=== PATIENT | male | born 1975 | race Caucasian/White ===

== ENCOUNTER 2016-08-26 13:25 | Emergency (ER) | payer SELFPAY ==
--- NOTE | 2016-08-26 13:40 | ER Document Report ---
ED Psych Disorder / Suicide <ROMERO SHULTZ - Last Filed: 08/26/16 14:00> - General Mode of Arrival: Medic Information source: Patient, Law Enforcement, Emergency Med Personnel TRAVEL OUTSIDE OF THE [place] IN LAST 30 DAYS: No - HPI Patient complains to provider of: Suicidal ideation Associated symptoms: Other - See above <KAMILLE DRAPER - Last Filed: 08/26/16 14:04> <MARI NICHOLS - Last Filed: 08/26/16 23:57> - General Chief Complaint: Suicidal Ideation Stated Complaint: SUICIDIAL IDEATIONS Notes: Patient is a 41 year old male who presents to the emergency department via EMS for suicidal ideation. Per [employer], patient had called EMS this morning reporting he wanted to hurt himself but refused a miner pick, he then started calling others stating the same thing. Police were called and sent an ambulance to miner pick the patient who was found intoxicated and blew a 0.34. Patient appears very intoxicated in exam room and does not answer questions well. (KAMILLE DRAPER) - Related Data Allergies/Adverse Reactions: No Known Allergies Allergy (Verified 04/12/16 02:37) Past Medical History - General Information source: Patient - Social History Smoking Status: Current Every Day Smoker Family History: Reviewed & Not Pertinent - Past Medical History Cardiac Medical History: Reports: Hx Hypertension Neurological Medical History: Reports: Hx Seizures - on Depakote Psychiatric Medical History: Reports: Hx Anxiety, Hx Bipolar Disorder, Hx Depression Past Surgical History: Reports: Hx Oral Surgery - Immunizations Hx Diphtheria, Pertussis, Tetanus Vaccination: Yes - given in er today <KAMILLE DRAPER - Last Filed: 08/26/16 14:04> Review of Systems - Review of Systems -: Yes ROS unobtainable due to patient's medical condition - EtOH Respiratory: No symptoms reported <KAMILLE DRAPER - Last Filed: 08/26/16 14:04> Physical Exam - Vital signs Interpretation: Other - As per chart, reviewed <ROMERO SHULTZ - Last Filed: 08/26/16 14:00> <KAMILLE DRAPER - Last Filed: 08/26/16 14:04> <MARI NICHOLS - Last Filed: 08/26/16 23:57> - Vital signs Vitals: Temp Pulse Resp BP Pulse Ox 98.5 F 109 H 18 138/96 H 95 08/26/16 13:43 08/26/16 13:43 08/26/16 13:43 08/26/16 13:43 08/26/16 13:43 - Notes Notes: GENERAL: VS as per nursing doc. Well-appearing, well-nourished and in no acute distress though has slurred speech and grossly appears intoxicated. HEAD: Atraumatic, normocephalic. EYES: Pupils equal round and reactive to light, extraocular movements intact, sclera anicteric, no conjunctival injection or discharge. Horizontal nystagmus noted. ENT: Nares patent, oropharynx clear without exudates, moist mucous membranes. NECK: Normal range of motion, supple without lymphadenopathy. LUNGS: Breath sounds clear to auscultation bilaterally and equal. No wheezes rales or rhonchi. HEART: Regular rhythm without murmurs. Tachycardic. ABDOMEN: Soft, non-tender. BACK: No CVA tenderness. EXTREMITIES: Normal range of motion, no calf tenderness, no edema. NEUROLOGICAL: Grossly intact, moving all extremities well. Limited due to apparent intoxication. SKIN: Warm, dry, normal turgor. (ROMERO SHULTZ) Course - Laboratory Result Diagrams: 08/26/16 13:56 08/26/16 13:56 <MARI NICHOLS - Last Filed: 08/26/16 23:57> - Vital Signs Vital signs: Temp Pulse Resp BP Pulse Ox 98.3 F 88 18 126/88 H 93 08/26/16 18:27 08/26/16 20:00 08/26/16 20:00 08/26/16 20:00 08/26/16 18:27 - Laboratory Laboratory results interpreted by me: 08/26/16 08/26/16 13:56 13:56 Hgb 17.2 H RDW 14.7 H Sodium 153.4 H Chloride 113 H Carbon Dioxide 20 L Anion Gap 20 H Salicylates < 1.0 L Acetaminophen < 10 L Serum Alcohol 434 H* Discharge <ROMERO SHULTZ - Last Filed: 08/26/16 14:00> <KAMILLE DRAPER - Last Filed: 08/26/16 14:04> <MARI NICHOLS - Last Filed: 08/26/16 23:57> - Discharge Clinical Impression: Alcohol intoxication Qualifiers: Complication of substance-induced condition: uncomplicated Qualified Code(s): F10.120 - Alcohol abuse with intoxication, uncomplicated Condition: Good Disposition: HOME, SELF-CARE Additional Instructions: You were seen in the emergency department today for being drunk. Being seen in the emergency department after drinking alcohol is a serious indicator that you have a problem with alcohol. You should seek help with the attached resources for your problem drinking. Please return to the emergency room immediately if you experience any concerning symptoms including high fevers, severe headache, chest pain, difficulty breathing, abdominal pain, slurred speech, numbness or weakness in your arms or legs, or any other symptom that concerns you. Scribe Documentation - Scribe Written by Sandra:: sandra [place], 08/26/16, 1408 acting as scribe for :: Dillon <KAMILLE DRAPER - Last Filed: 08/26/16 14:04>
[2016-08-26 14:14] LABS: ABSOLUTE EOSINOPHILS # (AUTO) 0.1 10^3/uL (0.0-0.6); ABSOLUTE LYMPHOCYTES (AUTO) 2.9 10^3/uL (0.5-4.7); ABSOLUTE MONOCYTES (AUTO) 0.8 10^3/uL (0.1-1.4); ABSOLUTE NEUT (AUTO) 4.6 10^3/uL (1.7-8.2); BASOPHILS % (AUTO) 0.5 % (0-2); HEMATOCRIT 49.1 % (37.9-51.0); HEMOGLOBIN 17.2 g/dL (13.5-17.0); HGB HCT DIFFERENCE 2.5; LYMPHOCYTES % (AUTO) 34.7 % (13-45); MEAN CORPUSCULAR HEMOGLOBIN 31.7 pg (27.0-33.4); MEAN CORPUSCULAR HGB CONC 35.1 g/dL (32.0-36.0); MEAN CORPUSCULAR VOLUME 91 fl (80-97); MONOCYTES % (AUTO) 9.5 % (3-13); RED BLOOD COUNT 5.42 10^6/uL (4.35-5.55); RED CELL DISTRIBUTION WIDTH 14.7 % (11.5-14.0); SEGMENTED NEUTROPHILS % (AUTO) 54.3 % (42-78); WHITE BLOOD COUNT 8.4 10^3/uL (4.0-10.5)
[2016-08-26 14:38] LABS: BLOOD UREA NITROGEN 9 mg/dL (7-20); CALCIUM 8.9 mg/dL (8.4-10.2); CARBON DIOXIDE 20 mmol/L (22-30); CHLORIDE 113 mmol/L (98-107); CREATININE RESULT 0.74 mg/dL (0.52-1.25); GLUCOSE 100 mg/dL (75-110); POTASSIUM 4.5 mmol/L (3.6-5.0); SODIUM 153.4 mmol/L (137-145)
[2016-08-26 14:48] LABS: URINE BARBITURATES SCREEN NEGATIVE; URINE METHADONE SCREEN NEGATIVE; URINE OPIATES LOW NEGATIVE; URINE PHENCYCLIDINE SCREEN NEGATIVE
[2016-08-26 14:58] LABS: ALCOHOL 434 mg/dL (NONE DETECTED)
[2016-08-26] MEDS ORDERED: DEXTROSE 5%-1/2 NORMAL SALINE 1,000 ML IV ONE (15:07)
[2016-08-26 15:16] LABS: ANION GAP 20 (5-19)
[2016-08-26] MEDS ORDERED: HALOPERIDOL LACTATE INJ 5 MG/1 ML VIAL IM ONE ×2 (16:43→17:08)
[2016-08-26] MEDS ORDERED: DIPHENHYDRAMINE HCL 50 MG/ML VIAL IM ONE ×2 (16:44→17:09)
[2016-08-26] MEDS ORDERED: HALOPERIDOL LACTATE INJ 5 MG/1 ML VIAL IV ONE (16:45)
[2016-08-26] MEDS ORDERED: DIPHENHYDRAMINE HCL 50 MG/ML VIAL IV ONE (16:46)
[2016-08-26] MEDS ORDERED: LORAZEPAM INJ 2 MG/1 ML VIAL IM ONE (17:10)
--- NOTE | 2016-08-26 23:56 | ER Document Report ---
Doctor's Note Notes: 08/26/16 23:55 Patient reassessed for wicute alcohol intoxication without any additional acute complaints. Admits to heavy alcohol use today. No evidence of trauma on exam. Patient was monitored in the emergency department until they were clinically sober. Able to ambulate and talking clear sentences prior to discharge. Tolerating oral intake without difficulty. Denies SI to both me and the nurse. Does not meet IVC criteria. The patient has been instructed to seek help for alcohol detoxification. Will discharge and return precautions and follow-up recommendations.
[2016-08-27 00:10] VITALS: BP 156/98
[2016-08-27 00:11] LABS: ALCOHOL 142 mg/dL (NONE DETECTED); ANION GAP 18 (5-19); BLOOD UREA NITROGEN 9 mg/dL (7-20); CALCIUM 9.3 mg/dL (8.4-10.2); CARBON DIOXIDE 23 mmol/L (22-30); CHLORIDE 106 mmol/L (98-107); CREATININE RESULT 0.69 mg/dL (0.52-1.25); GLUCOSE 122 mg/dL (75-110); POTASSIUM 3.9 mmol/L (3.6-5.0); SODIUM 146.7 mmol/L (137-145)
== END 2016-08-27 00:12 | disposition home or self-care (01) ==
LOC: ER 13:25
DX: R45.851 Suicidal ideations (principal); F10.120 Alcohol abuse with intoxication, uncomplicated; I10 Essential (primary) hypertension; F17.200 Nicotine dependence, unspecified, uncomplicated
CPT/HCPCS: 99284; 96372; 96375; 96365; 96366; 36415; 80307 ×4; 85025; 80048; J1200; J1630; J2060

== ENCOUNTER 2018-05-31 23:26 | Inpatient (IN) | payer SELFPAY ==
[2018-05-31] MEDS ORDERED: FENTANYL CITRATE INJ/PF 100 MCG/2 ML AMPUL IV ONE (23:40)
[2018-05-31] MEDS ORDERED: ONDANSETRON HCL INJ/PF 4 MG/2 ML SDV IV ONE (23:40)
[2018-05-31] MEDS ORDERED: NORMAL SALINE 1000 ML 1,000 ML IV ONE (23:40)
[2018-06-01] MEDS ORDERED: PANTOPRAZOLE SODIUM 40 MG VIAL IV ONE (00:14)
[2018-06-01 00:50] LABS: ABSOLUTE BASOPHILS # (AUTO) 0.1 10^3/uL (0.0-0.2); ABSOLUTE LYMPHOCYTES (AUTO) 1.4 10^3/uL (0.5-4.7); ABSOLUTE MONOCYTES (AUTO) 1.3 10^3/uL (0.1-1.4); ABSOLUTE NEUT (AUTO) 15.3 10^3/uL (1.7-8.2); BASOPHILS % (AUTO) 0.6 % (0-2); EOSINOPHILS % (AUTO) 0.1 % (0-6); HEMATOCRIT 48.3 % (37.9-51.0); LYMPHOCYTES % (AUTO) 7.9 % (13-45); MEAN CORPUSCULAR VOLUME 95 fl (80-97); MONOCYTES % (AUTO) 7.2 % (3-13); PLATELET COUNT 256 10^3/uL (150-450); RED CELL DISTRIBUTION WIDTH 13.2 % (11.5-14.0); SEGMENTED NEUTROPHILS % (AUTO) 84.2 % (42-78); TOTAL CELLS COUNTED % (AUTO) 100 %; WHITE BLOOD COUNT 18.1 10^3/uL (4.0-10.5)
[2018-06-01 00:57] LABS: ALANINE AMINOTRANSFERASE 837 U/L (21-72); ALBUMIN 4.3 g/dL (3.5-5.0); ALKALINE PHOSPHATASE 149 U/L (38-126); ANION GAP 11 (5-19); ASPARTATE AMINO TRANSFERASE 683 U/L (17-59); BILIRUBIN,DIRECT 0.6 mg/dL (0.0-0.4); BILIRUBIN,TOTAL 1.3 mg/dL (0.2-1.3); BLOOD UREA NITROGEN 13 mg/dL (7-20); CARBON DIOXIDE 23 mmol/L (22-30); CHLORIDE 98 mmol/L (98-107); GLUCOSE 94 mg/dL (75-110); LIPASE 448.1 U/L (23-300); POTASSIUM 4.8 mmol/L (3.6-5.0); SODIUM 131.6 mmol/L (137-145); TOTAL PROTEIN 7.3 g/dL (6.3-8.2)
[2018-06-01 01:03] LABS: HEMOGLOBIN 16.2 g/dL (13.5-17.0); MEAN CORPUSCULAR HEMOGLOBIN 31.8 pg (27.0-33.4); MEAN CORPUSCULAR HGB CONC 33.5 g/dL (32.0-36.0)
[2018-06-01] MEDS ORDERED: HYDROMORPHONE HCL INJ/PF 2 MG/ML AMPULE IV ONE ×2 (01:07→02:10)
--- NOTE | 2018-06-01 01:11 | ER Document Report ---
ED General - General Chief Complaint: Abdominal Pain Stated Complaint: ABDOMINAL PAIN Time Seen by Provider: 05/31/18 23:30 Notes: Patient is 43-year-old male who presents with complaint of pain in epigastric region that has been ongoing since this morning. Last drink of alcohol was last night. He says he drinks every other day. No fevers. Some vomiting. No diarrhea. No blood in his emesis. No blood in the stool. No chest pain. He denies ever having pain like this before. He denies history of pancreatitis. No other complaints at this time. TRAVEL OUTSIDE OF THE [place] IN LAST 30 DAYS: No - Related Data Allergies/Adverse Reactions: No Known Allergies Allergy (Verified 04/12/16 02:37) Past Medical History - Social History Smoking Status: Current Every Day Smoker Chew tobacco use (# tins/day): No Frequency of alcohol use: Heavy Drug Abuse: None, Marijuana Family History: Reviewed & Not Pertinent Patient has suicidal ideation: No Patient has homicidal ideation: No - Past Medical History Cardiac Medical History: Reports: Hx Hypertension Pulmonary Medical History: Denies: Hx Tuberculosis Neurological Medical History: Reports: Hx Seizures - on Depakote Renal/ Medical History: Denies: Hx Peritoneal Dialysis Psychiatric Medical History: Reports: Hx Anxiety, Hx Bipolar Disorder, Hx Depression Past Surgical History: Reports: Hx Oral Surgery - Immunizations Hx Diphtheria, Pertussis, Tetanus Vaccination: Yes - given in er today Review of Systems - Review of Systems Notes: My Normal Review Basic REVIEW OF SYSTEMS: CONSTITUTIONAL : Denies fever, chills, or sweats. Denies recent illness. CARDIOVASCULAR: Denies chest pain. RESPIRATORY: Denies cough, cold, or chest congestion. Denies shortness of breath, difficulty breathing, or wheezing. GASTROINTESTINAL: Epigastric abdominal pain with vomiting. GENITOURINARY: Denies difficulty urinating, painful urination, burning, frequency, or blood in urine. MUSCULOSKELETAL: Denies neck or back pain or joint pain or swelling. SKIN: Denies rash or skin lesions. NEUROLOGICAL: Denies altered mental status or loss of consciousness. Denies headache. Denies weakness or paralysis or loss of use of either side. Denies problems with gait or speech. Denies sensory or motor loss. ALL OTHER SYSTEMS REVIEWED AND NEGATIVE. Physical Exam - Vital signs Vitals: Pulse Resp BP Pulse Ox 139 H 18 167/123 H 97 05/31/18 23:38 05/31/18 23:38 05/31/18 23:38 05/31/18 23:38 - Notes Notes: General Appearance: Well nourished, alert, cooperative, no acute distress, moderate obvious discomfort. Vitals: reviewed, See vital signs table. Head: no swelling or tenderness to the head Eyes: PERRL, EOMI, Conjuctiva clear Mouth: No decreasd moisture Lungs: No wheezing, No rales, No rhonci, No accessory muscle use, good air exchange bilaterally. Heart: Normal rate, Regular rythm, No murmur, no rub Abdomen: Normal BS, soft, No rigidity, no significant reproducible pain to palpation of the abdomen., No guarding, no rebound, no abdominal masses, no organomegaly Extremities: strength 5/5 in all extremities, good pulses in all extremities, no swelling or tenderness in the extremities, no edema. Skin: warm, dry, appropriate color, no rash Neuro: speech clear, oriented x 3, normal affect, responds appropriately to questions. Course - Re-evaluation Re-evalutation: 06/01/18 01:09 On reevaluation patient continues to have significant pain but does not have much pain to palpation of the abdomen. CT scan with IV contrast has been ordered to evaluate the pancreas will be better as well as also look at the gallbladder. 06/01/18 02:29 CT scan shows inflammation around the pancreas consistent with acute pancreatitis with associated area in the pancreatic tail concerning for small pseudocyst versus mass versus necrosis. I did discuss the case with our hospitalist, Dr. Espinoza, who says that the patient would probably be better served at a tertiary care facility being that we do not have surgical especially the be willing to do surgery on the pancreas if this turns out to be hemorrhagic lesion or worsening necrosis. I therefore called [facility] and spoke with the hospitalist, Dr. Farooq, who agrees to accept the patient for transfer. They said there is a waiting list. I will continue the patient on pain medicine, IV fluids, and IV antibiotics until patient is transferred. I will also continue to give him some benzodiazepines a suspect as he may be having some signs of withdrawal as he started to have little bit of shaking which could be related to anxiety but also related to withdrawal. Dictation of this chart was performed using voice recognition software; therefore, there may be some unintended grammatical errors. 06/01/18 05:22 - Vital Signs Vital signs: Temp Pulse Resp BP Pulse Ox 99 F 139 H 21 H 168/108 H 97 06/01/18 04:01 05/31/18 23:38 06/01/18 05:03 06/01/18 05:02 05/31/18 23:38 - Laboratory Result Diagrams: 06/01/18 00:25 06/01/18 00:25 Laboratory results interpreted by me: 05/31/18 06/01/18 06/01/18 23:55 00:25 00:25 WBC 18.1 H Seg Neutrophils % 84.2 H Lymphocytes % 7.9 L Absolute Neutrophils 15.3 H Sodium 131.6 L Direct Bilirubin 0.6 H AST 683 H ALT 837 H Alkaline Phosphatase 149 H Lipase 448.1 H Urine Protein 30 H Urine Ketones 20 H Discharge - Discharge Clinical Impression: Pancreatic pseudocyst Pancreatitis Qualifiers: Chronicity: acute Pancreatitis type: alcohol induced Acute pancreatitis compl ication: unspecified Qualified Code(s): K85.20 - Alcohol induced acute pancreatitis without necrosis or infection Condition: Stable Disposition: [facility]
[2018-06-01 01:20] LABS: APPEARANCE,URINE SLIGHTLY-CLOUDY; BILIRUBIN,URINE NEGATIVE (NEGATIVE); COLOR,URINE AMBER; GLUCOSE, URINE NEGATIVE (NEGATIVE); KETONES,URINE 20 mg/dL (NEGATIVE); LEUKOCYTE ESTERASE,URINE NEGATIVE (NEGATIVE); NITRITE,URINE NEGATIVE (NEGATIVE); PROTEIN,URINE 30 mg/dL (NEGATIVE); UROBILINOGEN,URINE NEGATIVE mg/dL (<2.0)
--- NOTE | 2018-06-01 02:00 | RADIOLOGY REPORT (SQ) ---
EXAM DESCRIPTION: CT ABDOMEN PELVIS WITH IV CONTRAST COMPLETED DATE/TME: 06/01/2018 01:08 CLINICAL HISTORY: 43 years, Male, upper abdominal pain Comparison: None TECHNIQUE: Contiguous axial CT images of the abdomen and pelvis were obtained. Sagittal and coronal reformats were reviewed. This exam was performed according to our departmental dose-optimization program, which includes automated exposure control, adjustment of the mA and/or kV according to patient size and/or use of iterative reconstruction technique. FINDINGS: Lung bases: Clear. Liver:Unremarkable. No focal liver lesion. Gallbladder:Unremarkable. No gallstones. No gallbladder wall thickening or pericholecystic fluid. Spleen:Unremarkable Pancreas: Inflammatory fat stranding and trace fluid is present surrounding the pancreatic tail and in the left upper quadrant. There is a 1.5 x 1.3 cm hypodensity in the tip of the pancreatic tail. This may represent a pseudocyst, necrosis or mass lesion. The main pancreatic duct is not dilated. Adrenal glands:Within normal limits. Kidneys/ureters:Within normal limits Stomach/small bowel/colon: Stomach is unremarkable. Multiple prominent loops of small bowel throughout the abdomen. No discrete transition point. No mucosal thickening. Colon is unremarkable. Appendix: No evidence of appendicitis. Peritoneum: No free fluid. Vascular structures: within normal limits Lymph nodes: No abnormal lymph nodes. Bladder:Unremarkable. Pelvic organs: No acute abnormality Bones: No acute osseous abnormality. Soft tissues: Unremarkable.. IMPRESSION: Findings most consistent with acute pancreatitis and associated reactive ileus. Hypodensity in the tail of the pancreas may represent a small pseudocyst, however, area of parenchymal necrosis and mass lesions are also in the differential. Recommend follow-up imaging in 6-8 weeks.
[2018-06-01] MEDS ORDERED: DIAZEPAM INJ 10 MG/2 ML DISP.SYRIN IV ONE (02:10)
[2018-06-01] MEDS ORDERED: PIPERACILLIN/TAZOBACTAM 4.5 GM VIAL IV ONE (02:13)
[2018-06-01] MEDS ORDERED: RINGERS SOLUTION,LACTATED 1,000 ML IV ONE (02:35)
[2018-06-01] MEDS: HYDROMORPHONE HCL INJ/PF 2 MG/ML AMPULE IV PRN ×6 (04:02→18:58)
[2018-06-01] MEDS ORDERED: PIPERACILLIN/TAZOBACTAM 4.5 GM VIAL IV SCH (06:00)
[2018-06-01] MEDS: DIAZEPAM INJ 10 MG/2 ML DISP.SYRIN IV SCH ×3 (06:06→14:23)
[2018-06-01] MEDS: PIPERACILLIN/TAZOBACTAM 4.5 GM VIAL IV SCH ×2 (09:12→14:28)
--- NOTE | 2018-06-01 09:57 | ER Document Report ---
Doctor's Note Notes: 06/01/18 09:51 Rounds: Chart reviewed and patient interviewed. Patient here for abdominal pain found to have pancreatitis and a possible pancreatic pseudocyst labs showed a white count of 18,100. Some elevation in the LFTs and a lipase of 448. Patient was evaluated by the hospitalist on duty last night he did not feel we should take care of the patient here and he recommended transfer to [facility] where he spoke with the hospitalist there and have an accepting doctor. However, there are no beds available at this time and not certain if they will be a bed available today. I am going to order repeat labs on the patient. Currently, he is n.p.o. on IV fluids receiving pain meds for what the patient describes as "the worst pain of my life". Pointed out to him that this will be a recurring event if he continues to drink alcohol. Yaima Roth MD 06/01/18 19:53 Repeated labs this evening and the patient's white count is going up very slightly, but all of his liver function tests have improved significantly. His lipase level is now down to just 159. Patient has not been vomiting. He is been getting IV fluids. Pain medications also. Discussed this case with Dr. Espinoza, who agrees that this patient can be admitted to this facility at this time since he has shown clinical improvement and likely not going to require surgical intervention.
[2018-06-01 11:01] LABS: ABSOLUTE LYMPHOCYTES (AUTO) 1.1 10^3/uL (0.5-4.7); ABSOLUTE MONOCYTES (AUTO) 1.3 10^3/uL (0.1-1.4); ABSOLUTE NEUT (AUTO) 16.3 10^3/uL (1.7-8.2); BASOPHILS % (AUTO) 0.2 % (0-2); EOSINOPHILS % (AUTO) 0.1 % (0-6); HEMATOCRIT 44.4 % (37.9-51.0); HEMOGLOBIN 15.8 g/dL (13.5-17.0); LYMPHOCYTES % (AUTO) 6.1 % (13-45); MEAN CORPUSCULAR HEMOGLOBIN 33.8 pg (27.0-33.4); MEAN CORPUSCULAR HGB CONC 35.5 g/dL (32.0-36.0); MEAN CORPUSCULAR VOLUME 95 fl (80-97); MONOCYTES % (AUTO) 7.1 % (3-13); PLATELET COUNT 171 10^3/uL (150-450); RED BLOOD COUNT 4.66 10^6/uL (4.35-5.55); RED CELL DISTRIBUTION WIDTH 13.3 % (11.5-14.0); SEGMENTED NEUTROPHILS % (AUTO) 86.5 % (42-78); TOTAL CELLS COUNTED % (AUTO) 100 %; WHITE BLOOD COUNT 18.9 10^3/uL (4.0-10.5)
[2018-06-01 11:02] LABS: ALANINE AMINOTRANSFERASE 583 U/L (21-72); ALBUMIN 3.5 g/dL (3.5-5.0); ALKALINE PHOSPHATASE 133 U/L (38-126); ANION GAP 5 (5-19); ASPARTATE AMINO TRANSFERASE 339 U/L (17-59); BILIRUBIN,DIRECT 0.9 mg/dL (0.0-0.4); BILIRUBIN,TOTAL 2.3 mg/dL (0.2-1.3); BLOOD UREA NITROGEN 9 mg/dL (7-20); CALCIUM 8.2 mg/dL (8.4-10.2); CARBON DIOXIDE 24 mmol/L (22-30); CHLORIDE 102 mmol/L (98-107); GLUCOSE 84 mg/dL (75-110); LIPASE 308.8 U/L (23-300); POTASSIUM 4.8 mmol/L (3.6-5.0); SODIUM 131.3 mmol/L (137-145)
[2018-06-01] MEDS ORDERED: NORMAL SALINE 1000 ML 1,000 ML IV ONE ×2 (19:09→19:13)
[2018-06-01 19:30] LABS: HEMATOCRIT 43.5 % (37.9-51.0); MEAN CORPUSCULAR HEMOGLOBIN 32.7 pg (27.0-33.4); MEAN CORPUSCULAR HGB CONC 34.5 g/dL (32.0-36.0); MEAN CORPUSCULAR VOLUME 95 fl (80-97); PLATELET COUNT 156 10^3/uL (150-450); RED BLOOD COUNT 4.59 10^6/uL (4.35-5.55); RED CELL DISTRIBUTION WIDTH 13.2 % (11.5-14.0); WHITE BLOOD COUNT 20.2 10^3/uL (4.0-10.5)
[2018-06-01 19:32] LABS: ALANINE AMINOTRANSFERASE 486 U/L (21-72); ALBUMIN 3.6 g/dL (3.5-5.0); ALKALINE PHOSPHATASE 130 U/L (38-126); ANION GAP 11 (5-19); ASPARTATE AMINO TRANSFERASE 220 U/L (17-59); BILIRUBIN,TOTAL 2.4 mg/dL (0.2-1.3); BLOOD UREA NITROGEN 9 mg/dL (7-20); CALCIUM 8.2 mg/dL (8.4-10.2); CARBON DIOXIDE 24 mmol/L (22-30); CHLORIDE 98 mmol/L (98-107); GLUCOSE 74 mg/dL (75-110); LIPASE 159.9 U/L (23-300); POTASSIUM 4.7 mmol/L (3.6-5.0); SODIUM 133.1 mmol/L (137-145); TOTAL PROTEIN 6.2 g/dL (6.3-8.2)
[2018-06-01 19:46] LABS: ABSOLUTE LYMPHOCYTES# (MANUAL) 0.8 10^3/uL (0.5-4.7); ABSOLUTE MONOCYTES # (MANUAL) 0.6 10^3/uL (0.1-1.4); ABSOLUTE NEUTROPHILS# (MANUAL) 18.8 10^3/uL (1.7-8.2); BAND NEUTROPHILS % (MANUAL) 3 % (3-5); BASOPHILS % (MANUAL) 0 % (0-2); EOSINOPHILS % (MANUAL) 0 % (0-6); LYMPHOCYTES % (MANUAL) 4 % (13-45); MONOCYTES % (MANUAL) 3 % (3-13); SEGMENTED NEUTROPHILS % (MAN) 90 % (42-78); TOTAL CELLS COUNTED 100
[2018-06-01 19:47] LABS: RBC MORPHOLOGY COMMENT NORMO-CYTIC/CHROMIC; TOXIC GRANULATION SLIGHT
[2018-06-01 19:48] LABS: PLATELET COMMENT ADEQUATE
[2018-06-01] MEDS ORDERED: ONDANSETRON 4 MG TAB.RAPDIS PO PRN (19:52)
[2018-06-01] MEDS ORDERED: MAGNESIUM HYDROXIDE SUSP 30 ML UDCUP PO PRN (19:52)
[2018-06-01] MEDS ORDERED: ONDANSETRON HCL INJ/PF 4 MG/2 ML SDV IV PRN (19:52)
[2018-06-01] MEDS ORDERED: MAG HYDROX/AL HYDROX/SIMETH SUSP 30 ML UDCUP PO PRN (19:52)
[2018-06-01] MEDS ORDERED: ACETAMINOPHEN 650 MG SUPP.RECT PR PRN (19:57)
[2018-06-01] MEDS ORDERED: MORPHINE SULFATE 10 MG/ML INJ IV PRN (19:57)
[2018-06-01] MEDS ORDERED: ACETAMINOPHEN 325 MG TABLET PO PRN (19:57)
[2018-06-01] MEDS ORDERED: MEROPENEM 1 GM VIAL IV SCH (20:15)
[2018-06-01 20:52] LABS: ALANINE AMINOTRANSFERASE 481 U/L (21-72); ALBUMIN 3.5 g/dL (3.5-5.0); ALKALINE PHOSPHATASE 138 U/L (38-126); ASPARTATE AMINO TRANSFERASE 216 U/L (17-59); BILIRUBIN,DIRECT 0.9 mg/dL (0.0-0.4); BILIRUBIN,TOTAL 2.3 mg/dL (0.2-1.3); TOTAL PROTEIN 6.1 g/dL (6.3-8.2)
[2018-06-01] MEDS ORDERED: AZITHROMYCIN INJ 500 MG VIAL IV SCH (21:00)
[2018-06-01 21:09] LABS: FREE T3 3.24 pg/mL (2.77-5.27); FREE T4 (FREE THYROXINE) 1.11 ng/dL (0.78-2.19)
[2018-06-01] MEDS: DIAZEPAM INJ 10 MG/2 ML DISP.SYRIN IV PRN (21:44)
[2018-06-01] MEDS ORDERED: FAMOTIDINE 20 MG TABLET PO SCH (22:00)
[2018-06-01] MEDS ORDERED: AZITHROMYCIN 500 MG in DEXTROSE 5%-WATER 250 ML IV SCH (22:00)
[2018-06-01] MEDS: MEROPENEM 1 GM in NORMAL SALINE 50 ML IV SCH (22:08)
[2018-06-01] MEDS ORDERED: SUCRALFATE SUSP 1 GM/10 ML UDCUP PO ONE (22:15)
[2018-06-01] MEDS ORDERED: FAMOTIDINE 20 MG TABLET PO ONE (22:15)
[2018-06-01] MEDS ORDERED: METOCLOPRAMIDE HCL 10 MG TABLET PO ONE (22:15)
[2018-06-01] MEDS: MORPHINE SULFATE 10 MG/ML INJ IV PRN (23:34)
[2018-06-01] MEDS: HEPARIN SOD (PORCINE) 5,000 UNIT/ML 1 ML SYRINGE SUBCUT SCH (23:36)
[2018-06-01] MEDS: METRONIDAZOLE 500 MG/NS RTU 500 MG/100 ML RTUPB IV SCH (23:40)
[2018-06-01] MEDS ORDERED: AZITHROMYCIN INJ 500 MG VIAL IV ONE (23:49)
[2018-06-01] MEDS ORDERED: AZITHROMYCIN 500 MG in DEXTROSE 5%-WATER 250 ML IV ONE (23:59)
[2018-06-02] MEDS: DIAZEPAM 5 MG TABLET PO PRN ×2 (01:00→20:22)
[2018-06-02] MEDS: MORPHINE SULFATE 10 MG/ML INJ IV PRN ×4 (04:43→23:31)
[2018-06-02 05:40] LABS: ABSOLUTE LYMPHOCYTES (AUTO) 1.5 10^3/uL (0.5-4.7); ABSOLUTE NEUT (AUTO) 13.2 10^3/uL (1.7-8.2); BASOPHILS % (AUTO) 0.2 % (0-2); EOSINOPHILS % (AUTO) 0.2 % (0-6); HEMATOCRIT 39.7 % (37.9-51.0); HEMOGLOBIN 13.9 g/dL (13.5-17.0); LYMPHOCYTES % (AUTO) 9.3 % (13-45); MEAN CORPUSCULAR HEMOGLOBIN 33.5 pg (27.0-33.4); MEAN CORPUSCULAR HGB CONC 34.9 g/dL (32.0-36.0); MEAN CORPUSCULAR VOLUME 96 fl (80-97); MONOCYTES % (AUTO) 6.5 % (3-13); PLATELET COUNT 135 10^3/uL (150-450); RED BLOOD COUNT 4.15 10^6/uL (4.35-5.55); RED CELL DISTRIBUTION WIDTH 13.4 % (11.5-14.0); SEGMENTED NEUTROPHILS % (AUTO) 83.8 % (42-78); TOTAL CELLS COUNTED % (AUTO) 100 %; WHITE BLOOD COUNT 15.7 10^3/uL (4.0-10.5)
[2018-06-02] MEDS: HEPARIN SOD (PORCINE) 5,000 UNIT/ML 1 ML SYRINGE SUBCUT SCH ×3 (05:40→22:33)
[2018-06-02] MEDS: METRONIDAZOLE 500 MG/NS RTU 500 MG/100 ML RTUPB IV SCH ×4 (05:41→23:28)
[2018-06-02] MEDS: MEROPENEM 1 GM in NORMAL SALINE 50 ML IV SCH ×3 (05:41→22:31)
[2018-06-02 06:05] LABS: ALANINE AMINOTRANSFERASE 383 U/L (21-72); ALBUMIN 3.3 g/dL (3.5-5.0); ALKALINE PHOSPHATASE 130 U/L (38-126); AMYLASE 52 U/L (30-110); ANION GAP 7 (5-19); ASPARTATE AMINO TRANSFERASE 134 U/L (17-59); BILIRUBIN,DIRECT 0.7 mg/dL (0.0-0.4); BILIRUBIN,TOTAL 1.7 mg/dL (0.2-1.3); BLOOD UREA NITROGEN 8 mg/dL (7-20); CALCIUM 7.9 mg/dL (8.4-10.2); CARBON DIOXIDE 28 mmol/L (22-30); CHLORIDE 97 mmol/L (98-107); CHOLESTEROL 159.97 mg/dL (0-200); GLUCOSE 62 mg/dL (75-110); LIPASE 149.9 U/L (23-300); PHOSPHORUS 3.2 mg/dL (2.5-4.5); POTASSIUM 4.4 mmol/L (3.6-5.0); SODIUM 131.6 mmol/L (137-145); TOTAL PROTEIN 5.7 g/dL (6.3-8.2)
[2018-06-02 06:18] LABS: DIRECT LDL < 30 mg/dL (<100); TRIGLYCERIDES 569 mg/dL (<150)
[2018-06-02 06:23] LABS: FREE T3 2.91 pg/mL (2.77-5.27); FREE T4 (FREE THYROXINE) 1.03 ng/dL (0.78-2.19)
[2018-06-02 06:36] LABS: THYROID STIMULATING HORMONE 6.17 uIU/mL (0.47-4.68)
--- NOTE | 2018-06-02 08:07 | PDOC H&P ---
History of Present Illness Admission Date/PCP: 06/01/2018 No local PCP Patient complains of: Abdominal pain History of Present Illness: JACQUES BRITTON JR is a 43 year old male who presented to the emergency room with a 1 day history of rapidly worsening epigastric pain. He describes the pain as a severe, constant, sharp cramping pressure in his epigastric area radiating straight through into his back. He describes the pain is the worst pain he has ever experienced in his life. He admits that the pain started as a moderate discomfort on the sole buffer of 05/31/2018 and rapidly worsened to an intense level of severity. The pain was accompanied by nausea and vomiting. He denies prior similar episodes and has not identified any aggravating or ameliorating factors for his pain. He admits that he drinks alcohol heavily every other day and his last drink was on the evening prior to the onset of his pain. In the emergency room he was found to have significantly elevated liver enzymes, a white blood count of 19,000 as well as an elevated lipase. A CT of the abdomen showed distinct evidence of acute pancreatitis with possible cyst or developing abscess noted in the tail of the pancreas. Originally the patient was going to be transferred to a tertiary care facility due to the fact that he may have a developing abscess of the pancreas which could require immediate surgical int ervention not available at this institution. Over his course in the ER he has remained stable with his liver enzymes decreasing and his amylase returning to normal. His transfer has been delayed because of bed in availability at the tertiary facility that has accepted him. Since he is stable and is not being transferred in the foreseeable future he will be admitted to our facility for further evaluation and treatment. Past Medical History Cardiac Medical History: Reports: Hypertension Denies: Coronary Artery Disease, Hyperlipidema Pulmonary Medical History: Denies: Asthma, Chronic Obstructive Pulmonary Disease (COPD), Tuberculosis EENT Medical History: Reports: None Neurological Medical History: Reports: Seizures - on Depakote Denies: Hemorrhagic CVA, Ischemic CVA, Multiple Sclerosis Endocrine Medical History: Denies: Diabetes Mellitus Type 1, Diabetes Mellitus Type 2, Hyperthyroidism, Hypothyroidism Renal/ Medical History: Denies: Chronic Kidney Disease, Nephrolithiasis Malignancy Medical History: Reports: None GI Medical History: Denies: Cirrhosis, Hepatitis Musculoskeltal Medical History: Denies: Arthritis, Gout Skin Medical History: Denies: Eczema, Psoriasis Psychiatric Medical History: Reports: Alcohol Dependency, Bipolar Disorder, Depression, Substance Abuse, Tobacco Dependency Traumatic Medical History: Reports: None Hematology: Denies: Anemia, Bleeding Tendencies Infectious Medical History: Reports: None Past Surgical History Past Surgical History: Reports: None Social History Information Source: Patient Lives with: Alone Smoking Status: Current Every Day Smoker Frequency of Alcohol Use: Heavy Hx Recreational Drug Use: Yes Drugs: Marijuana Hx Prescription Drug Abuse: Yes - Advance Directive Resuscitation Status: Full Code Surrogate healthcare decision maker:: Sister Family History Family History: Hypertension Parental Family History Reviewed: Yes Children Family History Reviewed: No Sibling(s) Family History Reviewed.: Yes Medication/Allergy Home Medications: No Home Medications 10/21/13 Allergies/Adverse Reactions: No Known Allergies Allergy (Verified 04/12/16 02:37) Review of Systems Constitutional: ABSENT: chills, fever(s) Eyes: ABSENT: visual disturbances, other Ears: ABSENT: hearing changes, other Nose, Mouth, and Throat: ABSENT: mouth pain, sore throat Cardiovascular: ABSENT: chest pain, dyspnea on exertion, edema, orthropnea, p alpitations Respiratory: ABSENT: cough, dyspnea Gastrointestinal: PRESENT: as per HPI, abdominal pain, nausea, vomiting. ABSENT: constipation, diarrhea Genitourinary: ABSENT: dysuria, hematuria Musculoskeletal: ABSENT: back pain, joint swelling Integumentary: ABSENT: pruritus, rash Neurological: ABSENT: confusion, convulsions, memory loss, tremor(s) Psychiatric: ABSENT: anxiety, depression Endocrine: ABSENT: cold intolerance, heat intolerance Hematologic/Lymphatic: ABSENT: easy bleeding, easy bruising Physical Exam Vital Signs: Temp Pulse Resp BP Pulse Ox 100.1 F 139 H 17 166/115 H 96 06/01/18 18:59 05/31/18 23:38 06/01/18 19:00 06/01/18 18:01 06/01/18 19:00 Intake & Output 05/30/18 05/31/18 06/01/18 23:59 23:59 23:59 Intake Total 1999 Balance 1999 Weight 68.039 kg General appearance: PRESENT: no acute distress, cooperative Head exam: PRESENT: atraumatic, normocephalic Eye exam: PRESENT: conjunctiva pink, EOMI. ABSENT: scleral icterus Ear exam: PRESENT: normal external ear exam. ABSENT: bleeding, drainage Mouth exam: PRESENT: dry mucosa, neck supple Neck exam: ABSENT: thyromegaly, tracheal deviation Respiratory exam: PRESENT: clear to auscultation deisy, symmetrical, unlabored Cardiovascular exam: PRESENT: clicks, gallop, RRR, rubs Pulses: PRESENT: normal radial pulses, normal dorsalis pedis pul Vascular exam: PRESENT: normal capillary refill. ABSENT: pallor GI/Abdominal exam: PRESENT: normal bowel sounds, soft, tenderness - Mild to moderate midepigastric tenderness on palpation Rectal exam: PRESENT: deferred Extremities exam: ABSENT: joint swelling, pedal edema Musculoskeletal exam: PRESENT: full ROM, normal inspection Neurological exam: PRESENT: alert, oriented to person, oriented to place, oriented to time, oriented to situation, CN II-XII grossly intact. ABSENT: motor sensory deficit Psychiatric exam: PRESENT: appropriate affect, normal mood Skin exam: PRESENT: dry, intact, warm. ABSENT: jaundice, rash, urticaria Results Laboratory Results: 06/01/18 18:56 06/01/18 18:56 05/31/18 06/01/18 06/01/18 23:55 00:25 00:25 WBC 18.1 H RBC 5.10 Hgb 16.2 Hct 48.3 MCV 95 MCH 31.8 MCHC 33.5 RDW 13.2 Plt Count 256 Seg Neutrophils % 84.2 H Lymphocytes % 7.9 L Monocytes % 7.2 Eosinophils % 0.1 Basophils % 0.6 Absolute Neutrophils 15.3 H Absolute Lymphocytes 1.4 Absolute Monocytes 1.3 Absolute Eosinophils 0.0 Absolute Basophils 0.1 Sodium 131.6 L Potassium 4.8 Chloride 98 Carbon Dioxide 23 Anion Gap 11 BUN 13 Creatinine 0.65 Est GFR ( Amer) > 60 Est GFR (Non-Af Amer) > 60 Glucose 94 Calcium 9.0 Total Bilirubin 1.3 AST 683 H ALT 837 H Alkaline Phosphatase 149 H Total Protein 7.3 Albumin 4.3 Lipase 448.1 H Urine Color RONALDO Urine Appearance SLIGHTLY-CLOUDY Urine pH 5.0 Ur Specific [place] 1.030 Urine Protein 30 H Urine Glucose (UA) NEGATIVE Urine Ketones 20 H Urine Blood NEGATIVE Urine Nitrite NEGATIVE Ur Leukocyte Esterase NEGATIVE Urine WBC (Auto) 1 Urine RBC (Auto) 3 06/01/18 06/01/18 06/01/18 10:33 10:33 18:56 WBC 18.9 H 20.2 H RBC 4.66 4.59 Hgb 15.8 15.0 Hct 44.4 43.5 MCV 95 95 MCH 33.8 H 32.7 MCHC 35.5 34.5 RDW 13.3 13.2 Plt Count 171 156 Seg Neutrophils % 86.5 H Not Reportable Lymphocytes % 6.1 L Not Reportable Monocytes % 7.1 Not Reportable Eosinophils % 0.1 Not Reportable Basophils % 0.2 Not Reportable Absolute Neutrophils 16.3 H Not Reportable Absolute Lymphocytes 1.1 Not Reportable Absolute Monocytes 1.3 Not Reportable Absolute Eosinophils 0.0 Not Reportable Absolute Basophils 0.0 Not Reportable Sodium 131.3 L Potassium 4.8 Chloride 102 Carbon Dioxide 24 Anion Gap 5 BUN 9 Creatinine 0.79 Est GFR ( Amer) > 60 Est GFR (Non-Af Amer) > 60 Glucose 84 Calcium 8.2 L Total Bilirubin 2.3 H AST 339 H ALT 583 H Alkaline Phosphatase 133 H Total Protein 6.0 L Albumin 3.5 Lipase 308.8 H Urine Color Urine Appearance Urine pH Ur Specific [place] Urine Protein Urine Glucose (UA) Urine Ketones Urine Blood Urine Nitrite Ur Leukocyte Esterase Urine WBC (Auto) Urine RBC (Auto) 06/01/18 18:56 WBC RBC Hgb Hct MCV MCH MCHC RDW Plt Count Seg Neutrophils % Lymphocytes % Monocytes % Eosinophils % Basophils % Absolute Neutrophils Absolute Lymphocytes Absolute Monocytes Absolute Eosinophils Absolute Basophils Sodium 133.1 L Potassium 4.7 Chloride 98 Carbon Dioxide 24 Anion Gap 11 BUN 9 Creatinine 0.76 Est GFR ( Amer) > 60 Est GFR (Non-Af Amer) > 60 Glucose 74 L Calcium 8.2 L Total Bilirubin 2.4 H AST 220 H ALT 486 H Alkaline Phosphatase 130 H Total Protein 6.2 L Albumin 3.6 Lipase 159.9 Urine Color Urine Appearance Urine pH Ur Specific [place] Urine Protein Urine Glucose (UA) Urine Ketones Urine Blood Urine Nitrite Ur Leukocyte Esterase Urine WBC (Auto) Urine RBC (Auto) Impressions: Abdomen/Pelvis CT 06/01/18 01:08 IMPRESSION: Findings most consistent with acute pancreatitis and associated reactive ileus. Hypodensity in the tail of the pancreas may represent a small pseudocyst, however, area of parenchymal necrosis and mass lesions are also in the differential. Recommend follow-up imaging in 6-8 weeks. Assessment & Plan - Diagnosis (1) Acute pancreatitis Qualifiers: Pancreatitis type: alcohol induced Acute pancreatitis complication: infected necrosis Qualified Code(s): K85.22 - Alcohol induced acute pancreatitis with infected necrosis Is this a current diagnosis for this admission?: Yes Plan: Patient will be treated with IV fluid support as well as control of nausea with antiemetics and pain control with morphine 2-4 mg IV every 2 hours as needed for pain on a sliding scale basis. He will be started on a low-fat diet and will receive pancreatic enzyme replacement with each meal in the form of Pancreaze 10. He will also be treated prior to each meal and at bedtime with Reglan 10 mg, famotidine 10 mg and sucralfate 1 g. Diet may be advanced to a regular diet if the patient tolerates fluids and a low-fat diet. (2) Pancreatic cyst Is this a current diagnosis for this admission?: Yes Plan: The patient's pancreatic cyst is 16 mm in size and may well represent an early pseudocyst versus an area of necrosis with infection. Future imaging will be performed as recommended by radiology. (3) Elevated levels of transaminase & lactic acid dehydrogenase Is this a current diagnosis for this admission?: Yes Plan: Patient's liver function studies will be monitored on a daily basis as well his amylase, lipase, CBC and metabolic profile. (4) Alcohol abuse Is this a current diagnosis for this admission?: Yes Plan: Patient will be covered for alcohol withdrawal utilizing Valium 10 mg p.o. every 8 hours on a scheduled basis. Additionally he will receive Valium 10 mg IV every hour as needed severe anxiety/agitation/tremors/seizure activity. (5) Tobacco use disorder, severe, dependence Is this a current diagnosis for this admission?: Yes Plan: Smoking cessation is advised. Smoking cessation counseling is provided (brief). Nicotine replacement patch is available to the patient. - Time Time Spent: 30 to 50 Minutes Critical Time spent with patient: Less than 15 minutes Smoking Cessation Education: 3 to 10 minutes Anticipated discharge: Home - Inpatient Certification Based on my medical assessment, after consideration of the patient's comorbidities, presenting symptoms, or acuity I expect that the services needed warrant INPATIENT care.: Yes I certify that my determination is in accordance with my understanding of Medicare's requirements for reasonable and necessary INPATIENT services [42 CFR 412.3e].: Yes Medical Necessity: Significant Comorbidiites Make Outpatient Treatment Too Risky, Need For IV Fluids, Need for Pain Control, Need for IV Antibiotics, Risk of Complication if Not Cared For in Hospital
[2018-06-02] MEDS: SUCRALFATE SUSP 1 GM/10 ML UDCUP PO SCH ×4 (08:14→22:32)
[2018-06-02] MEDS: METOCLOPRAMIDE HCL 10 MG TABLET PO SCH ×4 (08:14→22:32)
[2018-06-02] MEDS: FAMOTIDINE 20 MG TABLET PO SCH ×4 (08:15→22:31)
[2018-06-02] MEDS: NORMAL SALINE 1000 ML 1,000 ML IV PRN ×2 (08:24→16:12)
[2018-06-02] MEDS: LIPASE/PROTEASE/AMYLASE 1 CAP CAPSULE.DR PO SCH ×3 (09:09→16:15)
[2018-06-02] MEDS: DOCUSATE SODIUM 100 MG CAPSULE PO SCH ×2 (09:09→17:06)
--- NOTE | 2018-06-02 13:02 | PDOC PROGRESS REPORT ---
Subjective Progress Note for:: 06/02/18 Subjective:: Patient seen and examined. His pain is improving. He is tolerating clear liquid. Reason For Visit: ACUTE PANCREATITIS Physical Exam Vital Signs: Temp Pulse Resp BP Pulse Ox 98.9 F 111 H 17 162/102 H 99 06/02/18 08:15 06/02/18 08:15 06/02/18 08:15 06/02/18 08:15 06/02/18 08:15 Intake & Output 06/01/18 06/02/18 06/03/18 06:59 06:59 06:59 Intake Total 1000 1550 Balance 1000 1550 Weight 162 lb 7.691 oz General appearance: PRESENT: no acute distress, cooperative Head exam: PRESENT: atraumatic, normocephalic Eye exam: ABSENT: conjunctival injection Ear exam: ABSENT: bleeding, drainage Mouth exam: PRESENT: moist, neck supple Neck exam: ABSENT: meningismus, tenderness Respiratory exam: PRESENT: clear to auscultation deisy. ABSENT: accessory muscle use Cardiovascular exam: PRESENT: RRR. ABSENT: systolic murmur Pulses: PRESENT: normal radial pulses. ABSENT: +1 pedal pulses bilateral GI/Abdominal exam: PRESENT: normal bowel sounds, soft, tenderness Rectal exam: PRESENT: deferred Extremities exam: ABSENT: pedal edema Musculoskeletal exam: PRESENT: ambulatory Neurological exam: PRESENT: alert, awake, oriented to person, oriented to place, oriented to time, oriented to situation Psychiatric exam: PRESENT: anxious Results Laboratory Results: 06/02/18 03:51 06/02/18 03:51 06/01/18 06/01/18 06/01/18 18:56 18:56 18:56 WBC 20.2 H RBC 4.59 Hgb 15.0 Hct 43.5 MCV 95 MCH 32.7 MCHC 34.5 RDW 13.2 Plt Count 156 Seg Neutrophils % Not Reportable Lymphocytes % Not Reportable Monocytes % Not Reportable Eosinophils % Not Reportable Basophils % Not Reportable Absolute Neutrophils Not Reportable Absolute Lymphocytes Not Reportable Absolute Monocytes Not Reportable Absolute Eosinophils Not Reportable Absolute Basophils Not Reportable Sodium 133.1 L Potassium 4.7 Chloride 98 Carbon Dioxide 24 Anion Gap 11 BUN 9 Creatinine 0.76 Est GFR ( Amer) > 60 Est GFR (Non-Af Amer) > 60 Glucose 74 L Calcium 8.2 L Phosphorus Magnesium Total Bilirubin 2.4 H 2.3 H AST 220 H 216 H ALT 486 H 481 H Alkaline Phosphatase 130 H 138 H Total Protein 6.2 L 6.1 L Albumin 3.6 3.5 Triglycerides Cholesterol LDL Cholesterol Direct VLDL Cholesterol HDL Cholesterol Amylase Lipase 159.9 TSH Free T4 Free T3 pg/mL 06/01/18 06/02/18 06/02/18 18:56 03:51 03:51 WBC 15.7 H RBC 4.15 L Hgb 13.9 Hct 39.7 MCV 96 MCH 33.5 H MCHC 34.9 RDW 13.4 Plt Count 135 L Seg Neutrophils % 83.8 H Lymphocytes % 9.3 L Monocytes % 6.5 Eosinophils % 0.2 Basophils % 0.2 Absolute Neutrophils 13.2 H Absolute Lymphocytes 1.5 Absolute Monocytes 1.0 Absolute Eosinophils 0.0 Absolute Basophils 0.0 Sodium 131.6 L Potassium 4.4 Chloride 97 L Carbon Dioxide 28 Anion Gap 7 BUN 8 Creatinine 0.73 Est GFR ( Amer) > 60 Est GFR (Non-Af Amer) > 60 Glucose 62 L Calcium 7.9 L Phosphorus 3.2 Magnesium 1.7 Total Bilirubin 1.7 H AST 134 H ALT 383 H Alkaline Phosphatase 130 H Total Protein 5.7 L Albumin 3.3 L Triglycerides 569 H Cholesterol 159.97 LDL Cholesterol Direct < 30 VLDL Cholesterol UNABLE TO CALCULATE HDL Cholesterol 22 L Amylase 52 Lipase 149.9 TSH Free T4 1.11 Free T3 pg/mL 3.24 06/02/18 03:51 WBC RBC Hgb Hct MCV MCH MCHC RDW Plt Count Seg Neutrophils % Lymphocytes % Monocytes % Eosinophils % Basophils % Absolute Neutrophils Absolute Lymphocytes Absolute Monocytes Absolute Eosinophils Absolute Basophils Sodium Potassium Chloride Carbon Dioxide Anion Gap BUN Creatinine Est GFR ( Amer) Est GFR (Non-Af Amer) Glucose Calcium Phosphorus Magnesium Total Bilirubin AST ALT Alkaline Phosphatase Total Protein Albumin Triglycerides Cholesterol LDL Cholesterol Direct VLDL Cholesterol HDL Cholesterol Amylase Lipase TSH 6.17 H Free T4 1.03 Free T3 pg/mL 2.91 Impressions: Abdomen/Pelvis CT 06/01/18 01:08 IMPRESSION: Findings most consistent with acute pancreatitis and associated reactive ileus. Hypodensity in the tail of the pancreas may represent a small pseudocyst, however, area of parenchymal necrosis and mass lesions are also in the differential. Recommend follow-up imaging in 6-8 weeks. Assessment & Plan - Diagnosis (1) Acute pancreatitis Qualifiers: Pancreatitis type: alcohol induced Acute pancreatitis complication: infected necrosis Qualified Code(s): K85.22 - Alcohol induced acute pancreatitis with infected necrosis Is this a current diagnosis for this admission?: Yes Plan: Continue current management with IV fluids, antiemetics, opioids. Monitor electrolytes. (2) Alcohol abuse Is this a current diagnosis for this admission?: Yes Plan: Continue current management with Valium. Will give thiamine. (3) Elevated levels of transaminase & lactic acid dehydrogenase Is this a current diagnosis for this admission?: Yes Plan: Likely due to alcoholism. Monitor levels. (4) Pancreatic cyst Is this a current diagnosis for this admission?: Yes Plan: Continue to monitor. (5) Tobacco use disorder, severe, dependence Is this a current diagnosis for this admission?: Yes Plan: Nicotine patch offered to the patient
[2018-06-02] MEDS: THIAMINE HCL 100 MG TABLET PO SCH (16:15)
[2018-06-02 20:53] LABS: ALANINE AMINOTRANSFERASE 239 U/L (21-72); ALBUMIN 2.9 g/dL (3.5-5.0); ALKALINE PHOSPHATASE 109 U/L (38-126); ASPARTATE AMINO TRANSFERASE 61 U/L (17-59); BILIRUBIN,DIRECT 0.5 mg/dL (0.0-0.4); BILIRUBIN,TOTAL 1.1 mg/dL (0.2-1.3); TOTAL PROTEIN 4.7 g/dL (6.3-8.2)
[2018-06-02] MEDS ORDERED: AZITHROMYCIN 500 MG in DEXTROSE 5%-WATER 250 ML IV SCH (22:00)
[2018-06-02] MEDS: NICOTINE 21 MG/24 HR PATCH.TD24 TD PRN (23:28)
[2018-06-03] MEDS ORDERED: AZITHROMYCIN 500 MG in DEXTROSE 5%-WATER 250 ML IV ONE ×2
[2018-06-03] MEDS: DIAZEPAM 5 MG TABLET PO PRN ×2 (04:07→14:53)
[2018-06-03] MEDS: NORMAL SALINE 1000 ML 1,000 ML IV PRN ×3 (04:07→20:54)
[2018-06-03] MEDS: MEROPENEM 1 GM in NORMAL SALINE 50 ML IV SCH ×3 (06:12→22:28)
[2018-06-03] MEDS: MORPHINE SULFATE 10 MG/ML INJ IV PRN ×5 (06:12→22:43)
[2018-06-03] MEDS: HEPARIN SOD (PORCINE) 5,000 UNIT/ML 1 ML SYRINGE SUBCUT SCH ×3 (06:12→22:26)
[2018-06-03 06:20] LABS: ABSOLUTE EOSINOPHILS # (AUTO) 0.1 10^3/uL (0.0-0.6); ABSOLUTE LYMPHOCYTES (AUTO) 0.9 10^3/uL (0.5-4.7); ABSOLUTE MONOCYTES (AUTO) 0.8 10^3/uL (0.1-1.4); ABSOLUTE NEUT (AUTO) 9.3 10^3/uL (1.7-8.2); BASOPHILS % (AUTO) 0.2 % (0-2); EOSINOPHILS % (AUTO) 0.9 % (0-6); HEMATOCRIT 36.7 % (37.9-51.0); HEMOGLOBIN 12.8 g/dL (13.5-17.0); LYMPHOCYTES % (AUTO) 8.5 % (13-45); MEAN CORPUSCULAR HEMOGLOBIN 33.5 pg (27.0-33.4); MEAN CORPUSCULAR VOLUME 96 fl (80-97); MONOCYTES % (AUTO) 7.4 % (3-13); PLATELET COUNT 134 10^3/uL (150-450); RED BLOOD COUNT 3.84 10^6/uL (4.35-5.55); RED CELL DISTRIBUTION WIDTH 13.4 % (11.5-14.0); TOTAL CELLS COUNTED % (AUTO) 100 %; WHITE BLOOD COUNT 11.2 10^3/uL (4.0-10.5)
[2018-06-03] MEDS: METRONIDAZOLE 500 MG/NS RTU 500 MG/100 ML RTUPB IV SCH ×3 (06:47→17:09)
[2018-06-03 07:03] LABS: LIPASE 314.2 U/L (23-300); PHOSPHORUS 2.4 mg/dL (2.5-4.5)
[2018-06-03 07:04] LABS: ALANINE AMINOTRANSFERASE 203 U/L (21-72); ALBUMIN 2.9 g/dL (3.5-5.0); ALKALINE PHOSPHATASE 105 U/L (38-126); ANION GAP 5 (5-19); ASPARTATE AMINO TRANSFERASE 51 U/L (17-59); BILIRUBIN,DIRECT 0.5 mg/dL (0.0-0.4); BILIRUBIN,TOTAL 0.9 mg/dL (0.2-1.3); BLOOD UREA NITROGEN 7 mg/dL (7-20); CALCIUM 7.8 mg/dL (8.4-10.2); CARBON DIOXIDE 29 mmol/L (22-30); CHLORIDE 100 mmol/L (98-107); GLUCOSE 90 mg/dL (75-110); POTASSIUM 3.9 mmol/L (3.6-5.0); SODIUM 134.4 mmol/L (137-145); TOTAL PROTEIN 5.2 g/dL (6.3-8.2)
[2018-06-03] MEDS: SUCRALFATE SUSP 1 GM/10 ML UDCUP PO SCH ×4 (08:26→22:43)
[2018-06-03] MEDS: LIPASE/PROTEASE/AMYLASE 1 CAP CAPSULE.DR PO SCH ×3 (08:26→17:06)
[2018-06-03] MEDS: METOCLOPRAMIDE HCL 10 MG TABLET PO SCH ×4 (08:26→22:44)
[2018-06-03] MEDS: FAMOTIDINE 20 MG TABLET PO SCH ×4 (08:26→22:43)
[2018-06-03] MEDS: THIAMINE HCL 100 MG TABLET PO SCH (09:18)
[2018-06-03] MEDS: DOCUSATE SODIUM 100 MG CAPSULE PO SCH ×2 (09:18→17:09)
--- NOTE | 2018-06-03 12:06 | PDOC PROGRESS REPORT ---
Subjective Progress Note for:: 06/03/18 Subjective:: Patient seen and examined. His pain is improving. He is tolerating low-fat diet. Reason For Visit: ACUTE PANCREATITIS Physical Exam Vital Signs: Temp Pulse Resp BP Pulse Ox 98.9 F 101 H 16 152/99 H 96 06/03/18 07:40 06/03/18 07:40 06/03/18 07:40 06/03/18 07:40 06/03/18 07:40 Intake & Output 06/02/18 06/03/18 06/04/18 06:59 06:59 06:59 Intake Total 1550 3729 1100 Balance 1550 3729 1100 Weight 162 lb 7.691 oz 163 lb 12.855 oz General appearance: PRESENT: no acute distress, cooperative Head exam: PRESENT: atraumatic, normocephalic Mouth exam: PRESENT: moist, neck supple Neck exam: ABSENT: meningismus, tenderness Respiratory exam: PRESENT: clear to auscultation deisy. ABSENT: accessory muscle use Cardiovascular exam: PRESENT: RRR GI/Abdominal exam: PRESENT: normal bowel sounds, soft, tenderness. ABSENT: mass Rectal exam: PRESENT: deferred Musculoskeletal exam: PRESENT: ambulatory. ABSENT: deformity Neurological exam: PRESENT: alert, awake, oriented to person, oriented to place, oriented to time, oriented to situation Results Laboratory Results: 06/03/18 05:46 06/03/18 05:46 06/02/18 06/03/18 06/03/18 20:15 05:46 05:46 WBC 11.2 H RBC 3.84 L Hgb 12.8 L Hct 36.7 L MCV 96 MCH 33.5 H MCHC 35.0 RDW 13.4 Plt Count 134 L Seg Neutrophils % 83.0 H Lymphocytes % 8.5 L Monocytes % 7.4 Eosinophils % 0.9 Basophils % 0.2 Absolute Neutrophils 9.3 H Absolute Lymphocytes 0.9 Absolute Monocytes 0.8 Absolute Eosinophils 0.1 Absolute Basophils 0.0 Sodium Potassium Chloride Carbon Dioxide Anion Gap BUN Creatinine Est GFR ( Amer) Est GFR (Non-Af Amer) Glucose Calcium Phosphorus 2.4 L Magnesium 2.3 Total Bilirubin 1.1 AST 61 H ALT 239 H Alkaline Phosphatase 109 Total Protein 4.7 L Albumin 2.9 L Amylase 55 Lipase 314.2 H 06/03/18 05:46 WBC RBC Hgb Hct MCV MCH MCHC RDW Plt Count Seg Neutrophils % Lymphocytes % Monocytes % Eosinophils % Basophils % Absolute Neutrophils Absolute Lymphocytes Absolute Monocytes Absolute Eosinophils Absolute Basophils Sodium 134.4 L Potassium 3.9 Chloride 100 Carbon Dioxide 29 Anion Gap 5 BUN 7 Creatinine 0.59 Est GFR ( Amer) > 60 Est GFR (Non-Af Amer) > 60 Glucose 90 Calcium 7.8 L Phosphorus Magnesium Total Bilirubin 0.9 AST 51 ALT 203 H Alkaline Phosphatase 105 Total Protein 5.2 L Albumin 2.9 L Amylase Lipase Impressions: Abdomen/Pelvis CT 06/01/18 01:08 IMPRESSION: Findings most consistent with acute pancreatitis and associated reactive ileus. Hypodensity in the tail of the pancreas may represent a small pseudocyst, however, area of parenchymal necrosis and mass lesions are also in the differential. Recommend follow-up imaging in 6-8 weeks. Assessment & Plan - Diagnosis (1) Acute pancreatitis Qualifiers: Pancreatitis type: alcohol induced Acute pancreatitis complication: infected necrosis Qualified Code(s): K85.22 - Alcohol induced acute braun creatitis with infected necrosis Is this a current diagnosis for this admission?: Yes Plan: Continue current management with IV fluids, antiemetics, opioids. Monitor electrolytes. (2) Alcohol abuse Is this a current diagnosis for this admission?: Yes Plan: Continue current management with Valium. Continue thiamine. (3) Elevated levels of transaminase & lactic acid dehydrogenase Is this a current diagnosis for this admission?: Yes Plan: Likely due to alcoholism. Monitor levels. (4) Pancreatic cyst Is this a current diagnosis for this admission?: Yes Plan: Continue to monitor. Will need follow-up outpatient. I discussed with him and he understands. (5) Tobacco use disorder, severe, dependence Is this a current diagnosis for this admission?: Yes Plan: Nicotine patch offered to the patient
[2018-06-03] MEDS: DIAZEPAM INJ 10 MG/2 ML DISP.SYRIN IV PRN (20:41)
[2018-06-03 20:48] LABS: ALANINE AMINOTRANSFERASE 179 U/L (21-72); ALBUMIN 3.1 g/dL (3.5-5.0); ALKALINE PHOSPHATASE 106 U/L (38-126); ASPARTATE AMINO TRANSFERASE 43 U/L (17-59); BILIRUBIN,DIRECT 0.4 mg/dL (0.0-0.4); BILIRUBIN,TOTAL 0.8 mg/dL (0.2-1.3)
[2018-06-03] MEDS ORDERED: AZITHROMYCIN 500 MG in DEXTROSE 5%-WATER 250 ML IV SCH (22:00)
[2018-06-03] MEDS: NICOTINE 21 MG/24 HR PATCH.TD24 TD PRN (22:45)
[2018-06-04] MEDS: DIAZEPAM 5 MG TABLET PO PRN ×2 (00:56→09:40)
[2018-06-04] MEDS: METRONIDAZOLE 500 MG/NS RTU 500 MG/100 ML RTUPB IV SCH ×2 (00:56→06:49)
[2018-06-04 04:51] LABS: ABSOLUTE EOSINOPHILS # (AUTO) 0.2 10^3/uL (0.0-0.6); ABSOLUTE LYMPHOCYTES (AUTO) 1.2 10^3/uL (0.5-4.7); ABSOLUTE MONOCYTES (AUTO) 0.8 10^3/uL (0.1-1.4); ABSOLUTE NEUT (AUTO) 5.8 10^3/uL (1.7-8.2); BASOPHILS % (AUTO) 0.3 % (0-2); EOSINOPHILS % (AUTO) 2.5 % (0-6); HEMATOCRIT 34.5 % (37.9-51.0); HEMOGLOBIN 12.1 g/dL (13.5-17.0); LYMPHOCYTES % (AUTO) 14.8 % (13-45); MEAN CORPUSCULAR HEMOGLOBIN 33.6 pg (27.0-33.4); MEAN CORPUSCULAR VOLUME 96 fl (80-97); MONOCYTES % (AUTO) 10.3 % (3-13); PLATELET COUNT 147 10^3/uL (150-450); RED CELL DISTRIBUTION WIDTH 13.8 % (11.5-14.0); SEGMENTED NEUTROPHILS % (AUTO) 72.1 % (42-78); TOTAL CELLS COUNTED % (AUTO) 100 %; WHITE BLOOD COUNT 8.1 10^3/uL (4.0-10.5)
[2018-06-04 05:14] LABS: ALANINE AMINOTRANSFERASE 132 U/L (21-72); ALBUMIN 2.7 g/dL (3.5-5.0); ALKALINE PHOSPHATASE 91 U/L (38-126); AMYLASE 64 U/L (30-110); ANION GAP 7 (5-19); ASPARTATE AMINO TRANSFERASE 34 U/L (17-59); BILIRUBIN,DIRECT 0.3 mg/dL (0.0-0.4); BILIRUBIN,TOTAL 0.5 mg/dL (0.2-1.3); BLOOD UREA NITROGEN 10 mg/dL (7-20); CALCIUM 7.8 mg/dL (8.4-10.2); CARBON DIOXIDE 27 mmol/L (22-30); CHLORIDE 103 mmol/L (98-107); GLUCOSE 93 mg/dL (75-110); LIPASE 379.5 U/L (23-300); PHOSPHORUS 3.4 mg/dL (2.5-4.5); POTASSIUM 3.8 mmol/L (3.6-5.0); SODIUM 137.3 mmol/L (137-145)
[2018-06-04] MEDS: HEPARIN SOD (PORCINE) 5,000 UNIT/ML 1 ML SYRINGE SUBCUT SCH ×3 (06:01→21:35)
[2018-06-04] MEDS: MORPHINE SULFATE 10 MG/ML INJ IV PRN ×2 (06:10→08:36)
[2018-06-04] MEDS: MEROPENEM 1 GM in NORMAL SALINE 50 ML IV SCH (06:10)
[2018-06-04] MEDS: NORMAL SALINE 1000 ML 1,000 ML IV PRN (06:50)
[2018-06-04] MEDS: FAMOTIDINE 20 MG TABLET PO SCH ×4 (08:01→21:45)
[2018-06-04] MEDS: LIPASE/PROTEASE/AMYLASE 1 CAP CAPSULE.DR PO SCH ×3 (08:02→16:33)
[2018-06-04] MEDS: SUCRALFATE SUSP 1 GM/10 ML UDCUP PO SCH ×4 (08:02→21:44)
[2018-06-04] MEDS: METOCLOPRAMIDE HCL 10 MG TABLET PO SCH ×4 (08:03→21:45)
[2018-06-04] MEDS: DOCUSATE SODIUM 100 MG CAPSULE PO SCH ×2 (09:40→17:52)
[2018-06-04] MEDS: THIAMINE HCL 100 MG TABLET PO SCH (09:41)
[2018-06-04] MEDS: OXYCODONE-ACETAMINOPHEN 5-325 MG TABLET PO PRN ×3 (12:36→21:58)
--- NOTE | 2018-06-04 14:05 | PDOC PROGRESS REPORT ---
Subjective Progress Note for:: 06/04/18 Subjective:: Patient seen and examined. His pain is improving. He is tolerating low-fat diet. He is still on IV morphine. Reason For Visit: ACUTE PANCREATITIS Physical Exam Vital Signs: Temp Pulse Resp BP Pulse Ox 98.5 F 103 H 18 166/104 H 99 06/04/18 11:50 06/04/18 11:50 06/04/18 11:50 06/04/18 11:50 06/04/18 11:50 Intake & Output 06/03/18 06/04/18 06/05/18 06:59 06:59 06:59 Intake Total 3729 5406 1100 Balance 3729 5406 1100 Weight 163 lb 12.855 oz 161 lb 2.526 oz General appearance: PRESENT: no acute distress, cooperative Head exam: PRESENT: atraumatic, normocephalic Mouth exam: PRESENT: moist, neck supple Neck exam: ABSENT: meningismus, tenderness Respiratory exam: PRESENT: clear to auscultation deiys. ABSENT: accessory muscle use Cardiovascular exam: PRESENT: RRR. ABSENT: systolic murmur Pulses: PRESENT: normal radial pulses GI/Abdominal exam: PRESENT: normal bowel sounds, soft, tenderness - Epigastric Rectal exam: PRESENT: deferred Extremities exam: ABSENT: clubbing, pedal edema Musculoskeletal exam: PRESENT: ambulatory. ABSENT: deformity Neurological exam: PRESENT: alert, awake, oriented to person, oriented to place, oriented to time, oriented to situation Results Laboratory Results: 06/04/18 04:10 06/04/18 04:10 06/03/18 06/04/18 06/04/18 20:25 04:10 04:10 WBC 8.1 RBC 3.60 L Hgb 12.1 L Hct 34.5 L MCV 96 MCH 33.6 H MCHC 35.0 RDW 13.8 Plt Count 147 L Seg Neutrophils % 72.1 Lymphocytes % 14.8 Monocytes % 10.3 Eosinophils % 2.5 Basophils % 0.3 Absolute Neutrophils 5.8 Absolute Lymphocytes 1.2 Absolute Monocytes 0.8 Absolute Eosinophils 0.2 Absolute Basophils 0.0 Sodium 137.3 Potassium 3.8 Chloride 103 Carbon Dioxide 27 Anion Gap 7 BUN 10 Creatinine 0.55 Est GFR ( Amer) > 60 Est GFR (Non-Af Amer) > 60 Glucose 93 Calcium 7.8 L Phosphorus 3.4 Magnesium 2.2 Total Bilirubin 0.8 0.5 AST 43 34 ALT 179 H 132 H Alkaline Phosphatase 106 91 Total Protein 5.0 L 5.0 L Albumin 3.1 L 2.7 L Amylase 64 Lipase 379.5 H Impressions: Abdomen/Pelvis CT 06/01/18 01:08 IMPRESSION: Findings most consistent with acute pancreatitis and associated reactive ileus. Hypodensity in the tail of the pancreas may represent a small pseudocyst, however, area of parenchymal necrosis and mass lesions are also in the differential. Recommend follow-up imaging in 6-8 weeks. Assessment & Plan - Diagnosis (1) Acute pancreatitis Qualifiers: Pancreatitis type: alcohol induced Acute pancreatitis complication: infected necrosis Qualified Code(s): K85.22 - Alcohol induced acute pancreatitis with infected necrosis Is this a current diagnosis for this admission?: Yes Plan: DC IV fluids. Continue antiemetics, opioids. Switch IV morphine to p.o. Percocet. Monitor electrolytes. (2) Alcohol abuse Is this a current diagnosis for this admission?: Yes Plan: Ativan 2 mg every 4 as needed. continue thiamine. (3) Elevated levels of transaminase & lactic acid dehydrogenase Is this a current diagnosis for this admission?: Yes Plan: Likely due to alcoholism. Monitor levels. Improved. (4) Pancreatic cyst Is this a current diagnosis for this admission?: Yes Plan: Continue to monitor. Will need follow-up outpatient. I discussed with him and he understands. (5) Tobacco use disorder, severe, dependence Is this a current diagnosis for this admission?: Yes Plan: Nicotine patch offered to the patient - Plan Summary Plan Summary: Possible discharge tomorrow.
[2018-06-04] MEDS ORDERED: HYDRALAZINE HCL INJ/PF 20 MG/1 ML SDV IV ONE (16:15)
[2018-06-04] MEDS: LORAZEPAM 1 MG TABLET PO PRN ×2 (16:24→21:45)
[2018-06-04] MEDS ORDERED: LISINOPRIL 10 MG TABLET PO SCH (19:00)
[2018-06-05] MEDS: LORAZEPAM 1 MG TABLET PO PRN ×2 (04:01→11:30)
[2018-06-05] MEDS: OXYCODONE-ACETAMINOPHEN 5-325 MG TABLET PO PRN ×2 (04:02→11:39)
[2018-06-05] MEDS: HEPARIN SOD (PORCINE) 5,000 UNIT/ML 1 ML SYRINGE SUBCUT SCH (06:03)
[2018-06-05] MEDS: LIPASE/PROTEASE/AMYLASE 1 CAP CAPSULE.DR PO SCH ×2 (08:06→12:01)
[2018-06-05] MEDS: METOCLOPRAMIDE HCL 10 MG TABLET PO SCH ×2 (08:06→11:30)
[2018-06-05] MEDS: SUCRALFATE SUSP 1 GM/10 ML UDCUP PO SCH ×2 (08:06→11:29)
[2018-06-05] MEDS: FAMOTIDINE 20 MG TABLET PO SCH ×2 (08:07→11:29)
[2018-06-05 08:51] VITALS: BP 145/94
[2018-06-05] MEDS: DOCUSATE SODIUM 100 MG CAPSULE PO SCH (09:24)
[2018-06-05] MEDS: THIAMINE HCL 100 MG TABLET PO SCH (09:24)
--- NOTE | 2018-06-05 12:07 | PDOC DISCHARGE SUMMARY ---
General - Admit/Disc Date/PCP Admission Date/Primary Care Provider: 06/01/18 20:10 Discharge Date: 06/05/18 - Discharge Diagnosis (1) Acute pancreatitis Is this a current diagnosis for this admission?: Yes (2) Alcohol abuse Is this a current diagnosis for this admission?: Yes (3) Elevated levels of transaminase & lactic acid dehydrogenase Is this a current diagnosis for this admission?: Yes (4) Pancreatic cyst Is this a current diagnosis for this admission?: Yes (5) Tobacco use disorder, severe, dependence Is this a current diagnosis for this admission?: Yes - Additional Information Resuscitation Status: Full Code Discharge Diet: As Tolerated Discharge Activity: Activity As Tolerated Prescriptions: Chlordiazepoxide HCl [Librium 25 mg Capsule] 1 cap PO BID PRN #15 capsule PRN Reason: Lisinopril [Prinivil 10 mg Tablet] 20 mg PO QPM #30 tablet Ondansetron [Zofran Odt 4 mg Tablet] 4 mg PO Q4HP PRN #20 tab.rapdis PRN Reason: Oxycodone HCl/Acetaminophen [Percocet 5-325 mg Tablet] 1 tab PO Q6 PRN #15 tablet PRN Reason: Home Medications: Chlordiazepoxide HCl [Librium 25 mg Capsule] 1 cap PO BID PRN #15 capsule 06/05/18 Famotidine [Pepcid 20 mg Tablet] 10 mg PO ACHS #0 tablet 06/05/18 Lisinopril [Prinivil 10 mg Tablet] 20 mg PO QPM #30 tablet 06/05/18 Nicotine [Nicoderm 21 mg/24 Hr Transderm Patch] 1 each TD DAILYP PRN patch.td24 06/05/18 Ondansetron [Zofran Odt 4 mg Tablet] 4 mg PO Q4HP PRN #20 tab.rapdis 06/05/18 Oxycodone HCl/Acetaminophen [Percocet 5-325 mg Tablet] 1 tab PO Q6 PRN #15 tablet 06/05/18 History of Present Illness History of Present Illness: JACQUES BRITTON is a 43 year old male who presented to the emergency room with a 1 day history of rapidly worsening epigastric pain. He describes the pain as a severe, constant, sharp cramping pressure in his epigastric area radiating straight through into his back. He describes the pain is the worst pain he has ever experienced in his life. He admits that the pain started as a moderate discomfort on the organizational development consultant of 05/31/2018 and rapidly worsened to an intense level of severity. The pain was accompanied by nausea and vomiting. He denies prior similar episodes and has not identified any aggravating or ameliorating factors for his pain. He admits that he drinks alcohol heavily every other day and his last drink was on the evening prior to the onset of his pain. In the emergency room he was found to have significantly elevated liver enzymes, a white blood count of 19,000 as well as an elevated lipase. A CT of the abdomen showed distinct evidence of acute pancreatitis with possible cyst or developing abscess noted in the tail of the pancreas. Originally the patient was going to be transferred to a tertiary care facility due to the fact that he may have a developing abscess of the pancreas which could require immediate surgical intervention not available at this institution. Over his course in the ER he has remained stable with his liver enzymes decreasing and his amylase returning to normal. His transfer has been delayed because of bed in availability at the tertiary facility that has accepted him. Since he is stable and is not being transferred in the foreseeable future he will be admitted to our facility for further evaluation and treatment. Hospital Course Hospital Course: Patient was admitted and treated with aggressive IV fluid hydration. IV morphine and IV antiemetics. His diet was advanced slowly and he tolerated diet very well. Symptoms improved. His pain also improved. He received Valium and then switched to Ativan for alcoholism. He also received thiamine supplements. CT scan was positive for questionable cyst on the pancreas. This will need to be followed up outpatient. He totally understands and aware of the situation and he will follow-up outpatient was her primary care physician. He was switch from IV morphine to p.o. Percocet and tolerated that very well. We will discharge him on few pills of Percocet and also few pills of Librium to help and was alcohol abstinence possible withdrawal symptoms. He is ambulating without difficulty, he is eating without any problems, his pain is significantly improved. Okay for discharge. Physical Exam Vital Signs: Temp Pulse Resp BP Pulse Ox 98.1 F 86 16 145/94 H 100 06/05/18 08:50 06/05/18 08:50 06/05/18 08:50 06/05/18 08:50 06/05/18 08:50 Intake & Output 06/04/18 06/05/18 06/06/18 06:59 06:59 06:59 Intake Total 5406 2187 Balance 5406 2187 Weight 161 lb 2.526 oz 165 lb 9.074 oz General appearance: PRESENT: no acute distress, cooperative Head exam: PRESENT: atraumatic, normocephalic Mouth exam: PRESENT: moist, neck supple Neck exam: ABSENT: meningismus, tenderness Respiratory exam: PRESENT: clear to auscultation deisy. ABSENT: accessory muscle use Cardiovascular exam: PRESENT: RRR Pulses: PRESENT: normal radial pulses GI/Abdominal exam: PRESENT: normal bowel sounds, soft. ABSENT: tenderness Rectal exam: PRESENT: deferred Extremities exam: ABSENT: pedal edema Neurological exam: PRESENT: alert, awake, oriented to person, oriented to place, oriented to time, oriented to situation Results Laboratory Results: 06/04/18 04:10 06/04/18 04:10 Impressions: Abdomen/Pelvis CT 06/01/18 01:08 IMPRESSION: Findings most consistent with acute pancreatitis and associated reactive ileus. Hypodensity in the tail of the pancreas may represent a small pseudocyst, however, area of parenchymal necrosis and mass lesions are also in the differential. Recommend follow-up imaging in 6-8 weeks. Qualifiers - * PATIENT BEING DISCHARGED WITH ANY OF THE FOLLOWING DIAGNOSIS: No Plan Time Spent: Greater than 30 Minutes - 35 minutes spent on discharge
== END 2018-06-05 13:04 | disposition home or self-care (01) | DRG 439 ==
LOC: ER 23:26 → EH 06-01 20:10 → 4N 06-01 22:45 → UNDODISIN 06-04 18:00
PROVIDERS: ADMIT Emergency Medicine; ATTEND Emergency Medicine
DX: K85.22 Alcohol induced acute pancreatitis with infected necrosis (principal); K86.3 Pseudocyst of pancreas; I10 Essential (primary) hypertension; R56.9 Unspecified convulsions; F17.210 Nicotine dependence, cigarettes, uncomplicated; F10.20 Alcohol dependence, uncomplicated; F31.9 Bipolar disorder, unspecified; Z60.2 Problems related to living alone; F41.9 Anxiety disorder, unspecified; Z79.899 Other long term (current) drug therapy; Z82.49 Family history of ischemic heart disease and other diseases of the circulatory system
CPT/HCPCS: 36415; 74177; 80048; 80053; 80061; 80076; 80307; 81001; 82150; 83036; 83690; 83735; 84100; 84439; 84443; 84481; 85025; 96361; 96374; 96375; 99285; J0360; J0456; J1170; J1644; J2185; J2270; J2405; J2543; J3010; J3360; J3490; J7030; J7060; J7120; S0164

== ENCOUNTER 2019-11-30 22:38 | Emergency (ER) | payer SELFPAY ==
[2019-12-01] MEDS ORDERED: LORAZEPAM INJ 2 MG/1 ML VIAL IV ONE (05:50)
--- NOTE | 2019-12-01 05:53 | ER Document Report ---
ED Substance Abuse / Acc. OD - General TRAVEL OUTSIDE OF THE [place] IN LAST 30 DAYS: No <FANG UMANZOR - Last Filed: 12/01/19 07:48> <JODI DUKES - Last Filed: 12/01/19 12:34> - General Chief Complaint: Psych Problem Stated Complaint: PANIC ATTACK,DIFFICULTY BREATHING Time Seen by Provider: 12/01/19 05:39 Notes: Patient is a 44-year-old male that comes emergency department for chief complaint of hallucinations. He states that he overheard someone in the next room talking about how they were gone to kill him. He states that now that he has calmed down he believes that he was "just hallucinating from the crystal meth". He denies SI or HI. Patient states that he was successfully detox from alcohol, he lives with his daughter in an apartment, he states that he drank "2 ice houses and accidentally fell asleep". He states that his daughter discovered him with the beer and kicked him out of the apartment. He states he has been living in the [facility] for about a week. He states that he met someone who offered him crystal meth and he smoked a couple of days in a row. Patient states he has been unable to sleep and has been hallucinating. He states he is treated for hypertension, has a history of alcohol abuse previously but denies withdrawing now, denies recreational drugs otherwise, denies medical history otherwise. (FANG UMANZOR) - Related Data Allergies/Adverse Reactions: No Known Allergies Allergy (Verified 04/12/16 02:37) Past Medical History - General Information source: Patient - Social History Smoking Status: Current Every Day Smoker Frequency of alcohol use: Heavy Drug Abuse: Methamphetamine Lives with: Family Family History: Hypertension - Past Medical History Cardiac Medical History: Reports: Hx Hypertension Denies: Hx Coronary Artery Disease, Hx Hypercholesterolemia Pulmonary Medical History: Denies: Hx Asthma, Hx COPD, Hx Tuberculosis Neurological Medical History: Reports: Hx Seizures - on Depakote Endocrine Medical History: Denies: Hx Diabetes Mellitus Type 1, Hx Diabetes Mellitus Type 2, Hx Hyperthyroidism, Hx Hypothyroidism Renal/ Medical History: Denies: Hx Peritoneal Dialysis GI Medical History: Denies: Hx Cirrhosis, Hx Hepatitis Musculoskeletal Medical History: Denies Hx Arthritis, Denies Hx Gout Skin Medical History: Denies Hx Eczema, Denies Hx Psoriasis Psychiatric Medical History: Reports: Hx Anxiety, Hx Bipolar Disorder, Hx Depression Infectious Medical History: Denies: Hx Hepatitis Past Surgical History: Reports: Hx Oral Surgery - Immunizations Hx Diphtheria, Pertussis, Tetanus Vaccination: Yes - given in er today <FANG UMANZOR - Last Filed: 12/01/19 07:48> Review of Systems - Review of Systems Constitutional: See HPI EENT: No symptoms reported Cardiovascular: No symptoms reported Respiratory: No symptoms reported Gastrointestinal: No symptoms reported Genitourinary: No symptoms reported Male Genitourinary: No symptoms reported Musculoskeletal: No symptoms reported Skin: No symptoms reported Hematologic/Lymphatic: No symptoms reported Neurological/Psychological: See HPI <FANG UMANZOR - Last Filed: 12/01/19 07:48> Physical Exam <FANG UMANZOR - Filed: 12/01/19 07:48> - Vital signs Vitals: Temp Pulse Resp BP Pulse Ox 98.3 F 128 H 22 H 136/120 H 96 11/30/19 23:37 11/30/19 23:37 11/30/19 23:37 11/30/19 23:37 11/30/19 23:37 - Notes Notes: GENERAL: Patient is restless, has jerking and grunting movements, he is wide- eyed, patient is talking rapidly HEAD: Normocephalic, atraumatic. EYES: Pupils dilated but equal and reactive. Extraocular movements intact. ENT: Oral mucosa very dry, tongue midline. Oropharynx unremarkable. Airway patent. NECK: Full range of motion. Supple. Trachea midline. No lymphadenopathy. LUNGS: Clear to auscultation bilaterally, no wheezes, rales, or rhonchi. No respiratory distress. Non-tender chest wall. HEART: Tachycardic, normal rhythm, no murmur ABDOMEN: Soft, non-tender. Non-distended. EXTREMITIES: Moves all 4 extremities spontaneously. No edema, normal radial and dorsalis pedis pulses bilaterally. No cyanosis. BACK: no cervical, thoracic, lumbar midline tenderness. No saddle anesthesia, normal distal neurovascular exam. Moves all extremities in full range of motion. NEUROLOGICAL: Alert and oriented x3. Normal speech. Cranial nerves II through XII grossly intact. Strength 5/5 in all extremities. PSYCH: Very restless but not responding to internal stimuli, makes good eye contact, tangential conversation SKIN: Sunburned mainly over the chest and neck, otherwise unremarkable (FANG UMANZOR) Course - Laboratory Result Diagrams: 12/01/19 06:10 12/01/19 06:10 <FANG UMANZOR - Last Filed: 12/01/19 07:48> - Laboratory Result Diagrams: 12/01/19 06:10 12/01/19 08:55 <DUKESJODI - Last Filed: 12/01/19 12:34> - Re-evaluation Re-evalutation: Patient openly admits to crystal meth, is clearly under the influence of methamphetamine, he is tachycardic, has dilated pupils, he is very restless. However he is no longer complaining of hallucinations, he is not having suicidal or homicidal ideations, he does carry on a good conversation. Patient was medicated with Ativan, IV fluids. CBC shows leukocytosis, nonspecific given patient's presentation. Chemistry does show acute renal insufficiency/failure with creatinine of 2.59 and a low GFR, patient appears very dehydrated, urine is very concentrated. CK is not elevated, lipase unremarkable. Bicarbonate is low at 17 consistent with dehydration. Patient has already been given fluids, tachycardia has resolved, patient is actually much improved in appearance, therefore he will be given lactated Ringer's and chemistry will be repeated. (FANG UMANZOR) 12/01/19 09:59 Patient signed out to me at shift change by outgoing provider above. After LR patient's creatinine has improved to 1.89. He still appears to be to a degree under the influence but does carry on a good normal conversation. He reports that he cannot go back to his daughters and has nowhere to go. He requests assistance with being placed in a rehab facility. Patient will continue to hydrate orally. Will order a psych consult to evaluate the patient and help assist him with resources for rehab and/or medication recommendations. 12/01/19 11:31 12/01/19 12:31 Discussed with the patient at this time the options for rehab facilities, locally being [facility]. Patient states that he will elect to go to [facility] that he would like to go home first gather his belongings, changes close and then he will report back to [facility]. Told him this is acceptable since [facility] is a self-referral program. He is previously been medically cleared here. He is stable and appropriate for discharge and outpatient follow-up. He will go home according to him. Counseled him regarding the importance of outpatient follow-up and assistance programs at [facility]. Advised to return here any ER immediately with any new, persistent or worsening symptoms. He verbalized understood and agreed. (JODI DUKES) - Vital Signs Vital signs: Temp Pulse Resp BP Pulse Ox 98.8 F 121 H 21 H 120/75 98 12/01/19 07:00 12/01/19 03:31 12/01/19 07:00 12/01/19 07:00 12/01/19 07:00 - Laboratory Laboratory results interpreted by me: 12/01/19 12/01/19 12/01/19 06:10 06:10 06:10 WBC 17.0 H Absolute Neuts (auto) 12.6 H Absolute Monos (auto) 2.0 H Sodium 131.7 L Carbon Dioxide 17 L BUN 25 H Creatinine 2.59 H Est GFR ( Amer) 33 L Est GFR (MDRD) Non-Af 27 L Calcium Total Bilirubin 1.5 H ALT 53 H Alkaline Phosphatase 132 H Creatine Kinase 186 H Urine Protein 100 H Urine Ketones TRACE H Urine Bilirubin SMALL H Urine Urobilinogen 4.0 H Ur Leukocyte Esterase TRACE H Salicylates < 1.0 L Acetaminophen < 10 L 12/01/19 08:55 WBC Absolute Neuts (auto) Absolute Monos (auto) Sodium 131.4 L Carbon Dioxide 18 L BUN 23 H Creatinine 1.80 H Est GFR ( Amer) 50 L Est GFR (MDRD) Non-Af 41 L Calcium 7.6 L Total Bilirubin ALT Alkaline Phosphatase Creatine Kinase Urine Protein Urine Ketones Urine Bilirubin Urine Urobilinogen Ur Leukocyte Esterase Salicylates Acetaminophen - EKG Interpretation by Me Additional EKG results interpreted by me: EKG shows sinus tachycardia at a rate of 101, normal axis, no T wave inversions or ST segment changes in consecutive leads. QTC borderline prolonged at 493. Some artifact is present. (FANG UMANZOR) Discharge <FANG UMANZOR - Last Filed: 12/01/19 07:48> <JODI DUKES - Last Filed: 12/01/19 12:34> - Discharge Clinical Impression: Methamphetamine abuse, Dehydration, Hallucinations, Acute renal insufficiency Condition: Stable Disposition: HOME, SELF-CARE Instructions: Hallucinations ([facility]), Sinus Tachycardia ([facility]) Additional Instructions: Please report to [facility] for self admission as soon as possible. Return here or any ER immediately with any new, persistent or worsening symptoms.
[2019-12-01] MEDS: NORMAL SALINE 1000 ML 1,000 ML IV PRN ×2 (06:18→07:02)
[2019-12-01 06:32] LABS: ABSOLUTE BASOPHILS # (AUTO) 0.1 10^3/uL (0.0-0.2); ABSOLUTE LYMPHOCYTES (AUTO) 2.3 10^3/uL (0.5-4.7); ABSOLUTE NEUT (AUTO) 12.6 10^3/uL (1.7-8.2); BASOPHILS % (AUTO) 0.3 % (0-2); EOSINOPHILS % (AUTO) 0.1 % (0-6); HEMATOCRIT 42.4 % (37.9-51.0); HEMOGLOBIN 14.7 g/dL (13.5-17.0); LYMPHOCYTES % (AUTO) 13.3 % (13-45); MEAN CORPUSCULAR HEMOGLOBIN 32.6 pg (27.0-33.4); MEAN CORPUSCULAR HGB CONC 34.7 g/dL (32.0-36.0); MEAN CORPUSCULAR VOLUME 94 fl (80-97); PLATELET COUNT 250 10^3/uL (150-450); RED BLOOD COUNT 4.51 10^6/uL (4.35-5.55); RED CELL DISTRIBUTION WIDTH 13.8 % (11.5-14.0); SEGMENTED NEUTROPHILS % (AUTO) 74.3 % (42-78); TOTAL CELLS COUNTED % (AUTO) 100 %
[2019-12-01 06:44] LABS: APPEARANCE,URINE CLOUDY; BILIRUBIN,URINE SMALL (NEGATIVE); COLOR,URINE AMBER; GLUCOSE, URINE NEGATIVE (NEGATIVE); KETONES,URINE TRACE mg/dL (NEGATIVE); LEUKOCYTE ESTERASE,URINE TRACE (NEGATIVE); NITRITE,URINE NEGATIVE (NEGATIVE); PROTEIN,URINE 100 mg/dL (NEGATIVE); URINE SPECIFIC GRAVITY 1.025
[2019-12-01 06:59] LABS: URINE BARBITURATES SCREEN NEGATIVE; URINE BENZODIAZEPINES SCREEN NEGATIVE; URINE COCAINE SCREEN NEGATIVE; URINE MARIJUANA (THC) SCREEN UNCONFIRMED POSITIVE; URINE METHADONE SCREEN NEGATIVE; URINE PHENCYCLIDINE SCREEN NEGATIVE
[2019-12-01 07:00] LABS: ACETAMINOPHEN < 10 ug/mL (10-30); ALCOHOL < 10 mg/dL (NONE DETECTED); ALKALINE PHOSPHATASE 132 U/L (38-126); ANION GAP 16 (5-19); ASPARTATE AMINO TRANSFERASE 41 U/L (17-59); BILIRUBIN,DIRECT 0.3 mg/dL (0.0-0.4); BILIRUBIN,TOTAL 1.5 mg/dL (0.2-1.3); BLOOD UREA NITROGEN 25 mg/dL (7-20); CALCIUM 8.9 mg/dL (8.4-10.2); CARBON DIOXIDE 17 mmol/L (22-30); CHLORIDE 99 mmol/L (98-107); CREATINE KINASE 186 U/L (55-170); GLUCOSE 91 mg/dL (75-110); SALICYLATE < 1.0 mg/dL (2.0-20.0); TOTAL PROTEIN 6.8 g/dL (6.3-8.2)
[2019-12-01] MEDS ORDERED: RINGERS SOLUTION,LACTATED 1,000 ML IV ONE (07:09)
[2019-12-01 09:35] LABS: ANION GAP 9 (5-19); BLOOD UREA NITROGEN 23 mg/dL (7-20); CALCIUM 7.6 mg/dL (8.4-10.2); CARBON DIOXIDE 18 mmol/L (22-30); CHLORIDE 104 mmol/L (98-107); GLUCOSE 75 mg/dL (75-110); POTASSIUM 3.8 mmol/L (3.6-5.0)
[2019-12-01 13:04] VITALS: BP 117/82
--- NOTE | 2019-12-01 17:15 | PSYCHOLOGICAL NOTE ---
Psych Note - Psych Note Date seen by psych provider: 12/01/19 Time seen by psych provider: 11:05 Psych Note: Reason for consult: Detox Patient reports he has been experiencing increasing anxiety and panic attacks over the last week because he made a "mistake." He reports that his father so he had "2 beers" fell asleep. He reports that his daughter walked in and found him holding a beer so kicked him out of the home. He discloses he also lost his job that same day. He discloses that he needs to go to [facility]. When clinician discussed option of [facility] crisis [facility], patient stated he needs longer than just a couple days; "I need a 30-day pro gram." Clinician explained [facility] no longer has longer term treatment, rather they only do detox now. Patient reports he did not realize that that changed. He confirms he does not have insurance so will be unable to engage in any longer term treatment options unless he would like to go to detox and then [facility] or another residential treatment program. Patient reports his anxiety stems from living on the [address] again and states "I cannot go back out there because I will just relapse again." Patient reports he will think about going to [facility] however he is currently not ready to leave today that he will think about leaving [facility] tomorrow for [facility]. Clinician explained that this is the emergency department, and unless there is a medical reason, detox is not offered at [facility]. Patient is alert and orientated to person, place, time and circumstance. Mood is irritable with congruent affect. Clinician notes patient is highly agitated this moment as he was told he had to clean up feces that he had smeared throughout the bathroom. Patient's stated that he should not have to clean up after himself. Patient denies suicidal homicidal ideation. Delusions are absent. Patient is able to clearly articulate needs and wants. Patient demonstrates organized and linear thought processes. Eye contact is well maintained. Conversational speech is loud due to the patient being upset at s taff. Intellectual abilities appear to be within the average range. Attention and concentration fair. Insight, judgment, impulse control is fair. Clinical presentation Substance abuse Homelessness Cluster B personality traits Pression\\plan: Patient is cleared from acute psychiatric services. Patient has been demonstrating inappropriate behaviors however is fully aware of what he is doing. Patient is angry that he was made to clean up his feces that he had smeared on the muñoz and floor of the bathroom; "I should not have to do that it is their job." Patient is requesting detox assistance however is unwilling to utilize available services. Patient is able to clearly articulate needs and wants and is not demonstrating any behaviors that he is responding to internal stimuli. Patient will be provided local resource list of area providers, mobile crisis contact information and detox facilities. Dr. Mansfield was consulted to care management of this patient; attending physicians in agreement with recommendations and disposition.
--- NOTE | 2019-12-01 19:16 | EKG REPORT ---
SEVERITY:- BORDERLINE ECG - SINUS TACHYCARDIA BORDERLINE T ABNORMALITIES, ANT-LAT LEADS BORDERLINE PROLONGED QT INTERVAL : Confirmed by: Ajit Barragan 01-Dec-2019 19:15:38
== END 2019-12-01 13:05 | disposition home or self-care (01) ==
LOC: ER 22:38
DX: F15.10 Other stimulant abuse, uncomplicated (principal); E86.0 Dehydration; N17.9 Acute kidney failure, unspecified; R44.3 Hallucinations, unspecified; R45.1 Restlessness and agitation; R00.0 Tachycardia, unspecified; H57.04 Mydriasis; L55.9 Sunburn, unspecified; D72.829 Elevated white blood cell count, unspecified; I10 Essential (primary) hypertension; F17.200 Nicotine dependence, unspecified, uncomplicated; Z59.0 Homelessness
CPT/HCPCS: 93005; 99285; 96361; 96374; 36415; 87086; 80307 ×4; 82550; 83690; 85025; 80053; 81001; 93010; J2060; J7030; J7120

== ENCOUNTER 2019-12-27 15:03 | Inpatient (IN) | payer SELFPAY ==
[2019-12-27] MEDS ORDERED: LORAZEPAM INJ 2 MG/1 ML VIAL IV ONE (16:18)
[2019-12-27] MEDS ORDERED: NORMAL SALINE 1000 ML 1,000 ML IV ONE ×2 (16:18→20:56)
[2019-12-27] MEDS ORDERED: ASPIRIN 81 MG TABLET, CHEWABLE PO ONE (16:19)
--- NOTE | 2019-12-27 16:55 | RADIOLOGY REPORT (SQ) ---
EXAM DESCRIPTION: CHEST SINGLE VIEW IMAGES COMPLETED DATE/TIME: 12/27/2019 4:39 pm REASON FOR STUDY: cp COMPARISON: 01/20/2013 EXAM PARAMETERS: NUMBER OF VIEWS: One view. TECHNIQUE: Single frontal radiographic view of the chest acquired. RADIATION DOSE: NA LIMITATIONS: None. FINDINGS: LUNGS AND PLEURA: No opacities, masses or pneumothorax. No pleural effusion. MEDIASTINUM AND HILAR STRUCTURES: No masses. Contour normal. HEART AND VASCULAR STRUCTURES: Heart normal in size. Normal vasculature. BONES: No acute findings. HARDWARE: None in the chest. OTHER: No other significant finding. IMPRESSION: NO ACUTE RADIOGRAPHIC FINDING IN THE CHEST. TECHNICAL DOCUMENTATION: JOB ID: [id number] 2010 [employer]- All Rights Reserved Reading location - IP/workstation name: [email or web address]
[2019-12-27 17:38] LABS: ALBUMIN 4.2 g/dL (3.5-5.0); ALCOHOL 286 mg/dL (NONE DETECTED); ALKALINE PHOSPHATASE 181 U/L (38-126); ANION GAP 17 (5-19); ASPARTATE AMINO TRANSFERASE 54 U/L (17-59); BILIRUBIN,DIRECT 0.3 mg/dL (0.0-0.4); BILIRUBIN,TOTAL 0.7 mg/dL (0.2-1.3); BLOOD UREA NITROGEN 7 mg/dL (7-20); CALCIUM 8.6 mg/dL (8.4-10.2); CARBON DIOXIDE 15 mmol/L (22-30); CHLORIDE 105 mmol/L (98-107); GLUCOSE 103 mg/dL (75-110); POTASSIUM 4.8 mmol/L (3.6-5.0); TOTAL PROTEIN 7.5 g/dL (6.3-8.2)
[2019-12-27 17:42] LABS: ACETAMINOPHEN < 10 ug/mL (10-30); SALICYLATE < 1.0 mg/dL (2.0-20.0)
--- NOTE | 2019-12-27 18:19 | PSYCHOLOGICAL NOTE ---
Psych Note - Psych Note Date seen by psych provider: 12/27/19 Time seen by psych provider: 17:40 Psych Note: Reason for consult: Suicidal ideation / Detox Patient presents for back pain to [facility] ED via EMS. Upon speaking to medical provider he disclosed suicidal ideation with gesture last Monday (12/23/2019). Patient reports he tied a rop around his next to see what it felt like because he was so said, but after a few minutes he states he didn't like it and took it off. Chart review: Patient have been evaluated by the behavioral health team on 11/30/2019 and 12/20/2019 for similar etiology. He reports he has been experiencing increasing anxiety and panic attacks over the last week because he made a "mistake." He reports that his father so he had "2 beers" fell asleep. He reports that his daughter walked in and found him holding a beer so kicked him out of the home. He discloses he also lost his job that same day. He continues to request a 30 day program and is unwilling to go to [facility] staying he wants to detox in the hospital. He stated he has therapy via telehealth from [facility]. Clinician notes patient asked "can is just stay here overnight, get some rest/sleep, start detox and then go to [facility] tomorrow" when offered linkage to [facility] during 11/30/2019, 12/20/2019, and today's evaluation. Patient is alert and orientated to person, place, time and circumstance. Mood is anxious with congruent affect. Patient reports passive suicidla ideation; ie no intent. Patient denies homicidal ideation. Delusions are absent. Patient is able to clearly articulate needs and wants. Patient reports auditory hallucinations when that repeat saying "over and over" but it currently unable to remember what is said. He is not demonstrating any behaviours of responding to internal stimuli. Patient demonstrates organized and linear thought processes. Eye contact is well maintained. Conversational speech is within margarito rate tone and prosody. Intellectual abilities appear to be within the average range. Attention and concentration fair. Insight, judgment, impulse control is fair. Clinical presentation Substance abuse Homelessness Cluster B personality traits Impression/Plan: Patient is cleared from acute psychiatric services. He reports passive suicidal ideation ie no intent and noted wanting to be better for his daughters and grandson. He did admit to thoughts of wishing he was and suicidal gesture but states it "wasn't for me, I didn't like it so took it off." He denies wanting to harm himself "I just want to get better." He reported [facility] is current provider. If he is a client of [facility] they can assist with getting him to one of the 3 [facility] detoxification facilities. Offered direct voluntary linkage to [facility]; however, as noted during his two previous evaluations, patient asked that he stay overnight to get sleep, rest and start being cared for detox. He was again informed the ED is not a detox facility; he reports he feels safe in the ED. Patient is recommended to do a self referral to [facility] after discharge to voluntary detox. was consulted on the care and management of this patient; attending physician is in agreement with recommendations and disposition.
--- NOTE | 2019-12-27 18:21 | ER Document Report ---
ED Psych Disorder / Suicide - General Mode of Arrival: Medic Information source: Patient TRAVEL OUTSIDE OF THE [place] IN LAST 30 DAYS: No - HPI Patient complains to provider of: Suicidal ideation. No: Suicidal plan, Suicidal attempt Onset: This morning Quality of pain: Achy Pain Level: 3 Suicide Risk Factors: Lack of social support, Male, No spouse Situational problems related to: Daughter, Other - Homelessness Associated symptoms: Anxious. No: Depressed Similar symptoms previously: Yes Recently seen / treated by doctor: No <JESUS SMITH - Last Filed: 12/27/19 19:46> <FANG UMANZOR - Last Filed: 12/28/19 07:53> - General Chief Complaint: Psych Problem Stated Complaint: LUMBAR PAIN Time Seen by Provider: 12/27/19 15:24 Notes: Patient presents complaining of low back pain as well as alcoholism and thoughts of suicide. Patient states he is homeless and he has been having issues with his children and they are not speaking to him at this time. Patient states that he just feels as though he wants to end his life. And also reports anxiety. Patient complains of some chest discomfort due to his anxiety symptoms. Patient denies any cough or cold symptoms. Patient does report drinking 4 beers today. (JESUS SMITH) - Related Data Allergies/Adverse Reactions: No Known Allergies Allergy (Verified 04/12/16 02:37) Past Medical History - General Information source: Patient - Social History Smoking Status: Current Every Day Smoker Frequency of alcohol use: Heavy Drug Abuse: None Lives with: Homeless Family History: Hypertension - Past Medical History Cardiac Medical History: Reports: Hx Hypertension Denies: Hx Coronary Artery Disease, Hx Hypercholesterolemia Pulmonary Medical History: Denies: Hx Asthma, Hx COPD, Hx Tuberculosis Neurological Medical History: Reports: Hx Seizures - on Depakote Endocrine Medical History: Denies: Hx Diabetes Mellitus Type 1, Hx Diabetes Mellitus Type 2, Hx Hyperthyroidism, Hx Hypothyroidism Renal/ Medical History: Denies: Hx Peritoneal Dialysis GI Medical History: Denies: Hx Cirrhosis, Hx Hepatitis Musculoskeletal Medical History: Denies Hx Arthritis, Denies Hx Gout Skin Medical History: Denies Hx Eczema, Denies Hx Psoriasis Psychiatric Medical History: Reports: Hx Anxiety, Hx Bipolar Disorder, Hx Depression Infectious Medical History: Denies: Hx Hepatitis Past Surgical History: Reports: Hx Oral Surgery - Immunizations Hx Diphtheria, Pertussis, Tetanus Vaccination: Yes - given in er today <JESUS SMITH - Last Filed: 12/27/19 19:46> Review of Systems - Review of Systems Constitutional: No symptoms reported. denies: Fever, Recent illness EENT: No symptoms reported Cardiovascular: Chest pain Respiratory: No symptoms reported. denies: Cough, Short of breath Gastrointestinal: No symptoms reported. denies: Abdominal pain, Nausea Genitourinary: No symptoms reported. denies: Dysuria, Flank pain Male Genitourinary: No symptoms reported Musculoskeletal: Back pain Skin: No symptoms reported Hematologic/Lymphatic: No symptoms reported Neurological/Psychological: Anxiety, Suicidal ideation <JESUS SMITH - Last Filed: 12/27/19 19:46> Physical Exam - General General appearance: Appears well, Alert, Anxious In distress: None - HEENT Head: Normocephalic, Atraumatic Eyes: Normal Conjunctiva: Normal Nasal: Normal Mouth/Lips: Normal Mucous membranes: Normal Neck: Normal, Supple. No: Lymphadenopathy - Respiratory Respiratory status: No respiratory distress Chest status: Nontender Breath sounds: Normal. No: Rales, Rhonchi, Stridor, Wheezing Chest palpation: Normal - Cardiovascular Rhythm: Tachycardia Heart sounds: S1 appreciated, S2 appreciated Murmur: No - Abdominal Inspection: Normal Distension: No distension Bowel sounds: Normal Tenderness: Nontender Organomegaly: No organomegaly - Back Back: Normal, Tender - Lumbar paraspinal tenderness. No: CVA tenderness - Extremities General upper extremity: Normal inspection, Nontender, Normal strength General lower extremity: Normal inspection, Nontender, Normal strength - Neurological Neuro grossly intact: Yes [place] Coma Scale Eye Opening: Spontaneous [place] Coma Scale Verbal: Oriented [place] Coma Scale Motor: Obeys Commands [place] Coma Scale Total: 15 - Psychological Associated symptoms: Anxious - Skin Skin Temperature: Warm Skin Moisture: Dry Skin Color: Normal <JESUS SMITH - Last Filed: 12/27/19 19:46> - Vital signs Vitals: Temp Pulse Resp BP Pulse Ox 97.6 F 125 H 24 H 116/80 95 12/27/19 15:20 12/27/19 15:20 12/27/19 15:20 12/27/19 15:20 12/27/19 15:20 Course - Laboratory Result Diagrams: 12/27/19 18:35 12/27/19 16:40 <JESUS SMITH - Last Filed: 12/27/19 19:46> - Laboratory Result Diagrams: 12/27/19 18:35 12/27/19 16:40 <FANG UMANZOR - Last Filed: 12/28/19 07:53> - Re-evaluation Re-evalutation: 12/27/19 19:49 Behavioral health team has evaluated patient and do not feel that he meets IVC criteria at this time. They do recommend waiting for his blood alcohol level to trend down so that he may present to [place] for voluntary detox. (JESUS SMITH) After patient started having downtrending alcohol we plan to redraw, however patient started retching and vomiting, he started becoming tremulous and diaphoretic. Patient given diazepam 10 mg and he will be reevaluated. Alcohol level redrawn, alcohol level is 46. I reevaluate patient again, patient is again very tremulous, tachycardic, diaphoretic, and ill-appearing. He appears to be having significant alcohol withdrawals. Patient states he is surprised by this, he states that he has not had withdrawals like this in a long time, and he states that he was hoping to just go to detox. However patient does admit that recently he has been drinking very heavily again and patient appears to be having very significant withdrawal that he did not expect. Patient has not had a seizure from this in a very long time. Patient will be remedicated with diazepam 10 mg IV, given thiamine/folic acid, patient will require admission for alcohol withdrawals. Discussed with Dr. Espinoza, hospitalist, patient excepted to telemetry full admission. Patient states understanding and agreement. (FANG UMANZOR) - Vital Signs Vital signs: Temp Pulse Resp BP Pulse Ox 97.4 F 93 22 H 152/109 H 95 12/28/19 04:44 12/28/19 04:44 12/28/19 04:44 12/28/19 04:44 12/28/19 04:44 - Laboratory Laboratory results interpreted by me: 12/27/19 12/27/19 16:40 18:35 MCV 98 H MCH 33.7 H RDW 16.9 H Carbon Dioxide 15 L Alkaline Phosphatase 181 H Salicylates < 1.0 L Acetaminophen < 10 L Discharge <LUISJESUS - Last Filed: 12/27/19 19:46> - Discharge Admitting Provider: Alexis (Hospitalist) Unit Admitted: Telemetry <LORENZOANALISAFANG - Last Filed: 12/28/19 07:53> - Discharge Clinical Impression: Alcohol abuse, Anxiety Alcohol intoxication Qualifiers: Complication of substance-induced condition: with unspecified complication Qualified Code(s): F10.929 - Alcohol use, unspecified with intoxication, unspecified Alcohol withdrawal Qualifiers: Complication of substance-induced condition: with unspecified complication Qualified Code(s): F10.239 - Alcohol dependence with withdrawal, unspecified Condition: Stable Disposition: ADMITTED INPATIENT
[2019-12-27 18:59] LABS: ABSOLUTE LYMPHOCYTES (AUTO) 1.4 10^3/uL (0.5-4.7); ABSOLUTE MONOCYTES (AUTO) 0.6 10^3/uL (0.1-1.4); ABSOLUTE NEUT (AUTO) 5.6 10^3/uL (1.7-8.2); BASOPHILS % (AUTO) 0.5 % (0-2); HEMATOCRIT 45.7 % (37.9-51.0); HEMOGLOBIN 15.7 g/dL (13.5-17.0); LYMPHOCYTES % (AUTO) 18.2 % (13-45); MEAN CORPUSCULAR HEMOGLOBIN 33.7 pg (27.0-33.4); MEAN CORPUSCULAR HGB CONC 34.2 g/dL (32.0-36.0); MEAN CORPUSCULAR VOLUME 98 fl (80-97); MONOCYTES % (AUTO) 7.8 % (3-13); PLATELET COUNT 244 10^3/uL (150-450); RED BLOOD COUNT 4.65 10^6/uL (4.35-5.55); RED CELL DISTRIBUTION WIDTH 16.9 % (11.5-14.0); SEGMENTED NEUTROPHILS % (AUTO) 73.5 % (42-78); TOTAL CELLS COUNTED % (AUTO) 100 %; WHITE BLOOD COUNT 7.7 10^3/uL (4.0-10.5)
[2019-12-27 19:36] LABS: APPEARANCE,URINE CLEAR; BILIRUBIN,URINE NEGATIVE (NEGATIVE); COLOR,URINE STRAW; GLUCOSE, URINE NEGATIVE (NEGATIVE); KETONES,URINE NEGATIVE (NEGATIVE); LEUKOCYTE ESTERASE,URINE NEGATIVE (NEGATIVE); NITRITE,URINE NEGATIVE (NEGATIVE); PROTEIN,URINE NEGATIVE (NEGATIVE); URINE SPECIFIC GRAVITY 1.004; UROBILINOGEN,URINE NEGATIVE mg/dL (<2.0)
[2019-12-27] MEDS ORDERED: HYDROXYZINE PAMOATE 50 MG CAPSULE PO ONE (19:44)
[2019-12-27 19:55] LABS: URINE AMPHETAMINES SCREEN NEGATIVE; URINE BARBITURATES SCREEN NEGATIVE; URINE BENZODIAZEPINES SCREEN NEGATIVE; URINE COCAINE SCREEN NEGATIVE; URINE MARIJUANA (THC) SCREEN NEGATIVE; URINE METHADONE SCREEN NEGATIVE; URINE PHENCYCLIDINE SCREEN NEGATIVE
[2019-12-27] MEDS ORDERED: ONDANSETRON HCL INJ/PF 4 MG/2 ML SDV IV ONE (20:56)
[2019-12-28] MEDS ORDERED: DIAZEPAM INJ 10 MG/2 ML DISP.SYRIN IV ONE ×2 (00:34→01:46)
[2019-12-28] MEDS ORDERED: THIAMINE HCL 100 MG, FOLIC ACID 1 MG in NORMAL SALINE 250 ML IV ONE (01:46)
[2019-12-28] MEDS ORDERED: THIAMINE HCL INJ 200 MG/2 ML VIAL ONE (02:46)
[2019-12-28] MEDS ORDERED: FOLIC ACID INJ 5 MG/1 ML 10 ML VIAL ONE (02:46)
[2019-12-28] MEDS ORDERED: PROMETHAZINE HCL INJ 25 MG/1 ML VIAL IV PRN (02:48)
[2019-12-28] MEDS ORDERED: LEVALBUTEROL HCL NEB 0.63 MG/3 ML AMPUL NEB PRN (02:48)
[2019-12-28] MEDS ORDERED: MAG HYDROX/AL HYDROX/SIMETH SUSP 30 ML UDCUP PO PRN (02:48)
[2019-12-28] MEDS ORDERED: MAGNESIUM HYDROXIDE SUSP 30 ML UDCUP PO PRN (02:48)
[2019-12-28] MEDS ORDERED: NICOTINE 21 MG/24 HR PATCH.TD24 TD PRN (02:54)
[2019-12-28] MEDS ORDERED: GUAIFENESIN SYRP 200 MG/10 ML UDC PO PRN (02:54)
[2019-12-28] MEDS ORDERED: ACETAMINOPHEN 325 MG TABLET PO PRN (02:54)
[2019-12-28] MEDS ORDERED: ATENOLOL 50 MG TABLET PO ONE (02:58)
[2019-12-28] MEDS: DIAZEPAM 5 MG TABLET PO SCH ×6 (03:20→22:45)
[2019-12-28] MEDS: DIAZEPAM INJ 10 MG/2 ML DISP.SYRIN IV PRN ×8 (04:38→22:51)
--- NOTE | 2019-12-28 05:36 | PDOC H&P ---
History of Present Illness Admission Date/PCP: 12/28/2019 02:47 No local PCP Patient complains of: Alcohol withdrawal History of Present Illness: JACQUES BRITTON JR is a 44 year old male who presented the emergency room with suicidal ideation and acute alcohol withdrawal. He was evaluated in the emergency room by psychology/psychiatry and it was determined that he did not require inpatient treatment. He was intoxicated at the time of his emergency room arrival and began experiencing withdrawal symptoms prior to being transferred to a local alcohol rehabilitation facility. He admits drinking 4 beers prior to coming to the emergency room on 12/27/2019. He additionally admits to heavy alcohol consumption but is inconsistent in his quantification. He admits that he was thinking about suicide yesterday but did not actually have a plan and did not make any attempt at ending his life. He wishes to go to alcohol rehab as soon as possible. He admits an associated symptom of constant achy lower back pain for the last few days. In the emergency room he developed nausea with severe tremors prior to being transferred to the alcohol rehab facility. He was also noted to be tachycardic and hypertensive. He was subsequently admitted to the hospital for acute alcohol withdrawal symptoms. Past Medical History Cardiac Medical History: Reports: Hypertension Denies: Coronary Artery Disease, Hyperlipidema Pulmonary Medical History: Denies: Asthma, Chronic Obstructive Pulmonary Disease (COPD), Tuberculosis EENT Medical History: Denies: Cataracts, Ears - Hearing aids Neurological Medical History: Reports: Seizures Denies: Hemorrhagic CVA, Ischemic CVA Endocrine Medical History: Denies: Diabetes Mellitus Type 1, Diabetes Mellitus Type 2, Hyperthyroidism, Hypothyroidism Renal/ Medical History: Denies: Chronic Kidney Disease, Nephrolithiasis Malignancy Medical History: Reports: None GI Medical History: Reports: Other - Alcoholic pancreatitis, pancreatic cyst Denies: Cirrhosis, Gastroesophageal Reflux Disease, Hepatitis, Peptic Ulcer Disease Musculoskeltal Medical History: Denies: Arthritis, Gout Skin Medical History: Denies: Eczema, Psoriasis Psychiatric Medical History: Reports: Alcohol Dependency, Bipolar Disorder, Depression, Substance Abuse, Tobacco Dependency Traumatic Medical History: Reports: None Hematology: Denies: Anemia, Bleeding Tendencies Infectious Medical History: Reports: None Past Surgical History Past Surgical History: Reports: None Social History Information Source: Patient Lives with: Alone, Homeless Smoking Status: Current Every Day Smoker Electronic Cigarette use?: No Frequency of Alcohol Use: Heavy Hx Recreational Drug Use: Yes Drugs: Marijuana Hx Prescription Drug Abuse: Yes - Advance Directive Resuscitation Status: Full Code Surrogate healthcare decision maker:: Natalie Britton Family History Family History: Hypertension Parental Family History Reviewed: Yes Children Family History Reviewed: No Sibling(s) Family History Reviewed.: Yes Medication/Allergy Home Medications: Chlordiazepoxide HCl [Librium 25 mg Capsule] 1 cap PO BID PRN #15 capsule 06/05/18 Famotidine [Pepcid 20 mg Tablet] 10 mg PO ACHS #0 tablet 06/05/18 Lisinopril [Prinivil 10 mg Tablet] 20 mg PO QPM #30 tablet 06/05/18 Nicotine [Nicoderm 21 mg/24 Hr Transderm Patch] 1 each TD DAILYP PRN patch.td24 06/05/18 Ondansetron [Zofran Odt 4 mg Tablet] 4 mg PO Q4HP PRN #20 tab.rapdis 06/05/18 Oxycodone HCl/Acetaminophen [Percocet 5-325 mg Tablet] 1 tab PO Q6 PRN #15 tablet 06/05/18 Chlordiazepoxide HCl 25 mg PO QID PRN #20 capsule 12/20/19 Omeprazole 40 mg PO DAILY #30 capsule. 12/20/19 Ondansetron [Zofran Odt 4 mg Tablet] 4 mg PO Q4HP PRN #30 tab.rapdis 12/20/19 Allergies/Adverse Reactions: No Known Allergies Allergy (Verified 04/12/16 02:37) Review of Systems Constitutional: ABSENT: chills, fever(s) Eyes: ABSENT: visual disturbances, other - Eye pain Ears: ABSENT: hearing changes, other - Ear pain Nose, Mouth, and Throat: ABSENT: headache(s), sore throat Cardiovascular: ABSENT: chest pain, palpitations Respiratory: ABSENT: cough, dyspnea Gastrointestinal: PRESENT: nausea, vomiting. ABSENT: abdominal pain, constipation, diarrhea Genitourinary: ABSENT: dysuria, hematuria Musculoskeletal: PRESENT: back pain. ABSENT: joint swelling Integumentary: ABSENT: pruritus, rash Neurological: PRESENT: tremor(s). ABSENT: confusion, convulsions, focal weakness, memory loss, syncope Psychiatric: PRESENT: anxiety, depression, suicidal ideation Endocrine: ABSENT: cold intolerance, heat intolerance Hematologic/Lymphatic: ABSENT: easy bleeding, easy bruising Allergic/Immunologic: ABSENT: seasonal rhinorrhea Physical Exam Vital Signs: Temp Pulse Resp BP Pulse Ox 98.4 F 120 H 22 H 152/106 H 100 12/27/19 20:53 12/27/19 20:53 12/27/19 20:53 12/27/19 20:53 12/27/19 20:53 Intake & Output 12/26/19 12/27/19 12/28/19 23:59 23:59 23:59 Intake Total 1000 1000 Balance 1000 1000 Weight 68.039 kg General appearance: PRESENT: no acute distress, cooperative Head exam: PRESENT: atraumatic, normocephalic Eye exam: PRESENT: conjunctiva pink. ABSENT: conjunctival injection, scleral icterus Ear exam: PRESENT: normal external ear exam. ABSENT: bleeding, drainage Mouth exam: PRESENT: dry mucosa, neck supple Neck exam: ABSENT: thyromegaly, tracheal deviation Respiratory exam: PRESENT: clear to auscultation deisy, symmetrical, unlabored Cardiovascular exam: PRESENT: RRR, tachycardia. ABSENT: clicks, gallop, rubs Pulses: PRESENT: normal radial pulses, normal dorsalis pedis pul Vascular exam: PRESENT: normal capillary refill. ABSENT: pallor GI/Abdominal exam: PRESENT: normal bowel sounds, soft. ABSENT: tenderness Rectal exam: PRESENT: deferred Extremities exam: ABSENT: joint swelling, pedal edema Musculoskeletal exam: ABSENT: deformity, dislocation Neurological exam: PRESENT: alert, oriented to person, oriented to place, oriented to time, oriented to situation, CN II-XII grossly intact, other - Tremulous. ABSENT: motor sensory deficit Psychiatric exam: PRESENT: appropriate affect, normal mood Skin exam: PRESENT: dry, intact, warm. ABSENT: jaundice, rash, urticaria Results Laboratory Results: 12/27/19 18:35 12/27/19 16:40 12/27/19 12/27/19 12/27/19 16:40 16:40 18:22 WBC Cancelled RBC Cancelled Hgb Cancelled Hct Cancelled MCV Cancelled MCH Cancelled MCHC Cancelled RDW Cancelled Plt Count Cancelled Seg Neutrophils % Cancelled Sodium 137.0 Potassium 4.8 Chloride 105 Carbon Dioxide 15 L Anion Gap 17 BUN 7 Creatinine 0.93 Est GFR ( Amer) > 60 Glucose 103 Calcium 8.6 Total Bilirubin 0.7 AST 54 Alkaline Phosphatase 181 H Total Protein 7.5 Albumin 4.2 Urine Color STRAW Urine Appearance CLEAR Urine pH 6.0 Ur Specific [place] 1.004 Urine Protein NEGATIVE Urine Glucose (UA) NEGATIVE Urine Ketones NEGATIVE Urine Blood NEGATIVE Urine Nitrite NEGATIVE Ur Leukocyte Esterase NEGATIVE Urine WBC (Auto) 1 Urine RBC (Auto) 0 12/27/19 18:35 WBC 7.7 RBC 4.65 Hgb 15.7 Hct 45.7 MCV 98 H MCH 33.7 H MCHC 34.2 RDW 16.9 H Plt Count 244 Seg Neutrophils % 73.5 Sodium Potassium Chloride Carbon Dioxide Anion Gap BUN Creatinine Est GFR ( Amer) Glucose Calcium Total Bilirubin AST Alkaline Phosphatase Total Protein Albumin Urine Color Urine Appearance Urine pH Ur Specific [place] Urine Protein Urine Glucose (UA) Urine Ketones Urine Blood Urine Nitrite Ur Leukocyte Esterase Urine WBC (Auto) Urine RBC (Auto) 12/27/19 16:40 Troponin I 0.015 Impressions: Chest X-Ray 12/27/19 16:19 IMPRESSION: NO ACUTE RADIOGRAPHIC FINDING IN THE CHEST. Assessment and Plan - Diagnosis (1) Alcohol withdrawal delirium, acute, hyperactive Is this a current diagnosis for this admission?: Yes (2) Alcoholism with alcohol dependence Qualifiers: Substance use status: in withdrawal Complication of substance-induced condition: with delirium Qualified Code(s): F10.231 - Alcohol dependence with withdrawal delirium Is this a current diagnosis for this admission?: Yes (3) Suicidal ideation Is this a current diagnosis for this admission?: Yes (4) Hypertension Qualifiers: Hypertension type: essential hypertension Qualified Code(s): I10 - Essential (primary) hypertension Is this a current diagnosis for this admission?: Yes (5) Pancreatic pseudocyst Is this a current diagnosis for this admission?: Yes (6) Tobacco use disorder, severe, dependence Is this a current diagnosis for this admission?: Yes - Plan Summary Summary: Patient will be admitted to the medical floor on a telemetry bed where he received routine supportive and symptomatic cares. He will be treated with oral Valium 10 mg every 4 hours and metoprolol 50 mg p.o. every 12 hours. He will also receive Valium 10 mg IV every 1 hour as needed for severe withdrawal symptoms. CIWA scoring and coordinated treatment of the patient's alcohol withdrawal will be performed. Patient will be on a cardiac diet. Case management consultation will be submitted. Smoking cessation is advised and counseled briefly at the bedside. Placement patch is available for the patient's use, if desired. - Time Time Spent with patient: 15-24 minutes Smoking Cessation Education: 3 to 10 minutes Anticipated Discharge Disposition: Alcohol rehab facility Anticipated Discharge Timeframe: within 72 hours - Inpatient Certification Based on my medical assessment, after consideration of the patient's comorbidities, presenting symptoms, or acuity I expect that the services needed warrant INPATIENT care.: Yes I certify that my determination is in accordance with my understanding of Medicare's requirements for reasonable and necessary INPATIENT services [42 CFR 412.3e].: Yes Medical Necessity: Need Close Monitoring Due to Risk of Patient Decompensation, Need For Continuous Telemetry Monitoring, Risk of Complication if Not Cared For in Hospital
[2019-12-28] MEDS: HEPARIN SOD (PORCINE) 5,000 UNIT/ML 1 ML VIAL SUBCUT SCH ×3 (06:01→22:44)
[2019-12-28] MEDS: CHLORPROMAZINE HCL INJ 25 MG/1 ML AMPULE IV PRN ×2 (08:24→17:35)
[2019-12-28] MEDS: ATENOLOL 50 MG TABLET PO SCH ×2 (10:53→22:44)
[2019-12-28] MEDS: FOLIC ACID 1 MG TABLET PO SCH (10:53)
[2019-12-28] MEDS: THIAMINE HCL 100 MG TABLET PO SCH (10:53)
[2019-12-28] MEDS: FAMOTIDINE 20 MG TABLET PO SCH ×2 (10:53→22:44)
[2019-12-28] MEDS: DOCUSATE SODIUM 100 MG CAPSULE PO SCH ×2 (10:56→18:02)
--- NOTE | 2019-12-28 13:52 | EKG REPORT ---
SEVERITY:- ABNORMAL ECG - SINUS TACHYCARDIA NONSPECIFIC INTRAVENTRICULAR CONDUCTION DELAY ABNRM R PROG, CONSIDER ASMI OR LEAD PLACEMENT : Confirmed by: Ajit Barragan 28-Dec-2019 13:51:29
--- NOTE | 2019-12-28 16:16 | PDOC PROGRESS REPORT ---
Subjective Progress Note for:: 12/28/19 Subjective:: The patient reports feeling jittery. He certainly appears uncomfortable. Reason For Visit: ACUTE ALCOHOL WITHDRAWL HYPERACTIVE DELIRIUM, Physical Exam Vital Signs: Temp Pulse Resp BP Pulse Ox 97.8 F 79 20 109/78 96 12/28/19 12:03 12/28/19 12:03 12/28/19 12:03 12/28/19 12:03 12/28/19 12:03 Intake & Output 12/27/19 12/28/19 12/29/19 06:59 06:59 06:59 Intake Total 2260 120 Output Total 0 Balance 2260 120 Weight 75.6 kg General appearance: PRESENT: cooperative, mild distress, well-developed Head exam: PRESENT: atraumatic, normocephalic Ear exam: PRESENT: normal external ear exam. ABSENT: bleeding, drainage Mouth exam: PRESENT: moist, tongue midline Respiratory exam: PRESENT: clear to auscultation deisy, symmetrical, unlabored. ABSENT: prolonged expiratory phas, rales, rhonchi, tachypnea, wheezes Cardiovascular exam: PRESENT: RRR, +S1, +S2. ABSENT: bradycardia, diastolic murmur, irregular rhythm, systolic murmur, tachycardia GI/Abdominal exam: PRESENT: normal bowel sounds, soft. ABSENT: distended, guarding, tenderness Rectal exam: PRESENT: deferred Gentrourinary exam: ABSENT: indwelling catheter Extremities exam: ABSENT: pedal edema Musculoskeletal exam: PRESENT: ambulatory, normal inspection. ABSENT: deformity, dislocation Neurological exam: PRESENT: alert, awake, oriented to person, oriented to place, oriented to time, oriented to situation, CN II-XII grossly intact. ABSENT: altered Psychiatric exam: PRESENT: anxious, appropriate affect. ABSENT: agitated Focused psych exam: ABSENT: delusional, paranoid, restlessness Skin exam: PRESENT: dry, normal color, warm. ABSENT: rash Results Laboratory Results: 12/27/19 18:35 12/27/19 16:40 12/27/19 12/27/19 12/27/19 16:40 16:40 18:22 WBC Cancelled RBC Cancelled Hgb Cancelled Hct Cancelled MCV Cancelled MCH Cancelled MCHC Cancelled RDW Cancelled Plt Count Cancelled Seg Neutrophils % Cancelled Sodium 137.0 Potassium 4.8 Chloride 105 Carbon Dioxide 15 L Anion Gap 17 BUN 7 Creatinine 0.93 Est GFR ( Amer) > 60 Glucose 103 Calcium 8.6 Magnesium Total Bilirubin 0.7 AST 54 Alkaline Phosphatase 181 H Total Protein 7.5 Albumin 4.2 Lipase Urine Color STRAW Urine Appearance CLEAR Urine pH 6.0 Ur Specific [place] 1.004 Urine Protein NEGATIVE Urine Glucose (UA) NEGATIVE Urine Ketones NEGATIVE Urine Blood NEGATIVE Urine Nitrite NEGATIVE Ur Leukocyte Esterase NEGATIVE Urine WBC (Auto) 1 Urine RBC (Auto) 0 12/27/19 12/28/19 18:35 03:10 WBC 7.7 RBC 4.65 Hgb 15.7 Hct 45.7 MCV 98 H MCH 33.7 H MCHC 34.2 RDW 16.9 H Plt Count 244 Seg Neutrophils % 73.5 Sodium Potassium Chloride Carbon Dioxide Anion Gap BUN Creatinine Est GFR ( Amer) Glucose Calcium Magnesium 2.1 Total Bilirubin AST Alkaline Phosphatase Total Protein Albumin Lipase 136.8 Urine Color Urine Appearance Urine pH Ur Specific [place] Urine Protein Urine Glucose (UA) Urine Ketones Urine Blood Urine Nitrite Ur Leukocyte Esterase Urine WBC (Auto) Urine RBC (Auto) 12/27/19 16:40 Troponin I 0.015 Impressions: Chest X-Ray 12/27/19 16:19 IMPRESSION: NO ACUTE RADIOGRAPHIC FINDING IN THE CHEST. Assessment and Plan - Diagnosis (1) Alcohol withdrawal delirium, acute, hyperactive Is this a current diagnosis for this admission?: Yes Plan: Patient is receiving oral and as needed IV Valium. Reports them slightly jittery but not excessively so. We will continue current regimen. (2) Alcoholism with alcohol dependence Qualifiers: Substance use status: in withdrawal Complication of substance-induced condition: with delirium Qualified Code(s): F10.231 - Alcohol dependence with withdrawal delirium Is this a current diagnosis for this admission?: Yes Plan: Continue medications for withdrawal as above. Also on thiamine daily. (3) Hypertension Qualifiers: Hypertension type: essential hypertension Qualified Code(s): I10 - Essential (primary) hypertension Is this a current diagnosis for this admission?: Yes Plan: Currently with elevated blood pressures. The patient is normally on lisinopril accordingly. (4) Tobacco use disorder, severe, dependence Is this a current diagnosis for this admission?: Yes Plan: Will provide nicotine patch as needed. (5) Suicidal ideation Is this a current diagnosis for this admission?: Yes Plan: Cleared by psychiatry. Continue to monitor. (6) Anxiety with depression Is this a current diagnosis for this admission?: Yes Plan: We will resume patient's fluoxetine and BuSpar. - Plan Summary Summary: Patient will be admitted to the medical floor on a telemetry bed where he received routine supportive and symptomatic cares. He will be treated with oral Valium 10 mg every 4 hours and metoprolol 50 mg p.o. every 12 hours. He will also receive Valium 10 mg IV every 1 hour as needed for severe withdrawal symptoms. CIWA scoring and coordinated treatment of the patient's alcohol withdrawal will be performed. Patient will be on a cardiac diet. Case management consultation will be submitted. Smoking cessation is advised and counseled briefly at the bedside. Placement patch is available for the patient's use, if desired. - Time Time Spent with patient: 15-24 minutes Medications reviewed and adjusted accordingly: Yes Anticipated Discharge Disposition: Home, Self Care Anticipated Discharge Timeframe: Unknown at this time due to alcohol withdrawal
[2019-12-29] MEDS: CHLORPROMAZINE HCL INJ 25 MG/1 ML AMPULE IV PRN ×2 (02:47→10:59)
[2019-12-29] MEDS: DIAZEPAM 5 MG TABLET PO SCH ×6 (02:47→20:25)
[2019-12-29] MEDS: DIAZEPAM INJ 10 MG/2 ML DISP.SYRIN IV PRN ×11 (03:20→22:10)
[2019-12-29 05:08] LABS: HEMATOCRIT 40.8 % (37.9-51.0); HEMOGLOBIN 14.3 g/dL (13.5-17.0); MEAN CORPUSCULAR HEMOGLOBIN 34.8 pg (27.0-33.4); MEAN CORPUSCULAR VOLUME 99 fl (80-97); PLATELET COUNT 156 10^3/uL (150-450); RED BLOOD COUNT 4.11 10^6/uL (4.35-5.55); RED CELL DISTRIBUTION WIDTH 17.3 % (11.5-14.0); WHITE BLOOD COUNT 5.5 10^3/uL (4.0-10.5)
[2019-12-29 05:30] LABS: ANION GAP 7 (5-19); BLOOD UREA NITROGEN 13 mg/dL (7-20); CALCIUM 8.6 mg/dL (8.4-10.2); CARBON DIOXIDE 21 mmol/L (22-30); CHLORIDE 106 mmol/L (98-107); GLUCOSE 136 mg/dL (75-110)
[2019-12-29] MEDS: HEPARIN SOD (PORCINE) 5,000 UNIT/ML 1 ML VIAL SUBCUT SCH ×3 (06:14→22:12)
[2019-12-29] MEDS: FOLIC ACID 1 MG TABLET PO SCH (10:59)
[2019-12-29] MEDS: THIAMINE HCL 100 MG TABLET PO SCH (10:59)
[2019-12-29] MEDS: FAMOTIDINE 20 MG TABLET PO SCH ×2 (10:59→22:11)
[2019-12-29] MEDS: ATENOLOL 50 MG TABLET PO SCH ×2 (10:59→22:11)
[2019-12-29] MEDS: DOCUSATE SODIUM 100 MG CAPSULE PO SCH ×2 (12:29→18:05)
--- NOTE | 2019-12-29 16:25 | PDOC PROGRESS REPORT ---
Subjective Progress Note for:: 12/29/19 Subjective:: Tremulous. Nurses report hallucinations Reason For Visit: ACUTE ALCOHOL WITHDRAWL HYPERACTIVE DELIRIUM, Physical Exam Vital Signs: Temp Pulse Resp BP Pulse Ox 97.9 F 86 17 123/74 98 12/29/19 15:17 12/29/19 15:17 12/29/19 15:17 12/29/19 15:17 12/29/19 15:17 Intake & Output 12/28/19 12/29/19 12/30/19 06:59 06:59 06:59 Intake Total 2260 345 118 Output Total 0 400 Balance 2260 -55 118 Weight 75.6 kg 75.6 kg Results Laboratory Results: 12/29/19 04:52 12/29/19 04:52 12/29/19 12/29/19 04:52 04:52 WBC 5.5 RBC 4.11 L Hgb 14.3 Hct 40.8 MCV 99 H MCH 34.8 H MCHC 35.0 RDW 17.3 H Plt Count 156 Sodium 133.7 L Potassium 4.0 Chloride 106 Carbon Dioxide 21 L Anion Gap 7 BUN 13 Creatinine 0.66 Est GFR ( Amer) > 60 Glucose 136 H Calcium 8.6 Magnesium 2.0 12/27/19 16:40 Troponin I 0.015 Impressions: Chest X-Ray 12/27/19 16:19 IMPRESSION: NO ACUTE RADIOGRAPHIC FINDING IN THE CHEST. Assessment and Plan - Plan Summary Summary: Patient will be admitted to the medical floor on a telemetry bed where he received routine supportive and symptomatic cares. He will be treated with oral Valium 10 mg every 4 hours and metoprolol 50 mg p.o. every 12 hours. He will also receive Valium 10 mg IV every 1 hour as needed for severe withdrawal symptoms. CIWA scoring and coordinated treatment of the patient's alcohol withdrawal will be performed. Patient will be on a cardiac diet. Case management consultation will be submitted. Smoking cessation is advised and counseled briefly at the bedside. Placement patch is available for the patient's use, if desired.
[2019-12-29] MEDS: NORMAL SALINE 1000 ML 1,000 ML with POTASSIUM CHLORIDE 20 MEQ, MAGNESIUM SULFATE 8 MEQ,... IV SCH ×5 (18:02)
[2019-12-29] MEDS: DIPHENHYDRAMINE HCL 50 MG CAPSULE PO PRN (22:11)
--- NOTE | 2019-12-29 23:39 | PDOC PROGRESS REPORT ---
Subjective Progress Note for:: 12/29/19 Subjective:: The patient looks worse today. He is actually tremulous. Nursing reports that he has intermittent delirium. Reason For Visit: ACUTE ALCOHOL WITHDRAWL HYPERACTIVE DELIRIUM, Physical Exam Vital Signs: Temp Pulse Resp BP Pulse Ox 98.2 F 98 23 H 138/90 H 100 12/29/19 20:00 12/29/19 20:00 12/29/19 20:00 12/29/19 20:00 12/29/19 20:00 Intake & Output 12/28/19 12/29/19 12/30/19 06:59 06:59 06:59 Intake Total 2260 345 592 Output Total 0 400 650 Balance 2260 -55 -58 Weight 75.6 kg 75.6 kg General appearance: PRESENT: cooperative, well-developed, other - Moderate distress Head exam: PRESENT: atraumatic, normocephalic Ear exam: PRESENT: normal external ear exam. ABSENT: bleeding, drainage Mouth exam: PRESENT: moist, tongue midline Respiratory exam: PRESENT: clear to auscultation deisy, symmetrical, unlabored. ABSENT: prolonged expiratory phas, rales, rhonchi, tachypnea, wheezes Cardiovascular exam: PRESENT: RRR, +S1, +S2. ABSENT: bradycardia, diastolic murmur, irregular rhythm, systolic murmur, tachycardia GI/Abdominal exam: PRESENT: normal bowel sounds, soft. ABSENT: distended, guarding, tenderness Rectal exam: PRESENT: deferred Gentrourinary exam: ABSENT: indwelling catheter Extremities exam: ABSENT: joint swelling, pedal edema Musculoskeletal exam: PRESENT: ambulatory, normal inspection. ABSENT: deformity, dislocation Neurological exam: PRESENT: alert, awake, oriented to person, oriented to place, oriented to time, oriented to situation, CN II-XII grossly intact. ABSENT: altered Psychiatric exam: PRESENT: anxious, unusual affect - Patient has almost panicked affect. ABSENT: agitated Focused psych exam: PRESENT: other - Visible tremors in his hands.. ABSENT: delusional, paranoid Skin exam: PRESENT: dry, normal color, warm. ABSENT: rash Results Laboratory Results: 12/29/19 04:52 12/29/19 04:52 12/29/19 12/29/19 04:52 04:52 WBC 5.5 RBC 4.11 L Hgb 14.3 Hct 40.8 MCV 99 H MCH 34.8 H MCHC 35.0 RDW 17.3 H Plt Count 156 Sodium 133.7 L Potassium 4.0 Chloride 106 Carbon Dioxide 21 L Anion Gap 7 BUN 13 Creatinine 0.66 Est GFR ( Amer) > 60 Glucose 136 H Calcium 8.6 Magnesium 2.0 12/27/19 16:40 Troponin I 0.015 Impressions: Chest X-Ray 12/27/19 16:19 IMPRESSION: NO ACUTE RADIOGRAPHIC FINDING IN THE CHEST. Assessment and Plan - Diagnosis (1) Alcohol withdrawal delirium, acute, hyperactive Is this a current diagnosis for this admission?: Yes Plan: The patient was getting 10 mg of oral Valium every 4 hours scheduled and 10 mg of Valium IV almost every hour. With that he is still jittery and tremulous. I will increase his doses to 15 mg every 4 hours scheduled and 15 mg IV every 8 hours as needed. This should hold the medication for sedation. (2) Alcoholism with alcohol dependence Qualifiers: Substance use status: in withdrawal Complication of substance-induced condition: with delirium Qualified Code(s): F10.231 - Alcohol dependence with withdrawal delirium Is this a current diagnosis for this admission?: Yes Plan: We will start a banana bag daily for fluids and vitamins and minerals (3) Hypertension Qualifiers: Hypertension type: essential hypertension Qualified Code(s): I10 - Essential (primary) hypertension Is this a current diagnosis for this admission?: Yes Plan: With large Valium doses his blood pressure is normal. We will continue to hold lisinopril. (4) Tobacco use disorder, severe, dependence Is this a current diagnosis for this admission?: Yes Plan: Will make nicotine patches scheduled (5) Anxiety with depression Is this a current diagnosis for this admission?: Yes Plan: We will resume fluoxetine and BuSpar. We will continue the high doses of Valium specifically for his withdrawal. (6) Suicidal ideation Is this a current diagnosis for this admission?: Yes Plan: No longer with any suicidal thoughts. - Plan Summary Summary: Patient will be admitted to the medical floor on a telemetry bed where he received routine supportive and symptomatic cares. He will be treated with oral Valium 10 mg every 4 hours and metoprolol 50 mg p.o. every 12 hours. He will also receive Valium 10 mg IV every 1 hour as needed for severe withdrawal symptoms. CIWA scoring and coordinated treatment of the patient's alcohol withdrawal will be performed. Patient will be on a cardiac diet. Case management consultation will be submitted. Smoking cessation is advised and counseled briefly at the bedside. Placement patch is available for the patient's use, if desired. - Time Time Spent with patient: 15-24 minutes Medications reviewed and adjusted accordingly: Yes Anticipated Discharge Disposition: Home, Self Care Anticipated Discharge Timeframe: Unknown
[2019-12-30] MEDS: DIAZEPAM INJ 10 MG/2 ML DISP.SYRIN IV PRN ×7 (01:36→21:16)
[2019-12-30] MEDS: DIAZEPAM 5 MG TABLET PO SCH ×6 (01:37→21:17)
[2019-12-30] MEDS: CHLORPROMAZINE HCL INJ 25 MG/1 ML AMPULE IV PRN ×2 (03:02→13:47)
[2019-12-30] MEDS: HEPARIN SOD (PORCINE) 5,000 UNIT/ML 1 ML VIAL SUBCUT SCH ×3 (05:48→21:25)
[2019-12-30 06:18] LABS: HEMATOCRIT 39.4 % (37.9-51.0); HEMOGLOBIN 13.6 g/dL (13.5-17.0); MEAN CORPUSCULAR HEMOGLOBIN 34.5 pg (27.0-33.4); MEAN CORPUSCULAR HGB CONC 34.5 g/dL (32.0-36.0); MEAN CORPUSCULAR VOLUME 100 fl (80-97); PLATELET COUNT 152 10^3/uL (150-450); RED BLOOD COUNT 3.94 10^6/uL (4.35-5.55); RED CELL DISTRIBUTION WIDTH 16.9 % (11.5-14.0); WHITE BLOOD COUNT 5.1 10^3/uL (4.0-10.5)
[2019-12-30 06:45] LABS: BLOOD UREA NITROGEN 12 mg/dL (7-20); CALCIUM 8.7 mg/dL (8.4-10.2); GLUCOSE 95 mg/dL (75-110); POTASSIUM 4.4 mmol/L (3.6-5.0)
[2019-12-30 06:51] LABS: CARBON DIOXIDE 24 mmol/L (22-30); CHLORIDE 109 mmol/L (98-107)
[2019-12-30 06:57] LABS: ANION GAP 5 (5-19)
[2019-12-30] MEDS: DIPHENHYDRAMINE HCL 50 MG CAPSULE PO PRN (08:52)
[2019-12-30] MEDS: BUSPIRONE HCL 10 MG TABLET PO SCH ×2 (09:01→17:28)
[2019-12-30] MEDS: FOLIC ACID 1 MG TABLET PO SCH (09:01)
[2019-12-30] MEDS: NICOTINE 21 MG/24 HR PATCH.TD24 TD SCH (09:02)
[2019-12-30] MEDS: FLUOXETINE HCL 20 MG CAPSULE PO SCH (09:02)
[2019-12-30] MEDS: FAMOTIDINE 20 MG TABLET PO SCH ×2 (09:02→21:17)
[2019-12-30] MEDS: THIAMINE HCL 100 MG TABLET PO SCH (09:02)
[2019-12-30] MEDS: ATENOLOL 50 MG TABLET PO SCH ×2 (09:02→21:17)
[2019-12-30] MEDS: DOCUSATE SODIUM 100 MG CAPSULE PO SCH ×2 (09:04→17:37)
[2019-12-30] MEDS ORDERED: PHENOBARBITAL 32.4 MG TABLET PO ONE (10:27)
--- NOTE | 2019-12-30 11:36 | PDOC PROGRESS REPORT ---
Subjective Progress Note for:: 12/30/19 Subjective:: Patient actually tearful. He is concerned about family. He states that he does not want to leave his and children. I understood that to mean he is concerned about dying. Some of what he said was difficult to comprehend. I think he is still having some delirium from withdrawal. Reason For Visit: ACUTE ALCOHOL WITHDRAWL HYPERACTIVE DELIRIUM, Physical Exam Vital Signs: Temp Pulse Resp BP Pulse Ox 97.3 F 71 14 136/97 H 100 12/30/19 11:24 12/30/19 11:24 12/30/19 11:24 12/30/19 11:24 12/30/19 11:24 Intake & Output 12/29/19 12/30/19 12/31/19 06:59 06:59 06:59 Intake Total 345 932 Output Total 400 1550 Balance -55 -618 Weight 76.9 kg General appearance: PRESENT: cooperative, severe distress, well-developed Head exam: PRESENT: atraumatic, normocephalic Respiratory exam: PRESENT: clear to auscultation deisy, symmetrical, unlabored. ABSENT: rales, rhonchi, tachypnea, wheezes Cardiovascular exam: PRESENT: RRR, +S1, +S2. ABSENT: bradycardia, diastolic murmur, irregular rhythm, systolic murmur, tachycardia GI/Abdominal exam: PRESENT: hypoactive bowel sounds, soft. ABSENT: distended, guarding, tenderness Rectal exam: PRESENT: deferred Gentrourinary exam: ABSENT: indwelling catheter Extremities exam: ABSENT: pedal edema Musculoskeletal exam: ABSENT: ambulatory - Unsafe to ambulate in his current condition, normal inspection Neurological exam: PRESENT: alert, altered - Delirium with alcohol withdrawal, awake, oriented to person, oriented to place, oriented to situation Psychiatric exam: PRESENT: anxious. ABSENT: agitated Focused psych exam: PRESENT: other - Delirium from alcohol withdrawal Skin exam: PRESENT: dry, normal color, warm Results Laboratory Results: 12/30/19 04:40 12/30/19 04:40 12/30/19 12/30/19 04:40 04:40 WBC 5.1 RBC 3.94 L Hgb 13.6 Hct 39.4 MCV 100 H MCH 34.5 H MCHC 34.5 RDW 16.9 H Plt Count 152 Sodium 138.1 Potassium 4.4 Chloride 109 H Carbon Dioxide 24 Anion Gap 5 BUN 12 Creatinine 0.71 Est GFR ( Amer) > 60 Glucose 95 Calcium 8.7 Magnesium 2.4 H 12/27/19 16:40 Troponin I 0.015 Impressions: Chest X-Ray 12/27/19 16:19 IMPRESSION: NO ACUTE RADIOGRAPHIC FINDING IN THE CHEST. Assessment and Plan - Diagnosis (1) Alcohol withdrawal delirium, acute, hyperactive Is this a current diagnosis for this admission?: Yes Plan: With almost hourly doses of 15 mg of Valium I reviewed literature on up-to-date. It seems that another option is to add phenobarbital. I will give a small dose. If it seems to be effective I will give a scheduled doses in addition to the Valium therapy. (2) Alcoholism with alcohol dependence Qualifiers: Substance use status: in withdrawal Complication of substance-induced condition: with delirium Qualified Code(s): F10.231 - Alcohol dependence with withdrawal delirium Is this a current diagnosis for this admission?: Yes Plan: Should receive counseling and possibly inpatient detox/rehab post discharge (3) Hypertension Qualifiers: Hypertension type: essential hypertension Qualified Code(s): I10 - Essential (primary) hypertension Is this a current diagnosis for this admission?: Yes Plan: Well-controlled despite current clinical status regarding withdrawal. (4) Tobacco use disorder, severe, dependence Is this a current diagnosis for this admission?: Yes Plan: Nicotine patch. Hopefully the patient will abstain post discharge. (5) Anxiety with depression Is this a current diagnosis for this admission?: Yes Plan: Continue BuSpar and antidepressant. Review of medications on [facility] reveal that they are safe to continue with his alcohol withdrawal. (6) Suicidal ideation Is this a current diagnosis for this admission?: Yes Plan: No longer manifesting any suicidal ideation. In fact he expressed significant concern that he did not want to pass away and leave his and children. - Plan Summary Summary: Patient will be admitted to the medical floor on a telemetry bed where he received routine supportive and symptomatic cares. He will be treated with oral Valium 10 mg every 4 hours and metoprolol 50 mg p.o. every 12 hours. He will also receive Valium 10 mg IV every 1 hour as needed for severe withdrawal symptoms. CIWA scoring and coordinated treatment of the patient's alcohol withdrawal will be performed. Patient will be on a cardiac diet. Case management consultation will be submitted. Smoking cessation is advised and counseled briefly at the bedside. Placement patch is available for the patient's use, if desired. - Time Time Spent with patient: 25-34 minutes Medications reviewed and adjusted accordingly: Yes Anticipated Discharge Disposition: Home, Self Care Anticipated Discharge Timeframe: Unknown
[2019-12-30] MEDS: NORMAL SALINE 1000 ML 1,000 ML with POTASSIUM CHLORIDE 20 MEQ, MAGNESIUM SULFATE 8 MEQ,... IV SCH ×5 (17:28)
[2019-12-30] MEDS: PHENOBARBITAL 64.8 MG TABLET PO SCH (21:17)
[2019-12-31] MEDS: DIAZEPAM 5 MG TABLET PO SCH ×7 (01:27→22:26)
[2019-12-31] MEDS: CHLORPROMAZINE HCL INJ 25 MG/1 ML AMPULE IV PRN (03:28)
[2019-12-31] MEDS: DIAZEPAM INJ 10 MG/2 ML DISP.SYRIN IV PRN ×2 (03:29→07:39)
[2019-12-31] MEDS: HEPARIN SOD (PORCINE) 5,000 UNIT/ML 1 ML VIAL SUBCUT SCH ×3 (06:45→22:30)
[2019-12-31] MEDS: PHENOBARBITAL 64.8 MG TABLET PO SCH ×3 (07:38→22:25)
[2019-12-31] MEDS ORDERED: DIAZEPAM INJ 10 MG/2 ML DISP.SYRIN IV PRN (08:56)
[2019-12-31] MEDS: FLUOXETINE HCL 20 MG CAPSULE PO SCH (09:51)
[2019-12-31] MEDS: BUSPIRONE HCL 10 MG TABLET PO SCH ×2 (09:51→18:10)
[2019-12-31] MEDS: THIAMINE HCL 100 MG TABLET PO SCH (09:52)
[2019-12-31] MEDS: NICOTINE 21 MG/24 HR PATCH.TD24 TD SCH (09:52)
[2019-12-31] MEDS: DOCUSATE SODIUM 100 MG CAPSULE PO SCH ×2 (09:52→18:10)
[2019-12-31] MEDS: FAMOTIDINE 20 MG TABLET PO SCH ×2 (09:52→22:26)
[2019-12-31] MEDS: FOLIC ACID 1 MG TABLET PO SCH (09:52)
[2019-12-31] MEDS: ATENOLOL 50 MG TABLET PO SCH ×2 (09:52→22:26)
[2019-12-31] MEDS ORDERED: LORAZEPAM INJ 2 MG/1 ML VIAL IV PRN (10:34)
[2019-12-31] MEDS: LORAZEPAM INJ 2 MG/1 ML VIAL IV PRN ×2 (15:55→20:21)
--- NOTE | 2019-12-31 19:45 | PDOC PROGRESS REPORT ---
Subjective Progress Note for:: 12/31/19 Subjective:: Patient was seen on morning rounds. He was found resting in bed, comfortably, on room air. He was sleeping but woke easily when I said his name. He was noted to startle easily and have slight tremor to his hands. He comments on continued anxiety and requests additional Valium. Otherwise, he denies fever, chills, chest pain, palpitations, dyspnea orthopnea, abdominal pain, nausea vomiting diarrhea. Reports good appetite. He is noncommittal with regard to going to inpatient/outpatient rehab, however, does request that we detox him fully. He has no other questions or concerns at this time. Nursing notes the patient calls to ask for his PRN Valium quite regularly; they ask we evaluate his readiness for decreased dosing. Reason For Visit: ACUTE ALCOHOL WITHDRAWL HYPERACTIVE DELIRIUM, Physical Exam Vital Signs: Temp Pulse Resp BP Pulse Ox 98.6 F 77 22 H 126/91 H 98 12/31/19 16:00 12/31/19 16:00 12/31/19 16:00 12/31/19 16:00 12/31/19 16:00 Intake & Output 12/30/19 12/31/19 01/01/20 06:59 06:59 06:59 Intake Total 1955 2280 150 Output Total 1550 400 Balance 405 1880 150 Weight 76.9 kg 77.7 kg General appearance: PRESENT: no acute distress, disheveled, well-developed, well-nourished Head exam: PRESENT: atraumatic, normocephalic Eye exam: PRESENT: conjunctiva pink, EOMI, PERRLA. ABSENT: scleral icterus Mouth exam: PRESENT: moist, tongue midline Respiratory exam: PRESENT: clear to auscultation deisy, symmetrical, unlabored. ABSENT: rales, rhonchi, wheezes Cardiovascular exam: PRESENT: RRR, +S1, +S2. ABSENT: diastolic murmur, rubs, systolic murmur Pulses: PRESENT: normal dorsalis pedis pul Vascular exam: PRESENT: normal capillary refill GI/Abdominal exam: PRESENT: normal bowel sounds, soft. ABSENT: distended, guarding, mass, organolmegaly, rebound, tenderness Rectal exam: PRESENT: deferred Extremities exam: PRESENT: full ROM. ABSENT: calf tenderness, clubbing, pedal edema Neurological exam: PRESENT: alert, awake, oriented to person, oriented to place, oriented to time, oriented to situation, CN II-XII grossly intact. ABSENT: motor sensory deficit Psychiatric exam: PRESENT: appropriate affect, normal mood. ABSENT: homicidal ideation, suicidal ideation Skin exam: PRESENT: dry, intact, warm. ABSENT: cyanosis, rash Results Laboratory Results: 12/30/19 04:40 12/30/19 04:40 12/27/19 16:40 Troponin I 0.015 Impressions: Chest X-Ray 12/27/19 16:19 IMPRESSION: NO ACUTE RADIOGRAPHIC FINDING IN THE CHEST. Assessment and Plan - Diagnosis (1) Alcohol withdrawal delirium, acute, hyperactive Is this a current diagnosis for this admission?: Yes Plan: Decrease scheduled Valium from 15 to 10 mg every 4 hours. Continue phenobarbital every 8 hours. CIWA score every 4 hours with sliding scale Ativan. Fall, seizure, aspiration precautions. (2) Alcoholism with alcohol dependence Qualifiers: Substance use status: in withdrawal Complication of substance-induced condition: with delirium Qualified Code(s): F10.231 - Alcohol dependence with withdrawal delirium Is this a current diagnosis for this admission?: Yes Plan: Should receive counseling and possibly inpatient detox/rehab post discharge Indecisive regarding rehabilitation options. At time of admission, patient was interested in going to [facility]. Today he states he would like to speak with family prior to making decision, however, does confirm request to detox fully. Continue multivitamin, folic acid, thiamine supplementation. Discharge planning consulted. (3) Anxiety with depression Is this a current diagnosis for this admission?: Yes Plan: Continue BuSpar and antidepressant. (4) Hypertension Qualifiers: Hypertension type: essential hypertension Qualified Code(s): I10 - Essential (primary) hypertension Is this a current diagnosis for this admission?: Yes Plan: Well-controlled despite current clinical status regarding withdrawal. Continue atenolol 50 mg twice daily (5) Suicidal ideation Is this a current diagnosis for this admission?: Yes Plan: No longer manifesting any suicidal ideation. In fact he expressed significant concern that he did not want to pass away and leave his and children. Patient was evaluated by mental health services; has been cleared from psych iatric perspective. (6) Tobacco use disorder, severe, dependence Is this a current diagnosis for this admission?: Yes Plan: Smoking 3 patient improved. Replacement therapy provided. - Time Time Spent with patient: 25-34 minutes Medications reviewed and adjusted accordingly: Yes Anticipated Discharge Disposition: Psych Hospital/Unit - EtOH rehab Anticipated Discharge Timeframe: >72 hrs
[2020-01-01] MEDS: DIAZEPAM 5 MG TABLET PO SCH ×6 (01:04→22:43)
[2020-01-01] MEDS: LORAZEPAM INJ 2 MG/1 ML VIAL IV PRN ×2 (01:05→05:27)
[2020-01-01] MEDS: PHENOBARBITAL 64.8 MG TABLET PO SCH ×3 (05:27→22:43)
[2020-01-01] MEDS: HEPARIN SOD (PORCINE) 5,000 UNIT/ML 1 ML VIAL SUBCUT SCH ×3 (05:28→22:44)
[2020-01-01] MEDS ORDERED: LORAZEPAM INJ 2 MG/1 ML VIAL IV PRN ×2 (08:29→08:30)
[2020-01-01] MEDS: BUSPIRONE HCL 10 MG TABLET PO SCH ×2 (09:41→18:14)
[2020-01-01] MEDS: FLUOXETINE HCL 20 MG CAPSULE PO SCH (09:41)
[2020-01-01] MEDS: FAMOTIDINE 20 MG TABLET PO SCH ×2 (09:42→22:42)
[2020-01-01] MEDS: DOCUSATE SODIUM 100 MG CAPSULE PO SCH ×2 (09:42→18:14)
[2020-01-01] MEDS: FOLIC ACID 1 MG TABLET PO SCH (09:42)
[2020-01-01] MEDS: NICOTINE 21 MG/24 HR PATCH.TD24 TD SCH (09:42)
[2020-01-01] MEDS: ATENOLOL 50 MG TABLET PO SCH ×2 (09:42→22:42)
[2020-01-01] MEDS: THIAMINE HCL 100 MG TABLET PO SCH (09:42)
--- NOTE | 2020-01-01 18:32 | PDOC PROGRESS REPORT ---
Subjective Progress Note for:: 01/01/20 Subjective:: Patient was seen on morning rounds. He was found resting in bed, comfortably, on room air. He was sleeping but woke easily when I said his name. He did just receive IV Ativan 2 mg for CIWA 18; all other scores <14 w/ two 0 scores last 24 hours. Patient reports that he continues to have increased anxiety, "I'm just afraid all the time." When asked about his plan following discharge; patient states that his friend is planning to take him to the [facility] in [place]. He is advised the the [facility] is closing within the next couple of months and I strongly recommend that they call and verify that they are accepting patients at this time. We discussed plan to begin weaning valium/ativan in anticipation of discharge within in the next 24-48 hrs. Otherwise, he denies fever, chills, chest pain, palpitations, dyspnea orthopnea, abdominal pain, nausea vomiting diarrhea. Reports good appetite. He has no other questions or concerns at this time. Nursing calls this afternoon to report CIWA <10 x2, however, patient is asking for increased benzos as he "is still craving alcohol." Reason For Visit: ACUTE ALCOHOL WITHDRAWL HYPERACTIVE DELIRIUM, Physical Exam Vital Signs: Temp Pulse Resp BP Pulse Ox 97.8 F 80 18 140/92 H 99 01/01/20 15:23 01/01/20 15:23 01/01/20 15:23 01/01/20 15:23 01/01/20 15:23 Intake & Output 12/31/19 01/01/20 01/02/20 06:59 06:59 06:59 Intake Total 2280 700 1200 Output Total 400 650 Balance 1880 50 1200 Weight 77.7 kg 78.3 kg General appearance: PRESENT: no acute distress, disheveled, well-developed, well-nourished Head exam: PRESENT: atraumatic, normocephalic Eye exam: PRESENT: conjunctiva pink, EOMI, PERRLA. ABSENT: scleral icterus Mouth exam: PRESENT: moist, tongue midline Respiratory exam: PRESENT: clear to auscultation deisy, symmetrical, unlabored. ABSENT: rales, rhonchi, wheezes Cardiovascular exam: PRESENT: RRR, +S1. ABSENT: diastolic murmur, rubs, systolic murmur Pulses: PRESENT: normal dorsalis pedis pul Vascular exam: PRESENT: normal capillary refill Extremities exam: PRESENT: full ROM. ABSENT: calf tenderness, clubbing, pedal edema Neurological exam: PRESENT: alert, awake, oriented to person, oriented to place, oriented to time, oriented to situation, CN II-XII grossly intact, other - slight intention tremor noted. ABSENT: motor sensory deficit Psychiatric exam: PRESENT: anxious, normal mood. ABSENT: homicidal ideation, suicidal ideation Skin exam: PRESENT: dry, intact, warm. ABSENT: cyanosis, rash Results Laboratory Results: 12/30/19 04:40 12/30/19 04:40 12/27/19 16:40 Troponin I 0.015 Impressions: Chest X-Ray 12/27/19 16:19 IMPRESSION: NO ACUTE RADIOGRAPHIC FINDING IN THE CHEST. Assessment and Plan - Diagnosis (1) Alcohol withdrawal delirium, acute, hyperactive Is this a current diagnosis for this admission?: Yes Plan: Decrease scheduled Valium to 5 mg every 4 hours. Continue phenobarbital every 8 hours. CIWA score every 4 hours with sliding scale Ativan. Fall, seizure, aspiration precautions. (2) Alcoholism with alcohol dependence Qualifiers: Substance use status: in withdrawal Complication of substance-induced condition: with delirium Qualified Code(s): F10.231 - Alcohol dependence with withdrawal delirium Is this a current diagnosis for this admission?: Yes Plan: Should receive counseling and possibly inpatient detox/rehab post discharge Indecisive regarding rehabilitation options. At time of admission, patient was interested in going to [facility]. Now stating he intends to go to the [facility] in [facility] [place]. Continue multivitamin, folic acid, thiamine supplementation. Discharge planning consulted. (3) Anxiety with depression Is this a current diagnosis for this admission?: Yes Plan: Continue BuSpar and antidepressant. (4) Hypertension Qualifiers: Hypertension type: essential hypertension Qualified Code(s): I10 - Essential (primary) hypertension Is this a current diagnosis for this admission?: Yes Plan: Well-controlled despite current clinical status regarding withdrawal. Continue atenolol 50 mg twice daily (5) Suicidal ideation Is this a current diagnosis for this admission?: Yes Plan: No longer manifesting any suicidal ideation. In fact he expressed significant concern that he did not want to pass away and leave his and children. Patient was evaluated by mental health services; has been cleared from psychi atric perspective. (6) Tobacco use disorder, severe, dependence Is this a current diagnosis for this admission?: Yes Plan: Smoking cessation encouraged Replacement therapy provided. - Time Time Spent with patient: 25-34 minutes Medications reviewed and adjusted accordingly: Yes Anticipated Discharge Disposition: Home, Self Care Anticipated Discharge Timeframe: within 48 hours
[2020-01-02] MEDS: DIAZEPAM 5 MG TABLET PO SCH ×2 (01:17→08:48)
[2020-01-02] MEDS: HEPARIN SOD (PORCINE) 5,000 UNIT/ML 1 ML VIAL SUBCUT SCH (06:44)
[2020-01-02] MEDS ORDERED: LORAZEPAM 1 MG TABLET PO PRN (08:30)
[2020-01-02] MEDS: PHENOBARBITAL 64.8 MG TABLET PO SCH (08:48)
[2020-01-02] MEDS ORDERED: DIAZEPAM 5 MG TABLET PO SCH (10:00)
[2020-01-02] MEDS: FLUOXETINE HCL 20 MG CAPSULE PO SCH (10:41)
[2020-01-02] MEDS: FOLIC ACID 1 MG TABLET PO SCH (10:41)
[2020-01-02] MEDS: DOCUSATE SODIUM 100 MG CAPSULE PO SCH (10:41)
[2020-01-02] MEDS: NICOTINE 21 MG/24 HR PATCH.TD24 TD SCH (10:41)
[2020-01-02] MEDS: BUSPIRONE HCL 10 MG TABLET PO SCH (10:41)
[2020-01-02] MEDS: FAMOTIDINE 20 MG TABLET PO SCH (10:41)
[2020-01-02] MEDS: THIAMINE HCL 100 MG TABLET PO SCH (10:41)
[2020-01-02] MEDS: ATENOLOL 50 MG TABLET PO SCH (10:41)
[2020-01-02] MEDS ORDERED: PROMETHAZINE HCL INJ 25 MG/1 ML VIAL IV PRN (12:30)
[2020-01-02 12:50] VITALS: BP 128/86
--- NOTE | 2020-01-04 18:33 | PDOC DISCHARGE SUMMARY ---
Impression - Admit/DC Date/PCP Admission Date/Primary Care Provider: 12/28/19 02:46 BARBER GARCIA MD Discharge Date: 01/02/20 - Discharge Diagnosis (1) Alcohol withdrawal delirium, acute, hyperactive Is this a current diagnosis for this admission?: Yes (2) Alcoholism with alcohol dependence Is this a current diagnosis for this admission?: Yes (3) Anxiety with depression Is this a current diagnosis for this admission?: Yes (4) Hypertension Is this a current diagnosis for this admission?: Yes (5) Suicidal ideation Is this a current diagnosis for this admission?: Yes (6) Tobacco use disorder, severe, dependence Is this a current diagnosis for this admission?: Yes - Additional Information Resuscitation Status: Full Code Discharge Diet: Cardiac Discharge Activity: Activity As Tolerated, Balance Activity w/Rest, Slowly Increase Activity Referrals: BARBER GARCAI MD [Primary Care Provider] - Prescriptions: Folic Acid [Folvite 1 mg Tablet] 1 mg PO DAILY #90 tablet Nicotine [Nicoderm 21 mg/24 Hr Transderm Patch] 1 each TD DAILY #30 patch.td24 Atenolol [Tenormin 50 mg Tablet] 50 mg PO Q12 #60 tablet Thiamine HCl [Thiamine 100 mg Tablet] 100 mg PO DAILY #90 tablet Diazepam [Valium 2 mg Tablet] 2 mg PO Q6HP PRN #15 tablet PRN Reason: Home Medications: Buspirone HCl 15 mg PO BID 12/29/19 Fluoxetine HCl [Prozac] 40 mg PO DAILY 12/29/19 Atenolol [Tenormin 50 mg Tablet] 50 mg PO Q12 #60 tablet 01/02/20 Diazepam [Valium 2 mg Tablet] 2 mg PO Q6HP PRN #15 tablet 01/02/20 Folic Acid [Folvite 1 mg Tablet] 1 mg PO DAILY #90 tablet 01/02/20 Nicotine [Nicoderm 21 mg/24 Hr Transderm Patch] 1 each TD DAILY #30 patch.td24 01/02/20 Thiamine HCl [Thiamine 100 mg Tablet] 100 mg PO DAILY #90 tablet 01/02/20 History of Present Illiness History of Present Illness: Per H&P by Dr. Garcia: JACQUES BRITTON JR is a 44 year old male who presented the emergency room with suicidal ideation and acute alcohol withdrawal. He was evaluated in the emergency room by psychology/psychiatry and it was determined that he did not require inpatient treatment. He was intoxicated at the time of his emergency room arrival and began experiencing withdrawal symptoms prior to being transferred to a local alcohol rehabilitation facility. He admits drinking 4 beers prior to coming to the emergency room on 12/27/2019. He additionally admits to heavy alcohol consumption but is inconsistent in his quantification. He admits that he was thinking about suicide yesterday but did not actually have a plan and did not make any attempt at ending his life. He wishes to go to alcohol rehab as soon as possible. He admits an associated symptom of constant achy lower back pain for the last few days. In the emergency room he developed nausea with severe tremors prior to being transferred to the alcohol rehab facility. He was also noted to be tachycardic and hypertensive. He was subsequently admitted to the hospital for acute alcohol withdrawal symptoms. Hospital Course Hospital Course: (1) Alcohol withdrawal delirium, acute, hyperactive Patient was admitted to the medical floor on continuous cardiac telemetry. He was initially placed on scheduled Valium, PRN IV Valium, and scheduled phenobarbital. States that symptoms improved, his scheduled Valium was decreased and he was transitioned to sliding scale Ativan per CIWA score. The patient symptoms continue to improve; vital signs remained stable, tolerating regular diet, oriented x4; now stable for discharge to home. Safety ensured with fall, seizure, aspiration precautions. Patient is discharged home in stable condition. He is advised to go directly to the [facility] as he reports that he intends to request admission for inpatient alcohol rehabilitation. He is provided a small prescription for Valium to use as needed for anxiety. He is instructed not to drink alcohol. He is encouraged to return to emergency department as needed for concerning symptoms. (2) Alcoholism with alcohol dependence Indecisive regarding rehabilitation options. At time of admission, patient was interested in going to [facility]. Now stating he intends to go to the [facility] in [facility], [place]. Continue multivitamin, folic acid, thiamine supplementation. (3) Anxiety with depression Continue BuSpar and antidepressant. (4) Hypertension Well-controlled despite current clinical status regarding withdrawal. Continue atenolol 50 mg twice daily (5) Suicidal ideation No longer manifesting any suicidal ideation. In fact he expressed significant concern that he did not want to pass away and leave his and children. Patient was evaluated by mental health services; has been cleared from psychiatric perspective. (6) Tobacco use disorder, severe, dependence Smoking cessation encouraged Replacement therapy provided. Physical Exam Vital Signs: Temp Pulse Resp BP Pulse Ox 97.7 F 77 16 126/91 H 100 01/02/20 11:49 01/02/20 11:49 01/02/20 11:49 01/02/20 11:49 01/02/20 11:49 Intake & Output 01/03/20 01/04/20 01/05/20 06:59 06:59 06:59 Intake Total 240 Balance 240 General appearance: PRESENT: no acute distress, well-developed, well-nourished Head exam: PRESENT: atraumatic, normocephalic Eye exam: PRESENT: conjunctiva pink, EOMI, PERRLA. ABSENT: scleral icterus Mouth exam: PRESENT: moist, tongue midline Respiratory exam: PRESENT: clear to auscultation deisy, symmetrical, unlabored. ABSENT: rales, rhonchi, wheezes Cardiovascular exam: PRESENT: RRR. ABSENT: diastolic murmur, rubs, systolic murmur Vascular exam: PRESENT: normal capillary refill Extremities exam: PRESENT: full ROM. ABSENT: calf tenderness, clubbing, pedal edema Musculoskeletal exam: PRESENT: ambulatory Neurological exam: PRESENT: alert, awake, oriented to person, oriented to place, oriented to time, oriented to situation, CN II-XII grossly intact. ABSENT: motor sensory deficit Psychiatric exam: PRESENT: anxious, appropriate affect, normal mood. ABSENT: homicidal ideation, suicidal ideation Skin exam: PRESENT: dry, intact, warm. ABSENT: cyanosis, rash Results Laboratory Results: WBC 5.1 10^3/uL (4.0-10.5) 12/30/19 04:40 RBC 3.94 10^6/uL (4.35-5.55) L 12/30/19 04:40 Hgb 13.6 g/dL (13.5-17.0) 12/30/19 04:40 Hct 39.4 % (37.9-51.0) 12/30/19 04:40 MCV 100 fl (80-97) H 12/30/19 04:40 MCH 34.5 pg (27.0-33.4) H 12/30/19 04:40 MCHC 34.5 g/dL (32.0-36.0) 12/30/19 04:40 RDW 16.9 % (11.5-14.0) H 12/30/19 04:40 Plt Count 152 10^3/uL (150-450) 12/30/19 04:40 Lymph % (Auto) 18.2 % (13-45) 12/27/19 18:35 [place] % (Auto) 7.8 % (3-13) 12/27/19 18:35 Eos % (Auto) 0.0 % (0-6) 12/27/19 18:35 Baso % (Auto) 0.5 % (0-2) 12/27/19 18:35 Absolute Neuts (auto) 5.6 10^3/uL (1.7-8.2) 12/27/19 18:35 Absolute Lymphs (auto) 1.4 10^3/uL (0.5-4.7) 12/27/19 18:35 Absolute Monos (auto) 0.6 10^3/uL (0.1-1.4) 12/27/19 18:35 Absolute Eos (auto) 0.0 10^3/uL (0.0-0.6) 12/27/19 18:35 Absolute Basos (auto) 0.0 10^3/uL (0.0-0.2) 12/27/19 18:35 Seg Neutrophils % 73.5 % (42-78) 12/27/19 18:35 Platelet Estimate Cancelled 12/27/19 16:40 Sodium 138.1 mmol/L (137-145) 12/30/19 04:40 Potassium 4.4 mmol/L (3.6-5.0) 12/30/19 04:40 Chloride 109 mmol/L (98-107) H 12/30/19 04:40 Carbon Dioxide 24 mmol/L (22-30) 12/30/19 04:40 Anion Gap 5 (5-19) 12/30/19 04:40 BUN 12 mg/dL (7-20) 12/30/19 04:40 Creatinine 0.71 mg/dL (0.52-1.25) 12/30/19 04:40 Est GFR ( Amer) > 60 (>60) 12/30/19 04:40 Est GFR (MDRD) Non-Af > 60 (>60) 12/30/19 04:40 Glucose 95 mg/dL (75-110) 12/30/19 04:40 Calcium 8.7 mg/dL (8.4-10.2) 12/30/19 04:40 Magnesium 2.4 mg/dL (1.6-2.3) H 12/30/19 04:40 Total Bilirubin 0.7 mg/dL (0.2-1.3) 12/27/19 16:40 Direct Bilirubin 0.3 mg/dL (0.0-0.4) 12/27/19 16:40 Neonat Total Bilirubin Not Reportable 12/27/19 16:40 Neonat Direct Bilirubin Not Reportable 12/27/19 16:40 Neonat Indirect Bili Not Reportable 12/27/19 16:40 AST 54 U/L (17-59) 12/27/19 16:40 ALT 41 U/L (<50) 12/27/19 16:40 Alkaline Phosphatase 181 U/L (38-126) H 12/27/19 16:40 Troponin I 0.015 ng/mL 12/27/19 16:40 Total Protein 7.5 g/dL (6.3-8.2) 12/27/19 16:40 Albumin 4.2 g/dL (3.5-5.0) 12/27/19 16:40 Lipase 136.8 U/L (23-300) 12/28/19 03:10 Urine Color STRAW 12/27/19 18:22 Urine Appearance CLEAR 12/27/19 18:22 Urine pH 6.0 (5.0-9.0) 12/27/19 18:22 Ur Specific [place] 1.004 12/27/19 18:22 Urine Protein NEGATIVE mg/dL (NEGATIVE) 12/27/19 18:22 Urine Glucose (UA) NEGATIVE mg/dL (NEGATIVE) 12/27/19 18:22 Urine Ketones NEGATIVE mg/dL (NEGATIVE) 12/27/19 18:22 Urine Blood NEGATIVE (NEGATIVE) 12/27/19 18:22 Urine Nitrite NEGATIVE (NEGATIVE) 12/27/19 18:22 Urine Bilirubin NEGATIVE (NEGATIVE) 12/27/19 18:22 Urine Urobilinogen NEGATIVE mg/dL (<2.0) 12/27/19 18:22 Ur Leukocyte Esterase NEGATIVE (NEGATIVE) 12/27/19 18:22 Urine WBC (Auto) 1 /HPF 12/27/19 18:22 Urine RBC (Auto) 0 /HPF 12/27/19 18:22 Urine Ascorbic Acid NEGATIVE (NEGATIVE) 12/27/19 18:22 Salicylates < 1.0 mg/dL (2.0-20.0) L 12/27/19 16:40 Urine Opiates Screen NEGATIVE 12/27/19 18:22 Urine Methadone Screen NEGATIVE 12/27/19 18:22 Acetaminophen < 10 ug/mL (10-30) L 12/27/19 16:40 Ur Barbiturates Screen NEGATIVE 12/27/19 18:22 Ur Phencyclidine Scrn NEGATIVE 12/27/19 18:22 Ur Amphetamines Screen NEGATIVE 12/27/19 18:22 U Benzodiazepines Scrn NEGATIVE 12/27/19 18:22 Urine Cocaine Screen NEGATIVE 12/27/19 18:22 U Marijuana (THC) Screen NEGATIVE 12/27/19 18:22 Serum Alcohol 46 mg/dL (NONE DETECTED) 12/28/19 00:19 Slides for Path Review Cancelled 12/27/19 16:40 12/27/19 16:40 Troponin I 0.015 Impressions: Chest X-Ray 12/27/19 16:19 IMPRESSION: NO ACUTE RADIOGRAPHIC FINDING IN THE CHEST. Plan Plan of Treatment: Patient is discharged home in stable condition. He is advised to follow-up with his primary care provider within 1 week. He is instructed to take his medications as prescribed. He is encouraged not to drink alcohol. He is further encouraged to seek intensive alcohol rehabilitation services or counseling. He is advised to return to the emergency department as needed for concerning symptoms. Time Spent: Greater than 30 Minutes Stroke Is this a Stroke Patient?: No Acute Heart Failure - Is this a Heart Failure Patient?: No
== END 2020-01-02 14:17 | disposition home or self-care (01) | DRG 897 ==
LOC: ER 15:03 → EH 12-28 02:46 → 5 12-28 04:27
PROVIDERS: ADMIT Emergency Medicine; ATTEND Registered Nurse
DX: F10.231 Alcohol dependence with withdrawal delirium (principal); R45.851 Suicidal ideations; K86.3 Pseudocyst of pancreas; F10.229 Alcohol dependence with intoxication, unspecified; Y90.2 Blood alcohol level of 40-59 mg/100 ml; Z59.0 Homelessness; Z62.820 Parent-biological child conflict; I10 Essential (primary) hypertension; F17.200 Nicotine dependence, unspecified, uncomplicated; G40.909 Epilepsy, unspecified, not intractable, without status epilepticus; Z79.899 Other long term (current) drug therapy; F31.9 Bipolar disorder, unspecified; F41.8 Other specified anxiety disorders; Z71.6 Tobacco abuse counseling; Z71.41 Alcohol abuse counseling and surveillance of alcoholic
CPT/HCPCS: 36415; 71045; 80048; 80053; 80307; 81001; 83690; 83735; 84484; 85025; 85027; 93005; 93010; 96361; 96374; 96375; 96376; 99285; J1644; J2060; J2405; J2550; J3230; J3360; J3411; J3475; J3480; J3490; J7030; J7050

== ENCOUNTER 2020-02-09 21:56 | Inpatient (IN) | payer SELFPAY ==
[2020-02-09 22:28] LABS: ABSOLUTE BASOPHILS # (AUTO) 0.1 10^3/uL (0.0-0.2); ABSOLUTE LYMPHOCYTES (AUTO) 1.1 10^3/uL (0.5-4.7); ABSOLUTE NEUT (AUTO) 14.3 10^3/uL (1.7-8.2); BASOPHILS % (AUTO) 0.5 % (0-2); HEMOGLOBIN 17.3 g/dL (13.5-17.0); LYMPHOCYTES % (AUTO) 6.6 % (13-45); MEAN CORPUSCULAR HEMOGLOBIN 35.3 pg (27.0-33.4); MEAN CORPUSCULAR VOLUME 98 fl (80-97); PLATELET COUNT 280 10^3/uL (150-450); RED BLOOD COUNT 4.89 10^6/uL (4.35-5.55); RED CELL DISTRIBUTION WIDTH 15.1 % (11.5-14.0); SEGMENTED NEUTROPHILS % (AUTO) 86.9 % (42-78); TOTAL CELLS COUNTED % (AUTO) 100 %; WHITE BLOOD COUNT 16.5 10^3/uL (4.0-10.5)
[2020-02-09] MEDS: RINGERS SOLUTION,LACTATED 1,000 ML IV PRN ×2 (22:29→23:25)
[2020-02-09] MEDS ORDERED: MORPHINE SULFATE 10 MG/ML INJ IV ONE (22:55)
[2020-02-09] MEDS ORDERED: ONDANSETRON HCL INJ/PF 4 MG/2 ML SDV IV ONE (22:56)
[2020-02-09 23:00] LABS: ALBUMIN 3.7 g/dL (3.5-5.0); ALKALINE PHOSPHATASE 208 U/L (38-126); ANION GAP 17 (5-19); ASPARTATE AMINO TRANSFERASE 417 U/L (17-59); BILIRUBIN,DIRECT 0.5 mg/dL (0.0-0.4); BLOOD UREA NITROGEN 12 mg/dL (7-20); CALCIUM 8.1 mg/dL (8.4-10.2); CARBON DIOXIDE 14 mmol/L (22-30); CHLORIDE 103 mmol/L (98-107); GLUCOSE 101 mg/dL (75-110); POTASSIUM 3.6 mmol/L (3.6-5.0); TOTAL PROTEIN 6.9 g/dL (6.3-8.2)
[2020-02-09] MEDS ORDERED: RINGERS SOLUTION,LACTATED 1,000 ML IV ONE (23:22)
--- NOTE | 2020-02-09 23:25 | ER Document Report ---
ED General - General Chief Complaint: Abdominal Pain Stated Complaint: ABDOMINAL PAIN Time Seen by Provider: 02/09/20 22:05 TRAVEL OUTSIDE OF THE [place] IN LAST 30 DAYS: No - HPI Notes: Patient is a 45-year-old male with a history of pancreatitis who presents to the emergency department for evaluation of epigastric pain. It is stabbing, radiates to the back. He currently rates it as 10. It started this morning. He admits to drinking alcohol over the weekend, states he has not had any alcohol since last night. He admits to drinking liquor. He also states that he was given medication to keep his heart rate down, but he has not been taking that. He had nausea with multiple episodes of nonbloody, nonbilious emesis earlier today. - Related Data Allergies/Adverse Reactions: No Known Allergies Allergy (Verified 04/12/16 02:37) Home Medications: List reviewed with patient Past Medical History - General Information source: Patient - Social History Smoking Status: Current Every Day Smoker Frequency of alcohol use: BINGE Drug Abuse: None Family History: Reviewed & Not Pertinent, Hypertension - Past Medical History Cardiac Medical History: Reports: Hx Hypertension Denies: Hx Coronary Artery Disease, Hx Hypercholesterolemia Pulmonary Medical History: Denies: Hx Asthma, Hx COPD, Hx Tuberculosis Neurological Medical History: Reports: Hx Seizures Endocrine Medical History: Denies: Hx Diabetes Mellitus Type 1, Hx Diabetes Me llitus Type 2, Hx Hyperthyroidism, Hx Hypothyroidism Renal/ Medical History: Denies: Hx Peritoneal Dialysis GI Medical History: Reports: Hx Pancreatitis. Denies: Hx Cirrhosis, Hx Gastroesophageal Reflux Disease, Hx Hepatitis Musculoskeletal Medical History: Denies Hx Arthritis, Denies Hx Gout Skin Medical History: Denies Hx Eczema, Denies Hx Psoriasis Psychiatric Medical History: Reports: Hx Anxiety, Hx Bipolar Disorder, Hx Depression Infectious Medical History: Denies: Hx Hepatitis Past Surgical History: Reports: Hx Oral Surgery - Immunizations Hx Diphtheria, Pertussis, Tetanus Vaccination: Yes - given in er today Review of Systems - Review of Systems Constitutional: No symptoms reported EENT: No symptoms reported Cardiovascular: No symptoms reported Respiratory: No symptoms reported Gastrointestinal: Abdomen distended Genitourinary: No symptoms reported Musculoskeletal: No symptoms reported Skin: No symptoms reported Neurological/Psychological: No symptoms reported Physical Exam - Vital signs Vitals: Resp 20 02/09/20 22:02 - Notes Notes: Is a 45-year-old male appears stated age, in a mild amount of stress. He is moaning and rolling around on the bed. Vital signs reviewed, please refer to chart. Head is normocephalic, atraumatic. Pupils equal round, reactive to light. Neck is supple without meningismus. Heart is regular rate and rhythm. Lungs are clear to auscultation bilaterally. Abdomen is moderately tender in the epigastric region without rebound or guarding, normoactive bowel sounds throughout. Extremities without cyanosis, clubbing. Posterior calves are nontender. Peripheral pulses are equal. Skin is warm and dry. Patient is awake, alert, neurological exam is nonfocal. Course - Re-evaluation Re-evalutation: 02/09/20 23:25 Patient presents to the emergency department for evaluation. Laboratory investigations were obtained. He is placed on a cardiac cath lab manager as he was found to be markedly tachycardic. He is given IV fluids. Labs revealed a lipase that was under 1000. Certainly this is elevated, but not markedly so. The patient was binge drinking. I will give him IV fluids. I did give him pain medication, nausea medication. His alcohol level, despite him saying it is been over 24 hours since his last drink, is still elevated. We will continue to monitor. 02/10/20 00:13 I went back into reevaluate the patient he was sleeping. He was actually resting still comfortably the nursing actually had a sternal rub him awake. At that point he stated that his pain medications did not help him at all. I went in and evaluated the patient. I explained to him that his blood alcohol is twice the legal limit. His pancreatic enzymes are only moderately elevated. I did not feel comfortable ordering further narcotics at this time, we will continue to administer fluids and send him for a CT of the abdomen and pelvis. 02/10/20 01:17 With fluid resuscitation, patient's heart rate has come down to 130s. His CT scan does not fact reveal signs of acute pancreatitis. I spoke with Dr. Espinoza, he will admit the patient for further care. - Vital Signs Vital signs: Temp Pulse Resp BP Pulse Ox 98.6 F 95 20 152/99 H 97 02/13/20 10:00 02/13/20 09:11 02/13/20 09:11 02/13/20 09:11 10/08/20 09:11 - Laboratory Result Diagrams: 02/13/20 04:11 02/13/20 04:11 Laboratory results interpreted by me: 02/09/20 02/09/20 02/09/20 22:10 22:10 23:40 WBC 16.5 H Hgb 17.3 H MCV 98 H MCH 35.3 H RDW 15.1 H Lymph % (Auto) 6.6 L Absolute Neuts (auto) 14.3 H Seg Neutrophils % 86.9 H Sodium 133.8 L Carbon Dioxide 14 L Calcium 8.1 L Direct Bilirubin 0.5 H AST 417 H ALT 170 H Alkaline Phosphatase 208 H Lipase 948.5 H Urine Protein 30 H Urine Ketones 20 H - Diagnostic Test Radiology reviewed: Reports reviewed Radiology results interpreted by me: 02/10/20 01:18 Abdomen/Pelvis CT 02/10/20 00:12 IMPRESSION: Findings suggesting acute pancreatitis involving the pancreatic tail with associated fluid around the pancreatic tail, retroperitoneum and paracolic gutter Enlarged fatty liver Distended gallbladder Discharge - Discharge Clinical Impression: Alcohol abuse, Pancreatitis, Acute pancreatitis Condition: Good Disposition: ADMITTED INPATIENT Admitting Provider: [facility] (Hospitalist) Unit Admitted: Telemetry
[2020-02-10 00:40] LABS: APPEARANCE,URINE SLIGHTLY-CLOUDY; BILIRUBIN,URINE NEGATIVE (NEGATIVE); COLOR,URINE YELLOW; GLUCOSE, URINE NEGATIVE (NEGATIVE); KETONES,URINE 20 mg/dL (NEGATIVE); LEUKOCYTE ESTERASE,URINE NEGATIVE (NEGATIVE); NITRITE,URINE NEGATIVE (NEGATIVE); PROTEIN,URINE 30 mg/dL (NEGATIVE); URINE SPECIFIC GRAVITY 1.023; UROBILINOGEN,URINE NEGATIVE mg/dL (<2.0)
--- NOTE | 2020-02-10 00:47 | RADIOLOGY REPORT (SQ) ---
EXAM DESCRIPTION: CT ABDOMEN PELVIS WITH IV CONTRAST COMPLETED DATE/TME: 02/10/2020 00:12 CLINICAL HISTORY: 45 years Male Epigastric pain, eval for pancreatitis COMPARISON: 12/20/2019. TECHNIQUE: Contiguous axial images obtained through the abdomen and pelvis following IV contrast. Reformatted images obtained. This exam was performed according to our department optimization program which includes automated exposure control, adjustment of the mA and/or kv according to patient size and/or use of iterative reconstruction technique. FINDINGS: Fatty infiltration of the liver. Spleen is unremarkable. Inflammatory change and edema involving the pancreatic tail with associated fluid around the pancreas and the paracolic gutter. No adrenal masses. The kidneys appear unremarkable. No hydronephrosis. The gallbladder is distended.. No aneurysmal dilatation of the aorta. No bowel obstruction. The appendix is unremarkable. No free fluid in the pelvis. IMPRESSION: Findings suggesting acute pancreatitis involving the pancreatic tail with associated fluid around the pancreatic tail, retroperitoneum and paracolic gutter Enlarged fatty liver Distended gallbladder
[2020-02-10] MEDS ORDERED: FAMOTIDINE INJ/PF 20 MG/2 ML SDV IV ONE (00:48)
[2020-02-10] MEDS ORDERED: METOPROLOL TARTRATE PF/INJ 5 MG/5 ML SDV IV ONE (01:17)
[2020-02-10] MEDS ORDERED: MORPHINE SULFATE 10 MG/ML INJ IV ONE (01:30)
[2020-02-10] MEDS ORDERED: MAG HYDROX/AL HYDROX/SIMETH SUSP 30 ML UDCUP PO PRN (02:51)
[2020-02-10] MEDS ORDERED: PROMETHAZINE HCL INJ 25 MG/1 ML VIAL IV PRN (02:51)
[2020-02-10] MEDS ORDERED: LEVALBUTEROL HCL NEB 0.63 MG/3 ML AMPUL NEB PRN (02:51)
[2020-02-10] MEDS ORDERED: ACETAMINOPHEN 325 MG TABLET PO PRN (02:56)
[2020-02-10] MEDS ORDERED: CHLORPROMAZINE HCL INJ 25 MG/1 ML AMPULE IV PRN (02:56)
[2020-02-10] MEDS ORDERED: ACETAMINOPHEN 650 MG SUPP.RECT PR PRN (02:56)
[2020-02-10] MEDS ORDERED: METOPROLOL TARTRATE PF/INJ 5 MG/5 ML SDV IV PRN (02:56)
[2020-02-10] MEDS: DIAZEPAM INJ 10 MG/2 ML DISP.SYRIN IV SCH ×6 (03:27→23:01)
[2020-02-10] MEDS: RINGERS SOLUTION,LACTATED 1,000 ML IV PRN ×5 (03:31→23:42)
[2020-02-10] MEDS: MORPHINE SULFATE 10 MG/ML INJ IV PRN ×5 (04:21→23:43)
--- NOTE | 2020-02-10 04:58 | PDOC H&P ---
History of Present Illness Admission Date/PCP: 02/10/2020 02:28 No local PCP Patient complains of: Abdominal pain History of Present Illness: JACQUES BRITTON JR is a 45 year old male who presented to the emergency room with a 1-day history of abdominal pain. He admits to going out with some friends and drinking hard liquor to excess on Monday and Monday, with his last alcohol intake being on the evening of 02/08/2020. He began having abdominal pain on the morning of 02/09/2020, that worsened progressively throughout the course of the day resulting in his evening visit to the emergency room. His abdominal pain wa s in the epigastric and left upper quadrant region and radiated through to his back. He describes the pain as a constant severe sharp stabbing pain. His pain has been accompanied by nausea and several episodes of vomiting. He denies other associated or accompanying signs and symptoms. He admits numerous prior similar episodes due to alcoholic pancreatitis. He has not identified any additional aggravating or ameliorating factors for his pain. In the emergency room he was found to have a blood alcohol of 190 and was noted to be in severe distress secondary to his abdominal pain. A CT scan of the abdomen confirmed acute pancreatitis of the tail of the pancreas. He was noted to have elevated liver function tests as well as a moderately elevated lipase. Patient was subsequently admitted to the hospital for further evaluation and treatment. Past Medical History Cardiac Medical History: Reports: Hypertension Denies: Coronary Artery Disease, Hyperlipidema Pulmonary Medical History: Denies: Asthma, Chronic Obstructive Pulmonary Disease (COPD), Tuberculosis EENT Medical History: Denies: Cataracts - Hearing aids, Ears Neurological Medical History: Reports: Seizures - Related to alcohol withdrawal Denies: Hemorrhagic CVA, Ischemic CVA, Multiple Sclerosis Endocrine Medical History: Denies: Diabetes Mellitus Type 1, Diabetes Mellitus Type 2, Hyperthyroidism, Hypothyroidism Malignancy Medical History: Reports: None GI Medical History: Reports: Other - Alcoholic pancreatitis Denies: Cirrhosis, Gastroesophageal Reflux Disease, Hepatitis, Peptic Ulcer Disease Musculoskeltal Medical History: Denies: Arthritis, Gout Skin Medical History: Denies: Eczema, Psoriasis Psychiatric Medical History: Reports: Alcohol Dependency, Bipolar Disorder, Depression, Substance Abuse, Tobacco Dependency Traumatic Medical History: Reports: None Hematology: Denies: Anemia, Bleeding Tendencies Infectious Medical History: Reports: None Past Surgical History Past Surgical History: Reports: None Social History Information Source: Patient Lives with: Alone Smoking Status: Current Every Day Smoker Electronic Cigarette use?: No Frequency of Alcohol Use: Heavy Hx Recreational Drug Use: Yes Drugs: Marijuana Hx Prescription Drug Abuse: Yes - Advance Directive Resuscitation Status: Full Code Surrogate healthcare decision maker:: Calista Britton Family History Family History: Hypertension Parental Family History Reviewed: Yes Children Family History Reviewed: No Sibling(s) Family History Reviewed.: Yes Medication/Allergy Home Medications: Buspirone HCl 15 mg PO BID 12/29/19 Fluoxetine HCl [Prozac] 40 mg PO DAILY 12/29/19 Atenolol [Tenormin 50 mg Tablet] 50 mg PO Q12 #60 tablet 01/02/20 Diazepam [Valium 2 mg Tablet] 2 mg PO Q6HP PRN #15 tablet 01/02/20 Folic Acid [Folvite 1 mg Tablet] 1 mg PO DAILY #90 tablet 01/02/20 Nicotine [Nicoderm 21 mg/24 Hr Transderm Patch] 1 each TD DAILY #30 patch.td24 01/02/20 Thiamine HCl [Thiamine 100 mg Tablet] 100 mg PO DAILY #90 tablet 01/02/20 Allergies/Adverse Reactions: No Known Allergies Allergy (Verified 04/12/16 02:37) Review of Systems Constitutional: ABSENT: chills, fever(s) Eyes: ABSENT: visual disturbances, other - Eye pain Ears: ABSENT: hearing changes, other - Ear pain Nose, Mouth, and Throat: ABSENT: headache(s), sore throat Cardiovascular: ABSENT: chest pain, palpitations Respiratory: ABSENT: cough, dyspnea Gastrointestinal: PRESENT: as per HPI, abdominal pain, nausea, vomiting. ABSENT: constipation, diarrhea, hematemesis, hematochezia Genitourinary: ABSENT: dysuria, hematuria Musculoskeletal: ABSENT: back pain, joint swelling Integumentary: ABSENT: pruritus, rash Neurological: ABSENT: confusion, convulsions, focal weakness, memory loss, syncope Psychiatric: ABSENT: anxiety, depression Endocrine: ABSENT: cold intolerance, heat intolerance Hematologic/Lymphatic: ABSENT: easy bleeding, easy bruising Allergic/Immunologic: ABSENT: seasonal rhinorrhea Physical Exam Vital Signs: Temp Pulse Resp BP Pulse Ox 99.0 F 16 163/112 H 97 02/09/20 22:08 02/10/20 00:40 02/10/20 00:40 02/10/20 00:40 Intake & Output 02/08/20 02/09/20 02/10/20 23:59 23:59 23:59 Intake Total 1000 1999 Balance 1000 1999 Weight 69.853 kg General appearance: PRESENT: no acute distress, cooperative, disheveled Head exam: PRESENT: atraumatic, normocephalic Eye exam: PRESENT: conjunctiva pink. ABSENT: conjunctival injection, scleral icterus Ear exam: PRESENT: normal external ear exam. ABSENT: bleeding, drainage Mouth exam: PRESENT: dry mucosa, neck supple Neck exam: ABSENT: thyromegaly, tracheal deviation Respiratory exam: PRESENT: clear to auscultation deisy, symmetrical, unlabored Cardiovascular exam: PRESENT: RRR, tachycardia. ABSENT: clicks, gallop, rubs Pulses: PRESENT: normal radial pulses, normal dorsalis pedis pul Vascular exam: PRESENT: normal capillary refill. ABSENT: pallor GI/Abdominal exam: PRESENT: normal bowel sounds, soft, tenderness - Severe tenderness to palpation in the epigastrium and left upper quadrant with voluntary and involuntary guarding. Rectal exam: PRESENT: deferred Extremities exam: ABSENT: joint swelling, pedal edema Musculoskeletal exam: ABSENT: deformity, dislocation Neurological exam: PRESENT: alert, oriented to person, oriented to place, oriented to time, oriented to situation, CN II-XII grossly intact. ABSENT: motor sensory deficit Psychiatric exam: PRESENT: appropriate affect, normal mood Skin exam: PRESENT: dry, intact, urticaria, warm. ABSENT: jaundice, rash Results Laboratory Results: 02/09/20 22:10 02/09/20 22:10 02/09/20 02/09/20 02/09/20 22:10 22:10 23:40 WBC 16.5 H RBC 4.89 Hgb 17.3 H Hct 48.0 MCV 98 H MCH 35.3 H MCHC 36.0 RDW 15.1 H Plt Count 280 Seg Neutrophils % 86.9 H Sodium 133.8 L Potassium 3.6 Chloride 103 Carbon Dioxide 14 L Anion Gap 17 BUN 12 Creatinine 0.73 Est GFR ( Amer) > 60 Glucose 101 Calcium 8.1 L Total Bilirubin 1.0 AST 417 H Alkaline Phosphatase 208 H Total Protein 6.9 Albumin 3.7 Lipase 948.5 H Urine Color YELLOW Urine Appearance SLIGHTLY-CLOUDY Urine pH 5.0 Ur Specific [place] 1.023 Urine Protein 30 H Urine Glucose (UA) NEGATIVE Urine Ketones 20 H Urine Blood NEGATIVE Urine Nitrite NEGATIVE Ur Leukocyte Esterase NEGATIVE Urine WBC (Auto) 1 Urine RBC (Auto) 0 Impressions: Abdomen/Pelvis CT 02/10/20 00:12 IMPRESSION: Findings suggesting acute pancreatitis involving the pancreatic tail with associated fluid around the pancreatic tail, retroperitoneum and paracolic gutter Enlarged fatty liver Distended gallbladder Assessment and Plan - Diagnosis (1) Acute alcoholic pancreatitis Qualifiers: Acute pancreatitis complication: unspecified Qualified Code(s): K85.20 - Alcohol induced acute pancreatitis without necrosis or infection Is this a current diagnosis for this admission?: Yes (2) Elevated liver function tests Is this a current diagnosis for this admission?: Yes (3) Alcohol intoxication Qualifiers: Complication of substance-induced condition: with unspecified complication Qualified Code(s): F10.929 - Alcohol use, unspecified with intoxication, unspecified Is this a current diagnosis for this admission?: Yes (4) Alcohol abuse Is this a current diagnosis for this admission?: Yes (5) Hypertension Qualifiers: Hypertension type: essential hypertension Qualified Code(s): I10 - Essential (primary) hypertension Is this a current diagnosis for this admission?: Yes (6) Tobacco use disorder, severe, dependence Is this a current diagnosis for this admission?: Yes (7) Bipolar disorder Qualifiers: Active/Remission status: remission status unspecified Qualified Code(s): F31.9 - Bipolar disorder, unspecified Is this a current diagnosis for this admission?: Yes - Plan Summary Summary: Patient will be admitted to the hospital on the medical service in a telemetry bed where he will receive routine supportive and symptomatic cares. He will receive IV fluids utilizing lactated Ringer's at 250 mL/h. He will receive morphine sulfate 2 to 4 mg IV every 2 hours as needed for pain. He will receive Valium 5 mg IV every 4 hours for withdrawal symptom prophylaxis. He will receive Valium 10 mg IV every hour as needed severe withdrawal symptoms. He will receive Thorazine 25 mg IV every 8 hours as needed for extreme agitation a nd hallucinations. He will receive metoprolol 5 mg IV every 4 hours as needed for control of hypertension and/or tachycardia. He will be on a clear liquid diet initially. Additional laboratory and/or radiographic evaluations will be obtained as needed. Smoking cessation is advised and counseled briefly at the bedside. A nicotine replacement patch is available for the patient's use, if desired. - Time Time Spent with patient: Less than 15 minutes Smoking Cessation Education: 3 to 10 minutes Anticipated Discharge Disposition: Home, Self Care Anticipated Discharge Timeframe: Undetermined - Inpatient Certification Based on my medical assessment, after consideration of the patient's comorbidities, presenting symptoms, or acuity I expect that the services needed warrant INPATIENT care.: Yes I certify that my determination is in accordance with my understanding of Medicare's requirements for reasonable and necessary INPATIENT services [42 CFR 412.3e].: Yes Medical Necessity: Need Close Monitoring Due to Risk of Patient Decompensation, Need For IV Fluids, Need For Continuous Telemetry Monitoring, Need for Pain Control, Risk of Complication if Not Cared For in Hospital, Risk of Diagnosis Which Will Require Inpatient Eval/Care/Monitoring
[2020-02-10] MEDS: DIAZEPAM INJ 10 MG/2 ML DISP.SYRIN IV PRN (05:45)
[2020-02-10] MEDS: HEPARIN SOD (PORCINE) 5,000 UNIT/ML 1 ML VIAL SUBCUT SCH ×3 (05:47→23:01)
--- NOTE | 2020-02-10 06:33 | EKG REPORT ---
SEVERITY:- DEFECTIVE ECG - SINUS TACHYCARDIA LEFT AXIS DEVIATION CONSIDER ANTERIOR INFARCT LEAD PLACEMENT ERROR : Confirmed by: Darren Mena MD 10-Feb-2020 06:33:19
[2020-02-10] MEDS: FAMOTIDINE INJ/PF 20 MG/2 ML SDV IV SCH ×2 (10:41→23:01)
--- NOTE | 2020-02-10 16:43 | PDOC PROGRESS REPORT ---
Subjective Progress Note for:: 02/10/20 Subjective:: Patient is tremulous. He complains of pain. He states sometimes the morphine does not help. He does report that he did get some sleep today. Reason For Visit: ACUTE ALCOHOLIC PANCREATITIS (RECURRENT),ELEVATED Physical Exam Vital Signs: Temp Pulse Resp BP Pulse Ox 98.9 F 117 H 19 158/98 H 96 02/10/20 11:31 02/10/20 11:31 02/10/20 11:31 02/10/20 11:31 02/10/20 11:31 Intake & Output 02/09/20 02/10/20 02/11/20 06:59 06:59 06:59 Intake Total 3000 2000 Balance 3000 2000 Weight 74.3 kg General appearance: PRESENT: cooperative, well-developed, other - Moderate distress Head exam: PRESENT: atraumatic, normocephalic Respiratory exam: PRESENT: clear to auscultation deisy, symmetrical, unlabored. ABSENT: rhonchi, tachypnea, wheezes Cardiovascular exam: PRESENT: RRR, +S1, +S2. ABSENT: bradycardia, diastolic murmur, irregular rhythm, systolic murmur, tachycardia GI/Abdominal exam: PRESENT: diminished bowel sounds, soft, tenderness - Epigastrium. ABSENT: distended, guarding Rectal exam: PRESENT: deferred Gentrourinary exam: ABSENT: indwelling catheter Extremities exam: ABSENT: pedal edema Musculoskeletal exam: PRESENT: ambulatory, normal inspection. ABSENT: deformity, dislocation Neurological exam: PRESENT: alert, awake, oriented to person, oriented to place, oriented to time, oriented to situation, CN II-XII grossly intact. ABSENT: altered Psychiatric exam: PRESENT: appropriate affect. ABSENT: agitated, anxious Focused psych exam: ABSENT: delusional, paranoid, restlessness Results Laboratory Results: 02/09/20 22:10 02/09/20 22:10 02/09/20 02/09/20 02/09/20 22:10 22:10 23:40 WBC 16.5 H RBC 4.89 Hgb 17.3 H Hct 48.0 MCV 98 H MCH 35.3 H MCHC 36.0 RDW 15.1 H Plt Count 280 Seg Neutrophils % 86.9 H Sodium 133.8 L Potassium 3.6 Chloride 103 Carbon Dioxide 14 L Anion Gap 17 BUN 12 Creatinine 0.73 Est GFR ( Amer) > 60 Glucose 101 Calcium 8.1 L Total Bilirubin 1.0 AST 417 H Alkaline Phosphatase 208 H Total Protein 6.9 Albumin 3.7 Lipase 948.5 H Urine Color YELLOW Urine Appearance SLIGHTLY-CLOUDY Urine pH 5.0 Ur Specific [place] 1.023 Urine Protein 30 H Urine Glucose (UA) NEGATIVE Urine Ketones 20 H Urine Blood NEGATIVE Urine Nitrite NEGATIVE Ur Leukocyte Esterase NEGATIVE Urine WBC (Auto) 1 Urine RBC (Auto) 0 Impressions: Abdomen/Pelvis CT 02/10/20 00:12 IMPRESSION: Findings suggesting acute pancreatitis involving the pancreatic tail with associated fluid around the pancreatic tail, retroperitoneum and paracolic gutter Enlarged fatty liver Distended gallbladder Assessment and Plan - Diagnosis (1) Acute alcoholic pancreatitis Qualifiers: Acute pancreatitis complication: unspecified Qualified Code(s): K85.20 - Alcohol induced acute pancreatitis without necrosis or infection Is this a current diagnosis for this admission?: Yes Plan: 02/10/2020-continue IV fluids with pain management (2) Alcohol withdrawal Qualifiers: Complication of substance-induced condition: with unspecified complication Qualified Code(s): F10.239 - Alcohol dependence with withdrawal, unspecified Is this a current diagnosis for this admission?: Yes Plan: 02/10/2020-currently on scheduled and as needed benzodiazepine therapy as well as analgesia. (3) Alcohol intoxication Qualifiers: Complication of substance-induced condition: with unspecified complication Qualified Code(s): F10.929 - Alcohol use, unspecified with intoxication, unspecified Is this a current diagnosis for this admission?: Yes Plan: 02/10/2020-elevated serum alcohol level on admission. Should dissipate with treatment plan. (4) Alcohol abuse Is this a current diagnosis for this admission?: Yes (5) Bipolar disorder Qualifiers: Active/Remission status: remission status unspecified Qualified Code(s): F31.9 - Bipolar disorder, unspecified Is this a current diagnosis for this admission?: Yes Plan: 02/10/2020-resume BuSpar and fluoxetine (6) Hypertension Qualifiers: Hypertension type: essential hypertension Qualified Code(s): I10 - Essential (primary) hypertension Is this a current diagnosis for this admission?: Yes Plan: 02/10/2020-blood pressures will vary during withdrawal. Resume lisinopril. (7) Tobacco use disorder, severe, dependence Is this a current diagnosis for this admission?: Yes Plan: 02/10/2020-nicotine patch will be available as needed - Plan Summary Summary: Patient will be admitted to the hospital on the medical service in a telemetry bed where he will receive routine supportive and symptomatic cares. He will receive IV fluids utilizing lactated Ringer's at 250 mL/h. He will receive morphine sulfate 2 to 4 mg IV every 2 hours as needed for pain. He will receive Valium 5 mg IV every 4 hours for withdrawal symptom prophylaxis. He will receive Valium 10 mg IV every hour as needed severe withdrawal symptoms. He will receive Thorazine 25 mg IV every 8 hours as needed for extreme agitation and hallucinations. He will receive metoprolol 5 mg IV every 4 hours as needed for control of hypertension and/or tachycardia. He will be on a clear liquid diet initially. Additional laboratory and/or radiographic evaluations will be obtained as needed. Smoking cessation is advised and counseled briefly at the bedside. A nicotine replacement patch is available for the patient's use, if d esired. - Time Time Spent with patient: 15-24 minutes Medications reviewed and adjusted accordingly: Yes Anticipated Discharge Disposition: Home, Self Care Anticipated Discharge Timeframe: within 72 hours
[2020-02-10] MEDS ORDERED: MORPHINE SULFATE 10 MG/ML INJ IV PRN ×2 (16:44→16:49)
[2020-02-10] MEDS ORDERED: (PENDING PHARMACY ID) (Buspirone Hcl [Buspirone Hcl] 15 MG) PO SCH (22:00)
[2020-02-10] MEDS: BUSPIRONE HCL 10 MG TABLET PO SCH (22:58)
[2020-02-11] MEDS: MORPHINE SULFATE 10 MG/ML INJ IV PRN ×2 (03:27→10:02)
[2020-02-11] MEDS: DIAZEPAM INJ 10 MG/2 ML DISP.SYRIN IV SCH ×6 (03:29→23:35)
[2020-02-11] MEDS: NICOTINE 14 MG/24 HR PATCH.TD24 TD PRN (03:57)
[2020-02-11] MEDS: RINGERS SOLUTION,LACTATED 1,000 ML IV PRN (03:58)
[2020-02-11] MEDS: HEPARIN SOD (PORCINE) 5,000 UNIT/ML 1 ML VIAL SUBCUT SCH ×3 (05:54→21:51)
[2020-02-11 06:31] LABS: HEMATOCRIT 43.8 % (37.9-51.0); HEMOGLOBIN 15.8 g/dL (13.5-17.0); MEAN CORPUSCULAR HEMOGLOBIN 35.2 pg (27.0-33.4); MEAN CORPUSCULAR HGB CONC 36.1 g/dL (32.0-36.0); MEAN CORPUSCULAR VOLUME 98 fl (80-97); PLATELET COUNT 129 10^3/uL (150-450); RED BLOOD COUNT 4.49 10^6/uL (4.35-5.55); RED CELL DISTRIBUTION WIDTH 14.9 % (11.5-14.0); WHITE BLOOD COUNT 12.4 10^3/uL (4.0-10.5)
[2020-02-11 06:51] LABS: ALBUMIN 3.1 g/dL (3.5-5.0); ALKALINE PHOSPHATASE 147 U/L (38-126); AMYLASE 54 U/L (30-110); ANION GAP 10 (5-19); ASPARTATE AMINO TRANSFERASE 107 U/L (17-59); BILIRUBIN,DIRECT 0.6 mg/dL (0.0-0.4); BILIRUBIN,TOTAL 1.5 mg/dL (0.2-1.3); BLOOD UREA NITROGEN 5 mg/dL (7-20); CARBON DIOXIDE 25 mmol/L (22-30); CHLORIDE 95 mmol/L (98-107); GLUCOSE 81 mg/dL (75-110); POTASSIUM 4.2 mmol/L (3.6-5.0); TOTAL PROTEIN 5.9 g/dL (6.3-8.2)
[2020-02-11] MEDS ORDERED: NORMAL SALINE 1000 ML 1,000 ML IV ONE (08:13)
[2020-02-11] MEDS ORDERED: MAGNESIUM SULFATE 4 GM/100 ML RTUPB IV ONE ×2 (09:30→21:00)
[2020-02-11] MEDS: FAMOTIDINE INJ/PF 20 MG/2 ML SDV IV SCH ×2 (10:03→21:55)
[2020-02-11] MEDS: FLUOXETINE HCL 20 MG CAPSULE PO SCH (10:04)
[2020-02-11] MEDS: BUSPIRONE HCL 10 MG TABLET PO SCH ×2 (10:05→21:55)
[2020-02-11] MEDS: THIAMINE HCL 100 MG TABLET PO SCH (10:05)
[2020-02-11] MEDS: LISINOPRIL 10 MG TABLET PO SCH (10:05)
[2020-02-11] MEDS: FOLIC ACID 1 MG TABLET PO SCH (10:06)
[2020-02-11] MEDS: MAGNESIUM OXIDE 400 MG TABLET PO SCH ×3 (10:10→19:01)
[2020-02-11] MEDS ORDERED: DIAZEPAM INJ 10 MG/2 ML DISP.SYRIN IV ONE (15:15)
--- NOTE | 2020-02-11 18:25 | PDOC PROGRESS REPORT ---
Subjective Progress Note for:: 02/11/20 Subjective:: Patient seen on morning rounds. He is sitting upright in bed. He has been tolerating clear fluids. Reports abdominal pain. Denies nausea or vomiting. Reports symptoms consistent with alcohol withdrawal including tremor, anxiety and restlessness. Otherwise denies fever, chills, cp, palpitations, diarrhea, or lower extremity swelling. Discussed case with nurse. Pt had CIWA score of 15 prior to evaluation. Diazepam was give. Continue to monitor closely for withdrawal symptoms. Reason For Visit: ACUTE ALCOHOLIC PANCREATITIS (RECURRENT),ELEVATED Physical Exam Vital Signs: Temp Pulse Resp BP Pulse Ox 99.4 F 122 H 16 154/98 H 94 02/11/20 03:08 02/11/20 03:08 02/11/20 03:08 02/11/20 03:08 02/11/20 03:08 Intake & Output 02/10/20 02/11/20 02/12/20 06:59 06:59 06:59 Intake Total 3000 5000 Output Total 1700 Balance 3000 3300 Weight 74.3 kg 74.8 kg General appearance: PRESENT: cooperative, well-developed, well-nourished, other - Mild distress Head exam: PRESENT: atraumatic, normocephalic Eye exam: PRESENT: conjunctiva pink, EOMI, PERRLA Mouth exam: PRESENT: moist, neck supple, tongue midline Neck exam: PRESENT: full ROM. ABSENT: JVD, lymphadenopathy, tenderness Respiratory exam: PRESENT: clear to auscultation deiys, symmetrical, unlabored. ABSENT: tachypnea Cardiovascular exam: PRESENT: tachycardia. ABSENT: diastolic murmur, systolic murmur GI/Abdominal exam: PRESENT: normal bowel sounds, soft, tenderness - diffuse. ABSENT: distended, firm, guarding, rebound, rigid Extremities exam: PRESENT: full ROM. ABSENT: calf tenderness, clubbing, pedal edema Musculoskeletal exam: PRESENT: ambulatory, full ROM. ABSENT: deformity, dislocation Neurological exam: PRESENT: alert, awake, oriented to person, oriented to place, oriented to time, oriented to situation, CN II-XII grossly intact, other - Bilateral upper extremity tremor Psychiatric exam: PRESENT: anxious Focused psych exam: PRESENT: restlessness Skin exam: PRESENT: vesicles. ABSENT: erythema, jaundice, rash Results Laboratory Results: 02/11/20 06:14 02/11/20 06:14 02/11/20 02/11/20 06:14 06:14 WBC 12.4 H RBC 4.49 Hgb 15.8 Hct 43.8 MCV 98 H MCH 35.2 H MCHC 36.1 H RDW 14.9 H Plt Count 129 L Sodium 130.0 L Potassium 4.2 Chloride 95 L Carbon Dioxide 25 Anion Gap 10 BUN 5 L Creatinine 0.59 Est GFR ( Amer) > 60 Glucose 81 Calcium 8.0 L Magnesium 1.4 L Total Bilirubin 1.5 H AST 107 H Alkaline Phosphatase 147 H Total Protein 5.9 L Albumin 3.1 L Amylase 54 Lipase 182.0 Impressions: Abdomen/Pelvis CT 02/10/20 00:12 IMPRESSION: Findings suggesting acute pancreatitis involving the pancreatic tail with associated fluid around the pancreatic tail, retroperitoneum and paracolic gutter Enlarged fatty liver Distended gallbladder Assessment and Plan - Diagnosis (1) Acute alcoholic pancreatitis Qualifiers: Acute pancreatitis complication: unspecified Qualified Code(s): K85.20 - Alcohol induced acute pancreatitis without necrosis or infection Is this a current diagnosis for this admission?: Yes Plan: 02/11/2020-continue IV fluids with pain management (2) Alcohol withdrawal Qualifiers: Complication of substance-induced condition: with unspecified complication Qualified Code(s): F10.239 - Alcohol dependence with withdrawal, unspecified Is this a current diagnosis for this admission?: Yes Plan: - Last EtOH beverage 02/08/2020 - CIWA score 15 today, treated with 10mg Diazepam - HR consistently in 120s. - Tremulous on exam - CIWA q4 hours - score 8-11 administer 5mg Diazepam - score >12 administer 10mg Diazepam (3) Hypomagnesemia Is this a current diagnosis for this admission?: Yes Plan: - Magnesium 1.4 - Suspect secondary to chronic alcohol use - Replenish mag - Monitor on BMP for improvement (4) Alcohol abuse Is this a current diagnosis for this admission?: Yes Plan: - Chronic history of alcohol abuse - Discussed and provided education on alcohol cessation (5) Bipolar disorder Qualifiers: Active/Remission status: remission status unspecified Qualified Code(s): F31.9 - Bipolar disorder, unspecified Is this a current diagnosis for this admission?: Yes Plan: - Continue with BuSpar and fluoxetine (6) Alcohol intoxication Qualifiers: Complication of substance-induced condition: with unspecified complication Qualified Code(s): F10.929 - Alcohol use, unspecified with intoxication, unspecified Is this a current diagnosis for this admission?: Yes Plan: - elevated serum alcohol level on admission. - Should dissipate with treatment plan. (7) Hypertension Qualifiers: Hypertension type: essential hypertension Qualified Code(s): I10 - Essential (primary) hypertension Is this a current diagnosis for this admission?: Yes Plan: - Suspect BP variation during withdrawal - BPs ranging from 130-170/70-90. - Monitor closely - Continue Lisinopril - Utilize Metoprolol if SBP > 160 (8) Tobacco use disorder, severe, dependence Is this a current diagnosis for this admission?: Yes Plan: - Provided 3 minutes of encouragement regarding smoking cessation - nicotine patch will be available as needed - Plan Summary Summary: Patient will be admitted to the hospital on the medical service in a telemetry bed where he will receive routine supportive and symptomatic cares. He will receive IV fluids utilizing lactated Ringer's at 250 mL/h. He will receive morphine sulfate 2 to 4 mg IV every 2 hours as needed for pain. He will receive Valium 5 mg IV every 4 hours for withdrawal symptom prophylaxis. He will receive Valium 10 mg IV every hour as needed severe withdrawal symptoms. He will receive Thorazine 25 mg IV every 8 hours as needed for extreme agitation and hallucinations. He will receive metoprolol 5 mg IV every 4 hours as needed for control of hypertension and/or tachycardia. He will be on a clear liquid diet initially. Additional laboratory and/or radiographic evaluations will be obtained as needed. Smoking cessation is advised and counseled briefly at the bedside. A nicotine replacement patch is available for the patient's use, if desired. - Time Time Spent with patient: 15-24 minutes Smoking Cessation Education: 3 to 10 minutes Medications reviewed and adjusted accordingly: Yes Anticipated Discharge Disposition: Home, Self Care Anticipated Discharge Timeframe: within 48 hours
[2020-02-12] MEDS: DIAZEPAM INJ 10 MG/2 ML DISP.SYRIN IV PRN ×3 (00:58→12:06)
[2020-02-12] MEDS: DIAZEPAM INJ 10 MG/2 ML DISP.SYRIN IV SCH ×5 (02:16→18:42)
[2020-02-12] MEDS: HEPARIN SOD (PORCINE) 5,000 UNIT/ML 1 ML VIAL SUBCUT SCH ×3 (05:15→23:20)
[2020-02-12] MEDS: MORPHINE SULFATE 10 MG/ML INJ IV PRN ×3 (09:04→17:19)
[2020-02-12 09:16] LABS: HEMATOCRIT 39.4 % (37.9-51.0); HEMOGLOBIN 13.9 g/dL (13.5-17.0); MEAN CORPUSCULAR HGB CONC 35.3 g/dL (32.0-36.0); MEAN CORPUSCULAR VOLUME 99 fl (80-97); PLATELET COUNT 128 10^3/uL (150-450); RED BLOOD COUNT 3.97 10^6/uL (4.35-5.55); WHITE BLOOD COUNT 8.8 10^3/uL (4.0-10.5)
[2020-02-12 09:49] LABS: ALKALINE PHOSPHATASE 133 U/L (38-126); ANION GAP 10 (5-19); ASPARTATE AMINO TRANSFERASE 72 U/L (17-59); BILIRUBIN,DIRECT 0.6 mg/dL (0.0-0.4); BILIRUBIN,TOTAL 1.2 mg/dL (0.2-1.3); BLOOD UREA NITROGEN 6 mg/dL (7-20); CARBON DIOXIDE 25 mmol/L (22-30); CHLORIDE 98 mmol/L (98-107); GLUCOSE 144 mg/dL (75-110); POTASSIUM 3.4 mmol/L (3.6-5.0); TOTAL PROTEIN 5.8 g/dL (6.3-8.2)
[2020-02-12] MEDS: LISINOPRIL 10 MG TABLET PO SCH (10:49)
[2020-02-12] MEDS: FAMOTIDINE INJ/PF 20 MG/2 ML SDV IV SCH (10:49)
[2020-02-12] MEDS: FLUOXETINE HCL 20 MG CAPSULE PO SCH (10:50)
[2020-02-12] MEDS: FOLIC ACID 1 MG TABLET PO SCH (10:51)
[2020-02-12] MEDS: BUSPIRONE HCL 10 MG TABLET PO SCH (10:51)
[2020-02-12] MEDS: THIAMINE HCL 100 MG TABLET PO SCH (10:51)
[2020-02-12] MEDS: MAGNESIUM OXIDE 400 MG TABLET PO SCH ×3 (10:51→17:18)
[2020-02-12] MEDS: NICOTINE 14 MG/24 HR PATCH.TD24 TD PRN (12:06)
[2020-02-12] MEDS: RINGERS SOLUTION,LACTATED 1,000 ML IV PRN ×2 (12:25→18:41)
--- NOTE | 2020-02-12 15:24 | PDOC PROGRESS REPORT ---
Subjective Progress Note for:: 02/12/20 Subjective:: Patient was initially seen on morning rounds. He was resting comfortably upright in bed. He has been on fluid only diet and denies any nausea, vomiting, abdominal pain or diarrhea. This prompted an advance in his diet. At the lunch patient ate a hamburger reportedly quickly, and experienced abdominal pain, nausea and vomiting almost immediately following. He denies nausea since then, but feels an occasional abdominal sharp pain. Otherwise denies fever, headache chest pain, palpitations, lower extremity edema. Discussed face case with patient's nurse. Nurse states that patient has expressed that he has does not have a stable home and has been living on family/friends couches for the past 2 months. Discussed this with patient and he agreed stating that he used to live with his daughter Calista Garvin. Contacted Calista at . States that father previously lived with her but was asked to leave the home 2 months ago secondary to alcohol intake. Patient and the daughter have discussed his want to seek treatment for alcohol consumption, daughter appreciates this. Patient is not currently followed by primary care provider. Reason For Visit: ACUTE ALCOHOLIC PANCREATITIS (RECURRENT),ELEVATED Physical Exam Vital Signs: Temp Pulse Resp BP Pulse Ox 98.0 F 96 16 143/99 H 97 02/12/20 12:05 02/12/20 12:05 02/12/20 12:05 02/12/20 12:05 02/12/20 12:05 Intake & Output 02/11/20 02/12/20 02/13/20 06:59 06:59 06:59 Intake Total 5000 2540 Output Total 1700 550 Balance 3300 1989 Weight 74.8 kg 74.9 kg General appearance: PRESENT: no acute distress, cooperative, well-developed, well-nourished Head exam: PRESENT: atraumatic, normocephalic Eye exam: PRESENT: EOMI, PERRLA, other - Conjunctival injection bilaterally. Eyes are watery on exam. Mouth exam: PRESENT: moist, tongue midline Neck exam: PRESENT: full ROM. ABSENT: JVD, lymphadenopathy, tenderness Respiratory exam: PRESENT: clear to auscultation deisy, symmetrical, unlabored. ABSENT: tachypnea Cardiovascular exam: PRESENT: RRR. ABSENT: bradycardia, diastolic murmur, irregular rhythm, +S1, +S2, systolic murmur, tachycardia Pulses: PRESENT: normal radial pulses GI/Abdominal exam: PRESENT: normal bowel sounds, soft, tenderness - Diffuse. ABSENT: ascites, rebound, rigid Extremities exam: PRESENT: full ROM. ABSENT: clubbing, pedal edema, tenderness Musculoskeletal exam: PRESENT: ambulatory, full ROM. ABSENT: deformity, dislocation Neurological exam: PRESENT: alert, awake, oriented to person, oriented to place, other - Patient is unable to tell me how many days he has been in the hospital. He knows that he is in the hospital but he was unable to tell me what hospital that he is at. Psychiatric exam: PRESENT: anxious - Per patient he is anxious at baseline.. ABSENT: homicidal ideation, suicidal ideation Skin exam: PRESENT: dry, intact, warm. ABSENT: rash Results Laboratory Results: 02/12/20 09:00 02/12/20 09:00 02/12/20 02/12/20 09:00 09:00 WBC 8.8 RBC 3.97 L Hgb 13.9 Hct 39.4 MCV 99 H MCH 35.0 H MCHC 35.3 RDW 15.0 H Plt Count 128 L Sodium 133.2 L Potassium 3.4 L Chloride 98 Carbon Dioxide 25 Anion Gap 10 BUN 6 L Creatinine 0.50 L Est GFR ( Amer) > 60 Glucose 144 H Calcium 8.0 L Magnesium 2.4 H Total Bilirubin 1.2 AST 72 H Alkaline Phosphatase 133 H Total Protein 5.8 L Albumin 3.0 L Impressions: Abdomen/Pelvis CT 02/10/20 00:12 IMPRESSION: Findings suggesting acute pancreatitis involving the pancreatic tail with associated fluid around the pancreatic tail, retroperitoneum and paracolic gutter Enlarged fatty liver Distended gallbladder Assessment and Plan - Diagnosis (1) Acute alcoholic pancreatitis Qualifiers: Acute pancreatitis complication: unspecified Qualified Code(s): K85.20 - Alcohol induced acute pancreatitis without necrosis or infection Is this a current diagnosis for this admission?: Yes Plan: - Failed attempt to advance diet from fluids to regular diet - Soft foods including Jell-O or applesauce for dinner. - If tolerated advance diet in the morning to regular. -Continue with IV fluids and pain management. (2) Hypomagnesemia Is this a current diagnosis for this admission?: Yes Plan: - Magnesium 1.4 treated with magnesium, magnesium was mildly elevated today at 2.4. - Monitor on BMP for improvement -Plan to discharge home with rx magnesium and potassium daily. (3) Hyponatremia Is this a current diagnosis for this admission?: Yes Plan: - Sodium levels have consistently been 133 since admission - No noted change regardless of IV fluids - Reviewed previous labs he was noted to have sodium in the 130s since 05/2018 -Continue with IV fluids continue to monitor (4) Alcohol withdrawal Qualifiers: Complication of substance-induced condition: with unspecified complication Qualified Code(s): F10.239 - Alcohol dependence with withdrawal, unspecified Is this a current diagnosis for this admission?: Yes Plan: - Last EtOH beverage 02/08/2020 - CIWA today indicative of mild withdrawal symptoms. - HR consistently in the 90s, this is improved from the 120s. - Tremors on exam yesterday, non-tremulous on exam today - CIWA q4 hours - score 8-11 administer 5mg Diazepam - score >12 administer 10mg Diazepam (5) Alcohol abuse Is this a current diagnosis for this admission?: Yes Plan: - Chronic history of alcohol abuse - Ketones noted in the urine, indicative of chronic alcohol use. - Discussed and provided education on alcohol cessation - Case management spoke with patient today regarding information for outpatient alcohol rehabilitation programs. - Patient appears to be excited about seeking treatment at rehabilitation program soon, unfortunately he does not have insurance at this time and is required that he works at his job for certain amount of time until he can obtain insurance. (6) Bipolar disorder Qualifiers: Active/Remission status: remission status unspecified Qualified Code(s): F31.9 - Bipolar disorder, unspecified Is this a current diagnosis for this admission?: Yes Plan: - Continue with BuSpar and fluoxetine (7) Alcohol intoxication Qualifiers: Complication of substance-induced condition: with unspecified complication Qualified Code(s): F10.929 - Alcohol use, unspecified with intoxication, unspecified Is this a current diagnosis for this admission?: Yes Plan: - elevated serum alcohol level on admission. - Should dissipate with treatment plan. (8) Hypertension Qualifiers: Hypertension type: essential hypertension Qualified Code(s): I10 - Essential (primary) hypertension Is this a current diagnosis for this admission?: Yes Plan: - Suspect BP variation during withdrawal - BPs ranging from 130-170/70-90. - Monitor closely - Continue Lisinopril - Utilize Metoprolol if SBP > 160 (9) Tobacco use disorder, severe, dependence Is this a current diagnosis for this admission?: Yes Plan: - Provided 3 minutes of encouragement regarding smoking cessation - nicotine patch will be available as needed - Plan Summary Summary: Patient will be admitted to the hospital on the medical service in a telemetry bed where he will receive routine supportive and symptomatic cares. He will re ceive IV fluids utilizing lactated Ringer's at 250 mL/h. He will receive morphine sulfate 2 to 4 mg IV every 2 hours as needed for pain. He will receive Valium 5 mg IV every 4 hours for withdrawal symptom prophylaxis. He will receive Valium 10 mg IV every hour as needed severe withdrawal symptoms. He will receive Thorazine 25 mg IV every 8 hours as needed for extreme agitation and hallucinations. He will receive metoprolol 5 mg IV every 4 hours as needed for control of hypertension and/or tachycardia. He will be on a clear liquid diet initially. Additional laboratory and/or radiographic evaluations will be obtained as needed. Smoking cessation is advised and counseled briefly at the bedside. A nicotine replacement patch is available for the patient's use, if desired. - Time Time Spent with patient: 15-24 minutes Smoking Cessation Education: 3 to 10 minutes Medications reviewed and adjusted accordingly: Yes Anticipated Discharge Disposition: Home, Self Care Anticipated Discharge Timeframe: within 24 hours
[2020-02-13] MEDS: RINGERS SOLUTION,LACTATED 1,000 ML IV PRN ×2 (00:26→08:49)
[2020-02-13] MEDS: FAMOTIDINE INJ/PF 20 MG/2 ML SDV IV SCH ×2 (00:27→10:25)
[2020-02-13] MEDS: DIAZEPAM INJ 10 MG/2 ML DISP.SYRIN IV SCH ×4 (00:27→10:25)
[2020-02-13] MEDS: BUSPIRONE HCL 10 MG TABLET PO SCH ×2 (00:27→10:24)
[2020-02-13] MEDS: MORPHINE SULFATE 10 MG/ML INJ IV PRN ×4 (01:17→11:49)
[2020-02-13 04:42] LABS: HEMATOCRIT 37.4 % (37.9-51.0); HEMOGLOBIN 13.1 g/dL (13.5-17.0); MEAN CORPUSCULAR HGB CONC 35.1 g/dL (32.0-36.0); MEAN CORPUSCULAR VOLUME 100 fl (80-97); PLATELET COUNT 131 10^3/uL (150-450); RED BLOOD COUNT 3.75 10^6/uL (4.35-5.55)
[2020-02-13 05:07] LABS: ANION GAP 6 (5-19); BLOOD UREA NITROGEN 8 mg/dL (7-20); CALCIUM 7.9 mg/dL (8.4-10.2); CARBON DIOXIDE 28 mmol/L (22-30); CHLORIDE 100 mmol/L (98-107); GLUCOSE 153 mg/dL (75-110); POTASSIUM 3.3 mmol/L (3.6-5.0)
[2020-02-13] MEDS: HEPARIN SOD (PORCINE) 5,000 UNIT/ML 1 ML VIAL SUBCUT SCH (05:41)
[2020-02-13] MEDS: MAGNESIUM OXIDE 400 MG TABLET PO SCH ×2 (08:51→11:15)
[2020-02-13] MEDS: THIAMINE HCL 100 MG TABLET PO SCH (10:24)
[2020-02-13] MEDS: LISINOPRIL 10 MG TABLET PO SCH (10:24)
[2020-02-13] MEDS: FOLIC ACID 1 MG TABLET PO SCH (10:25)
[2020-02-13] MEDS: FLUOXETINE HCL 20 MG CAPSULE PO SCH (10:25)
--- NOTE | 2020-02-13 12:36 | PDOC DISCHARGE SUMMARY ---
<HERNAN KOHLER - Last Filed: 02/13/20 12:26> Impression - Admit/DC Date/PCP Admission Date/Primary Care Provider: 02/10/20 03:22 Discharge Date: 02/13/20 - Discharge Diagnosis (1) Acute alcoholic pancreatitis Is this a current diagnosis for this admission?: Yes (2) Hypomagnesemia Is this a current diagnosis for this admission?: Yes (3) Hyponatremia Is this a current diagnosis for this admission?: Yes (4) Alcohol withdrawal Is this a current diagnosis for this admission?: Yes (5) Alcohol abuse Is this a current diagnosis for this admission?: Yes (6) Bipolar disorder Is this a current diagnosis for this admission?: Yes (7) Alcohol intoxication Is this a current diagnosis for this admission?: Yes (8) Hypertension Is this a current diagnosis for this admission?: Yes (9) Tobacco use disorder, severe, dependence Is this a current diagnosis for this admission?: Yes (10) Acute kidney injury Is this a current diagnosis for this admission?: Yes - Assessment Summary: Mr. Eulogio Britton is a 45-year-old male who was seen and treated at [facility] regarding acute alcoholic pancreatitis and alcohol withdrawal. Over the course of his stay he was monitored closely for symptoms of alcohol withdrawal, with most recent CIWA score being 0. He was able to slowly advance his diet from liquids to soft foods now to full meals for both breakfast and lunch without any nausea vomiting diarrhea or abdominal pain. I discussed all medication changes as indicated below with the patient in detail. He is both understanding and agreeable to this means of treatment. At this time the patient is stable and ready for discharge. We will provide him with a work note as requested. Acute alcoholic pancreatitis - Patient was initially unable to tolerate p.o., able to gradually increase intake from fluids to soft foods to full breakfast and lunch today. - Resolved patient stable for discharge. Hypomagnesemia -This has since resolved. Patient provided prescription for magnesium that he is to take daily. Hyponatremia - Sodium levels have consistently been 133 since admission, suspect this is secondary to chronic alcohol use patient is to take a sodium pill daily. Vs hypervolemia from IV fluids.. Acute kidney injury -Suspect secondary to dehydration. Has since resolved. Alcohol withdrawal - Last EtOH beverage 02/08/2020 - CIWA score has gradually decreased, 0 today - HR in the 90s improved from 120s. -Non-tremulous. -Patient is stable and clear for discharge today. Alcohol abuse - Chronic history of alcohol abuse - Ketones noted in the urine, indicative of chronic alcohol use. - Discussed and provided education on alcohol cessation - Case management spoke with patient today regarding information for outpatient alcohol rehabilitation programs. - Patient appears to be excited about seeking treatment at rehabilitation program soon, unfortunately he does not have insurance at this time and is required that he works at his job for certain amount of time until he can obtain insurance. Bipolar disorder - Continue with BuSpar and fluoxetine -Provided patient with prescriptions today as he requested in need of refills. Alcohol intoxication - elevated serum alcohol level on admission. -Dissipated with treatment plan. Hypertension - Patient's blood pressure was consistently elevated ranging from 130-170/70-90 -This was regardless of treatment with home medication lisinopril 10 mg. - Provided patient for prescription for Norvasc. And refilled lisinopril upon his request. -Encouraged frequent blood pressure checks and emphasized the need to follow-up with a primary care within 1 week of disposition. Tobacco use disorder, severe, dependence -This was treated with a nicotine patch throughout his stay. -Provided patient with at least 3 minutes of encouragement to stop smoking. - Additional Information Resuscitation Status: Full Code Discharge Diet: As Tolerated, Regular Discharge Activity: Activity As Tolerated Referrals: [facility] [Outside] (We have contacted the clinic and they will be contacting you to schedule your appointment.) Prescriptions: Buspirone HCl 15 mg PO Q12 #30 Magnesium Oxide [Mag-Ox 400 mg Tablet] 400 mg PO MEALS #30 tablet Amlodipine Besylate [Norvasc 5 mg Tablet] 5 mg PO DAILY #30 tablet Potassium Chloride 10 meq PO DAILY #30 tab.er.prt Lisinopril [Prinivil 10 mg Tablet] 20 mg PO DAILY #30 Sodium Chloride [Sodium Chloride 1 Gm Tablet] 1 gm PO DAILY #30 tablet Alprazolam [Xanax] 1 mg PO DAILYP PRN #15 PRN Reason: Anxiety Home Medications: Fluoxetine HCl [Prozac] 40 mg PO DAILY 12/29/19 Folic Acid [Folvite 1 mg Tablet] 1 mg PO DAILY #90 tablet 01/02/20 Thiamine HCl [Thiamine 100 mg Tablet] 100 mg PO DAILY #90 tablet 01/02/20 Alprazolam [Xanax] 1 mg PO DAILYP PRN #15 02/13/20 Amlodipine Besylate [Norvasc 5 mg Tablet] 5 mg PO DAILY #30 tablet 02/13/20 Buspirone HCl 15 mg PO Q12 #30 02/13/20 Lisinopril [Prinivil 10 mg Tablet] 20 mg PO DAILY #30 02/13/20 Magnesium Oxide [Mag-Ox 400 mg Tablet] 400 mg PO MEALS #30 tablet 02/13/20 Potassium Chloride 10 meq PO DAILY #30 tab.er.prt 02/13/20 Sodium Chloride [Sodium Chloride 1 Gm Tablet] 1 gm PO DAILY #30 tablet 02/13/20 Physical Exam Vital Signs: Temp Pulse Resp BP Pulse Ox 98.6 F 95 20 152/99 H 97 02/13/20 10:00 02/13/20 09:11 02/13/20 09:11 02/13/20 09:11 02/13/20 09:11 Intake & Output 02/12/20 02/13/20 02/14/20 06:59 06:59 06:59 Intake Total 2540 3880 Output Total 550 Balance 1989 3880 Weight 74.9 kg 77.2 kg General appearance: PRESENT: no acute distress, cooperative, well-developed, well-nourished Head exam: PRESENT: atraumatic, normocephalic Eye exam: PRESENT: conjunctiva pink, EOMI, PERRLA Mouth exam: PRESENT: moist, tongue midline Neck exam: PRESENT: full ROM. ABSENT: JVD, lymphadenopathy, tenderness Respiratory exam: PRESENT: clear to auscultation deisy, symmetrical, unlabored. ABSENT: rales, retraction, tachypnea, wheezes Cardiovascular exam: PRESENT: RRR, +S1, +S2. ABSENT: diastolic murmur, systolic murmur Pulses: PRESENT: normal radial pulses GI/Abdominal exam: PRESENT: normal bowel sounds, soft. ABSENT: ascites, distended, firm, guarding, tenderness Extremities exam: PRESENT: full ROM. ABSENT: calf tenderness, clubbing, pedal edema, tenderness Musculoskeletal exam: PRESENT: ambulatory, full ROM. ABSENT: deformity, dislocation Neurological exam: PRESENT: alert, awake, oriented to person, oriented to place, oriented to time, oriented to situation, CN II-XII grossly intact. ABSENT: altered, motor sensory deficit Psychiatric exam: PRESENT: anxious, normal mood Skin exam: PRESENT: dry, intact, warm. ABSENT: rash Results Laboratory Results: WBC 8.0 10^3/uL (4.0-10.5) 02/13/20 04:11 RBC 3.75 10^6/uL (4.35-5.55) L 02/13/20 04:11 Hgb 13.1 g/dL (13.5-17.0) L 02/13/20 04:11 Hct 37.4 % (37.9-51.0) L 02/13/20 04:11 MCV 100 fl (80-97) H 02/13/20 04:11 MCH 35.0 pg (27.0-33.4) H 02/13/20 04:11 MCHC 35.1 g/dL (32.0-36.0) 02/13/20 04:11 RDW 15.0 % (11.5-14.0) H 02/13/20 04:11 Plt Count 131 10^3/uL (150-450) L 02/13/20 04:11 Lymph % (Auto) 6.6 % (13-45) L 02/09/20 22:10 Greenlee % (Auto) 6.0 % (3-13) 02/09/20 22:10 Eos % (Auto) 0.0 % (0-6) 02/09/20 22:10 Baso % (Auto) 0.5 % (0-2) 02/09/20 22:10 Absolute Neuts (auto) 14.3 10^3/uL (1.7-8.2) H 02/09/20 22:10 Absolute Lymphs (auto) 1.1 10^3/uL (0.5-4.7) 02/09/20 22:10 Absolute Monos (auto) 1.0 10^3/uL (0.1-1.4) 02/09/20 22:10 Absolute Eos (auto) 0.0 10^3/uL (0.0-0.6) 02/09/20 22:10 Absolute Basos (auto) 0.1 10^3/uL (0.0-0.2) 02/09/20 22:10 Seg Neutrophils % 86.9 % (42-78) H 02/09/20 22:10 Sodium 134.4 mmol/L (137-145) L 02/13/20 04:11 Potassium 3.3 mmol/L (3.6-5.0) L 02/13/20 04:11 Chloride 100 mmol/L (98-107) 02/13/20 04:11 Carbon Dioxide 28 mmol/L (22-30) 02/13/20 04:11 Anion Gap 6 (5-19) 02/13/20 04:11 BUN 8 mg/dL (7-20) 02/13/20 04:11 Creatinine 0.73 mg/dL (0.52-1.25) 02/13/20 04:11 Est GFR ( Amer) > 60 (>60) 02/13/20 04:11 Est GFR (MDRD) Non-Af > 60 (>60) 02/13/20 04:11 Glucose 153 mg/dL (75-110) H 02/13/20 04:11 Calcium 7.9 mg/dL (8.4-10.2) L 02/13/20 04:11 Magnesium 2.2 mg/dL (1.6-2.3) 02/13/20 04:11 Total Bilirubin 1.2 mg/dL (0.2-1.3) 02/12/20 09:00 Direct Bilirubin 0.6 mg/dL (0.0-0.4) H 02/12/20 09:00 Neonat Total Bilirubin Not Reportable 02/12/20 09:00 Neonat Direct Bilirubin Not Reportable 02/12/20 09:00 Neonat Indirect Bili Not Reportable 02/12/20 09:00 AST 72 U/L (17-59) H 02/12/20 09:00 ALT 57 U/L (<50) H 02/12/20 09:00 Alkaline Phosphatase 133 U/L (38-126) H 02/12/20 09:00 Total Protein 5.8 g/dL (6.3-8.2) L 02/12/20 09:00 Albumin 3.0 g/dL (3.5-5.0) L 02/12/20 09:00 Amylase 54 U/L (30-110) 02/11/20 06:14 Lipase 182.0 U/L (23-300) 02/11/20 06:14 Urine Color YELLOW 02/09/20 23:40 Urine Appearance SLIGHTLY-CLOUDY 02/09/20 23:40 Urine pH 5.0 (5.0-9.0) 02/09/20 23:40 Ur Specific [place] 1.023 02/09/20 23:40 Urine Protein 30 mg/dL (NEGATIVE) H 02/09/20 23:40 Urine Glucose (UA) NEGATIVE mg/dL (NEGATIVE) 02/09/20 23:40 Urine Ketones 20 mg/dL (NEGATIVE) H 02/09/20 23:40 Urine Blood NEGATIVE (NEGATIVE) 02/09/20 23:40 Urine Nitrite NEGATIVE (NEGATIVE) 02/09/20 23:40 Urine Bilirubin NEGATIVE (NEGATIVE) 02/09/20 23:40 Urine Urobilinogen NEGATIVE mg/dL (<2.0) 02/09/20 23:40 Ur Leukocyte Esterase NEGATIVE (NEGATIVE) 02/09/20 23:40 Urine WBC (Auto) 1 /HPF 02/09/20 23:40 Urine RBC (Auto) 0 /HPF 02/09/20 23:40 U Hyaline Cast (Auto) 11 /LPF 02/09/20 23:40 Urine Mucus (Auto) FEW /LPF 02/09/20 23:40 Urine Ascorbic Acid NEGATIVE (NEGATIVE) 02/09/20 23:40 Serum Alcohol 190 mg/dL (NONE DETECTED) 02/09/20 22:10 Impressions: Abdomen/Pelvis CT 02/10/20 00:12 IMPRESSION: Findings suggesting acute pancreatitis involving the pancreatic tail with associated fluid around the pancreatic tail, retroperitoneum and paracolic gutter Enlarged fatty liver Distended gallbladder Stroke Is this a Stroke Patient?: No Acute Heart Failure Is this a Heart Failure Patient?: No <ADRIAN ROWLEY - Last Filed: 02/13/20 16:56> Impression - Admit/DC Date/PCP Admission Date/Primary Care Provider: 02/10/20 03:22 - Discharge Diagnosis (1) Acute alcoholic pancreatitis Is this a current diagnosis for this admission?: Yes (2) Acute kidney injury Is this a current diagnosis for this admission?: Yes (3) Alcohol abuse Is this a current diagnosis for this admission?: Yes (4) Elevated liver function tests Is this a current diagnosis for this admission?: Yes (5) Hypomagnesemia Is this a current diagnosis for this admission?: Yes (6) Hyponatremia Is this a current diagnosis for this admission?: Yes (7) Tobacco use disorder, severe, dependence Is this a current diagnosis for this admission?: Yes - Additional Information Resuscitation Status: Full Code Discharge Diet: As Tolerated, Regular Discharge Activity: Activity As Tolerated History of Present Illiness History of Present Illness: EULOGIO BRITTON JR is a 45 year old male Physical Exam Vital Signs: Temp Pulse Resp BP Pulse Ox 98.6 F 95 20 161/84 H 97 02/13/20 12:49 02/13/20 12:49 02/13/20 12:49 02/13/20 12:49 02/13/20 12:49 Intake & Output 02/12/20 02/13/20 02/14/20 06:59 06:59 06:59 Intake Total 2540 3880 345 Output Total 550 Balance 1989 3880 345 Weight 74.9 kg 77.2 kg Results Laboratory Results: WBC 8.0 10^3/uL (4.0-10.5) 02/13/20 04:11 RBC 3.75 10^6/uL (4.35-5.55) L 02/13/20 04:11 Hgb 13.1 g/dL (13.5-17.0) L 02/13/20 04:11 Hct 37.4 % (37.9-51.0) L 02/13/20 04:11 MCV 100 fl (80-97) H 02/13/20 04:11 MCH 35.0 pg (27.0-33.4) H 02/13/20 04:11 MCHC 35.1 g/dL (32.0-36.0) 02/13/20 04:11 RDW 15.0 % (11.5-14.0) H 02/13/20 04:11 Plt Count 131 10^3/uL (150-450) L 02/13/20 04:11 Lymph % (Auto) 6.6 % (13-45) L 02/09/20 22:10 Greenlee % (Auto) 6.0 % (3-13) 02/09/20 22:10 Eos % (Auto) 0.0 % (0-6) 02/09/20 22:10 Baso % (Auto) 0.5 % (0-2) 02/09/20 22:10 Absolute Neuts (auto) 14.3 10^3/uL (1.7-8.2) H 02/09/20 22:10 Absolute Lymphs (auto) 1.1 10^3/uL (0.5-4.7) 02/09/20 22:10 Absolute Monos (auto) 1.0 10^3/uL (0.1-1.4) 02/09/20 22:10 Absolute Eos (auto) 0.0 10^3/uL (0.0-0.6) 02/09/20 22:10 Absolute Basos (auto) 0.1 10^3/uL (0.0-0.2) 02/09/20 22:10 Seg Neutrophils % 86.9 % (42-78) H 02/09/20 22:10 Sodium 134.4 mmol/L (137-145) L 02/13/20 04:11 Potassium 3.3 mmol/L (3.6-5.0) L 02/13/20 04:11 Chloride 100 mmol/L (98-107) 02/13/20 04:11 Carbon Dioxide 28 mmol/L (22-30) 02/13/20 04:11 Anion Gap 6 (5-19) 02/13/20 04:11 BUN 8 mg/dL (7-20) 02/13/20 04:11 Creatinine 0.73 mg/dL (0.52-1.25) 02/13/20 04:11 Est GFR ( Amer) > 60 (>60) 02/13/20 04:11 Est GFR (MDRD) Non-Af > 60 (>60) 02/13/20 04:11 Glucose 153 mg/dL (75-110) H 02/13/20 04:11 Calcium 7.9 mg/dL (8.4-10.2) L 02/13/20 04:11 Magnesium 2.2 mg/dL (1.6-2.3) 02/13/20 04:11 Total Bilirubin 1.2 mg/dL (0.2-1.3) 02/12/20 09:00 Direct Bilirubin 0.6 mg/dL (0.0-0.4) H 02/12/20 09:00 Neonat Total Bilirubin Not Reportable 02/12/20 09:00 Neonat Direct Bilirubin Not Reportable 02/12/20 09:00 Neonat Indirect Bili Not Reportable 02/12/20 09:00 AST 72 U/L (17-59) H 02/12/20 09:00 ALT 57 U/L (<50) H 02/12/20 09:00 Alkaline Phosphatase 133 U/L (38-126) H 02/12/20 09:00 Total Protein 5.8 g/dL (6.3-8.2) L 02/12/20 09:00 Albumin 3.0 g/dL (3.5-5.0) L 02/12/20 09:00 Amylase 54 U/L (30-110) 02/11/20 06:14 Lipase 182.0 U/L (23-300) 02/11/20 06:14 Urine Color YELLOW 02/09/20 23:40 Urine Appearance SLIGHTLY-CLOUDY 02/09/20 23:40 Urine pH 5.0 (5.0-9.0) 02/09/20 23:40 Ur Specific [place] 1.023 02/09/20 23:40 Urine Protein 30 mg/dL (NEGATIVE) H 02/09/20 23:40 Urine Glucose (UA) NEGATIVE mg/dL (NEGATIVE) 02/09/20 23:40 Urine Ketones 20 mg/dL (NEGATIVE) H 02/09/20 23:40 Urine Blood NEGATIVE (NEGATIVE) 02/09/20 23:40 Urine Nitrite NEGATIVE (NEGATIVE) 02/09/20 23:40 Urine Bilirubin NEGATIVE (NEGATIVE) 02/09/20 23:40 Urine Urobilinogen NEGATIVE mg/dL (<2.0) 02/09/20 23:40 Ur Leukocyte Esterase NEGATIVE (NEGATIVE) 02/09/20 23:40 Urine WBC (Auto) 1 /HPF 02/09/20 23:40 Urine RBC (Auto) 0 /HPF 02/09/20 23:40 U Hyaline Cast (Auto) 11 /LPF 02/09/20 23:40 Urine Mucus (Auto) FEW /LPF 02/09/20 23:40 Urine Ascorbic Acid NEGATIVE (NEGATIVE) 02/09/20 23:40 Serum Alcohol 190 mg/dL (NONE DETECTED) 02/09/20 22:10 Impressions: Abdomen/Pelvis CT 02/10/20 00:12
[2020-02-13 13:26] VITALS: BP 167/107
== END 2020-02-13 13:50 | disposition home or self-care (01) | DRG 439 ==
LOC: ER 21:56 → EH 02-10 03:22 → 5 02-10 04:13
PROVIDERS: ADMIT Emergency Medicine; ATTEND Hospitalist
DX: K85.20 Alcohol induced acute pancreatitis without necrosis or infection (principal); F10.239 Alcohol dependence with withdrawal, unspecified; E87.1 Hypo-osmolality and hyponatremia; N17.9 Acute kidney failure, unspecified; F10.229 Alcohol dependence with intoxication, unspecified; I10 Essential (primary) hypertension; R00.0 Tachycardia, unspecified; Z60.2 Problems related to living alone; E83.42 Hypomagnesemia; G40.909 Epilepsy, unspecified, not intractable, without status epilepticus; F41.8 Other specified anxiety disorders; F31.9 Bipolar disorder, unspecified; F17.210 Nicotine dependence, cigarettes, uncomplicated; Y90.6 Blood alcohol level of 120-199 mg/100 ml
CPT/HCPCS: 36415; 74177; 80048; 80053; 80076; 80307; 81001; 82150; 83690; 83735; 85025; 85027; 93005; 93010; 96361; 96374; 96375; 96376; 99285; J1644; J2270; J2405; J2550; J3360; J3475; J3490; J7030; J7120; S0028

== ENCOUNTER 2020-02-16 12:35 | Inpatient (IN) | payer SELFPAY ==
[2020-02-16] MEDS ORDERED: RINGERS SOLUTION,LACTATED 1,000 ML IV ONE (13:21)
--- NOTE | 2020-02-16 13:23 | ER Document Report ---
ED Medical Screen (RME) - General Chief Complaint: Abdominal Pain Stated Complaint: ABDOMINAL PAIN/POSSIBLE ETOH ABUSE Time Seen by Provider: 02/16/20 13:17 Mode of Arrival: Ambulatory Information source: Patient Notes: HPI; 45-year-old male presents to the emergency room complaining of persistent abdominal pain since being seen here last week and diagnosed with pancreatitis. Patient states he was unable to get the medications that he was discharged home on due to lack of funds. Admits to drinking alcohol last night at a green party. Also complains of nausea with vomiting. No fevers. No recent travel. No COVID-19 exposure. PE: Alert and oriented x3. Mild distress noted. Lungs: Expiratory wheezes no rales no rhonchi. Heart: Regular rate rhythm without murmurs, rubs, gallops. Unable to do full abdominal exam in triage. I have greeted and performed a rapid initial assessment of this patient. A comprehensive ED assessment and evaluation of the patient, analysis of test results and completion of the medical decision making process will be conducted by additional ED providers. I have specifically instructed the patient or family members with the patient to immediately return to any nursing staff should anything change in the patient's condition or with their chief complaint. TRAVEL OUTSIDE OF THE [place] IN LAST 30 DAYS: No - Related Data Allergies/Adverse Reactions: No Known Allergies Allergy (Verified 02/16/20 13:15) Past Medical History - Past Medical History Cardiac Medical History: Reports: Hx Hypertension Denies: Hx Coronary Artery Disease, Hx Hypercholesterolemia Pulmonary Medical History: Denies: Hx Asthma, Hx COPD, Hx Tuberculosis Neurological Medical History: Reports: Hx Seizures Endocrine Medical History: Denies: Hx Diabetes Mellitus Type 1, Hx Diabetes Mellitus Type 2, Hx Hyperthyroidism, Hx Hypothyroidism Renal/ Medical History: Denies: Hx Peritoneal Dialysis GI Medical History: Reports: Hx Pancreatitis. Denies: Hx Cirrhosis, Hx Gastroesophageal Reflux Disease, Hx Hepatitis Musculoskeltal Medical History: Denies Hx Arthritis, Denies Hx Gout Skin Medical History: Denies Hx Eczema, Denies Hx Psoriasis Psychiatric Medical History: Reports: Hx Anxiety, Hx Bipolar Disorder, Hx Depression Infectious Medical History: Denies: Hx Hepatitis Past Surgical History: Reports: Hx Oral Surgery - Immunizations Hx Diphtheria, Pertussis, Tetanus Vaccination: Yes - given in er today Physical Exam - Vital signs Vitals: Temp Pulse Resp BP Pulse Ox 98.3 F 95 20 125/86 H 100 10/11/20 12:41 02/16/20 12:41 02/16/20 12:41 02/16/20 12:41 02/16/20 12:41 Course - Vital Signs Vital signs: Temp Pulse Resp BP Pulse Ox 98.3 F 95 20 125/86 H 100 02/16/20 12:41 02/16/20 12:41 02/16/20 12:41 02/16/20 12:41 02/16/20 12:41
[2020-02-16] MEDS ORDERED: PANTOPRAZOLE SODIUM 40 MG VIAL IV ONE (14:37)
[2020-02-16] MEDS ORDERED: THIAMINE HCL INJ 200 MG/2 ML VIAL IM ONE (14:37)
[2020-02-16] MEDS ORDERED: NORMAL SALINE 1000 ML 1,000 ML IV ONE (14:38)
[2020-02-16] MEDS ORDERED: ONDANSETRON HCL INJ/PF 4 MG/2 ML SDV IV ONE ×2 (14:38→16:31)
[2020-02-16 14:45] LABS: ABSOLUTE EOSINOPHILS # (AUTO) 0.2 10^3/uL (0.0-0.6); ABSOLUTE LYMPHOCYTES (AUTO) 2.1 10^3/uL (0.5-4.7); ABSOLUTE MONOCYTES (AUTO) 1.5 10^3/uL (0.1-1.4); BASOPHILS % (AUTO) 0.4 % (0-2); EOSINOPHILS % (AUTO) 1.8 % (0-6); HEMATOCRIT 38.3 % (37.9-51.0); HEMOGLOBIN 13.9 g/dL (13.5-17.0); LYMPHOCYTES % (AUTO) 21.3 % (13-45); MEAN CORPUSCULAR HEMOGLOBIN 36.1 pg (27.0-33.4); MEAN CORPUSCULAR HGB CONC 36.2 g/dL (32.0-36.0); MEAN CORPUSCULAR VOLUME 100 fl (80-97); PLATELET COUNT 362 10^3/uL (150-450); RED BLOOD COUNT 3.84 10^6/uL (4.35-5.55); RED CELL DISTRIBUTION WIDTH 14.4 % (11.5-14.0); SEGMENTED NEUTROPHILS % (AUTO) 61.5 % (42-78); TOTAL CELLS COUNTED % (AUTO) 100 %; WHITE BLOOD COUNT 9.8 10^3/uL (4.0-10.5)
[2020-02-16 14:49] LABS: ALBUMIN 3.4 g/dL (3.5-5.0); ALCOHOL 207 mg/dL (NONE DETECTED); ALKALINE PHOSPHATASE 136 U/L (38-126); AMYLASE 134 U/L (30-110); ANION GAP 11 (5-19); ASPARTATE AMINO TRANSFERASE 51 U/L (17-59); BILIRUBIN,DIRECT 0.3 mg/dL (0.0-0.4); BILIRUBIN,TOTAL 0.4 mg/dL (0.2-1.3); BLOOD UREA NITROGEN 11 mg/dL (7-20); CALCIUM 8.5 mg/dL (8.4-10.2); CARBON DIOXIDE 26 mmol/L (22-30); CHLORIDE 106 mmol/L (98-107); GLUCOSE 109 mg/dL (75-110); TOTAL PROTEIN 6.2 g/dL (6.3-8.2)
--- NOTE | 2020-02-16 15:02 | ER Document Report ---
Entered by ANSELMO RANDALL SCRIBE 02/16/20 1438 Acting as scribe for:BEBA HO MD ED GI/ - General Chief Complaint: Abdominal Pain Stated Complaint: ABDOMINAL PAIN/POSSIBLE ETOH ABUSE Time Seen by Provider: 02/16/20 13:17 Mode of Arrival: Ambulatory Information source: Patient Notes: This 45 year old male patient with a history of pancreatitis and ETOH abuse presents to the ED today with complaints of abdominal pain with associated nausea and vomiting for the past x1 week, worse this morning. He admits to drinking x2 shots of Jackie last night which he states exacerbated the pain. Denies any other complaints. Patient was actually seen here on 02/09 with the same complaint and was admitted; he was discharged x3 days ago. TRAVEL OUTSIDE OF THE [place] IN LAST 30 DAYS: No - Related Data Allergies/Adverse Reactions: No Known Allergies Allergy (Verified 02/16/20 14:04) Past Medical History - General Information source: Patient - Social History Smoking Status: Current Every Day Smoker Cigarette use (# per day): Yes Smoking Education Provided: No Frequency of alcohol use: Heavy Family History: Reviewed & Not Pertinent, Hypertension - Past Medical History Cardiac Medical History: Reports: Hx Hypertension Neurological Medical History: Reports: Hx Seizures GI Medical History: Reports: Hx Pancreatitis Psychiatric Medical History: Reports: Hx Anxiety, Hx Bipolar Disorder, Hx Depression Past Surgical History: Reports: Hx Oral Surgery - Immunizations Hx Diphtheria, Pertussis, Tetanus Vaccination: Yes - given in er today Review of Systems - Review of Systems Constitutional: No symptoms reported EENT: No symptoms reported Cardiovascular: No symptoms reported Respiratory: No symptoms reported Gastrointestinal: See HPI, Abdominal pain, Nausea, Vomiting Genitourinary: No symptoms reported Male Genitourinary: No symptoms reported Musculoskeletal: No symptoms reported Skin: No symptoms reported Hematologic/Lymphatic: No symptoms reported Neurological/Psychological: No symptoms reported -: Yes All other systems reviewed and negative Physical Exam - Vital signs Vitals: Temp Pulse Resp BP Pulse Ox 98.3 F 95 20 125/86 H 100 02/16/20 12:41 02/16/20 12:41 02/16/20 12:41 02/16/20 12:41 02/16/20 12:41 - General General appearance: Alert In distress: None - HEENT Head: Normocephalic, Atraumatic Eyes: Normal Pupils: PERRL - Respiratory Respiratory status: No respiratory distress Chest status: Nontender Breath sounds: Normal Chest palpation: Normal - Cardiovascular Rhythm: Regular Heart sounds: Normal auscultation, S1 appreciated, S2 appreciated Murmur: No Friction rub: No Gallop: None auscultated - Abdominal Inspection: Normal Distension: No distension Bowel sounds: Normal - Active increased bowel sounds Tenderness: Tender - Mid-gastric tenderness to palpation Organomegaly: No organomegaly - Back Back: Normal, Nontender - Extremities General upper extremity: Normal inspection General lower extremity: Normal inspection. No: Edema - Neurological Neuro grossly intact: Yes Orientation: AAOx4 Leonard Coma Scale Eye Opening: Spontaneous Leonard Coma Scale Verbal: Oriented Leonard Coma Scale Motor: Obeys Commands Leonard Coma Scale Total: 15 - Psychological Associated symptoms: Other - Generalized tremors - Skin Skin Temperature: Warm Skin Moisture: Dry Skin Color: Normal Course - Re-evaluation Re-evalutation: 02/16/20 20:52 Patient continued to complain of abdominal pain with pain radiating to his back as well. Patient complains of pain in the right upper and left upper quadrants and mid gastric. - Vital Signs Vital signs: Temp Pulse Resp BP Pulse Ox 98.3 F 95 20 125/86 H 94 02/16/20 12:41 02/16/20 12:41 02/16/20 12:41 02/16/20 12:41 02/16/20 16:00 02/16/20 20:52 Vital signs are stable. Pulse oximetry slightly low at 94%. - Laboratory Result Diagrams: 02/16/20 14:00 02/16/20 14:00 Laboratory results interpreted by me: 02/16/20 02/16/20 02/16/20 14:00 14:00 14:00 RBC 3.84 L MCV 100 H MCH 36.1 H MCHC 36.2 H RDW 14.4 H Letcher % (Auto) 15.0 H Absolute Monos (auto) 1.5 H Magnesium 2.4 H ALT 58 H Alkaline Phosphatase 136 H Total Protein 6.2 L Albumin 3.4 L Amylase 134 H Lipase 739.5 H Laboratories disclose an elevated lipase of 739 normal magnesium amylase also elevated at 134. His abnormalities are consistent with acute pancreatitis. Also patient has an elevated alcohol level greater than 200. - Diagnostic Test Radiology reviewed: Image reviewed, Reports reviewed Radiology results interpreted by me: 02/16/20 20:53 Chest X-Ray 02/16/20 14:39 IMPRESSION: NO ACUTE FINDINGS. Abdomen/Pelvis CT 02/16/20 16:30 IMPRESSION: Acute pancreatitis with splenic vein and portal vein thrombus as detailed above. CT scan of abdomen and pelvis shows acute pancreatitis with a splenic vein and portal vein thrombus which is a new finding from prior CT scan 1 week ago. Also Chest x-ray shows no acute findings. 02/16/20 20:55 Discussed case of the new findings of splenic vein thrombus as well as portal vein thrombus in a patient with recurrent pancreatitis. Discussed this case with the on-call surgeon who stated that a surgical procedure is not indicated for patient with thrombus in the portal vein and splenic vein in the face of acute and chronic pancreatitis. Consideration of patient placing patient on anticoagulants and admit to hospitalist service. - Consults Dr. Acevedo, Surgicalist Time consulted: 19:15 Dr. Mclaughlin, Hospitalist Time consulted: 19:25 Discharge - Discharge Clinical Impression: Acute pancreatitis, Portal vein thrombosis, Splenic vein thrombosis, Acute alcohol intoxication, Abdominal pain Condition: Good Disposition: ADMITTED INPATIENT Admitting Provider: Arnoldo (Hospitalist) Unit Admitted: Medical Floor I personally performed the services described in the documentation, reviewed and edited the documentation which was dictated to the scribe in my presence, and it accurately records my words and actions.
[2020-02-16 15:16] LABS: APPEARANCE,URINE CLEAR; BILIRUBIN,URINE NEGATIVE (NEGATIVE); COLOR,URINE YELLOW; GLUCOSE, URINE NEGATIVE (NEGATIVE); KETONES,URINE NEGATIVE (NEGATIVE); LEUKOCYTE ESTERASE,URINE NEGATIVE (NEGATIVE); NITRITE,URINE NEGATIVE (NEGATIVE); PROTEIN,URINE NEGATIVE (NEGATIVE); URINE SPECIFIC GRAVITY 1.011; UROBILINOGEN,URINE NEGATIVE mg/dL (<2.0)
[2020-02-16 15:31] LABS: URINE AMPHETAMINES SCREEN NEGATIVE; URINE BARBITURATES SCREEN NEGATIVE; URINE COCAINE SCREEN NEGATIVE; URINE MARIJUANA (THC) SCREEN NEGATIVE; URINE METHADONE SCREEN NEGATIVE; URINE PHENCYCLIDINE SCREEN NEGATIVE
[2020-02-16 15:33] LABS: URINE BENZODIAZEPINES SCREEN UNCONFIRMED POSITIVE
--- NOTE | 2020-02-16 15:34 | RADIOLOGY REPORT (SQ) ---
EXAM DESCRIPTION: CHEST SINGLE VIEW IMAGES COMPLETED DATE/TIME: 02/16/2020 2:56 pm REASON FOR STUDY: decreased breath sounds COMPARISON: 12/27/2019 TECHNIQUE: Single frontal radiographic view of the chest acquired. NUMBER OF VIEWS: One view. LIMITATIONS: None. FINDINGS: LUNGS AND PLEURA: No pneumothorax. No consolidation or pleural effusion. MEDIASTINUM AND HILAR STRUCTURES: Stable. HEART AND VASCULAR STRUCTURES: Stable. BONES: No acute findings. HARDWARE: None in the chest. OTHER: No other significant finding. IMPRESSION: NO ACUTE FINDINGS. TECHNICAL DOCUMENTATION: JOB ID: [id number] [place]-72 2010 [employer]- All Rights Reserved Reading location - IP/workstation name: [email or web address]
[2020-02-16] MEDS ORDERED: MORPHINE SULFATE 10 MG/ML INJ IV ONE (16:31)
--- NOTE | 2020-02-16 18:53 | RADIOLOGY REPORT (SQ) ---
EXAM DESCRIPTION: CT ABD/PELVIS WITH IV ONLY IMAGES COMPLETED DATE/TIME: 02/16/2020 6:23 pm REASON FOR STUDY: ABD PAIN/ELEVATED LIPASE/ALCOHOL COMPARISON: 02/10/2020 TECHNIQUE: CT scan of the abdomen and pelvis performed using helical scanning technique with dynamic intravenous contrast injection. No oral contrast. Images reviewed with lung, soft tissue, and bone windows. Reconstructed coronal and sagittal MPR images reviewed. Delayed images for evaluation of the urinary system also acquired. All images stored on PACS. All CT scanners at this facility use dose modulation, iterative reconstruction, and/or weight based d osing when appropriate to reduce radiation dose to as low as reasonably achievable (ALARA). [facility]: Dose Right [facility]: CareDose [facility]: Dose Right [facility]: Teradose 4D [facility]: Great Dream CONTRAST TYPE AND DOSE: contrast/concentration: Isovue 350.00 mmol/ml; Total Contrast Delivered: 78. 0 ml; Total Saline Delivered: 67.0 ml RENAL FUNCTION: BUN 11; creatinine 0.58 RADIATION DOSE: CT Rad equipment meets quality standard of care and radiation dose reduction techniq ues were employed. CTDIvol: 6.4 - 9.0 mGy. DLP: 808 mGy-cm.. LIMITATIONS: None. FINDINGS: LOWER CHEST: No significant findings. No nodules or infiltrates. LIVER: Today's examination demonstrates geographic differential attenuation on the basis of acute por vicente vein thrombus. Background of hepatic steatosis. No focal mass. No intrahepatic biliary dilatat ion. SPLEEN: Normal size. No focal lesions. Acute thrombus is seen within the splenic vein. PANCREAS: Marked inflammatory changes are seen about the tail of the pancreas. The pancreatic duct i s not dilated. GALLBLADDER: No identified stones by CT criteria. No inflammatory changes to suggest cholecystitis. ADRENAL GLANDS: No significant masses or asymmetry. RIGHT KIDNEY AND URETER: No solid masses. No significant calcifications. No hydronephrosis or hyd roureter. LEFT KIDNEY AND URETER: No solid masses. Subcentimeter probable cortical cyst. No significant calc ifications. No hydronephrosis or hydroureter. AORTA AND VESSELS: No aneurysm or dissection. The major visceral arterial branches demonstrate margarito l opacification. RETROPERITONEUM: No retroperitoneal adenopathy, hemorrhage or masses. BOWEL AND PERITONEAL CAVITY: Peripancreatic inflammatory changes track into the left pericolic recess . The bowel is unremarkable for modality/ technique. No obstruction or focal inflammatory changes. APPENDIX: Normal. PELVIS: No mass. No free fluid. Normal bladder. ABDOMINAL WALL: No masses. No hernias. BONES: No significant or acute findings. OTHER: No other significant finding. IMPRESSION: Acute pancreatitis with splenic vein and portal vein thrombus as detailed above. TECHNICAL DOCUMENTATION: JOB ID: [id number] Quality ID # [id number]: Final reports with documentation of one or more dose reduction techniques (e.g., Au tomated exposure control, adjustment of the mA and/or kV according to patient size, use of iterative reconstruction technique) 2010 [employer]- All Rights Reserved Reading location - IP/workstation name: [email or web address]
[2020-02-16] MEDS ORDERED: LORAZEPAM INJ 2 MG/1 ML VIAL IV ONE (19:09)
[2020-02-16] MEDS ORDERED: ALBUTEROL SULFATE 0.083% NEB 2.5 MG/3 ML AMPUL NEB PRN (19:43)
[2020-02-16] MEDS ORDERED: ONDANSETRON HCL INJ/PF 4 MG/2 ML SDV IV PRN (19:43)
[2020-02-16] MEDS ORDERED: MAG HYDROX/AL HYDROX/SIMETH SUSP 30 ML UDCUP PO PRN (19:43)
[2020-02-16] MEDS ORDERED: ACETAMINOPHEN 325 MG TABLET PO PRN (19:49)
[2020-02-16] MEDS ORDERED: LORAZEPAM INJ 2 MG/1 ML VIAL IV PRN ×2 (19:50)
[2020-02-16] MEDS ORDERED: THIAMINE HCL 100 MG, FOLIC ACID 1 MG in NORMAL SALINE 250 ML IV ONE (19:50)
[2020-02-16] MEDS ORDERED: ENOXAPARIN SODIUM INJ 80 MG/0.8 ML DISP.SYRIN SUBCUT ONE (20:00)
[2020-02-16] MEDS ORDERED: NICOTINE 14 MG/24 HR PATCH.TD24 TD PRN (20:06)
--- NOTE | 2020-02-16 20:14 | PDOC H&P ---
History of Present Illness Admission Date/PCP: 02/16/20 19:40 Patient complains of: Abdominal pain History of Present Illness: JACQUES BRITTON JR is a 45 year old male with history of pancreatitis, alcohol abuse, hypertension, anxiety, who presents to the hospital for evaluation of abdominal pain, nausea and vomiting. Patient was recently discharged from the hospital a few days ago after being treated for alcoholic pancreatitis. He states he was still having some pain at the time of discharge but had improved. However, last night he went for a alliance party and drank some liquor and this morning the pain became reaggravated. He describes sharp stabbing epigastric pain with radiation to the back 4-5/5 without any alleviating factors. He has also been experiencing nausea with a lot of dry heaves this morning and decided to come to the hospital. He admits to history of alcohol withdrawal including an episode of alcohol withdrawal seizures about 15 years ago. Past Medical History Cardiac Medical History: Reports: Hypertension Denies: Coronary Artery Disease, Hyperlipidema Pulmonary Medical History: Denies: Asthma, Chronic Obstructive Pulmonary Disease (COPD), Tuberculosis Neurological Medical History: Reports: Seizures Endocrine Medical History: Denies: Diabetes Mellitus Type 1, Diabetes Mellitus Type 2, Hyperthyroidism, Hypothyroidism GI Medical History: Denies: Cirrhosis, Gastroesophageal Reflux Disease, Hepatitis Musculoskeltal Medical History: Denies: Arthritis, Gout Skin Medical History: Denies: Eczema, Psoriasis Psychiatric Medical History: Reports: Bipolar Disorder, Depression Hematology: Denies: Anemia, Bleeding Tendencies Past Surgical History Past Surgical History: Reports: Other - Describes what sounds like a dental surgery Social History Smoking Status: Current Every Day Smoker Frequency of Alcohol Use: Heavy Hx Recreational Drug Use: Yes Drugs: Marijuana Hx Prescription Drug Abuse: Yes - Advance Directive Resuscitation Status: Full Code Family History Family History: Reviewed & Not Pertinent, Hypertension Parental Family History Reviewed: Yes Children Family History Reviewed: NA Sibling(s) Family History Reviewed.: NA Medication/Allergy Home Medications: Fluoxetine HCl [Prozac] 40 mg PO DAILY 12/29/19 Folic Acid [Folvite 1 mg Tablet] 1 mg PO DAILY #90 tablet 01/02/20 Thiamine HCl [Thiamine 100 mg Tablet] 100 mg PO DAILY #90 tablet 01/02/20 Alprazolam [Xanax] 1 mg PO DAILYP PRN #15 02/13/20 Amlodipine Besylate [Norvasc 5 mg Tablet] 5 mg PO DAILY #30 tablet 02/13/20 Buspirone HCl 15 mg PO Q12 #30 02/13/20 Lisinopril [Prinivil 10 mg Tablet] 20 mg PO DAILY #30 02/13/20 Magnesium Oxide [Mag-Ox 400 mg Tablet] 400 mg PO MEALS #30 tablet 02/13/20 Potassium Chloride 10 meq PO DAILY #30 tab.er.prt 02/13/20 Sodium Chloride [Sodium Chloride 1 Gm Tablet] 1 gm PO DAILY #30 tablet 02/13/20 Allergies/Adverse Reactions: No Known Allergies Allergy (Verified 02/16/20 14:04) Review of Systems Constitutional: ABSENT: chills, fatigue, fever(s) Eyes: ABSENT: visual disturbances Ears: ABSENT: hearing changes Nose, Mouth, and Throat: ABSENT: headache(s) Cardiovascular: PRESENT: chest pain - Occasionally intermittent but not currently Respiratory: ABSENT: dyspnea Gastrointestinal: PRESENT: abdominal pain, nausea, vomiting. ABSENT: diarrhea, hematemesis, hematochezia Genitourinary: ABSENT: dysuria Musculoskeletal: PRESENT: back pain Integumentary: ABSENT: diaphoresis Neurological: ABSENT: confusion Psychiatric: PRESENT: anxiety Endocrine: ABSENT: polyuria Hematologic/Lymphatic: ABSENT: easy bleeding Physical Exam Vital Signs: Temp Pulse Resp BP Pulse Ox 98.3 F 95 20 125/86 H 94 02/16/20 12:41 02/16/20 12:41 02/16/20 12:41 02/16/20 12:41 02/16/20 16:00 Intake & Output 02/15/20 02/16/20 02/17/20 06:59 06:59 06:59 Intake Total 1010 Balance 1010 Weight 68.039 kg General appearance: PRESENT: no acute distress, cooperative Head exam: PRESENT: normocephalic Eye exam: PRESENT: EOMI Neck exam: ABSENT: JVD Respiratory exam: PRESENT: symmetrical, unlabored. ABSENT: accessory muscle use, stridor, tachypnea, wheezes Cardiovascular exam: PRESENT: RRR, +S1, +S2. ABSENT: tachycardia GI/Abdominal exam: PRESENT: soft, tenderness - Diffusely on light to moderate palpation. ABSENT: ascites, distended, firm, guarding, rebound, rigid Extremities exam: ABSENT: calf tenderness, pedal edema Musculoskeletal exam: PRESENT: ambulatory Neurological exam: PRESENT: alert, awake, oriented to person, oriented to place, oriented to time, oriented to situation, abnormal gait - Mild Psychiatric exam: ABSENT: agitated, anxious Focused psych exam: ABSENT: pressured speech Skin exam: ABSENT: jaundice Results Laboratory Results: 02/16/20 14:00 02/16/20 14:00 02/16/20 02/16/20 02/16/20 14:00 14:00 14:00 WBC 9.8 RBC 3.84 L Hgb 13.9 Hct 38.3 MCV 100 H MCH 36.1 H MCHC 36.2 H RDW 14.4 H Plt Count 362 Seg Neutrophils % 61.5 Sodium 142.5 Potassium 4.0 Chloride 106 Carbon Dioxide 26 Anion Gap 11 BUN 11 Creatinine 0.58 Est GFR ( Amer) > 60 Glucose 109 Lactic Acid Calcium 8.5 Magnesium Total Bilirubin 0.4 AST 51 Alkaline Phosphatase 136 H Total Protein 6.2 L Albumin 3.4 L Amylase 134 H Lipase 739.5 H Urine Color YELLOW Urine Appearance CLEAR Urine pH 6.0 Ur Specific Gordon 1.011 Urine Protein NEGATIVE Urine Glucose (UA) NEGATIVE Urine Ketones NEGATIVE Urine Blood NEGATIVE Urine Nitrite NEGATIVE Ur Leukocyte Esterase NEGATIVE Urine WBC (Auto) 1 Urine RBC (Auto) 0 02/16/20 02/16/20 14:00 14:00 WBC RBC Hgb Hct MCV MCH MCHC RDW Plt Count Seg Neutrophils % Sodium Potassium Chloride Carbon Dioxide Anion Gap BUN Creatinine Est GFR ( Amer) Glucose Lactic Acid 1.1 Calcium Magnesium 2.4 H Total Bilirubin AST Alkaline Phosphatase Total Protein Albumin Amylase Lipase Urine Color Urine Appearance Urine pH Ur Specific Gordon Urine Protein Urine Glucose (UA) Urine Ketones Urine Blood Urine Nitrite Ur Leukocyte Esterase Urine WBC (Auto) Urine RBC (Auto) Impressions: Chest X-Ray 02/16/20 14:39 IMPRESSION: NO ACUTE FINDINGS. Abdomen/Pelvis CT 02/16/20 16:30 IMPRESSION: Acute pancreatitis with splenic vein and portal vein thrombus as detailed above. Assessment and Plan - Diagnosis (1) Acute alcoholic pancreatitis Qualifiers: Acute pancreatitis complication: no infection or necrosis Qualified Code(s): K85.20 - Alcohol induced acute pancreatitis without necrosis or infection Is this a current diagnosis for this admission?: Yes Plan: Alcoholic pancreatitis reaggravated by liquid consumption. Abdominal CT reviewed still shows inflammatory changes consistent with acute disease. Continuous IV fluids with lactated Ringer's 160 cc/h Pain control with morphine IV as needed Antiemetics Trial of clear liquids (2) Portal vein thrombosis Is this a current diagnosis for this admission?: Yes Plan: Acute portal vein thrombosis and splenic vein thrombosis secondary to recurrent pancreatitis. Patient will need to be started on anticoagulation avoid further complications or bowel compromise. Will initiate therapeutic Lovenox. Patient is self-pay and uninsured and will need to visit affordable options for OAC. Case management consulted. (3) Splenic vein thrombosis Is this a current diagnosis for this admission?: Yes Plan: Plan as above (4) Alcoholism with alcohol dependence Qualifiers: Substance use status: in withdrawal Complication of substance-induced c ondition: with delirium Qualified Code(s): F10.231 - Alcohol dependence with withdrawal delirium Is this a current diagnosis for this admission?: Yes Plan: Currently with alcohol intoxication. EtOH level of 200. High risk of withdrawal once he starts to sober up. We will place on [facility] protocol Counseled patient on the importance of alcohol cessation I will administer a banana bag Oral thiamine and folate. Check B12 level in a.m. (5) Tobacco use disorder, severe, dependence Is this a current diagnosis for this admission?: Yes Plan: Nicotine patch offered - Time Time Spent with patient: 35 or more minutes Anticipated Discharge Disposition: Home, Self Care Anticipated Discharge Timeframe: within 48 hours
[2020-02-16] MEDS ORDERED: AMLODIPINE BESYLATE 5 MG TABLET PO ONE (21:07)
[2020-02-16] MEDS ORDERED: LISINOPRIL 10 MG TABLET PO ONE (21:07)
[2020-02-16] MEDS: BUSPIRONE HCL 10 MG TABLET PO SCH (21:43)
[2020-02-16] MEDS: FAMOTIDINE INJ/PF 20 MG/2 ML SDV IV SCH (21:45)
[2020-02-16] MEDS ORDERED: MAGNESIUM OXIDE 400 MG TABLET PO SCH (22:00)
[2020-02-16] MEDS: MORPHINE SULFATE 10 MG/ML INJ IV PRN (22:17)
[2020-02-16] MEDS: RINGERS SOLUTION,LACTATED 1,000 ML IV PRN (22:21)
[2020-02-17] MEDS: LORAZEPAM INJ 2 MG/1 ML VIAL IV PRN ×4 (01:25→20:13)
[2020-02-17] MEDS: RINGERS SOLUTION,LACTATED 1,000 ML IV PRN ×3 (05:29→18:48)
[2020-02-17] MEDS: MORPHINE SULFATE 10 MG/ML INJ IV PRN ×4 (05:33→18:55)
[2020-02-17 07:01] LABS: HEMATOCRIT 36.5 % (37.9-51.0); HEMOGLOBIN 12.9 g/dL (13.5-17.0); MEAN CORPUSCULAR HEMOGLOBIN 35.1 pg (27.0-33.4); MEAN CORPUSCULAR HGB CONC 35.4 g/dL (32.0-36.0); MEAN CORPUSCULAR VOLUME 99 fl (80-97); PLATELET COUNT 335 10^3/uL (150-450); RED BLOOD COUNT 3.68 10^6/uL (4.35-5.55); RED CELL DISTRIBUTION WIDTH 14.6 % (11.5-14.0); WHITE BLOOD COUNT 8.6 10^3/uL (4.0-10.5)
[2020-02-17 07:21] LABS: INTERNATIONAL RATION (INR) 0.88; PROTHROMBIN TIME 12.1 SEC (11.4-15.4)
[2020-02-17 07:23] LABS: ALBUMIN 2.9 g/dL (3.5-5.0); ALKALINE PHOSPHATASE 120 U/L (38-126); ANION GAP 7 (5-19); ASPARTATE AMINO TRANSFERASE 36 U/L (17-59); BILIRUBIN,DIRECT 0.4 mg/dL (0.0-0.4); BILIRUBIN,TOTAL 0.5 mg/dL (0.2-1.3); BLOOD UREA NITROGEN 10 mg/dL (7-20); CARBON DIOXIDE 28 mmol/L (22-30); CHLORIDE 101 mmol/L (98-107); GLUCOSE 83 mg/dL (75-110); PHOSPHORUS 3.7 mg/dL (2.5-4.5); POTASSIUM 3.7 mmol/L (3.6-5.0); TOTAL PROTEIN 5.5 g/dL (6.3-8.2)
[2020-02-17] MEDS: BUSPIRONE HCL 10 MG TABLET PO SCH ×2 (09:44→21:21)
[2020-02-17] MEDS: APIXABAN 5 MG TABLET PO SCH ×2 (09:45→17:22)
[2020-02-17] MEDS: FOLIC ACID 1 MG TABLET PO SCH (09:45)
[2020-02-17] MEDS: FLUOXETINE HCL 20 MG CAPSULE PO SCH (09:46)
[2020-02-17] MEDS: AMLODIPINE BESYLATE 5 MG TABLET PO SCH (09:46)
[2020-02-17] MEDS: THIAMINE HCL 100 MG TABLET PO SCH (09:46)
[2020-02-17] MEDS: LISINOPRIL 10 MG TABLET PO SCH (09:47)
[2020-02-17] MEDS: FAMOTIDINE INJ/PF 20 MG/2 ML SDV IV SCH ×2 (09:48→21:22)
[2020-02-17] MEDS ORDERED: ENOXAPARIN SODIUM INJ 80 MG/0.8 ML DISP.SYRIN SUBCUT SCH ×2 (10:00)
--- NOTE | 2020-02-17 21:07 | PDOC PROGRESS REPORT ---
Subjective Progress Note for:: 02/17/20 Subjective:: JASMINA continues to have abd pain and nausea tolerating CLD Reason For Visit: ACUTE PANCREATITIS,PORTAL VEIN THROMBOSIS,SPLENIC Physical Exam Vital Signs: Temp Pulse Resp BP Pulse Ox 98.1 F 78 16 120/83 100 02/17/20 15:37 02/17/20 15:37 02/17/20 15:37 02/17/20 15:37 02/17/20 15:37 Intake & Output 02/16/20 02/17/20 02/18/20 06:59 06:59 06:59 Intake Total 3391 2415 Output Total 200 150 Balance 3191 2265 Weight 82.3 kg 80.4 kg General appearance: PRESENT: no acute distress, cooperative Eye exam: ABSENT: scleral icterus Mouth exam: PRESENT: moist Throat exam: ABSENT: post pharyngeal erythema Neck exam: ABSENT: JVD Respiratory exam: PRESENT: clear to auscultation deisy, unlabored Cardiovascular exam: PRESENT: RRR GI/Abdominal exam: PRESENT: normal bowel sounds, soft, tenderness - epigastric Rectal exam: PRESENT: deferred Extremities exam: ABSENT: pedal edema Neurological exam: PRESENT: alert, awake, oriented to person, oriented to place, oriented to time, oriented to situation Psychiatric exam: PRESENT: anxious Skin exam: ABSENT: rash Results Laboratory Results: 02/17/20 05:32 02/17/20 05:32 02/17/20 02/17/20 05:32 05:32 WBC 8.6 RBC 3.68 L Hgb 12.9 L Hct 36.5 L MCV 99 H MCH 35.1 H MCHC 35.4 RDW 14.6 H Plt Count 335 Sodium 135.6 L Potassium 3.7 Chloride 101 Carbon Dioxide 28 Anion Gap 7 BUN 10 Creatinine 0.56 Est GFR ( Amer) > 60 Glucose 83 Calcium 8.0 L Phosphorus 3.7 Magnesium 1.9 Total Bilirubin 0.5 AST 36 Alkaline Phosphatase 120 Total Protein 5.5 L Albumin 2.9 L Vitamin B12 887.0 Impressions: Chest X-Ray 02/16/20 14:39 IMPRESSION: NO ACUTE FINDINGS. Abdomen/Pelvis CT 02/16/20 16:30 IMPRESSION: Acute pancreatitis with splenic vein and portal vein thrombus as detailed above. Assessment and Plan - Diagnosis (1) Acute alcoholic pancreatitis Qualifiers: Acute pancreatitis complication: no infection or necrosis Qualified Code(s): K85.20 - Alcohol induced acute pancreatitis without necrosis or infection Is this a current diagnosis for this admission?: Yes (2) Splenic vein thrombosis Is this a current diagnosis for this admission?: Yes (3) Portal vein thrombosis Is this a current diagnosis for this admission?: Yes (4) Homelessness Is this a current diagnosis for this admission?: Yes (5) Abdominal pain Qualifiers: Abdominal location: epigastric Qualified Code(s): R10.13 - Epigastric pain Is this a current diagnosis for this admission?: Yes (6) Acute alcohol intoxication Qualifiers: Complication of substance-induced condition: with unspecified complication Qualified Code(s): F10.929 - Alcohol use, unspecified with intoxication, unspecified Is this a current diagnosis for this admission?: Yes (7) Anxiety with depression Is this a current diagnosis for this admission?: Yes (8) Hypertension Qualifiers: Hypertension type: essential hypertension Qualified Code(s): I10 - Essential (primary) hypertension Is this a current diagnosis for this admission?: Yes (9) Tobacco use disorder, severe, dependence Is this a current diagnosis for this admission?: Yes - Plan Summary Summary: JACQUES BRITTON JR is a 45 year old male with history of pancreatitis, alcohol abuse, hypertension, anxiety, who presented to the hospital for evaluation of abdominal pain, nausea and vomiting. Patient was recently discharged from the hospital a few days ago after being treated for acute alcoholic pancreatitis and alcohol withdrawal. After discharge, he went for a constitution party and drank some liquor and re-developed abdominal pain. He describes sharp stabbing epigastric pain with radiation to the back 4-5/5 without any alleviating factors. He has also been experiencing anorexia and nausea. 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 EtOH level of 200. High risk of withdrawal. CIWA protocol Counseled patient on the importance of alcohol cessation Oral thiamine and folate Tobacco use disorder, severe, dependence Nicotine patch offered cessation counseling provided Homelessness SW consulted - Time Time Spent with patient: 35 or more minutes Anticipated Discharge Disposition: Home, Self Care Anticipated Discharge Timeframe: within 48 hours
[2020-02-18] MEDS: MORPHINE SULFATE 10 MG/ML INJ IV PRN ×5 (00:22→20:19)
[2020-02-18] MEDS: RINGERS SOLUTION,LACTATED 1,000 ML IV PRN ×4 (01:16→21:31)
[2020-02-18] MEDS: FOLIC ACID 1 MG TABLET PO SCH (09:30)
[2020-02-18] MEDS: BUSPIRONE HCL 10 MG TABLET PO SCH ×2 (09:30→21:04)
[2020-02-18] MEDS: APIXABAN 5 MG TABLET PO SCH ×2 (09:30→17:59)
[2020-02-18] MEDS: THIAMINE HCL 100 MG TABLET PO SCH (09:30)
[2020-02-18] MEDS: AMLODIPINE BESYLATE 5 MG TABLET PO SCH (09:30)
[2020-02-18] MEDS: LISINOPRIL 10 MG TABLET PO SCH (09:30)
[2020-02-18] MEDS: FLUOXETINE HCL 20 MG CAPSULE PO SCH (09:30)
[2020-02-18] MEDS: FAMOTIDINE INJ/PF 20 MG/2 ML SDV IV SCH ×2 (09:31→21:04)
[2020-02-18] MEDS: LORAZEPAM INJ 2 MG/1 ML VIAL IV PRN ×2 (11:33→21:04)
[2020-02-18 11:38] LABS: HEMATOCRIT 38.6 % (37.9-51.0); HEMOGLOBIN 13.4 g/dL (13.5-17.0); MEAN CORPUSCULAR HEMOGLOBIN 34.7 pg (27.0-33.4); MEAN CORPUSCULAR HGB CONC 34.6 g/dL (32.0-36.0); MEAN CORPUSCULAR VOLUME 100 fl (80-97); PLATELET COUNT 392 10^3/uL (150-450); RED BLOOD COUNT 3.85 10^6/uL (4.35-5.55); RED CELL DISTRIBUTION WIDTH 14.2 % (11.5-14.0); WHITE BLOOD COUNT 7.9 10^3/uL (4.0-10.5)
[2020-02-18 12:00] LABS: ANION GAP 7 (5-19); BLOOD UREA NITROGEN 6 mg/dL (7-20); CARBON DIOXIDE 29 mmol/L (22-30); CHLORIDE 100 mmol/L (98-107); GLUCOSE 100 mg/dL (75-110); POTASSIUM 4.6 mmol/L (3.6-5.0)
--- NOTE | 2020-02-18 16:14 | PDOC PROGRESS REPORT ---
Subjective Progress Note for:: 02/18/20 Subjective:: Patient was seen on morning rounds. He is resting upright in bed. His main concern is that he is feeling anxious about the "unknowns," which he elaborated on saying "for instance, I don't know if it is raining outside." He is approximately 3 days out from last alcoholic beverage. He complains of epigastric abdominal pain, palpitations and anxiety. He denies DTs or h allucinations but explains that when waking from sleep his surroundings seem distorted, this resolves within seconds. He is tolerating full liquid diet without nausea or vomiting. Patient is familiar to me from previous visit and updates me that he since lost his job, but did not believe job was a good fit for him in the first place. Upon further questioning denies fever, chills, chest pain, cough, SOB, urinary symptoms. Pt discussed with nurse. His most recent CIWA was 14. Tx'd with Ativan. No further concerns at this time. Reason For Visit: ACUTE PANCREATITIS,PORTAL VEIN THROMBOSIS,SPLENIC Physical Exam Vital Signs: Temp Pulse Resp BP Pulse Ox 98.3 F 71 20 111/72 98 02/18/20 12:48 02/18/20 12:48 02/18/20 12:48 02/18/20 12:48 02/18/20 12:48 Intake & Output 02/17/20 02/18/20 02/19/20 06:59 06:59 06:59 Intake Total 3391 5421 1000 Output Total 200 3100 Balance 3191 2321 1000 Weight 82.3 kg 79.6 kg General appearance: PRESENT: no acute distress, cooperative Head exam: PRESENT: atraumatic, normocephalic Eye exam: ABSENT: scleral icterus Mouth exam: PRESENT: moist, tongue midline Neck exam: PRESENT: full ROM. ABSENT: tenderness Respiratory exam: PRESENT: clear to auscultation deisy, symmetrical, unlabored. ABSENT: rales, rhonchi, tachypnea, wheezes Cardiovascular exam: PRESENT: RRR, +S1, +S2. ABSENT: diastolic murmur, systolic murmur Pulses: PRESENT: normal radial pulses Vascular exam: PRESENT: normal capillary refill GI/Abdominal exam: PRESENT: normal bowel sounds, soft, tenderness - epigastric. ABSENT: diminished bowel sounds, distended, firm, guarding Rectal exam: PRESENT: deferred Extremities exam: PRESENT: full ROM. ABSENT: clubbing, pedal edema Musculoskeletal exam: PRESENT: ambulatory, full ROM. ABSENT: deformity, dislocation Neurological exam: PRESENT: alert, awake, oriented to person, oriented to place, oriented to time, oriented to situation Psychiatric exam: PRESENT: anxious Skin exam: PRESENT: dry, intact, warm. ABSENT: rash Results Laboratory Results: 02/18/20 11:15 02/18/20 11:15 02/18/20 02/18/20 11:15 11:15 WBC 7.9 RBC 3.85 L Hgb 13.4 L Hct 38.6 MCV 100 H MCH 34.7 H MCHC 34.6 RDW 14.2 H Plt Count 392 Sodium 136.2 L Potassium 4.6 Chloride 100 Carbon Dioxide 29 Anion Gap 7 BUN 6 L Creatinine 0.51 L Est GFR ( Amer) > 60 Glucose 100 Calcium 9.0 Magnesium 2.1 Impressions: Chest X-Ray 02/16/20 14:39 IMPRESSION: NO ACUTE FINDINGS. Abdomen/Pelvis CT 02/16/20 16:30 IMPRESSION: Acute pancreatitis with splenic vein and portal vein thrombus as detailed above. Assessment and Plan - Diagnosis (1) Acute alcoholic pancreatitis Qualifiers: Acute pancreatitis complication: no infection or necrosis Qualified Code(s): K85.20 - Alcohol induced acute pancreatitis without necrosis or infection Is this a current diagnosis for this admission?: Yes (2) Portal vein thrombosis Is this a current diagnosis for this admission?: Yes (3) Splenic vein thrombosis Is this a current diagnosis for this admission?: Yes (4) Hyponatremia Is this a current diagnosis for this admission?: Yes (5) Homelessness Is this a current diagnosis for this admission?: Yes (6) Abdominal pain Qualifiers: Abdominal location: epigastric Qualified Code(s): R10.13 - Epigastric pain Is this a current diagnosis for this admission?: Yes (7) Acute alcohol intoxication Qualifiers: Complication of substance-induced condition: with unspecified complication Qualified Code(s): F10.929 - Alcohol use, unspecified with intoxication, unspecified Is this a current diagnosis for this admission?: Yes (8) Anxiety with depression Is this a current diagnosis for this admission?: Yes (9) Hypertension Qualifiers: Hypertension type: essential hypertension Qualified Code(s): I10 - Essential (primary) hypertension Is this a current diagnosis for this admission?: Yes (10) Tobacco use disorder, severe, dependence Is this a current diagnosis for this admission?: Yes - Plan Summary Summary: JACQUES BRITTON JR is a 45 year old male with history of pancreatitis, alcohol abuse, hypertension, anxiety, who presented to the hospital for evaluation of abdominal pain, nausea and vomiting. Patient was recently discharged from the hospital a few days ago after being treated for acute alcoholic pancreatitis and alcohol withdrawal. After discharge, he went for a alliance party and drank some liquor and re-developed abdominal pain. He describes sharp stabbing epigastric pain with radiation to the back 4-09/09 without any alleviating factors. He has also been experiencing anorexia and nausea. 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 EtOH level of 200. High risk of withdrawal. CIWA protocol in place -Most recent CIWA 14. Tx'd with 1gm Ativa, per protocol Counseled patient on the importance of alcohol cessation Oral thiamine and folate Tobacco use disorder, severe, dependence Nicotine patch offered cessation counseling provided Homelessness REMY consulted - Time Time Spent with patient: 15-24 minutes Medications reviewed and adjusted accordingly: Yes Anticipated Discharge Disposition: Home, Self Care Anticipated Discharge Timeframe: within 72 hours
[2020-02-19] MEDS: MORPHINE SULFATE 10 MG/ML INJ IV PRN ×5 (01:28→20:38)
[2020-02-19] MEDS: RINGERS SOLUTION,LACTATED 1,000 ML IV PRN ×3 (04:14→19:00)
[2020-02-19 06:46] LABS: HEMATOCRIT 36.5 % (37.9-51.0); MEAN CORPUSCULAR HEMOGLOBIN 35.3 pg (27.0-33.4); MEAN CORPUSCULAR HGB CONC 35.5 g/dL (32.0-36.0); MEAN CORPUSCULAR VOLUME 99 fl (80-97); PLATELET COUNT 373 10^3/uL (150-450); RED BLOOD COUNT 3.68 10^6/uL (4.35-5.55); RED CELL DISTRIBUTION WIDTH 14.4 % (11.5-14.0); WHITE BLOOD COUNT 8.9 10^3/uL (4.0-10.5)
[2020-02-19 06:59] LABS: ANION GAP 8 (5-19); BLOOD UREA NITROGEN 5 mg/dL (7-20); CARBON DIOXIDE 27 mmol/L (22-30); CHLORIDE 99 mmol/L (98-107); GLUCOSE 110 mg/dL (75-110); POTASSIUM 4.3 mmol/L (3.6-5.0)
[2020-02-19] MEDS: LORAZEPAM INJ 2 MG/1 ML VIAL IV PRN ×3 (08:03→17:50)
[2020-02-19] MEDS: FLUOXETINE HCL 20 MG CAPSULE PO SCH (10:51)
[2020-02-19] MEDS: BUSPIRONE HCL 10 MG TABLET PO SCH ×2 (10:51→21:38)
[2020-02-19] MEDS: FAMOTIDINE INJ/PF 20 MG/2 ML SDV IV SCH ×2 (10:51→21:38)
[2020-02-19] MEDS: THIAMINE HCL 100 MG TABLET PO SCH (10:52)
[2020-02-19] MEDS: APIXABAN 5 MG TABLET PO SCH ×2 (10:52→17:50)
[2020-02-19] MEDS: AMLODIPINE BESYLATE 5 MG TABLET PO SCH (10:52)
[2020-02-19] MEDS: LISINOPRIL 10 MG TABLET PO SCH (10:52)
[2020-02-19] MEDS: FOLIC ACID 1 MG TABLET PO SCH (10:52)
--- NOTE | 2020-02-19 17:42 | PDOC PROGRESS REPORT ---
Subjective Progress Note for:: 02/19/20 Subjective:: Patient seen on afternoon rounds. He was resting upright in his chair with food tray in front of him. He was able to eat half of a veggie burger with sauted vegetables. Complains of nausea, stating it is minimal. He plans to finish his whole lunch but is taking his time eating as not to aggravate his stomach. Denies abdominal pain at this time. He continues to feel anxious, which again he relates to the unknowns. He is homeless, but has a plan to live in a motel as long as he is able to make money. He lost his most recent job but has potential leads on opportunities, which he plans to contact today. He tells me that he is at risk for a blood clot and he wants to take care of himself more seriously. Denies DTs, hallucinations, fever, chills, palpitations, CP, SOB, vomiting or diarrhea. Discussed case with pt's nurse. CIWA scores consistently <10 with most recent score of 3. No further complaints or concerns at this time. Reason For Visit: ACUTE PANCREATITIS,PORTAL VEIN THROMBOSIS,SPLENIC Physical Exam Vital Signs: Temp Pulse Resp BP Pulse Ox 97.9 F 87 18 140/84 H 97 02/19/20 12:06 02/19/20 12:06 02/19/20 12:06 02/19/20 12:06 02/19/20 12:06 Intake & Output 02/18/20 02/19/20 02/20/20 06:59 06:59 06:59 Intake Total 5421 5153 1000 Output Total 3100 2300 Balance 2321 2853 1000 Weight 79.6 kg 70.8 kg General appearance: PRESENT: no acute distress, cooperative, well-developed, well-nourished Head exam: PRESENT: atraumatic, normocephalic Eye exam: PRESENT: conjunctiva pink, EOMI, PERRLA. ABSENT: scleral icterus Mouth exam: PRESENT: moist, tongue midline Neck exam: PRESENT: full ROM. ABSENT: lymphadenopathy, tenderness Respiratory exam: PRESENT: clear to auscultation deisy, symmetrical, unlabored. ABSENT: retraction, tachypnea, wheezes Cardiovascular exam: PRESENT: RRR, +S1, +S2. ABSENT: diastolic murmur, systolic murmur Pulses: PRESENT: normal radial pulses Vascular exam: PRESENT: normal capillary refill GI/Abdominal exam: PRESENT: normal bowel sounds, soft. ABSENT: tenderness Extremities exam: PRESENT: full ROM. ABSENT: clubbing, pedal edema Musculoskeletal exam: PRESENT: ambulatory, full ROM. ABSENT: deformity, dislocation Neurological exam: PRESENT: alert, awake, oriented to person, oriented to place, oriented to time, oriented to situation Psychiatric exam: PRESENT: anxious Skin exam: PRESENT: dry, intact, warm Results Laboratory Results: 02/19/20 06:25 02/19/20 06:25 02/19/20 02/19/20 06:25 06:25 WBC 8.9 RBC 3.68 L Hgb 13.0 L Hct 36.5 L MCV 99 H MCH 35.3 H MCHC 35.5 RDW 14.4 H Plt Count 373 Sodium 134.4 L Potassium 4.3 Chloride 99 Carbon Dioxide 27 Anion Gap 8 BUN 5 L Creatinine 0.57 Est GFR ( Amer) > 60 Glucose 110 Calcium 9.0 Magnesium 2.1 Impressions: Chest X-Ray 02/16/20 14:39 IMPRESSION: NO ACUTE FINDINGS. Abdomen/Pelvis CT 02/16/20 16:30 IMPRESSION: Acute pancreatitis with splenic vein and portal vein thrombus as detailed above. Assessment and Plan - Diagnosis (1) Acute alcoholic pancreatitis Qualifiers: Acute pancreatitis complication: no infection or necrosis Qualified Code(s): K85.20 - Alcohol induced acute pancreatitis without necrosis or infection Is this a current diagnosis for this admission?: Yes (2) Portal vein thrombosis Is this a current diagnosis for this admission?: Yes (3) Splenic vein thrombosis Is this a current diagnosis for this admission?: Yes (4) Hyponatremia Is this a current diagnosis for this admission?: Yes (5) Homelessness Is this a current diagnosis for this admission?: Yes (6) Abdominal pain Qualifiers: Abdominal location: epigastric Qualified Code(s): R10.13 - Epigastric pain Is this a current diagnosis for this admission?: Yes (7) Acute alcohol intoxication Qualifiers: Complication of substance-induced condition: with unspecified complication Qualified Code(s): F10.929 - Alcohol use, unspecified with intoxication, unspecified Is this a current diagnosis for this admission?: Yes (8) Anxiety with depression Is this a current diagnosis for this admission?: Yes (9) Hypertension Qualifiers: Hypertension type: essential hypertension Qualified Code(s): I10 - Essential (primary) hypertension Is this a current diagnosis for this admission?: Yes (10) Tobacco use disorder, severe, dependence Is this a current diagnosis for this admission?: Yes - Plan Summary Summary: JACQUES BRITTON JR is a 45 year old male with history of pancreatitis, alcohol abuse, hypertension, anxiety, who presented to the hospital for evaluation of abdominal pain, nausea and vomiting. Patient was recently discharged from the hospital a few days ago after being treated for acute alcoholic pancreatitis and alcohol withdrawal. After discharge, he went for a green party and drank some liquor and re-developed abdominal pain. He describes sharp stabbing epigastric pain with radiation to the back 4-/5 without any alleviating factors. He has also been experiencing anorexia and nausea. 02/18/2020: Acute alcoholic pancreatitis Continuous IV fluids with LR Pain control with morphine IV PRN Antiemetics PRN Diet advanced from liquid -> soft mechanical without difficulty. Nausea associated with regular diet, this is minimal. No vomiting. Regular diet scheduled for dinner. 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 Pt asymptomatic at this time. Continue IV fluids, continue to monitor Alcohol abuse: presented with alcohol intoxication. EtOH level of 200. High risk of withdrawal. CIWA protocol in place. CIWA consistently <10 today. -Most recent CIWA 3. Tx'd with Ativa, per protocol Counseled patient on the importance of alcohol cessation Pt previously provided with rehabilitation options/opportunities. Oral thiamine and folate Tobacco use disorder, severe, dependence Nicotine patch offered cessation counseling provided Homelessness SW consulted - Time Time Spent with patient: 15-24 minutes Smoking Cessation Education: 3 to 10 minutes Medications reviewed and adjusted accordingly: Yes Anticipated Discharge Disposition: Home, Self Care Anticipated Discharge Timeframe: within 24 hours
[2020-02-20] MEDS: RINGERS SOLUTION,LACTATED 1,000 ML IV PRN ×2 (00:18→06:50)
[2020-02-20] MEDS: MORPHINE SULFATE 10 MG/ML INJ IV PRN ×2 (01:10→08:47)
[2020-02-20] MEDS: LORAZEPAM INJ 2 MG/1 ML VIAL IV PRN ×2 (06:50→11:40)
[2020-02-20 07:02] LABS: HEMATOCRIT 36.8 % (37.9-51.0); HEMOGLOBIN 12.9 g/dL (13.5-17.0); MEAN CORPUSCULAR HGB CONC 35.1 g/dL (32.0-36.0); MEAN CORPUSCULAR VOLUME 100 fl (80-97); PLATELET COUNT 394 10^3/uL (150-450); RED BLOOD COUNT 3.69 10^6/uL (4.35-5.55); RED CELL DISTRIBUTION WIDTH 14.3 % (11.5-14.0); WHITE BLOOD COUNT 11.3 10^3/uL (4.0-10.5)
[2020-02-20] MEDS ORDERED: SODIUM CHLORIDE 1 GM TABLET PO ONE (09:00)
[2020-02-20] MEDS: THIAMINE HCL 100 MG TABLET PO SCH (09:15)
[2020-02-20] MEDS: LISINOPRIL 10 MG TABLET PO SCH (09:15)
[2020-02-20] MEDS: FLUOXETINE HCL 20 MG CAPSULE PO SCH (09:15)
[2020-02-20] MEDS: BUSPIRONE HCL 10 MG TABLET PO SCH (09:16)
[2020-02-20] MEDS: AMLODIPINE BESYLATE 5 MG TABLET PO SCH (09:16)
[2020-02-20] MEDS: FAMOTIDINE INJ/PF 20 MG/2 ML SDV IV SCH (09:16)
[2020-02-20] MEDS: APIXABAN 5 MG TABLET PO SCH (09:16)
[2020-02-20] MEDS: FOLIC ACID 1 MG TABLET PO SCH (09:16)
[2020-02-20 12:18] VITALS: BP 134/76
--- NOTE | 2020-02-20 13:42 | PDOC DISCHARGE SUMMARY ---
Impression - Admit/DC Date/PCP Admission Date/Primary Care Provider: 02/16/20 19:40 Discharge Date: 02/20/20 - Discharge Diagnosis (1) Acute alcoholic pancreatitis Is this a current diagnosis for this admission?: Yes (2) Portal vein thrombosis Is this a current diagnosis for this admission?: Yes (3) Splenic vein thrombosis Is this a current diagnosis for this admission?: Yes (4) Hyponatremia Is this a current diagnosis for this admission?: Yes (5) Homelessness Is this a current diagnosis for this admission?: Yes (6) Abdominal pain Is this a current diagnosis for this admission?: Yes (7) Acute alcohol intoxication Is this a current diagnosis for this admission?: Yes (8) Anxiety with depression Is this a current diagnosis for this admission?: Yes (9) Hypertension Is this a current diagnosis for this admission?: Yes (10) Tobacco use disorder, severe, dependence Is this a current diagnosis for this admission?: Yes - Assessment Summary: JACQUES BRITTON JR is a 45 year old male with history of pancreatitis, alcohol abuse, hypertension, and anxiety, who presented to the hospital for evaluation of abdominal pain, nausea and vomiting on 02/16/2020. Patient with recent admission (02/09/2020-02/13/2020) for treatment of acute alcoholic pancreatitis and alcohol withdrawal. After discharge, he went for a republican and drank some liquor and re-developed abdominal pain, anorexia and nausea. Current admission evaluation patient with acute alcohol intoxication, relapse of acute alcoholic pancreatitis and new findings of portal and splenic vein thrombosis. He was started on Eliquis. Further treatment included continuous IVF with analgesia and antiemetics as needed. He was monitored closey for symptoms of alcohol withdrawal with routine CIWA. He was able to successfully advance his diet from liquids to soft foods and is now tolerating full regular diet without nausea, vomiting or abdominal pain. He denies DT, hallucinations or palpitations; no evidence of alcohol withdrawal prior to discharge. Discussed treatment regimen with Eliquis therapy. Pt was provided with a coupon for free 30 days of Eliquis with rx. Discussed his need for Eliquis treatment and reviewed associated side effects of Eliquis with patient, including increased risk of bleed, increased risk of prolonged bleeding, and increased risk of bruising. He was understanding of this. We again discussed rehabilitation options available to him in the community. He was encouraged on continued alcohol abstinence. Pt was informed that there is an increased risk of bleed if he consumes large amounts of alcohol while taking Eliquis. Pt expressed that he is both understanding and agreeable to this means of treatment. At this time he is stable for discharge with f/u with PCP in x1 week. - Additional Information Resuscitation Status: Full Code Discharge Diet: As Tolerated Discharge Activity: Activity As Tolerated [facility] [NO LOCAL MD] - (02/17/20 1157 called and left a message and they will contact pt with appt) Prescriptions: Apixaban [Eliquis] 5 mg PO ASDIR #1 tab.ds.pk Home Medications: Fluoxetine HCl [Prozac] 40 mg PO DAILY 12/29/19 Alprazolam [Xanax] 1 mg PO DAILYP PRN #15 02/13/20 Lisinopril [Prinivil 10 mg Tablet] 20 mg PO DAILY #30 02/13/20 Apixaban [Eliquis] 5 mg PO ASDIR #1 tab.ds.pk 02/20/20 History of Present Illiness History of Present Illness: JACQUES BRITTON JR is a 45 year old male with history of pancreatitis, alcohol abuse, hypertension, anxiety, who presented to the hospital for evaluation of abdominal pain, nausea and vomiting. Patient was recently discharged from the hospital a few days ago after being treated for acute alcoholic pancreatitis and alcohol withdrawal. After discharge, he went for a republican and drank some liquor and re-developed abdominal pain. He describes sharp stabbing epigastric pain with radiation to the back 4-5/5 without any alleviating factors. He has also been experiencing anorexia and nausea. Physical Exam Vital Signs: Temp Pulse Resp BP Pulse Ox 98.4 F 87 16 134/76 H 94 02/20/20 12:16 02/20/20 12:16 02/20/20 12:16 02/20/20 12:16 02/20/20 12:16 Intake & Output 02/19/20 02/20/20 02/21/20 06:59 06:59 06:59 Intake Total 5153 4480 Output Total 2300 1825 Balance 2853 2655 Weight 70.8 kg 70.8 kg General appearance: PRESENT: no acute distress, cooperative, well-developed, well-nourished Head exam: PRESENT: atraumatic, normocephalic Eye exam: PRESENT: conjunctiva pink, EOMI, PERRLA Mouth exam: PRESENT: moist, tongue midline Neck exam: PRESENT: full ROM. ABSENT: tenderness Respiratory exam: PRESENT: clear to auscultation deisy, symmetrical, unlabored. ABSENT: chest wall tenderness, rhonchi, tachypnea, wheezes Cardiovascular exam: PRESENT: RRR, +S1, +S2. ABSENT: diastolic murmur, systolic murmur, tachycardia Pulses: PRESENT: normal radial pulses Vascular exam: PRESENT: normal capillary refill GI/Abdominal exam: PRESENT: normal bowel sounds, soft. ABSENT: tenderness Extremities exam: PRESENT: full ROM. ABSENT: calf tenderness, pedal edema, tenderness Musculoskeletal exam: PRESENT: ambulatory, full ROM. ABSENT: deformity, dislocation Neurological exam: PRESENT: alert, awake, oriented to person, oriented to place, oriented to time, oriented to situation, CN II-XII grossly intact. ABSENT: altered Psychiatric exam: PRESENT: anxious Skin exam: PRESENT: dry, intact, warm. ABSENT: rash Results Laboratory Results: WBC 11.3 10^3/uL (4.0-10.5) H 02/20/20 05:50 RBC 3.69 10^6/uL (4.35-5.55) L 02/20/20 05:50 Hgb 12.9 g/dL (13.5-17.0) L 02/20/20 05:50 Hct 36.8 % (37.9-51.0) L 02/20/20 05:50 MCV 100 fl (80-97) H 02/20/20 05:50 MCH 35.0 pg (27.0-33.4) H 02/20/20 05:50 MCHC 35.1 g/dL (32.0-36.0) 02/20/20 05:50 RDW 14.3 % (11.5-14.0) H 02/20/20 05:50 Plt Count 394 10^3/uL (150-450) 02/20/20 05:50 Lymph % (Auto) 21.3 % (13-45) 02/16/20 14:00 [place] % (Auto) 15.0 % (3-13) H 02/16/20 14:00 Eos % (Auto) 1.8 % (0-6) 02/16/20 14:00 Baso % (Auto) 0.4 % (0-2) 02/16/20 14:00 Absolute Neuts (auto) 6.0 10^3/uL (1.7-8.2) 02/16/20 14:00 Absolute Lymphs (auto) 2.1 10^3/uL (0.5-4.7) 02/16/20 14:00 Absolute Monos (auto) 1.5 10^3/uL (0.1-1.4) H 02/16/20 14:00 Absolute Eos (auto) 0.2 10^3/uL (0.0-0.6) 02/16/20 14:00 Absolute Basos (auto) 0.0 10^3/uL (0.0-0.2) 02/16/20 14:00 Seg Neutrophils % 61.5 % (42-78) 02/16/20 14:00 PT 12.1 SEC (11.4-15.4) 02/17/20 05:32 INR 0.88 02/17/20 05:32 APTT 34.0 SEC (23.5-35.8) 02/17/20 05:32 Sodium 134.4 mmol/L (137-145) L 02/19/20 06:25 Potassium 4.3 mmol/L (3.6-5.0) 02/19/20 06:25 Chloride 99 mmol/L (98-107) 02/19/20 06:25 Carbon Dioxide 27 mmol/L (22-30) 02/19/20 06:25 Anion Gap 8 (5-19) 02/19/20 06:25 BUN 5 mg/dL (7-20) L 02/19/20 06:25 Creatinine 0.57 mg/dL (0.52-1.25) 02/19/20 06:25 Est GFR ( Amer) > 60 (>60) 02/19/20 06:25 Est GFR (MDRD) Non-Af > 60 (>60) 02/19/20 06:25 Glucose 110 mg/dL (75-110) 02/19/20 06:25 Lactic Acid 1.1 mmol/L (0.7-2.1) 02/16/20 14:00 Calcium 9.0 mg/dL (8.4-10.2) 02/19/20 06:25 Phosphorus 3.7 mg/dL (2.5-4.5) 02/17/20 05:32 Magnesium 2.1 mg/dL (1.6-2.3) 02/20/20 05:50 Total Bilirubin 0.5 mg/dL (0.2-1.3) 02/17/20 05:32 Direct Bilirubin 0.4 mg/dL (0.0-0.4) 02/17/20 05:32 Neonat Total Bilirubin Not Reportable 02/17/20 05:32 Neonat Direct Bilirubin Not Reportable 02/17/20 05:32 Neonat Indirect Bili Not Reportable 02/17/20 05:32 AST 36 U/L (17-59) 02/17/20 05:32 ALT 43 U/L (<50) 02/17/20 05:32 Alkaline Phosphatase 120 U/L (38-126) 02/17/20 05:32 Total Protein 5.5 g/dL (6.3-8.2) L 02/17/20 05:32 Albumin 2.9 g/dL (3.5-5.0) L 02/17/20 05:32 Amylase 134 U/L (30-110) H 02/16/20 14:00 Lipase 739.5 U/L (23-300) H 02/16/20 14:00 Vitamin B12 887.0 pg/mL (239-931) 02/17/20 05:32 Urine Color YELLOW 02/16/20 14:00 Urine Appearance CLEAR 02/16/20 14:00 Urine pH 6.0 (5.0-9.0) 02/16/20 14:00 Ur Specific [place] 1.011 02/16/20 14:00 Urine Protein NEGATIVE mg/dL (NEGATIVE) 02/16/20 14:00 Urine Glucose (UA) NEGATIVE mg/dL (NEGATIVE) 02/16/20 14:00 Urine Ketones NEGATIVE mg/dL (NEGATIVE) 02/16/20 14:00 Urine Blood NEGATIVE (NEGATIVE) 02/16/20 14:00 Urine Nitrite NEGATIVE (NEGATIVE) 02/16/20 14:00 Urine Bilirubin NEGATIVE (NEGATIVE) 02/16/20 14:00 Urine Urobilinogen NEGATIVE mg/dL (<2.0) 02/16/20 14:00 Ur Leukocyte Esterase NEGATIVE (NEGATIVE) 02/16/20 14:00 Urine WBC (Auto) 1 /HPF 02/16/20 14:00 Urine RBC (Auto) 0 /HPF 02/16/20 14:00 Squamous Epi Cells Auto <1 /HPF 02/16/20 14:00 Urine Mucus (Auto) RARE /LPF 02/16/20 14:00 Urine Ascorbic Acid NEGATIVE (NEGATIVE) 02/16/20 14:00 Urine Opiates Screen NEGATIVE 02/16/20 14:00 Urine Methadone Screen NEGATIVE 02/16/20 14:00 Ur Barbiturates Screen NEGATIVE 02/16/20 14:00 Ur Phencyclidine Scrn NEGATIVE 02/16/20 14:00 Ur Amphetamines Screen NEGATIVE 02/16/20 14:00 U Benzodiazepines Scrn UNCONFIRMED POSITIVE 02/16/20 14:00 Urine Cocaine Screen NEGATIVE 02/16/20 14:00 U Marijuana (THC) Screen NEGATIVE 02/16/20 14:00 Serum Alcohol 207 mg/dL (NONE DETECTED) 02/16/20 14:00 Impressions: Chest X-Ray 02/16/20 14:39 IMPRESSION: NO ACUTE FINDINGS. Abdomen/Pelvis CT 02/16/20 16:30 IMPRESSION: Acute pancreatitis with splenic vein and portal vein thrombus as detailed above. Plan Health Concerns: Acute portal vein and splenic vein thrombosis. Pt started on Eliquis. Pt with history of chronic alcohol use. Pt at increased kid of bleed if consumes alcohol while taking Eliquis. Recurrent acute pancreatitis and continued alcohol consumption puts pt at risk of chronic pancreatitis. Plan of Treatment: Acute alcoholic pancreatitis - Patient was initially unable to tolerate p.o., able to gradually increase intake from fluids to soft foods to full diet. - Resolved, patient is stable for discharge Portal vein thrombosis and splenic vein thrombosis: - Secondary to recurrent pancreatitis. Patient started on anticoagulation with Eliquis, SW has given him a 30 day free starter pack coupon for Eliquis. Rx has been sent to pharmacy. Hyponatremia: - Sodium levels have consistently been low 130s since admission, suspect secondary to chronic alcohol use vs possible hypervolemia from frequent IV fluids. Recently provided with rx for sodium pills on last admission. Pt denies filling rx secondary to lack of insurance and financial coverage. Alcohol abuse: - Pt with history of chronic alcohol abuse. Presented with alcohol intoxication with EtOH level of 200. Monitored with CIWA protocol, tx'd with ativan per protocol. CIWA score gradually decreased, 2 today prior to discharge. No subjective or objective signs of active withdrawal. Discussed outpatient alcohol rehabilitation programs. Pt expressed interest. Provided encouragement and support. Tobacco use disorder, severe, dependence - This was treated with a nicotine patch throughout his stay. Provided patient with at 3 minutes of daily encouragement and support to stop smoking. Homelessness - SW consulted. Prior to discharge pt stated that he is set to stay with a friend who is picking him up from the hospital today. Pt appreciated resources that were provided to him over his visit. Goals: Abstinence of alcohol via rehabilitation programs thus preventing further recurrence of acute alcoholic pancreatitis Completion of Eliquis therapy in full Follow up with primary care provider within 1 week of discharge. Time Spent: Greater than 30 Minutes Stroke Is this a Stroke Patient?: No Acute Heart Failure Is this a Heart Failure Patient?: No
== END 2020-02-20 12:45 | disposition home or self-care (01) | DRG 438 ==
LOC: ER 12:35 → EH 19:40 → 4S 22:05
PROVIDERS: ADMIT Internal Medicine; ATTEND Hospitalist
DX: K85.20 Alcohol induced acute pancreatitis without necrosis or infection (principal); I81 Portal vein thrombosis; E87.1 Hypo-osmolality and hyponatremia; D73.5 Infarction of spleen; F10.129 Alcohol abuse with intoxication, unspecified; Y90.7 Blood alcohol level of 200-239 mg/100 ml; F17.200 Nicotine dependence, unspecified, uncomplicated; Z59.0 Homelessness; F41.9 Anxiety disorder, unspecified; I10 Essential (primary) hypertension; F32.9 Major depressive disorder, single episode, unspecified
CPT/HCPCS: 36415; 71045; 74177; 80048; 80053; 80307; 81001; 82150; 82607; 83605; 83690; 83735; 84100; 85025; 85027; 85610; 85730; 96361; 96372; 96374; 99285; C9113; J1650; J2060; J2270; J2405; J3411; J3490; J7030; J7120; S0028

== ENCOUNTER 2020-03-24 17:57 | Inpatient (IN) | payer SELFPAY ==
[2020-03-24 19:48] LABS: ABSOLUTE BASOPHILS # (AUTO) 0.1 10^3/uL (0.0-0.2); ABSOLUTE LYMPHOCYTES (AUTO) 1.5 10^3/uL (0.5-4.7); ABSOLUTE MONOCYTES (AUTO) 0.6 10^3/uL (0.1-1.4); ABSOLUTE NEUT (AUTO) 5.1 10^3/uL (1.7-8.2); BASOPHILS % (AUTO) 0.8 % (0-2); EOSINOPHILS % (AUTO) 0.3 % (0-6); HEMATOCRIT 46.5 % (37.9-51.0); HEMOGLOBIN 16.2 g/dL (13.5-17.0); LYMPHOCYTES % (AUTO) 20.3 % (13-45); MEAN CORPUSCULAR HGB CONC 34.7 g/dL (32.0-36.0); MEAN CORPUSCULAR VOLUME 101 fl (80-97); MONOCYTES % (AUTO) 7.9 % (3-13); PLATELET COUNT 294 10^3/uL (150-450); RED BLOOD COUNT 4.62 10^6/uL (4.35-5.55); RED CELL DISTRIBUTION WIDTH 15.1 % (11.5-14.0); SEGMENTED NEUTROPHILS % (AUTO) 70.7 % (42-78); TOTAL CELLS COUNTED % (AUTO) 100 %; WHITE BLOOD COUNT 7.2 10^3/uL (4.0-10.5)
[2020-03-24 20:23] LABS: ALBUMIN 3.9 g/dL (3.5-5.0); ALKALINE PHOSPHATASE 156 U/L (38-126); ANION GAP 12 (5-19); ASPARTATE AMINO TRANSFERASE 81 U/L (17-59); BILIRUBIN,DIRECT 0.3 mg/dL (0.0-0.4); BILIRUBIN,TOTAL 0.4 mg/dL (0.2-1.3); BLOOD UREA NITROGEN 6 mg/dL (7-20); CALCIUM 8.2 mg/dL (8.4-10.2); CARBON DIOXIDE 22 mmol/L (22-30); CHLORIDE 111 mmol/L (98-107); GLUCOSE 94 mg/dL (75-110); POTASSIUM 4.9 mmol/L (3.6-5.0); TOTAL PROTEIN 6.9 g/dL (6.3-8.2)
[2020-03-24] MEDS ORDERED: NORMAL SALINE 1000 ML 1,000 ML IV ONE ×2 (20:25→22:31)
[2020-03-24] MEDS ORDERED: MORPHINE SULFATE 10 MG/ML INJ IV ONE (20:27)
[2020-03-24] MEDS ORDERED: PROMETHAZINE HCL INJ 25 MG/1 ML VIAL IM ONE (20:27)
--- NOTE | 2020-03-24 20:27 | ER Document Report ---
ED GI/ - General Chief Complaint: Abdominal Pain Stated Complaint: ABDOMINAL PAIN Time Seen by Provider: 03/24/20 20:16 Notes: Patient is a 45-year-old male that comes emergency department by EMS for chief complaint of mid upper abdominal pain that has been worsening for 3 days and vomiting. He states that there "was blood in my vomit and bowel movements but this went away". He denies hematemesis or hematochezia today. He denies fever. He states he has "clots" in his belly. He states he is on Eliquis for this. He states last drink alcohol was yesterday. He has a history of alcohol abuse, pancreatitis, hypertension, anxiety/depression. Denies recreational drugs. He denies chest pain, flank pain, or any other complaints. TRAVEL OUTSIDE OF THE [place] IN LAST 30 DAYS: No - Related Data Allergies/Adverse Reactions: No Known Allergies Allergy (Verified 02/16/20 14:04) Home Medications: pt unable to recall med name Past Medical History - General Information source: Patient - Social History Smoking Status: Current Some Day Smoker Chew tobacco use (# tins/day): No Frequency of alcohol use: Heavy Drug Abuse: None Lives with: Homeless Family History: Reviewed & Not Pertinent, Hypertension Patient has homicidal ideation: No - Past Medical History Cardiac Medical History: Reports: Hx Hypertension Denies: Hx Coronary Artery Disease, Hx Hypercholesterolemia Pulmonary Medical History: Denies: Hx Asthma, Hx COPD, Hx Tuberculosis Neurological Medical History: Reports: Hx Seizures Endocrine Medical History: Denies: Hx Diabetes Mellitus Type 1, Hx Diabetes Melinda itus Type 2, Hx Hyperthyroidism, Hx Hypothyroidism Renal/ Medical History: Denies: Hx Peritoneal Dialysis GI Medical History: Reports: Hx Pancreatitis. Denies: Hx Cirrhosis, Hx Gastroesophageal Reflux Disease, Hx Hepatitis Musculoskeletal Medical History: Denies Hx Arthritis, Denies Hx Gout Skin Medical History: Denies Hx Eczema, Denies Hx Psoriasis Psychiatric Medical History: Reports: Hx Anxiety, Hx Bipolar Disorder, Hx Depression Infectious Medical History: Denies: Hx Hepatitis Past Surgical History: Reports: Hx Oral Surgery, Other - Describes what sounds like a dental surgery - Immunizations Hx Diphtheria, Pertussis, Tetanus Vaccination: Yes - given in er today Review of Systems - Review of Systems Constitutional: No symptoms reported EENT: No symptoms reported Cardiovascular: No symptoms reported Respiratory: No symptoms reported Gastrointestinal: See HPI Genitourinary: No symptoms reported Male Genitourinary: No symptoms reported Musculoskeletal: No symptoms reported Skin: No symptoms reported Hematologic/Lymphatic: No symptoms reported Neurological/Psychological: See HPI Physical Exam - Vital signs Vitals: Temp 98.0 F 03/24/20 18:03 - Notes Notes: GENERAL: Patient restless, smells of alcohol, appears uncomfortable but not in severe distress HEAD: Normocephalic, atraumatic. EYES: Pupils equal, round, and reactive to light. Extraocular movements intact. ENT: Oral mucosa moist, tongue midline. Oropharynx unremarkable. Airway patent. NECK: Full range of motion. Supple. Trachea midline. No lymphadenopathy. LUNGS: Clear to auscultation bilaterally, no wheezes, rales, or rhonchi. No respiratory distress. Non-tender chest wall. HEART: Tachycardia, normal rhythm, no murmur ABDOMEN: There is some generalized tenderness in the upper abdomen including the epigastric area, however there is no guarding or rigidity. No rebound tenderness. Bowel sounds present. EXTREMITIES: Moves all 4 extremities spontaneously. No edema, normal radial and dorsalis pedis pulses bilaterally. No cyanosis. BACK: no cervical, thoracic, lumbar midline tenderness. No saddle anesthesia, normal distal neurovascular exam. Moves all extremities in full range of motion. NEUROLOGICAL: Alert and oriented x3. Occasionally slurred speech. Cranial nerves II through XII grossly intact. Strength 5/5 in all extremities. PSYCH: Slightly anxious, occasionally agitated SKIN: Flushed, ready complexion, otherwise unremarkable Course - Re-evaluation Re-evalutation: Patient tachycardic, reports vomiting, has abdominal pain in the upper abdomen but no guarding. I do not suspect acute abdomen. Patient is tachycardic but not hypotensive, no fever. CBC is unremarkable. Chemistry shows mildly elevated LFTs, nonspecific, lipase is elevated at 1277 consistent with acute pancreatitis. Patient is actually very intoxicated with alcohol level greater than 450. CT does not show clots any longer, patient states he has been taking his Eliquis. CT does show acute pancreatitis although somewhat improved from prior, but now shows small area in the tail suspicious for possible developing pseudocyst versus less likely an abscess. No fever or leukocytosis, low suspicion of abscess. Because of patient's alcohol dependence, acute pancreatitis, vomiting, current tachycardia, and history of alcohol withdrawal patient will require admission. Discussed with Dr. Ruiz. Discussed with Dr. Malagon, patient accepted to medical floor for admission. Patient states understanding and agreement. - Vital Signs Vital signs: Temp Pulse Resp BP Pulse Ox 98.0 F 122 H 18 132/99 H 98 03/24/20 18:13 03/24/20 18:13 03/24/20 18:13 03/24/20 18:13 03/24/20 18:13 - Laboratory Result Diagrams: 03/24/20 19:17 03/24/20 19:17 Laboratory results interpreted by me: 03/24/20 03/24/20 03/24/20 19:17 19:17 19:17 MCV 101 H MCH 35.0 H RDW 15.1 H Chloride 111 H BUN 6 L Calcium 8.2 L AST 81 H ALT 57 H Alkaline Phosphatase 156 H Lipase 1277.4 H Serum Alcohol 467 H* Discharge - Discharge Clinical Impression: Alcohol abuse, Tachycardia Acute alcoholic pancreatitis Qualifiers: Acute pancreatitis complication: unspecified Qualified Code(s): K85.20 - Alcohol induced acute pancreatitis without necrosis or infection Vomiting Qualifiers: Vomiting type: unspecified Vomiting Intractability: non-intractable Nausea presence: with nausea Qualified Code(s): R11.2 - Nausea with vomiting, unspecified Alcohol dependence Qualifiers: Substance use status: unspecified alcohol-induced disorder Qualified Code(s): F10.29 - Alcohol dependence with unspecified alcohol-induced disorder Condition: Stable Disposition: ADMITTED INPATIENT Admitting Provider: Unit Admitted: Medical Floor
[2020-03-24 21:36] LABS: INTERNATIONAL RATION (INR) 0.92; PROTHROMBIN TIME 12.6 SEC (11.4-15.4)
[2020-03-24 21:37] LABS: PARTIAL THROMBOPLASTIN TIME 27.6 SEC (23.5-35.8)
--- NOTE | 2020-03-24 22:05 | RADIOLOGY REPORT (SQ) ---
EXAM DESCRIPTION: CT ABDOMEN PELVIS WITH IV CONTRAST COMPLETED DATE/TME: 03/24/2020 21:28 CLINICAL INDICATION: 45-year-old male with worsening abdominal pain. COMPARISON: 02/16/2020. EXAMINATION: CT of the abdomen and pelvis was performed following intravenous administration of contrast. Oral contrast was not administered. Multiplanar reformatted images were provided. This exam was performed according to our departmental dose optimization program which includes use of automated exposure control, adjustment of the mA and/or kV according to patient size and/or use of iterative reconstruction technique. FINDINGS: Chest: Evaluation through the lung bases reveals no focal opacity, pleural effusion or pneumothorax. Heart size is within normal limits. No pericardial effusion. Abdomen and pelvis: The pancreas again reveals diffuse volume of stranding and peripancreatic fluid at the level of the tail of the pancreas overall decreased in volume since the previous examination. Small focus of fluid or decreased attenuation within the tail of the pancreas appears to be more defined than on the previous examination with possible thin rim of enhancement, raising the possibility of phlegmon, developing abscess or pseudocyst. The possibility of developing pseudocyst may be followed with subsequent CT examination. The area of focal pancreatic hypoattenuation measures 15 mm, (series 3, image 25). The liver, gallbladder, spleen, bilateral kidneys and bilateral adrenal glands are within normal limits. Subcentimeter focus of hypoattenuation within the LEFT kidney suggesting simple renal cysts, however too small to accurately characterize, unchanged in comparison to the previous examination. The vessels are patent and normal in caliber. No abdominopelvic lymph nodes are noted to be pathologically enlarged by CT measurement criteria. The large bowel is within normal limits without abnormal bowel wall thickness or bowel dilation. Few air and fluid-filled distended loops of small bowel within the LEFT upper quadrant, may be secondary to ileus or enteritis without findings to suggest obstructive etiology. No free air. No free abdominopelvic fluid collections. The appendix is within normal limits. The osseous structures are within normal limits. IMPRESSION: 1. Overall improved appearance of acute pancreatitis. 2. Concern for developing pancreatic tail pseudocyst versus less likely abscess as detailed above. Continued surveillance is recommended. 3. Few air and fluid-filled distended loops of small bowel within the LEFT upper quadrant, may be secondary to ileus or enteritis without findings to suggest obstructive etiology.
[2020-03-24] MEDS ORDERED: THIAMINE HCL 100 MG, FOLIC ACID 1 MG in NORMAL SALINE 250 ML IV ONE ×2 (22:08→22:25)
[2020-03-24] MEDS ORDERED: FOLIC ACID INJ 5 MG/1 ML 10 ML VIAL IV ONE (22:19)
[2020-03-24] MEDS ORDERED: THIAMINE HCL 100 MG in NORMAL SALINE 50 ML IV ONE (22:20)
[2020-03-24] MEDS ORDERED: THIAMINE HCL INJ 200 MG/2 ML VIAL ONE ×2 (22:24→22:41)
[2020-03-24] MEDS ORDERED: FOLIC ACID INJ 5 MG/1 ML 10 ML VIAL ONE (22:27)
[2020-03-24 23:26] LABS: APPEARANCE,URINE CLEAR; BILIRUBIN,URINE NEGATIVE (NEGATIVE); COLOR,URINE YELLOW; GLUCOSE, URINE NEGATIVE (NEGATIVE); KETONES,URINE NEGATIVE (NEGATIVE); LEUKOCYTE ESTERASE,URINE NEGATIVE (NEGATIVE); NITRITE,URINE NEGATIVE (NEGATIVE); PROTEIN,URINE NEGATIVE (NEGATIVE); URINE SPECIFIC GRAVITY 1.025; UROBILINOGEN,URINE NEGATIVE mg/dL (<2.0)
[2020-03-24 23:34] LABS: URINE AMPHETAMINES SCREEN NEGATIVE; URINE BARBITURATES SCREEN NEGATIVE; URINE BENZODIAZEPINES SCREEN NEGATIVE; URINE COCAINE SCREEN NEGATIVE; URINE MARIJUANA (THC) SCREEN NEGATIVE; URINE METHADONE SCREEN NEGATIVE; URINE PHENCYCLIDINE SCREEN NEGATIVE
[2020-03-25] MEDS: MORPHINE SULFATE 10 MG/ML INJ IV PRN ×5 (02:48→21:18)
[2020-03-25] MEDS: LORAZEPAM INJ 2 MG/1 ML VIAL IV PRN ×5 (02:48→22:42)
--- NOTE | 2020-03-25 02:54 | PDOC H&P ---
History of Present Illness Patient complains of: Abdominal pain, nausea and vomiting History of Present Illness: JACQUES BRITTON JR is a 45 year old male with a history of alcoholic pancreatitis, chronic alcohol abuse, portal and splenic vein thrombosis and hypertension presents with a 3 days duration of worsening of abdominal pain with associated nausea and vomiting of ingested matter. He describes the pain as sharp and cramping, radiating to his back, 10/10 intensity with no clear aggravating or relieving factor. Patient also reports that he has not been able to keep anything down. He reports that he had an episode of coffee-ground vomiting 5 days but in the past few days the vomitus has been ingested matter and he has not noticed any blood or coffee-ground matter. He denies any fever, chills, cough, shortness of breath, chest pain, dizziness, diarrhea, hematochezia or melena. Patient reports that he continues to drink alcohol and his last drink was the morning before presentation. On arrival to the ED patient was still intoxicated with a blood alcohol level of 467. Patient was treated for acute pa ncreatitis about a month ago after he presented with similar symptoms. Past Medical History Cardiac Medical History: Reports: Hypertension Denies: Coronary Artery Disease, Hyperlipidema Pulmonary Medical History: Denies: Asthma, Chronic Obstructive Pulmonary Disease (COPD), Tuberculosis Neurological Medical History: Reports: Seizures Endocrine Medical History: Denies: Diabetes Mellitus Type 1, Diabetes Mellitus Type 2, Hyperthyroidism, Hypothyroidism GI Medical History: Denies: Cirrhosis, Gastroesophageal Reflux Disease, Hepatitis Musculoskeltal Medical History: Denies: Arthritis, Gout Skin Medical History: Denies: Eczema, Psoriasis Psychiatric Medical History: Reports: Bipolar Disorder, Depression Hematology: Denies: Anemia, Bleeding Tendencies Past Surgical History Past Surgical History: Reports: Other - Describes what sounds like a dental surgery Social History Information Source: Patient Lives with: Alone, Homeless Smoking Status: Current Some Day Smoker Electronic Cigarette use?: No Frequency of Alcohol Use: Heavy Hx Recreational Drug Use: Yes Drugs: Marijuana Hx Prescription Drug Abuse: No - patient denies - Advance Directive Resuscitation Status: Full Code Family History Family History: Reviewed & Not Pertinent, Hypertension Parental Family History Reviewed: Yes Children Family History Reviewed: Yes Sibling(s) Family History Reviewed.: Yes Medication/Allergy Home Medications: Fluoxetine HCl [Prozac] 40 mg PO DAILY 12/29/19 Alprazolam [Xanax] 1 mg PO DAILYP PRN #15 02/13/20 Lisinopril [Prinivil 10 mg Tablet] 20 mg PO DAILY #30 02/13/20 Apixaban [Eliquis] 5 mg PO ASDIR #1 tab.ds.pk 02/20/20 Allergies/Adverse Reactions: No Known Allergies Allergy (Verified 02/16/20 14:04) Review of Systems Constitutional: PRESENT: fatigue, weakness. ABSENT: anorexia, fever(s), headache(s), night sweats Eyes: ABSENT: as per HPI, visual disturbances, other Ears: ABSENT: as per HPI, hearing changes, other Nose, Mouth, and Throat: ABSENT: as per HPI, headache(s), mouth pain, sore throat, vertigo, other Cardiovascular: ABSENT: chest pain, dyspnea on exertion, edema, orthropnea, palpitations Respiratory: ABSENT: cough, hemoptysis Gastrointestinal: PRESENT: as per HPI Genitourinary: ABSENT: dysuria, hematuria Musculoskeletal: ABSENT: joint swelling Integumentary: ABSENT: rash, wounds Neurological: ABSENT: abnormal gait, abnormal speech, confusion, dizziness, focal weakness, syncope Psychiatric: PRESENT: anxiety. ABSENT: depression, hallucinations, homidical ideation, suicidal ideation Endocrine: ABSENT: cold intolerance, heat intolerance, polydipsia, polyuria Hematologic/Lymphatic: ABSENT: easy bleeding, easy bruising Physical Exam Vital Signs: Temp Pulse Resp BP Pulse Ox 98.0 F 122 H 18 132/99 H 94 03/24/20 18:13 03/24/20 18:13 03/24/20 18:13 03/24/20 18:13 03/25/20 00:00 Intake & Output 03/23/20 03/24/20 03/25/20 06:59 06:59 06:59 Intake Total 2251.2 Balance 2251.2 Weight 72.7 kg Additional comments: GENERAL APPEARANCE: Alert and oriented x3, in no acute respiratory distress HEENT: Normocephalic and atraumatic. No scleral icterus. Moist oral mucosa NECK: Supple. No cervical lymphadenopathy. No JVD CHEST: Symmetric. Nontender to palpation. LUNGS: Clear with good air entry bilaterally. No wheezing or crackles HEART: Regular rate and rhythm with normal S1 and S2. No murmurs, gallops, or rubs. ABDOMEN: Flat, soft, active bowel sounds, has mild tenderness at the epigastric area but no guarding or rigidity. No organomegaly detected. No CVA tenderness EXTREMITIES: No cyanosis, clubbing, or edema. MUSCULOSKELETAL: No deformity, atrophy or swelling noted PSYCHIATRIC: Recent and remote memory is intact. Appropriate mood and affect. SKIN: Warm, dry, and well perfused. No lesions or rashes are noted. NEUROLOGIC: No focal sensory or motor deficits are noted. Results Laboratory Results: 03/24/20 19:17 03/24/20 19:17 03/24/20 03/24/20 03/24/20 19: 19: 19:17 WBC 7.2 RBC 4.62 Hgb 16.2 Hct 46.5 MCV 101 H MCH 35.0 H MCHC 34.7 RDW 15.1 H Plt Count 294 Seg Neutrophils % 70.7 Sodium 144.9 Potassium 4.9 Chloride 111 H Carbon Dioxide 22 Anion Gap 12 BUN 6 L Creatinine 0.74 Est GFR ( Amer) > 60 Glucose 94 Calcium 8.2 L Magnesium 2.3 Total Bilirubin 0.4 AST 81 H Alkaline Phosphatase 156 H Total Protein 6.9 Albumin 3.9 Lipase 1277.4 H Urine Color Urine Appearance Urine pH Ur Specific [place] Urine Protein Urine Glucose (UA) Urine Ketones Urine Blood Urine Nitrite Ur Leukocyte Esterase Urine WBC (Auto) 03/24/20 23:02 WBC RBC Hgb Hct MCV MCH MCHC RDW Plt Count Seg Neutrophils % Sodium Potassium Chloride Carbon Dioxide Anion Gap BUN Creatinine Est GFR ( Amer) Glucose Calcium Magnesium Total Bilirubin AST Alkaline Phosphatase Total Protein Albumin Lipase Urine Color YELLOW Urine Appearance CLEAR Urine pH 5.0 Ur Specific [place] 1.025 Urine Protein NEGATIVE Urine Glucose (UA) NEGATIVE Urine Ketones NEGATIVE Urine Blood NEGATIVE Urine Nitrite NEGATIVE Ur Leukocyte Esterase NEGATIVE Urine WBC (Auto) 0 Impressions: Abdomen/Pelvis CT 03/24/20 20:29 IMPRESSION: 1. Overall improved appearance of acute pancreatitis. 2. Concern for developing pancreatic tail pseudocyst versus less likely abscess as detailed above. Continued surveillance is recommended. 3. Few air and fluid-filled distended loops of small bowel within the LEFT upper quadrant, may be secondary to ileus or enteritis without findings to suggest obstructive etiology. Assessment and Plan - Diagnosis (1) Acute alcoholic pancreatitis Qualifiers: Acute pancreatitis complication: unspecified Qualified Code(s): K85.20 - Alcohol induced acute pancreatitis without necrosis or infection Is this a current diagnosis for this admission?: Yes Plan: Patient presents with abdominal pain, nausea, vomiting Lipase level is elevated at 1277 CT abdomen: showed improved appearance of his acute pancreatitis from previous imagings with a concern for a developing pancreatic tail pseudocyst Has been aggressively hydrated at the ER and will continue hydrating him with normal saline at 200 mL/h for the next 8-12 Hours We will control pain with morphine 2 mg IV every 4 hourly as needed May need follow-up imaging to evaluate possible pancreatic tail pseudocyst Closely monitor electrolytes as necessary (2) Acute alcohol intoxication Qualifiers: Complication of substance-induced condition: with unspecified complication Qualified Code(s): F10.929 - Alcohol use, unspecified with intoxication, unspecified Is this a current diagnosis for this admission?: Yes Plan: Blood alcohol level on presentation was 467 Based him on symptom triggered CIWA Lorazepam as needed per protocol Seizure and fall precaution (3) Portal vein thrombosis Is this a current diagnosis for this admission?: Yes Plan: Was diagnosed on his previous admission Continue apixaban (4) Splenic vein thrombosis Is this a current diagnosis for this admission?: Yes Plan: Continue apixaban (5) Anxiety with depression Is this a current diagnosis for this admission?: Yes Plan: Patient denies any suicidal or homicidal ideation Continue fluoxetine - Time Time Spent with patient: 35 or more minutes Total Critical Time (Minutes): 40 Smoking Cessation Education: 3 to 10 minutes Medications reviewed and adjusted accordingly: Yes Anticipated Discharge Disposition: Home, Self Care Anticipated Discharge Timeframe: within 48 hours - Inpatient Certification Based on my medical assessment, after consideration of the patient's comorbidities, presenting symptoms, or acuity I expect that the services needed warrant INPATIENT care.: Yes I certify that my determination is in accordance with my understanding of Medicare's requirements for reasonable and necessary INPATIENT services [42 CFR 412.3e].: Yes Medical Necessity: Need Close Monitoring Due to Risk of Patient Decompensation, Need For IV Fluids, Need for Pain Control, Risk of Complication if Not Cared For in Hospital Post Hospital Care: D/C or Transfer Summary
[2020-03-25] MEDS: NORMAL SALINE 1000 ML 1,000 ML IV PRN ×2 (03:11→16:56)
[2020-03-25] MEDS: NICOTINE 21 MG/24 HR PATCH.TD24 TD SCH ×2 (03:18→09:25)
[2020-03-25] MEDS: APIXABAN 5 MG TABLET PO SCH ×2 (09:25→17:03)
[2020-03-25] MEDS: FAMOTIDINE INJ/PF 20 MG/2 ML SDV IV SCH ×2 (09:25→21:21)
[2020-03-25] MEDS: FLUOXETINE HCL 20 MG CAPSULE PO SCH (09:30)
[2020-03-25] MEDS ORDERED: ENOXAPARIN SODIUM INJ 40 MG/0.4 ML DISP.SYRIN SUBCUT SCH (10:00)
[2020-03-25] MEDS ORDERED: THIAMINE HCL 100 MG in NORMAL SALINE 50 ML IV SCH (10:00)
--- NOTE | 2020-03-25 14:35 | PDOC PROGRESS REPORT ---
Subjective Date:: 03/25/20 Subjective:: Patient complains of abdominal pain. He states is pretty diffuse but mostly his right upper quadrant. Denies any shortness of breath. Strongly counseled on alcohol cessation. Reason For Visit: ACUTE PANCREATITIS ALCOHOL DEPENDENCE WITH Physical Exam Vital Signs: Temp Pulse Resp BP Pulse Ox 97.9 F 92 14 138/96 H 95 03/25/20 07:57 03/25/20 07:57 03/25/20 07:57 03/25/20 07:57 03/25/20 07:57 Intake & Output 03/24/20 03/25/20 03/26/20 06:59 06:59 06:59 Intake Total 2251.2 51 Balance 2251.2 51 Weight 70.5 kg General appearance: PRESENT: no acute distress, cooperative Neck exam: ABSENT: JVD Respiratory exam: PRESENT: symmetrical, unlabored. ABSENT: tachypnea, wheezes Cardiovascular exam: PRESENT: RRR, +S1, +S2. ABSENT: tachycardia GI/Abdominal exam: PRESENT: firm, guarding, soft, tenderness. ABSENT: rebound, rigid Neurological exam: PRESENT: alert, awake, oriented to person, oriented to place, oriented to time Psychiatric exam: ABSENT: agitated, anxious Results Laboratory Results: 03/24/20 19:17 03/24/20 19:17 03/24/20 03/24/20 03/24/20 19:17 19:17 19:17 WBC 7.2 RBC 4.62 Hgb 16.2 Hct 46.5 MCV 101 H MCH 35.0 H MCHC 34.7 RDW 15.1 H Plt Count 294 Seg Neutrophils % 70.7 Sodium 144.9 Potassium 4.9 Chloride 111 H Carbon Dioxide 22 Anion Gap 12 BUN 6 L Creatinine 0.74 Est GFR ( Amer) > 60 Glucose 94 Calcium 8.2 L Magnesium 2.3 Total Bilirubin 0.4 AST 81 H Alkaline Phosphatase 156 H Total Protein 6.9 Albumin 3.9 Lipase 1277.4 H Urine Color Urine Appearance Urine pH Ur Specific [place] Urine Protein Urine Glucose (UA) Urine Ketones Urine Blood Urine Nitrite Ur Leukocyte Esterase Urine WBC (Auto) 03/24/20 23:02 WBC RBC Hgb Hct MCV MCH MCHC RDW Plt Count Seg Neutrophils % Sodium Potassium Chloride Carbon Dioxide Anion Gap BUN Creatinine Est GFR ( Amer) Glucose Calcium Magnesium Total Bilirubin AST Alkaline Phosphatase Total Protein Albumin Lipase Urine Color YELLOW Urine Appearance CLEAR Urine pH 5.0 Ur Specific [place] 1.025 Urine Protein NEGATIVE Urine Glucose (UA) NEGATIVE Urine Ketones NEGATIVE Urine Blood NEGATIVE Urine Nitrite NEGATIVE Ur Leukocyte Esterase NEGATIVE Urine WBC (Auto) 0 Impressions: Abdomen/Pelvis CT 03/24/20 20:29 IMPRESSION: 1. Overall improved appearance of acute pancreatitis. 2. Concern for developing pancreatic tail pseudocyst versus less likely abscess as detailed above. Continued surveillance is recommended. 3. Few air and fluid-filled distended loops of small bowel within the LEFT upper quadrant, may be secondary to ileus or enteritis without findings to suggest obstructive etiology. Assessment and Plan - Diagnosis (1) Acute alcoholic pancreatitis Qualifiers: Acute pancreatitis complication: unspecified Qualified Code(s): K85.20 - Alcohol induced acute pancreatitis without necrosis or infection Is this a current diagnosis for this admission?: Yes Plan: Continue IV fluids and morphine for pain control Abdominal CT also notably did show pseudocyst. Currently n.p.o. but will escalate to clear liquid diet starting with dinner. We will keep a close eye on patient's electrolytes. (2) Acute alcohol intoxication Qualifiers: Complication of substance-induced condition: with unspecified complication Qualified Code(s): F10.929 - Alcohol use, unspecified with intoxication, unspecified Is this a current diagnosis for this admission?: Yes Plan: High risk for going into withdrawal. Seems to have sobered up now. We will monitor CIWA protocol and as needed Ativan as needed. I have given him extensive counseling regarding alcohol cessation and the relationship with his comorbidities. I have also consulted discharge planning to discuss with him about potential options for rehabilitation. (3) Anxiety Is this a current diagnosis for this admission?: Yes (4) Portal vein thrombosis Is this a current diagnosis for this admission?: Yes Plan: Was diagnosed on his prior admission Continue apixaban (5) Splenic vein thrombosis Is this a current diagnosis for this admission?: Yes - Time Time Spent with patient: 15-24 minutes Anticipated Discharge Disposition: Home, Self Care Anticipated Discharge Timeframe: within 36 hours
[2020-03-25] MEDS: LISINOPRIL 10 MG TABLET PO SCH (20:42)
[2020-03-26] MEDS: MORPHINE SULFATE 10 MG/ML INJ IV PRN ×6 (01:39→23:04)
[2020-03-26] MEDS: LORAZEPAM INJ 2 MG/1 ML VIAL IV PRN ×5 (02:59→20:36)
[2020-03-26] MEDS: NORMAL SALINE 1000 ML 1,000 ML IV PRN ×4 (03:01→23:04)
[2020-03-26 05:46] LABS: ALBUMIN 3.2 g/dL (3.5-5.0); ALKALINE PHOSPHATASE 152 U/L (38-126); ANION GAP 6 (5-19); ASPARTATE AMINO TRANSFERASE 50 U/L (17-59); BILIRUBIN,DIRECT 0.2 mg/dL (0.0-0.4); BILIRUBIN,TOTAL 1.2 mg/dL (0.2-1.3); BLOOD UREA NITROGEN 4 mg/dL (7-20); CALCIUM 8.1 mg/dL (8.4-10.2); CARBON DIOXIDE 25 mmol/L (22-30); CHLORIDE 100 mmol/L (98-107); GLUCOSE 85 mg/dL (75-110); POTASSIUM 3.6 mmol/L (3.6-5.0); TOTAL PROTEIN 5.8 g/dL (6.3-8.2)
[2020-03-26] MEDS: FLUOXETINE HCL 20 MG CAPSULE PO SCH (09:17)
[2020-03-26] MEDS: APIXABAN 5 MG TABLET PO SCH ×2 (09:17→18:59)
[2020-03-26] MEDS: LISINOPRIL 10 MG TABLET PO SCH (09:17)
[2020-03-26] MEDS: THIAMINE HCL 100 MG TABLET PO SCH (09:17)
[2020-03-26] MEDS: FAMOTIDINE INJ/PF 20 MG/2 ML SDV IV SCH ×2 (09:18→22:23)
[2020-03-26] MEDS: NICOTINE 21 MG/24 HR PATCH.TD24 TD SCH (09:18)
[2020-03-26] MEDS: ONDANSETRON HCL INJ/PF 4 MG/2 ML SDV IV PRN ×2 (10:07→18:58)
--- NOTE | 2020-03-26 10:22 | PDOC PROGRESS REPORT ---
Subjective Date:: 03/26/20 Subjective:: Patient still complaining of some abdominal pain and nausea with clear liquids y esterday. However feels a little better this morning I would like to try and advance diet. He denies any shortness of breath or chest pain. He has discussed with discharge planning and he is planning to enroll in a 12 months alcohol rehab program as outpatient. Reason For Visit: ACUTE PANCREATITIS ALCOHOL DEPENDENCE WITH Physical Exam Vital Signs: Temp Pulse Resp BP Pulse Ox 99.0 F 91 18 161/116 H 99 03/25/20 23:35 03/26/20 07:51 03/26/20 07:51 03/26/20 07:51 03/26/20 07:51 Intake & Output 03/25/20 03/26/20 03/27/20 06:59 06:59 06:59 Intake Total 2251.2 2651 1000 Balance 2251.2 2651 1000 Weight 70.5 kg 71 kg General appearance: PRESENT: no acute distress, cooperative Neck exam: ABSENT: JVD Respiratory exam: PRESENT: clear to auscultation deisy, symmetrical, unlabored. ABSENT: accessory muscle use, tachypnea, wheezes Cardiovascular exam: PRESENT: RRR, +S1, +S2. ABSENT: tachycardia GI/Abdominal exam: PRESENT: guarding, soft, tenderness. ABSENT: distended, rebound, rigid Neurological exam: PRESENT: alert, awake, oriented to person, oriented to place, oriented to time Psychiatric exam: ABSENT: agitated, anxious Skin exam: PRESENT: other - Flushed skin Results Laboratory Results: 03/24/20 19:17 03/26/20 04:52 03/26/20 04:52 Sodium 131.2 L Potassium 3.6 Chloride 100 Carbon Dioxide 25 Anion Gap 6 BUN 4 L Creatinine 0.54 Est GFR ( Amer) > 60 Glucose 85 Calcium 8.1 L Total Bilirubin 1.2 AST 50 Alkaline Phosphatase 152 H Total Protein 5.8 L Albumin 3.2 L Impressions: Abdomen/Pelvis CT 03/24/20 20:29 IMPRESSION: 1. Overall improved appearance of acute pancreatitis. 2. Concern for developing pancreatic tail pseudocyst versus less likely abscess as detailed above. Continued surveillance is recommended. 3. Few air and fluid-filled distended loops of small bowel within the LEFT upper quadrant, may be secondary to ileus or enteritis without findings to suggest obstructive etiology. Assessment and Plan - Diagnosis (1) Acute alcoholic pancreatitis Qualifiers: Acute pancreatitis complication: unspecified Qualified Code(s): K85.20 - Alcohol induced acute pancreatitis without necrosis or infection Is this a current diagnosis for this admission?: Yes Plan: Continue IV fluids-rate decreased to 150 cc/h and morphine for pain control Abdominal CT also notably did show pseudocyst. Advance to soft diet Zofran as needed Monitor CMP and CBC (2) Alcohol dependence with withdrawal Qualifiers: Complication of substance-induced condition: uncomplicated Qualified Cod e(s): F10.230 - Alcohol dependence with withdrawal, uncomplicated Is this a current diagnosis for this admission?: Yes Plan: Not having mild to moderate withdrawal. Notably his CIWA score this morning was 18 at 730 this morning. He did receive 2 mg of IV Ativan. On encounter he looked improved. Continue to monitor patient with CIWA protocol and Ativan as per protocol. (3) Acute alcohol intoxication Qualifiers: Complication of substance-induced condition: with unspecified complication Qualified Code(s): F10.929 - Alcohol use, unspecified with intoxication, unspecified Is this a current diagnosis for this admission?: Yes Plan: Currently sober. Discharge planning discussed with him about options for his alcohol abuse and patient is opting to go to outpatient 12 months rehabilitation program. (4) Portal vein thrombosis Is this a current diagnosis for this admission?: Yes Plan: Continue apixaban for splenic and portal vein thrombosis. This is also contributing to his abdominal pain. (5) Splenic vein thrombosis Is this a current diagnosis for this admission?: Yes Plan: Plan as above (6) Anxiety Is this a current diagnosis for this admission?: Yes - Time Time Spent with patient: 15-24 minutes Anticipated Discharge Disposition: Home, Self Care Anticipated Discharge Timeframe: within 48 hours
[2020-03-26] MEDS ORDERED: LORAZEPAM INJ 2 MG/1 ML VIAL IV PRN ×2 (10:31→10:33)
[2020-03-27] MEDS: LORAZEPAM INJ 2 MG/1 ML VIAL IV PRN ×2 (00:42→05:15)
[2020-03-27] MEDS: MORPHINE SULFATE 10 MG/ML INJ IV PRN ×5 (03:15→20:03)
[2020-03-27] MEDS: ONDANSETRON HCL INJ/PF 4 MG/2 ML SDV IV PRN (03:15)
[2020-03-27 07:01] LABS: HEMATOCRIT 39.2 % (37.9-51.0); MEAN CORPUSCULAR HEMOGLOBIN 34.7 pg (27.0-33.4); MEAN CORPUSCULAR VOLUME 99 fl (80-97); PLATELET COUNT 162 10^3/uL (150-450); RED BLOOD COUNT 3.95 10^6/uL (4.35-5.55); RED CELL DISTRIBUTION WIDTH 14.3 % (11.5-14.0); WHITE BLOOD COUNT 4.4 10^3/uL (4.0-10.5)
[2020-03-27 07:03] LABS: HEMOGLOBIN 13.7 g/dL (13.5-17.0)
[2020-03-27 07:32] LABS: ALBUMIN 3.1 g/dL (3.5-5.0); ALKALINE PHOSPHATASE 125 U/L (38-126); ANION GAP 8 (5-19); ASPARTATE AMINO TRANSFERASE 42 U/L (17-59); BILIRUBIN,DIRECT 0.1 mg/dL (0.0-0.4); BILIRUBIN,TOTAL 0.9 mg/dL (0.2-1.3); BLOOD UREA NITROGEN 3 mg/dL (7-20); CALCIUM 8.6 mg/dL (8.4-10.2); CARBON DIOXIDE 27 mmol/L (22-30); CHLORIDE 100 mmol/L (98-107); GLUCOSE 96 mg/dL (75-110); POTASSIUM 3.7 mmol/L (3.6-5.0); TOTAL PROTEIN 5.8 g/dL (6.3-8.2)
[2020-03-27] MEDS: THIAMINE HCL 100 MG TABLET PO SCH (09:09)
[2020-03-27] MEDS: FAMOTIDINE INJ/PF 20 MG/2 ML SDV IV SCH ×2 (09:09→21:26)
[2020-03-27] MEDS: FLUOXETINE HCL 20 MG CAPSULE PO SCH (09:10)
[2020-03-27] MEDS: APIXABAN 5 MG TABLET PO SCH ×2 (09:10→17:28)
[2020-03-27] MEDS: LISINOPRIL 10 MG TABLET PO SCH (09:10)
[2020-03-27] MEDS: NICOTINE 21 MG/24 HR PATCH.TD24 TD SCH (09:10)
[2020-03-27] MEDS: NORMAL SALINE 1000 ML 1,000 ML IV PRN ×2 (09:15→16:19)
--- NOTE | 2020-03-27 17:33 | PDOC PROGRESS REPORT ---
Subjective Date:: 03/27/20 Subjective:: Patient states that he is feeling better but still feels like he needs another d ay because he was nauseous and having difficulty keeping food down. However history was empty on encounter. He does states that his daughter will be coming home tomorrow and he will like to go home tomorrow instead of today. His abdominal pain is still present but improved. Reason For Visit: ETOH WITHDRAWAL, PANCREATITIS Physical Exam Vital Signs: Temp Pulse Resp BP Pulse Ox 98.2 F 101 H 16 150/102 H 97 03/27/20 16:06 03/27/20 16:06 03/27/20 16:06 03/27/20 16:06 03/27/20 16:06 Intake & Output 03/26/20 03/27/20 03/28/20 06:59 06:59 06:59 Intake Total 2651 4938 1650 Balance 2651 4938 1650 Weight 71 kg 70.9 kg General appearance: PRESENT: no acute distress, cooperative Neck exam: ABSENT: JVD Respiratory exam: PRESENT: clear to auscultation deisy, unlabored. ABSENT: retraction Cardiovascular exam: PRESENT: +S1, +S2. ABSENT: tachycardia GI/Abdominal exam: PRESENT: guarding - Seems very voluntary, soft, tenderness. ABSENT: distended, firm, rebound, rigid Neurological exam: PRESENT: alert, awake, oriented to person, oriented to place, oriented to time, other - Not tremulous Psychiatric exam: ABSENT: agitated, anxious Results Laboratory Results: 03/27/20 05:56 03/27/20 05:56 03/27/20 03/27/20 05:56 05:56 WBC 4.4 RBC 3.95 L Hgb 13.7 D Hct 39.2 MCV 99 H MCH 34.7 H MCHC 35.0 RDW 14.3 H Plt Count 162 Sodium 134.8 L Potassium 3.7 Chloride 100 Carbon Dioxide 27 Anion Gap 8 BUN 3 L Creatinine 0.58 Est GFR ( Amer) > 60 Glucose 96 Calcium 8.6 Total Bilirubin 0.9 AST 42 Alkaline Phosphatase 125 Total Protein 5.8 L Albumin 3.1 L Impressions: Abdomen/Pelvis CT 03/24/20 20:29 IMPRESSION: 1. Overall improved appearance of acute pancreatitis. 2. Concern for developing pancreatic tail pseudocyst versus less likely abscess as detailed above. Continued surveillance is recommended. 3. Few air and fluid-filled distended loops of small bowel within the LEFT upper quadrant, may be secondary to ileus or enteritis without findings to suggest obstructive etiology. Assessment and Plan - Diagnosis (1) Acute alcoholic pancreatitis Qualifiers: Acute pancreatitis complication: unspecified Qualified Code(s): K85.20 - Alcohol induced acute pancreatitis without necrosis or infection Is this a current diagnosis for this admission?: Yes (2) Alcohol dependence with withdrawal Qualifiers: Complication of substance-induced condition: uncomplicated Qualified Code(s): F10.230 - Alcohol dependence with withdrawal, uncomplicated Is this a current diagnosis for this admission?: Yes (3) Acute alcohol intoxication Qualifiers: Complication of substance-induced condition: with unspecified complication Qualified Code(s): F10.929 - Alcohol use, unspecified with intoxication, unspecified Is this a current diagnosis for this admission?: Yes (4) Portal vein thrombosis Is this a current diagnosis for this admission?: Yes (5) Splenic vein thrombosis Is this a current diagnosis for this admission?: Yes (6) Anxiety Is this a current diagnosis for this admission?: Yes - Plan Summary Summary: We will continue treatment plan as before. He will continue to get IV fluids but will discontinue this evening. He has been tolerating his diet and quite frankly should be ready to go. We will give him tonight to rest up as he hopes to move in with his daughter who will be around tomorrow. Continue Eliquis for treatment of his PVT and splenic vein thrombosis. On my exams, he does not seem to be in any kind of vivid alcohol withdrawal and only mild if any so as such I removed his Ativan doses. - Time Time Spent with patient: Less than 15 minutes Anticipated Discharge Disposition: Home, Self Care Anticipated Discharge Timeframe: within 24 hours
[2020-03-27] MEDS ORDERED: HYDROCHLOROTHIAZIDE 12.5 MG TABLET PO SCH (21:30)
[2020-03-28] MEDS: MORPHINE SULFATE 10 MG/ML INJ IV PRN ×3 (00:14→09:03)
[2020-03-28] MEDS ORDERED: LORAZEPAM INJ 2 MG/1 ML VIAL IV ONE (01:15)
[2020-03-28] MEDS ORDERED: HYDRALAZINE HCL 25 MG TABLET PO ONE (01:15)
[2020-03-28] MEDS ORDERED: LABETALOL HCL INJ 20 MG/4 ML DISP.SYRIN IV ONE (03:08)
[2020-03-28] MEDS: NICOTINE 21 MG/24 HR PATCH.TD24 TD SCH (09:02)
[2020-03-28] MEDS: LISINOPRIL 10 MG TABLET PO SCH (09:02)
[2020-03-28] MEDS: FAMOTIDINE INJ/PF 20 MG/2 ML SDV IV SCH (09:02)
[2020-03-28] MEDS: THIAMINE HCL 100 MG TABLET PO SCH (09:02)
[2020-03-28] MEDS: APIXABAN 5 MG TABLET PO SCH (09:02)
[2020-03-28] MEDS: FLUOXETINE HCL 20 MG CAPSULE PO SCH (09:03)
[2020-03-28] MEDS ORDERED: HYDROCHLOROTHIAZIDE 12.5 MG TABLET PO SCH (10:00)
[2020-03-28] MEDS ORDERED: HYDROCHLOROTHIAZIDE 25 MG TABLET PO SCH (10:00)
--- NOTE | 2020-03-28 11:54 | PDOC DISCHARGE SUMMARY ---
Impression - Admit/DC Date/PCP Admission Date/Primary Care Provider: 03/25/20 00:39 Discharge Date: 03/28/20 - Discharge Diagnosis (1) Acute alcoholic pancreatitis Is this a current diagnosis for this admission?: Yes (2) Acute alcohol intoxication Is this a current diagnosis for this admission?: Yes (3) Alcohol dependence with withdrawal Is this a current diagnosis for this admission?: Yes (4) Pancreatic pseudocyst Is this a current diagnosis for this admission?: Yes (5) Homelessness Is this a current diagnosis for this admission?: Yes (6) Splenic vein thrombosis Is this a current diagnosis for this admission?: Yes (7) Portal vein thrombosis Is this a current diagnosis for this admission?: Yes (8) Anxiety Is this a current diagnosis for this admission?: Yes - Additional Information Resuscitation Status: Full Code Discharge Diet: Other (Comments) - Low-fat low-cholesterol diet Referrals: [facility] [place] [Outside] Prescriptions: Lisinopril/Hydrochlorothiazide [Lisinopril-Hctz 20-12.5 mg Tab] 1 each PO Q12 #60 tablet Famotidine [Pepcid] 20 mg PO Q12 #60 tablet Thiamine HCl [Thiamine 100 mg Tablet] 100 mg PO DAILY #30 tablet Home Medications: Fluoxetine HCl [Prozac] 40 mg PO DAILY 12/29/19 Alprazolam [Xanax] 1 mg PO DAILYP PRN #15 02/13/20 Apixaban [Eliquis] 5 mg PO ASDIR #1 tab.ds.pk 02/20/20 Famotidine [Pepcid] 20 mg PO Q12 #60 tablet 03/28/20 Lisinopril/Hydrochlorothiazide [Lisinopril-Hctz 20-12.5 mg Tab] 1 each PO Q12 #60 tablet 03/28/20 Thiamine HCl [Thiamine 100 mg Tablet] 100 mg PO DAILY #30 tablet 03/28/20 History of Present Illiness History of Present Illness: JACQUES BRITTON is a 45 year old male with a history of alcoholic pancreatitis, chronic alcohol abuse, portal and splenic vein thrombosis and hypertension presents with a 3 days duration of worsening of abdominal pain with associated nausea and vomiting of ingested matter. He describes the pain as sharp and cramping, radiating to his back, 10/10 intensity with no clear aggravating or relieving factor. Patient also reports that he has not been able to keep anything down. He reports that he had an episode of coffee-ground vomiting 5 days but in the past few days the vomitus has been ingested matter and he has not noticed any blood or coffee-ground matter. He denies any fever, chills, cough, shortness of breath, chest pain, dizziness, diarrhea, hematochezia or melena. Patient reports that he continues to drink alcohol and his last drink was the morning before presentation. On arrival to the ED patient was still intoxicated with a blood alcohol level of 467. Patient was treated for acute pancreatitis about a month ago after he presented with similar symptoms. Hospital Course Hospital Course: Patient was admitted to the hospital for treatment of recurrent acute pancreatitis secondary to alcohol abuse. On presentation he was noted to be in alcohol intoxication and blood alcohol level was over 400. His lipase was elevated 1000. Notably this has become a recurrent issue for patient as he is an alcoholic and drinks heavy amounts of alcohol leading to recurrence of his pancreatitis. He was admitted to the hospital. CT of his abdomen/pelvis showed improvement of his pancreatitis, pancreatic pseudocyst formation and some fluid- filled bowel loops in his left quadrant suspicious for ileus but no evidence of bowel obstruction. He has had bowel movements since being here. He was stated treatment for acute pancreatitis with morphine and IV fluids. He was also monitored for alcohol withdrawal. He has had some elevated CIWA scores documented but actually on my encounters, patient has not exhibited any sign of significant withdrawal at least not more than mild withdrawal at the most. I discontinued his Ativan orders. We did have to increase his blood pressure regimen to lisinopril and hydrochlorothiazide to help optimize his hypertension. He has been tolerating his GI soft diet for the past 2 days now and is ready for discharge. He has been seen by social insurance analyst who has given him information to enroll in a 12-month alcohol rehabilitation program. I will also give him Pepcid to help address possible alcoholic gastritis. Of course, the major issue is he needs to stop drinking alcohol otherwise this will continue to be a recurrent issue and of course he will continue to come back to the hospital. He has been advised to take [id number] analgesics for his abdominal pain but to be cautious on not taking NSAIDs on an empty stomach. He states that he has his Eliquis tablets already and that he has prescription to get a 1 month supply with coupon after his current 15 tablets . Physical Exam Vital Signs: Temp Pulse Resp BP Pulse Ox 98.1 F 70 17 140/98 H 98 03/28/20 08:00 03/28/20 07:08 03/28/20 07:08 03/28/20 07:08 03/28/20 07:08 Intake & Output 03/27/20 03/28/20 03/29/20 06:59 06:59 06:59 Intake Total 4938 2650 Balance 4938 2650 Weight 70.9 kg 66.7 kg General appearance: PRESENT: no acute distress, cooperative Neck exam: ABSENT: JVD Respiratory exam: PRESENT: unlabored. ABSENT: wheezes Cardiovascular exam: PRESENT: +S1, +S2. ABSENT: tachycardia GI/Abdominal exam: PRESENT: guarding - Very much voluntary guarding, soft, tenderness. ABSENT: rebound, rigid Neurological exam: PRESENT: alert, awake, oriented to person, oriented to place Results Laboratory Results: WBC 4.4 10^3/uL (4.0-10.5) 03/27/20 05:56 RBC 3.95 10^6/uL (4.35-5.55) L 03/27/20 05:56 Hgb 13.7 g/dL (13.5-17.0) D 03/27/20 05:56 Hct 39.2 % (37.9-51.0) 03/27/20 05:56 MCV 99 fl (80-97) H 03/27/20 05:56 MCH 34.7 pg (27.0-33.4) H 03/27/20 05:56 MCHC 35.0 g/dL (32.0-36.0) 03/27/20 05:56 RDW 14.3 % (11.5-14.0) H 03/27/20 05:56 Plt Count 162 10^3/uL (150-450) 03/27/20 05:56 Lymph % (Auto) 20.3 % (13-45) 03/24/20 19:17 Lane % (Auto) 7.9 % (3-13) 03/24/20 19:17 Eos % (Auto) 0.3 % (0-6) 03/24/20 19:17 Baso % (Auto) 0.8 % (0-2) 03/24/20 19:17 Absolute Neuts (auto) 5.1 10^3/uL (1.7-8.2) 03/24/20 19:17 Absolute Lymphs (auto) 1.5 10^3/uL (0.5-4.7) 03/24/20 19:17 Absolute Monos (auto) 0.6 10^3/uL (0.1-1.4) 03/24/20 19:17 Absolute Eos (auto) 0.0 10^3/uL (0.0-0.6) 03/24/20 19:17 Absolute Basos (auto) 0.1 10^3/uL (0.0-0.2) 03/24/20 19:17 Seg Neutrophils % 70.7 % (42-78) 03/24/20 19:17 PT 12.6 SEC (11.4-15.4) 03/24/20 21:06 INR 0.92 03/24/20 21:06 APTT 27.6 SEC (23.5-35.8) 03/24/20 21:06 Sodium 134.8 mmol/L (137-145) L 03/27/20 05:56 Potassium 3.7 mmol/L (3.6-5.0) 03/27/20 05:56 Chloride 100 mmol/L (98-107) 03/27/20 05:56 Carbon Dioxide 27 mmol/L (22-30) 03/27/20 05:56 Anion Gap 8 (5-19) 03/27/20 05:56 BUN 3 mg/dL (7-20) L 03/27/20 05:56 Creatinine 0.58 mg/dL (0.52-1.25) 03/27/20 05:56 Est GFR ( Amer) > 60 (>60) 03/27/20 05:56 Est GFR (MDRD) Non-Af > 60 (>60) 03/27/20 05:56 Glucose 96 mg/dL (75-110) 03/27/20 05:56 Calcium 8.6 mg/dL (8.4-10.2) 03/27/20 05:56 Magnesium 2.3 mg/dL (1.6-2.3) 03/24/20 19:17 Total Bilirubin 0.9 mg/dL (0.2-1.3) 03/27/20 05:56 Direct Bilirubin 0.1 mg/dL (0.0-0.4) 03/27/20 05:56 Neonat Total Bilirubin Not Reportable 03/27/20 05:56 Neonat Direct Bilirubin Not Reportable 03/27/20 05:56 Neonat Indirect Bili Not Reportable 03/27/20 05:56 AST 42 U/L (17-59) 03/27/20 05:56 ALT 28 U/L (<50) 03/27/20 05:56 Alkaline Phosphatase 125 U/L (38-126) 03/27/20 05:56 Total Protein 5.8 g/dL (6.3-8.2) L 03/27/20 05:56 Albumin 3.1 g/dL (3.5-5.0) L 03/27/20 05:56 Lipase 1277.4 U/L (23-300) H 03/24/20 19:17 Urine Color YELLOW 03/24/20 23:02 Urine Appearance CLEAR 03/24/20 23:02 Urine pH 5.0 (5.0-9.0) 03/24/20 23:02 Ur Specific [place] 1.025 03/24/20 23:02 Urine Protein NEGATIVE mg/dL (NEGATIVE) 03/24/20 23:02 Urine Glucose (UA) NEGATIVE mg/dL (NEGATIVE) 03/24/20 23:02 Urine Ketones NEGATIVE mg/dL (NEGATIVE) 03/24/20 23:02 Urine Blood NEGATIVE (NEGATIVE) 03/24/20 23:02 Urine Nitrite NEGATIVE (NEGATIVE) 03/24/20 23:02 Urine Bilirubin NEGATIVE (NEGATIVE) 03/24/20 23:02 Urine Urobilinogen NEGATIVE mg/dL (<2.0) 03/24/20 23:02 Ur Leukocyte Esterase NEGATIVE (NEGATIVE) 03/24/20 23:02 Urine WBC (Auto) 0 /HPF 03/24/20 23:02 U Hyaline Cast (Auto) 1 /LPF 03/24/20 23:02 Urine Mucus (Auto) RARE /LPF 03/24/20 23:02 Urine Ascorbic Acid NEGATIVE (NEGATIVE) 03/24/20 23:02 Urine Opiates Screen UNCONFIRMED POSITIVE 03/24/20 23:02 Urine Methadone Screen NEGATIVE 03/24/20 23:02 Ur Barbiturates Screen NEGATIVE 03/24/20 23:02 Ur Phencyclidine Scrn NEGATIVE 03/24/20 23:02 Ur Amphetamines Screen NEGATIVE 03/24/20 23:02 U Benzodiazepines Scrn NEGATIVE 03/24/20 23:02 Urine Cocaine Screen NEGATIVE 03/24/20 23:02 U Marijuana (THC) Screen NEGATIVE 03/24/20 23:02 Serum Alcohol 467 mg/dL (NONE DETECTED) H* 03/24/20 19:17 SARS-CoV-2 (PCR) NEGATIVE (NEGATIVE) 03/26/20 10:16 Impressions: Abdomen/Pelvis CT 03/24/20 20:29 IMPRESSION: 1. Overall improved appearance of acute pancreatitis. 2. Concern for developing pancreatic tail pseudocyst versus less likely abscess as detailed above. Continued surveillance is recommended. 3. Few air and fluid-filled distended loops of small bowel within the LEFT upper quadrant, may be secondary to ileus or enteritis without findings to suggest obstructive etiology. Plan Time Spent: Greater than 30 Minutes Stroke Is this a Stroke Patient?: No Acute Heart Failure Is this a Heart Failure Patient?: No
[2020-03-28 12:14] VITALS: BP 140/96
== END 2020-03-28 12:25 | disposition home or self-care (01) | DRG 438 ==
LOC: ER 17:57 → EH 03-25 00:39 → OBSVTOIN 03-25 00:39 → INTOOBSV 03-25 00:39 → 4W 03-25 01:55
PROVIDERS: ADMIT Student in an Organized Health Care Education/Training Program; ATTEND Internal Medicine
DX: K85.20 Alcohol induced acute pancreatitis without necrosis or infection (principal); I81 Portal vein thrombosis; F10.239 Alcohol dependence with withdrawal, unspecified; K86.0 Alcohol-induced chronic pancreatitis; F10.229 Alcohol dependence with intoxication, unspecified; F41.9 Anxiety disorder, unspecified; D73.5 Infarction of spleen; I10 Essential (primary) hypertension; Y90.8 Blood alcohol level of 240 mg/100 ml or more; Z79.899 Other long term (current) drug therapy; F17.200 Nicotine dependence, unspecified, uncomplicated; Z59.0 Homelessness; Z79.01 Long term (current) use of anticoagulants; F32.9 Major depressive disorder, single episode, unspecified; Z20.828 Contact with and (suspected) exposure to other viral communicable diseases
CPT/HCPCS: 36415; 74177; 80053; 80307; 81001; 83690; 83735; 85025; 85027; 85610; 85730; 87635; 96361; 96365; 96372; 96375; 99285; C9803; G0378; J2060; J2270; J2405; J2550; J3411; J3490; J7030; J7050; S0028

== ENCOUNTER 2020-04-02 10:07 | Emergency (ER) | payer SELFPAY ==
[2020-04-02] MEDS ORDERED: NORMAL SALINE 1000 ML 1,000 ML IV ONE (10:19)
--- NOTE | 2020-04-02 10:20 | ER Document Report ---
ED Medical Screen (RME) - General Stated Complaint: SUICIDIAL IDEATION Time Seen by Provider: 04/02/20 10:16 Information source: Patient Notes: Patient presents reporting alcohol abuse and suicidal ideation. Patient reports having issues at home and missing seen his daughter. Patient states he has a history of hypertension, DVT and pancreatic cyst. Patient states he supposed to take a blood thinner and blood pressure medicine daily although he has not been. I have greeted and performed a rapid initial assessment of this patient. A co mprehensive ED assessment and evaluation of the patient, analysis of test results and completion of the medical decision making process will be conducted by additional ED providers. TRAVEL OUTSIDE OF THE [place] IN LAST 30 DAYS: No - Related Data Allergies/Adverse Reactions: No Known Allergies Allergy (Verified 04/02/20 10:34) Past Medical History - Past Medical History Cardiac Medical History: Reports: Hx Hypertension Denies: Hx Coronary Artery Disease, Hx Hypercholesterolemia Pulmonary Medical History: Denies: Hx Asthma, Hx COPD, Hx Tuberculosis Neurological Medical History: Reports: Hx Seizures Endocrine Medical History: Denies: Hx Diabetes Mellitus Type 1, Hx Diabetes Mellitus Type 2, Hx Hyperthyroidism, Hx Hypothyroidism Renal/ Medical History: Denies: Hx Peritoneal Dialysis GI Medical History: Reports: Hx Pancreatitis. Denies: Hx Cirrhosis, Hx Gastroesophageal Reflux Disease, Hx Hepatitis Musculoskeltal Medical History: Denies Hx Arthritis, Denies Hx Gout Skin Medical History: Denies Hx Eczema, Denies Hx Psoriasis Psychiatric Medical History: Reports: Hx Anxiety, Hx Bipolar Disorder, Hx Depression Infectious Medical History: Denies: Hx Hepatitis Past Surgical History: Reports: Hx Oral Surgery, Other - Describes what sounds like a dental surgery - Immunizations Hx Diphtheria, Pertussis, Tetanus Vaccination: Yes - given in er today Physical Exam - Vital signs Vitals: Temp Pulse Resp BP Pulse Ox 98.4 F 130 H 16 151/102 H 100 04/02/20 10:13 04/02/20 10:13 04/02/20 10:13 04/02/20 10:13 04/02/20 10:13 - Cardiovascular Rhythm: Tachycardia Heart sounds: S1 appreciated, S2 appreciated - Psychological Associated symptoms: Tearful. No: Uncooperative Course - Vital Signs Vital signs: Temp Pulse Resp BP Pulse Ox 98.4 F 130 H 16 151/102 H 100 04/02/20 10:13 04/02/20 10:13 04/02/20 10:13 04/02/20 10:13 04/02/20 10:13 - Laboratory Result Diagrams: 04/02/20 11:35 04/02/20 11:35 Laboratory results interpreted by me: 04/02/20 04/02/20 11:35 11:35 RBC 3.86 L Hgb 13.4 L MCV 100 H MCH 34.7 H RDW 14.9 H Calcium 8.2 L AST 81 H ALT 54 H Alkaline Phosphatase 137 H Lipase 302.7 H Salicylates < 1.0 L Acetaminophen < 10 L Doctor's Discharge - Discharge Clinical Impression: Alcohol abuse, Alcoholism with alcohol dependence, Alcohol intoxication, Suicidal ideation, Depression Condition: Stable Disposition: PSYCH HOSP/UNIT Additional Instructions: Go to [place] [facility] now for treatment of your depression, suicidal ideation, and alcohol dependency.
[2020-04-02] MEDS ORDERED: APIXABAN 5 MG TABLET PO ONE (10:56)
[2020-04-02] MEDS ORDERED: CLONIDINE HCL 0.1 MG TABLET PO ONE (10:57)
[2020-04-02] MEDS ORDERED: DIPHENHYDRAMINE HCL 50 MG/ML VIAL IV ONE (10:57)
[2020-04-02] MEDS ORDERED: THIAMINE HCL 100 MG, FOLIC ACID 1 MG in NORMAL SALINE 250 ML IV ONE (10:57)
[2020-04-02 11:56] LABS: ABSOLUTE BASOPHILS # (AUTO) 0.1 10^3/uL (0.0-0.2); ABSOLUTE LYMPHOCYTES (AUTO) 1.2 10^3/uL (0.5-4.7); ABSOLUTE MONOCYTES (AUTO) 0.8 10^3/uL (0.1-1.4); ABSOLUTE NEUT (AUTO) 4.9 10^3/uL (1.7-8.2); BASOPHILS % (AUTO) 1.3 % (0-2); EOSINOPHILS % (AUTO) 0.1 % (0-6); HEMATOCRIT 38.6 % (37.9-51.0); HEMOGLOBIN 13.4 g/dL (13.5-17.0); LYMPHOCYTES % (AUTO) 16.8 % (13-45); MEAN CORPUSCULAR HEMOGLOBIN 34.7 pg (27.0-33.4); MEAN CORPUSCULAR HGB CONC 34.7 g/dL (32.0-36.0); MEAN CORPUSCULAR VOLUME 100 fl (80-97); MONOCYTES % (AUTO) 11.5 % (3-13); PLATELET COUNT 317 10^3/uL (150-450); RED BLOOD COUNT 3.86 10^6/uL (4.35-5.55); RED CELL DISTRIBUTION WIDTH 14.9 % (11.5-14.0); SEGMENTED NEUTROPHILS % (AUTO) 70.3 % (42-78); TOTAL CELLS COUNTED % (AUTO) 100 %; WHITE BLOOD COUNT 6.9 10^3/uL (4.0-10.5)
[2020-04-02 12:15] LABS: ALBUMIN 3.9 g/dL (3.5-5.0); ALCOHOL 223 mg/dL (NONE DETECTED); ALKALINE PHOSPHATASE 137 U/L (38-126); ANION GAP 10 (5-19); ASPARTATE AMINO TRANSFERASE 81 U/L (17-59); BILIRUBIN,DIRECT 0.2 mg/dL (0.0-0.4); BILIRUBIN,TOTAL 0.4 mg/dL (0.2-1.3); BLOOD UREA NITROGEN 8 mg/dL (7-20); CALCIUM 8.2 mg/dL (8.4-10.2); CARBON DIOXIDE 24 mmol/L (22-30); CHLORIDE 103 mmol/L (98-107); GLUCOSE 97 mg/dL (75-110); POTASSIUM 4.4 mmol/L (3.6-5.0); TOTAL PROTEIN 6.6 g/dL (6.3-8.2)
[2020-04-02 12:16] LABS: ACETAMINOPHEN < 10 ug/mL (10-30); SALICYLATE < 1.0 mg/dL (2.0-20.0)
[2020-04-02 12:51] LABS: APPEARANCE,URINE CLEAR; BILIRUBIN,URINE NEGATIVE (NEGATIVE); COLOR,URINE STRAW; GLUCOSE, URINE NEGATIVE (NEGATIVE); KETONES,URINE NEGATIVE (NEGATIVE); LEUKOCYTE ESTERASE,URINE NEGATIVE (NEGATIVE); NITRITE,URINE NEGATIVE (NEGATIVE); PROTEIN,URINE NEGATIVE (NEGATIVE); URINE SPECIFIC GRAVITY 1.005; UROBILINOGEN,URINE NEGATIVE mg/dL (<2.0)
[2020-04-02 13:06] LABS: URINE BARBITURATES SCREEN NEGATIVE; URINE BENZODIAZEPINES SCREEN NEGATIVE; URINE COCAINE SCREEN NEGATIVE; URINE MARIJUANA (THC) SCREEN NEGATIVE; URINE METHADONE SCREEN NEGATIVE; URINE PHENCYCLIDINE SCREEN NEGATIVE
[2020-04-02 13:10] LABS: URINE AMPHETAMINES SCREEN NEGATIVE
--- NOTE | 2020-04-02 13:12 | ER Document Report ---
Entered by ANSELMO RANDALL SCRIBE 04/02/20 1055 Acting as scribe for:HENRI WINCHESTER MD ED General - General Chief Complaint: Suicidal Ideation Stated Complaint: SUICIDIAL IDEATION Time Seen by Provider: 04/02/20 10:16 Mode of Arrival: Medic Information source: Patient, Emergency Med Personnel Notes: This 45 year old male patient with a history of hypertension, anxiety, depression, alcohol abuse, and pancreatitis with splenic and portal vein thrombosis presents to the ED today via EMS for medical clearance to [facility]. Patient reportedly went to check in at [facility] for suicidal ideation prior to arrival and was told that his EtOH was too high. [facility] is holding a bed for the patient pending a serum EtOH below 200. Patient reports x2 suicide attempts x2 weeks ago by hanging, but states "it didn't work so I just stopped both times." He also complains of epigastric pain. He was admitted here from 03/25 to 03/28 for alcohol withdrawal and pancreatitis; he notes that his last dose of Eliquis was given during that time. TRAVEL OUTSIDE OF THE [place] IN LAST 30 DAYS: No - Related Data Allergies/Adverse Reactions: No Known Allergies Allergy (Verified 04/02/20 10:34) Home Medications: pt reported taking no medication at this time Past Medical History - General Information source: Patient - Social History Smoking Status: Smoker,Current Status Unk Chew tobacco use (# tins/day): No Smoking Education Provided: No Frequency of alcohol use: Heavy Family History: Reviewed & Not Pertinent, Hypertension Patient has suicidal ideation: Yes Patient has homicidal ideation: No - Past Medical History Cardiac Medical History: Reports: Hx Hypertension Neurological Medical History: Reports: Hx Seizures GI Medical History: Reports: Hx Pancreatitis Psychiatric Medical History: Reports: Hx Anxiety, Hx Bipolar Disorder, Hx Depression Past Surgical History: Reports: Hx Oral Surgery - Describes what sounds like a dental surgery - Immunizations Hx Diphtheria, Pertussis, Tetanus Vaccination: Yes - given in er today Review of Systems - Review of Systems Constitutional: No symptoms reported EENT: No symptoms reported Cardiovascular: No symptoms reported Respiratory: No symptoms reported Gastrointestinal: See HPI, Abdominal pain Genitourinary: No symptoms reported Male Genitourinary: No symptoms reported Musculoskeletal: No symptoms reported Skin: No symptoms reported Hematologic/Lymphatic: No symptoms reported Neurological/Psychological: See HPI, Suicidal ideation -: Yes All other systems reviewed and negative Physical Exam - Vital signs Vitals: Temp Pulse Resp BP Pulse Ox 98.4 F 130 H 16 151/102 H 100 04/02/20 10:13 04/02/20 10:13 04/02/20 10:13 04/02/20 10:13 04/02/20 10:13 - General General appearance: Other - Appears intoxicated. Patient starts shaking violent ly when talking about his pain, but the shaking stops when he gets distracted. - HEENT Head: Normocephalic, Atraumatic Eyes: Normal Pupils: PERRL - Respiratory Respiratory status: No respiratory distress Chest status: Nontender Breath sounds: Normal Chest palpation: Normal - Cardiovascular Rhythm: Regular Heart sounds: Normal auscultation Murmur: No Friction rub: No Gallop: None auscultated - Abdominal Inspection: Normal Distension: No distension Bowel sounds: Normal Tenderness: Tender - Epigastric tenderness to palpation, Other - Abdomen soft Organomegaly: No organomegaly - Back Back: Normal, Nontender - Extremities General upper extremity: Normal inspection General lower extremity: Normal inspection - Neurological Neuro grossly intact: Yes - Psychological Associated symptoms: Other - Patient starts shaking violently when talking about his pain, but the shaking stops when he gets distracted. - Skin Skin Temperature: Warm Skin Moisture: Dry Skin Color: Normal Course - Re-evaluation Re-evalutation: 04/02/20 13:13 Patient's EtOH level was 223 at 11:35 AM. It should be well below an EtOH level of 200 at this time. That should satisfy criteria to go back to [facility]. 04/02/20 13:18 When I told the patient that his alcohol level was low enough for him to return to [place], he claimed that he could not feel his feet and did not think he could walk. He was moving his lower extremities without any difficulty at all in pulling his feet up from underneath the covers to try to stand up to demonstrate why he was unable to stand up. - Vital Signs Vital signs: Temp Pulse Resp BP Pulse Ox 98.4 F 130 H 16 151/102 H 100 04/02/20 10:13 04/02/20 10:13 04/02/20 10:13 04/02/20 10:13 04/02/20 10:13 - Laboratory Result Diagrams: 04/02/20 11:35 04/02/20 11:35 Laboratory results interpreted by me: 11/26/20 11/26/20 11:35 11:35 RBC 3.86 L Hgb 13.4 L MCV 100 H MCH 34.7 H RDW 14.9 H Calcium 8.2 L AST 81 H ALT 54 H Alkaline Phosphatase 137 H Lipase 302.7 H Salicylates < 1.0 L Acetaminophen < 10 L Discharge - Discharge Clinical Impression: Alcohol abuse, Suicidal ideation Alcoholism with alcohol dependence Qualifiers: Substance use status: unspecified alcohol-induced disorder Qualified Code(s): F10.29 - Alcohol dependence with unspecified alcohol-induced disorder Alcohol intoxication Qualifiers: Complication of substance-induced condition: uncomplicated Qualified Code(s): F10.920 - Alcohol use, unspecified with intoxication, uncomplicated Depression Qualifiers: Depression Type: unspecified Qualified Code(s): F32.9 - Major depressive disorder, single episode, unspecified Condition: Stable Disposition: PSYCH HOSP/UNIT Additional Instructions: Go to [place] crisis [facility] now for treatment of your depression, suicidal ideation, and alcohol dependency. I personally performed the services described in the documentation, reviewed and edited the documentation which was dictated to the scribe in my presence, and it accurately records my words and actions.
[2020-04-02 13:23] VITALS: BP 148/98
--- NOTE | 2020-04-02 14:29 | EKG REPORT ---
SEVERITY:- OTHERWISE NORMAL ECG - SINUS TACHYCARDIA : Confirmed by: Darren Mena MD 02-Apr-2020 14:28:28
--- NOTE | 2020-04-02 16:32 | PSYCHOLOGICAL NOTE ---
Psych Note - Psych Note Date seen by psych provider: 04/02/20 Time seen by psych provider: 10:39 Psych Note: [id number] Reason for Consult: suicidal ideation and alcohol intoxication Patient is a 45 year old male who presented to the [facility] ED today via community paramedics for alcohol intoxication and passive suicidal ideations. Patient reports he stopped drinking this morning after having 2 beers. His alcohol level was at 223 when he was admitted to the ED. He has a bed on standby for [facility] once he is medically cleared from the ED. Patient reports passive suicidal ideations and states, I wish I were , but Im scared of doing it; the dying part. He denies plan and intent to carry out his passive suicidal thoughts. Patient reports he drinks as much as he can each day. Patient reports stressors related to a conflict with his daughter. He states he and daughter used to live together and after his father in August 2019, he started drinking again. His daughter found him passed out and kicked him out. Patient reports being homeless and sleeping in the [place] for the past month. He assumes much blame for his father dying and reports he told his father to come to [facility] and he choked on his food and in the hospital. Patient states he has attempted suicide in the past by trying to hang himself with a string 2 times in the past. He has been [facility] to [facility] years ago, has been treated at [facility], and has been to [facility] for detox as well. Patient was alert and oriented to self, person, place, time and situation. Mood was drunk and sad with congruent affect. He denied current suicidal ideation, plan, and intent. Patient also denied homicidal ideation, plan, and intent. Patient did not appear to be responding to internal stimuli as evidenced by fair eye contact and answering questions appropriately when addressed. Thought processes are linear and organized. Conversational speech was within normal limits for rate, tone and prosody. Intellectual abilities are estimated to be average. Insight, judgment and impulse control were fair as evidenced by voluntarily taking himself to [facility] and asking for help with alcoholism. Patient engages appropriately. He demonstrated future forward goal oriented thinking to include talking about wanting to repair his relationship with his daughter. Clinical Presentation: alcohol intoxication; passive suicidal ideation, denies plan and intent IVC Criteria per [place] GS 122C Dangerous to others Within the relevant past the individual No has inflicted or attempted to inflict or threatened to inflict serious bodily harm on another AND No that there is a reasonable probability that this conduct will be repeated. OR No has acted in such a way as to create a substantial risk of serious bodily harm to another AND No that there is a reasonable probability that this conduct will be repeated. OR No has engaged in extreme destruction of property AND NO that there is a reasonable probability that this conduct will be repeated. Previous episodes of dangerousness to others, when applicable, may be considered when determining reasonable probability of future dangerous conduct. Clear, cogent, and convincing evidence that an individual has committed a homicide in the relevant past is prima facie evidence of dangerousness to others. Dangerous to self Within the relevant past the individual has done any of the following: acted in such a way as to show ALL of the following: No The individual would be unable without care, supervision, and the continued assistance of others not otherwise available, to exercise self- control, judgment, and discretion in the conduct of the individual's daily responsibilities and social relations or to satisfy the individual's need for nourishment, personal or medical care, fpc, or self-protection and safety. AND No There is a reasonable probability of the individual suffering serious physical debilitation within the near future unless adequate treatment is given. A showing of behavior that is grossly irrational, of actions that the individual is unable to control, of behavior that is grossly inappropriate to the situa tion, or of other evidence of severely impaired insight and judgment shall create a prima facie inference that the individual is unable to care for himself or herself. OR Yes has attempted suicide or threatened suicide Patient did make a passive statement about wishing he was AND No that there is a reasonable probability of suicide unless adequate treatment is given Patient also reported he was scared of doing it (committing suicide) and was scared of the dying part; he reports attempting two times in the past, however used a white string to try hanging self. OR No has mutilated himself or herself or attempted to mutilate himself or herself AND No that there is a reasonable probability of serious self-mutilation unless adequate treatment is given. NOTE: Previous episodes of dangerousness to self, when applicable, may be considered when determining reasonable probability of physical debilitation, suicide, or self-mutilation. Impression\plan: Patient is cleared from acute psychiatric services. He does not meet criteria for IVC and is not a danger to himself at this time. He was admitted to the ED voluntarily for medical clearance to be admitted to [facility]. He reports passive suicidal ideations, but denies plan and intent. Patient has a voluntary bed on hold at [facility], but needs his alcohol level lower and just needs medical clearance. Patient reports stressors in his life, however is too scared to commit suicide. He reports drinking excessively and wants to stop. Patient is highly recommended to follow up with [facility], as he put a bed on hold prior to coming to the ED. He is recommended to stop drinking alcohol and follow up with outpatient services. Patient is recommended to begin services with an outpatient provider to assist with identifying triggers and learn positive coping skills. Patient has been given a community outpatient referral list to include phone numbers for [facility] and [facility] mobile crisis. He is hig hly recommended to abstain from alcohol use and begin attending AA meetings for additional support. Patient was informed if he experiences worsening or a significant change in his symptoms, notify the physician immediately, utilize mobile crisis, or return to the Emergency Department at any time for re- evaluation. Dr. Mansfield was consulted to care management of this patient; attending physicians in agreement with recommendations and disposition.
== END 2020-04-02 13:31 ==
LOC: ER 10:07
DX: F10.229 Alcohol dependence with intoxication, unspecified (principal); R45.851 Suicidal ideations; F32.9 Major depressive disorder, single episode, unspecified; I10 Essential (primary) hypertension; Z86.718 Personal history of other venous thrombosis and embolism
CPT/HCPCS: 93005; 99285; 96375; 96365; 36415; 80307 ×4; 83690; 85025; 80053; 81001; 93010; J1200; J3490; J3411; J7030; J7050

== ENCOUNTER 2020-04-04 16:35 | Inpatient (IN) | payer SELFPAY ==
--- NOTE | 2020-04-04 17:24 | ER Document Report ---
ED Psych Disorder / Suicide - General Chief Complaint: Psych Problem Stated Complaint: PSYCH EVAL/SENT BY ALL Time Seen by Provider: 04/04/20 16:56 Notes: Patient is a 45-year-old male who presents emergency department with possible alcohol withdrawals. Patient was admitted to [facility] 2 days ago. Patient ended up having seizures yesterday x2. Patient reports auditory and visual hallucinations. According to the transfer sheet, the patient has not been sleeping well. Since the patient started on benzodiazepines, the patient h as had some delirium, according to the report she. TRAVEL OUTSIDE OF THE [place] IN LAST 30 DAYS: No - Related Data Allergies/Adverse Reactions: No Known Allergies Allergy (Verified 04/02/20 10:34) Past Medical History - General Information source: Patient - Social History Smoking Status: Unknown if Ever Smoked Frequency of alcohol use: Heavy Family History: Reviewed & Not Pertinent, Hypertension - Past Medical History Cardiac Medical History: Reports: Hx Hypertension Denies: Hx Coronary Artery Disease, Hx Hypercholesterolemia Pulmonary Medical History: Denies: Hx Asthma, Hx COPD, Hx Tuberculosis Neurological Medical History: Reports: Hx Seizures Endocrine Medical History: Denies: Hx Diabetes Mellitus Type 1, Hx Diabetes Mellitus Type 2, Hx Hyperthyroidism, Hx Hypothyroidism Renal/ Medical History: Denies: Hx Peritoneal Dialysis GI Medical History: Reports: Hx Pancreatitis. Denies: Hx Cirrhosis, Hx Gastroesophageal Reflux Disease, Hx Hepatitis Musculoskeletal Medical History: Denies Hx Arthritis, Denies Hx Gout Skin Medical History: Denies Hx Eczema, Denies Hx Psoriasis Psychiatric Medical History: Reports: Hx Anxiety, Hx Bipolar Disorder, Hx Depression Infectious Medical History: Denies: Hx Hepatitis Past Surgical History: Reports: Hx Oral Surgery - Describes what sounds like a dental surgery, Other - Describes what sounds like a dental surgery - Immunizations Hx Diphtheria, Pertussis, Tetanus Vaccination: Yes - given in er today Review of Systems - Review of Systems Notes: REVIEW OF SYSTEMS: CONSTITUTIONAL : Denies recent illness. Denies recent unintentional weight loss. Denies fever, chills, or sweats. EENT: Denies eye, ear, throat, or mouth pain, discharge, or symptoms. Denies nasal or sinus congestion. CARDIOVASCULAR: Denies chest pain. RESPIRATORY: Denies shortness of breath, cough, congestion, difficulty breathing, or wheezing. GASTROINTESTINAL: Denies nausea, vomiting, and diarrhea. Denies abdominal pain. Denies constipation. GENITOURINARY: Denies difficulty urinating, burning, blood in urine, urgency or frequency. MUSCULOSKELETAL: Denies neck and back pain. Denies joint pain or swelling. SKIN: Denies rash, itchiness, or lesions HEMATOLOGIC : Denies easy bruising or bleeding. LYMPHATIC: Denies swollen, painful, enlarged glands. NEUROLOGICAL: Denies no numbness or tingling denies weakness. Denies headache. Denies alteration in speech. See HPI. PSYCHIATRIC: See HPI. All other systems reviewed and negative. Physical Exam - Vital signs Vitals: Temp Pulse Resp BP Pulse Ox 98.1 F 112 H 18 139/96 H 99 04/04/20 16:41 04/04/20 16:41 04/04/20 16:41 04/04/20 16:41 04/04/20 16:41 - Notes Notes: PHYSICAL EXAMINATION: GENERAL: Appears well, healthy, well-nourished, no acute distress. HEAD: Normocephalic, atraumatic. EYES: PERRL, conjunctiva normal, all extraocular movements intact, sclera nonicteric ENT: Moist mucous membranes. NECK: Supple, no noticeable swelling, redness, rash. Normal range of motion. LUNGS: Equal breath sounds bilaterally and clear to auscultation. No wheezes rales or rhonchi. CARDIOVASCULAR: S1-S2, regular rate, regular rhythm. Radial pulses 2+, normal. ABDOMEN: Normoactive bowel sounds. Soft, nontender, no guarding, no rebound tenderness, and no masses palpated. EXTREMITIES: Normal strength and range of motion, no pitting or edema. No cyanosis. NEUROLOGICAL: Moves all extremities upon command. Strength 5/5 in all extremities. Tremors noted. PSYCH: Visual hallucinations reported. SKIN: Warm, dry. No rash, lesions, ulcerations noted. Normal skin turgor. Course - Re-evaluation Re-evalutation: 04/04/20 19:47 I was told by the primary nurse that the patient was attempting multiple times to leave. Patient was placed in four-point restraints. We will give him 4 mg of Ativan. I suspect patient is going through alcohol withdrawals. Chemistries are unremarkable. Lipase is slightly elevated, patient has history of pancreatitis in the past. Hemoglobin is 12.4 and hematocrit is 35.6. Will reassess the patient after Ativan given. 04/04/20 21:54 Patient is finally resting. Patient has been resting for the past couple minutes, according to the nurse. 04/04/20 23:17 I reevaluated the patient and is is out of restraints. I asked if the patient could go to CT since he has not had this done due to his agitation. We ended up turning the patient and he became more agitated. He then went back to sleep after calming him. 04/04/20 23:[address] Sutton. He will evaluate the patient. 04/05/20 00:31 Patient will be admitted to [facility]. - Vital Signs Vital signs: Temp Pulse Resp BP Pulse Ox 97.3 F 112 H 25 H 134/86 H 96 04/04/20 20:01 04/04/20 16:41 04/04/20 23:30 04/04/20 23:30 04/04/20 23:30 - Laboratory Result Diagrams: 04/04/20 18:00 04/04/20 18:00 Laboratory results interpreted by me: 04/04/20 04/04/20 18:00 18:00 RBC 3.58 L Hgb 12.4 L Hct 35.6 L MCV 100 H MCH 34.6 H RDW 14.6 H Sodium 136.2 L Lipase 315.4 H Salicylates < 1.0 L Acetaminophen < 10 L Discharge - Discharge Clinical Impression: Alcohol withdrawal Qualifiers: Complication of substance-induced condition: with delirium Qualified Code(s): F10.231 - Alcohol dependence with withdrawal delirium Condition: Stable Disposition: ADMITTED INPATIENT Admitting Provider: Lesley (Hospitalist) Unit Admitted: [facility]
[2020-04-04] MEDS ORDERED: NORMAL SALINE 1000 ML 1,000 ML IV ONE (17:36)
[2020-04-04] MEDS ORDERED: DIPHENHYDRAMINE HCL 50 MG/ML VIAL IV ONE ×2 (17:36→20:47)
[2020-04-04] MEDS ORDERED: LORAZEPAM INJ 2 MG/1 ML VIAL IV ONE ×3 (17:36→20:46)
[2020-04-04 18:27] LABS: ABSOLUTE BASOPHILS # (AUTO) 0.1 10^3/uL (0.0-0.2); ABSOLUTE EOSINOPHILS # (AUTO) 0.1 10^3/uL (0.0-0.6); ABSOLUTE LYMPHOCYTES (AUTO) 1.3 10^3/uL (0.5-4.7); ABSOLUTE MONOCYTES (AUTO) 0.7 10^3/uL (0.1-1.4); ABSOLUTE NEUT (AUTO) 3.7 10^3/uL (1.7-8.2); BASOPHILS % (AUTO) 0.9 % (0-2); EOSINOPHILS % (AUTO) 2.5 % (0-6); HEMATOCRIT 35.6 % (37.9-51.0); HEMOGLOBIN 12.4 g/dL (13.5-17.0); MEAN CORPUSCULAR HEMOGLOBIN 34.6 pg (27.0-33.4); MEAN CORPUSCULAR HGB CONC 34.7 g/dL (32.0-36.0); MEAN CORPUSCULAR VOLUME 100 fl (80-97); MONOCYTES % (AUTO) 11.4 % (3-13); PLATELET COUNT 229 10^3/uL (150-450); RED BLOOD COUNT 3.58 10^6/uL (4.35-5.55); RED CELL DISTRIBUTION WIDTH 14.6 % (11.5-14.0); SEGMENTED NEUTROPHILS % (AUTO) 62.2 % (42-78); TOTAL CELLS COUNTED % (AUTO) 100 %; WHITE BLOOD COUNT 5.9 10^3/uL (4.0-10.5)
[2020-04-04 18:48] LABS: ALBUMIN 3.7 g/dL (3.5-5.0); ALKALINE PHOSPHATASE 111 U/L (38-126); ANION GAP 7 (5-19); ASPARTATE AMINO TRANSFERASE 49 U/L (17-59); BILIRUBIN,DIRECT 0.2 mg/dL (0.0-0.4); BILIRUBIN,TOTAL 0.5 mg/dL (0.2-1.3); BLOOD UREA NITROGEN 14 mg/dL (7-20); CALCIUM 8.8 mg/dL (8.4-10.2); CARBON DIOXIDE 25 mmol/L (22-30); CHLORIDE 104 mmol/L (98-107); GLUCOSE 110 mg/dL (75-110); POTASSIUM 4.4 mmol/L (3.6-5.0); TOTAL PROTEIN 6.5 g/dL (6.3-8.2)
[2020-04-04 18:49] LABS: ACETAMINOPHEN < 10 ug/mL (10-30); ALCOHOL < 10 mg/dL (NONE DETECTED); SALICYLATE < 1.0 mg/dL (2.0-20.0)
[2020-04-04 20:15] LABS: APPEARANCE,URINE CLEAR; BILIRUBIN,URINE NEGATIVE (NEGATIVE); CALCIUM OXALATE CRYSTALS,URINE FEW /HPF; COLOR,URINE YELLOW; GLUCOSE, URINE NEGATIVE (NEGATIVE); KETONES,URINE NEGATIVE (NEGATIVE); LEUKOCYTE ESTERASE,URINE NEGATIVE (NEGATIVE); NITRITE,URINE NEGATIVE (NEGATIVE); PROTEIN,URINE NEGATIVE (NEGATIVE); UROBILINOGEN,URINE NEGATIVE mg/dL (<2.0)
[2020-04-04 20:31] LABS: URINE AMPHETAMINES SCREEN NEGATIVE; URINE BARBITURATES SCREEN NEGATIVE; URINE BENZODIAZEPINES SCREEN NEGATIVE; URINE COCAINE SCREEN NEGATIVE; URINE MARIJUANA (THC) SCREEN NEGATIVE; URINE METHADONE SCREEN NEGATIVE; URINE PHENCYCLIDINE SCREEN NEGATIVE
[2020-04-04] MEDS ORDERED: DIAZEPAM INJ 10 MG/2 ML DISP.SYRIN IV ONE (21:00)
--- NOTE | 2020-04-04 21:12 | PSYCHOLOGICAL NOTE ---
Psych Note - Psych Note Date seen by psych provider: 03/30/20 Time seen by psych provider: 17:50 Psych Note: Patient arrived to [facility] ED by [facility]. Patient was originally seen by [facility] ED for medical clearance to go to [facility] on 04/02/2020. Clinician contacted [facility]. They confirm the patient was with them for alcohol detox. He disclosed the patient had 2 witnessed seizures yesterday however there was no complications so was not necessary to bring him to [facility] ED. They continue to report that they have been providing benzodiazepines however the patient had been progressively getting worse to the point where the attending medical provider made the decision that the patient needed to return to [facility] for medical assistance. Clinician attempted to engage patient in evaluation. Patient is able to demonstrate orientation to place stating that he was at [facility] and is now currently at [facility]. Patient is confused in regards to circumstances. Patient talks about his brother being in the room with him and straining a picture then starts to report that he needs to go to a family reunion tomorrow. Patient is highly agitated with significant psychomotor agitation. Medication recommendations per [facility] [place] contracted psychiatrist are as follows: [facility] protocol Thorazine 50 mg every 8 hours Cogentin 1 mg daily Haldol 2.5 mg every 6 hours as needed At this time patient appears to be demonstrating alcohol withdrawal delirium. Patient is unable to return to [place] as delirium is a exclusionary symptom. Dr. Mansfield was consulted to care management of this patient; attending physicians in agreement with recommendations and disposition.
[2020-04-04] MEDS ORDERED: HALOPERIDOL LACTATE INJ 5 MG/1 ML VIAL IV ONE (21:21)
[2020-04-04] MEDS ORDERED: HALOPERIDOL LACTATE INJ 5 MG/1 ML VIAL IM ONE (21:25)
--- NOTE | 2020-04-05 00:43 | PDOC H&P ---
History of Present Illness Admission Date/PCP: 04/04/2020 History of Present Illness: JACQUES BRITTON JR is a 45 year old male with numerous hospital visitations over the years often related to substance abuse or psychiatric issues. He was recently discharged from this hospital 1 week ago, and has been in the hospital for 5 times in the past couple of months due to either alcohol withdrawal, alcoholic pancreatitis, or both. This evening he had been at [facility] for alcohol detox. He apparently had a couple of witnessed seizures on 04/03/2020, but they seem to be relatively uncomplicated and it was not felt that further treatment or evaluation for them were necessary at that time. He began to have worsening delirium today and was sent to our ER. He is required numerous doses of medication for withdrawal symptoms and agitation, and was seen by psychiatry, who recommended treatment for his withdrawal delirium before he could return to [facility]. All of this information is obtained from the record as the patient is in no condition whatsoever to provide any sort of history at all at this time. Past Medical History Cardiac Medical History: Reports: Hypertension Denies: Coronary Artery Disease, Hyperlipidema Pulmonary Medical History: Denies: Asthma, Chronic Obstructive Pulmonary Disease (COPD), Tuberculosis Neurological Medical History: Reports: Seizures Endocrine Medical History: Denies: Diabetes Mellitus Type 1, Diabetes Mellitus Type 2, Hyperthyroidism, Hypothyroidism GI Medical History: Denies: Cirrhosis, Gastroesophageal Reflux Disease, Hepatitis Musculoskeltal Medical History: Denies: Arthritis, Gout Skin Medical History: Denies: Eczema, Psoriasis Psychiatric Medical History: Reports: Bipolar Disorder, Depression Hematology: Denies: Anemia, Bleeding Tendencies Past Surgical History Past Surgical History: Reports: Other - Describes what sounds like a dental surgery Social History Smoking Status: Unknown if Ever Smoked Frequency of Alcohol Use: Heavy Hx Recreational Drug Use: Yes Drugs: Marijuana Hx Prescription Drug Abuse: No - patient denies Family History Family History: Reviewed & Not Pertinent, Hypertension Parental Family History Reviewed: No - Unable to obtain Children Family History Reviewed: No - Unable to obtain Sibling(s) Family History Reviewed.: No - Unable to obtain Medication/Allergy Home Medications: Fluoxetine HCl [Prozac] 40 mg PO DAILY 12/29/19 Alprazolam [Xanax] 1 mg PO DAILYP PRN #15 02/13/20 Apixaban [Eliquis] 5 mg PO ASDIR #1 tab.ds.pk 02/20/20 Famotidine [Pepcid] 20 mg PO Q12 #60 tablet 03/28/20 Lisinopril/Hydrochlorothiazide [Lisinopril-Hctz 20-12.5 mg Tab] 1 each PO Q12 #60 tablet 03/28/20 Thiamine HCl [Thiamine 100 mg Tablet] 100 mg PO DAILY #30 tablet 03/28/20 Allergies/Adverse Reactions: No Known Allergies Allergy (Verified 04/02/20 10:34) Review of Systems ROS unobtainable: Due to mental status Physical Exam Vital Signs: Temp Pulse Resp BP Pulse Ox 97.3 F 112 H 25 H 134/86 H 96 04/04/20 20:01 04/04/20 16:41 04/04/20 23:30 04/04/20 23:30 04/04/20 23:30 Intake & Output 04/03/20 04/04/20 04/05/20 06:59 06:59 06:59 Intake Total 1000 Balance 1000 Weight 72.9 kg General appearance: PRESENT: no acute distress, disheveled, other - Sedated and somnolent Head exam: PRESENT: atraumatic, normocephalic Mouth exam: PRESENT: dry mucosa, neck supple Neck exam: PRESENT: full ROM. ABSENT: carotid bruit, JVD, lymphadenopathy, meningismus, tenderness, thyromegaly Respiratory exam: PRESENT: clear to auscultation deisy, symmetrical, unlabored. ABSENT: accessory muscle use, crackles, prolonged expiratory phas, rhonchi, tachypnea, wheezes Cardiovascular exam: PRESENT: RRR, +S1, +S2 Pulses: PRESENT: normal carotid pulses Vascular exam: PRESENT: normal capillary refill GI/Abdominal exam: PRESENT: normal bowel sounds, soft. ABSENT: distended, guard ing, rebound, tenderness Extremities exam: ABSENT: clubbing, pedal edema Musculoskeletal exam: PRESENT: normal inspection. ABSENT: deformity Neurological exam: PRESENT: altered Skin exam: PRESENT: dry, warm Results Laboratory Results: 04/04/20 18:00 04/04/20 18:00 04/04/20 04/04/20 04/04/20 18:00 18:00 18:00 WBC 5.9 RBC 3.58 L Hgb 12.4 L Hct 35.6 L MCV 100 H MCH 34.6 H MCHC 34.7 RDW 14.6 H Plt Count 229 Seg Neutrophils % 62.2 Sodium 136.2 L Potassium 4.4 Chloride 104 Carbon Dioxide 25 Anion Gap 7 BUN 14 Creatinine 0.57 Est GFR ( Amer) > 60 Glucose 110 Calcium 8.8 Total Bilirubin 0.5 AST 49 Alkaline Phosphatase 111 Ammonia 16.3 Total Protein 6.5 Albumin 3.7 Lipase 315.4 H Urine Color Urine Appearance Urine pH Ur Specific Prim Urine Protein Urine Glucose (UA) Urine Ketones Urine Blood Urine Nitrite Ur Leukocyte Esterase Urine WBC (Auto) Urine RBC (Auto) 04/04/20 18:00 WBC RBC Hgb Hct MCV MCH MCHC RDW Plt Count Seg Neutrophils % Sodium Potassium Chloride Carbon Dioxide Anion Gap BUN Creatinine Est GFR ( Amer) Glucose Calcium Total Bilirubin AST Alkaline Phosphatase Ammonia Total Protein Albumin Lipase Urine Color YELLOW Urine Appearance CLEAR Urine pH 6.0 Ur Specific Prim 1.020 Urine Protein NEGATIVE Urine Glucose (UA) NEGATIVE Urine Ketones NEGATIVE Urine Blood NEGATIVE Urine Nitrite NEGATIVE Ur Leukocyte Esterase NEGATIVE Urine WBC (Auto) 1 Urine RBC (Auto) 1 Assessment and Plan - Diagnosis (1) Alcohol withdrawal delirium, acute, hyperactive Is this a current diagnosis for this admission?: Yes (2) Alcoholism with alcohol dependence Qualifiers: Substance use status: in withdrawal Complication of substance-induced condition: with delirium Qualified Code(s): F10.231 - Alcohol dependence with withdrawal delirium Is this a current diagnosis for this admission?: Yes (3) Pancreatic pseudocyst Is this a current diagnosis for this admission?: Yes (4) Portal vein thrombosis Is this a current diagnosis for this admission?: Yes - Plan Summary Summary: We have him on a CIWA protocol with as needed Valium. We will give him a banana bag daily with vitamin supplementation. Once he is through his alcohol withdrawal he can return to [facility] for further detoxification and treatment. He apparently also has a history of a portal vein thrombosis and is supposed to be on Eliquis. There is no way to tell at this time if he has been taking it. - Time Time Spent with patient: 35 or more minutes Anticipated Discharge Disposition: Psych Hospital/Unit Anticipated Discharge Timeframe: Unknown - Inpatient Certification Based on my medical assessment, after consideration of the patient's comorbidities, presenting symptoms, or acuity I expect that the services needed warrant INPATIENT care.: Yes I certify that my determination is in accordance with my understanding of Medicare's requirements for reasonable and necessary INPATIENT services [42 CFR 412.3e].: Yes Medical Necessity: Failure to Improve With Outpatient Therapy, Significant Comorbidiites Make Outpatient Treatment Too Risky, Need Close Monitoring Due to Risk of Patient Decompensation, Need For IV Fluids, Need For Continuous Telemetry Monitoring, Need for Neurological Checks, Risk of Complication if Not Cared For in Hospital
[2020-04-05] MEDS: DIAZEPAM INJ 10 MG/2 ML DISP.SYRIN IV PRN ×2 (03:44→08:14)
--- NOTE | 2020-04-05 04:57 | RADIOLOGY REPORT (SQ) ---
EXAM DESCRIPTION: CT HEAD WITHOUT IV CONTRAST COMPLETED DATE/TME: 04/05/2020 04:13 CLINICAL HISTORY: seizure; ETOH abuse COMPARISON: 04/26/1712 TECHNIQUE: Axial CT of the head obtained from the skull apex to the skull base without contrast. FINDINGS: No acute intracranial hemorrhage identified. No mass, mass effect, shift of the midline, abnormal extra-axial fluid collection or CT evidence of acute ischemic change identified. The ventricular system is unremarkable. No acute abnormalities of the supratentorial white matter, basal ganglia, cerebellum, or brainstem. The visualized paranasal sinuses and the mastoid air cells are relatively well aerated. No skull fracture identified. Visualized orbits and globes are unremarkable. IMPRESSION: 1. No acute intracranial abnormality identified. This exam was performed according to our departmental dose-optimization program, which includes automated exposure control, adjustment of the mA and/or kV according to patient size and/or use of iterative reconstruction technique.
--- NOTE | 2020-04-05 08:32 | EKG REPORT ---
SEVERITY:- DEFECTIVE ECG - SINUS TACHYCARDIA : Confirmed by: Darren Mena MD 05-Apr-2020 08:31:52
[2020-04-05] MEDS: HALOPERIDOL 5 MG TABLET PO PRN (10:45)
[2020-04-05] MEDS ORDERED: DIAZEPAM INJ 10 MG/2 ML DISP.SYRIN IV SCH (12:00)
[2020-04-05] MEDS: CHLORPROMAZINE HCL 50 MG TABLET PO SCH ×2 (13:36→21:55)
--- NOTE | 2020-04-05 16:04 | PDOC PROGRESS REPORT ---
Subjective Date:: 04/05/20 Subjective:: The patient is a 45-year-old male with hypertension, bipolar, depression, alcohol dependence with continuous use, and recurrent admissions for alcohol related disorders (pancreatitis, withdrawal, acute intoxication) who was admitted 04/04/2020 with acute alcohol withdrawal with delirium treatments. Patient was seen on afternoon rounds. He was found sitting up in bed, comfortab ly, on room air. He remains tremulous but is alert and oriented x4. He states that he was sent from [facility] due to multiple seizures in the office. He states that prior to his admission to the treatment center, he was homeless years to detox and after return to the treatment center. He denies fever, chills, chest pain, palpitation, dyspnea, abdominal pain, nausea vomiting and diarrhea. He has no other questions or concerns at this time. Per nursing, patient has done well with the scheduled Valium and as needed Haldol throughout the day. She reports that other than his tremors, he has had few objective signs of withdrawal. Vital signs remained stable. Reason For Visit: ETOH WITHDRAWL Physical Exam Vital Signs: Temp Pulse Resp BP Pulse Ox 97.9 F 95 23 H 147/98 H 98 04/05/20 13:30 04/04/20 17:29 04/05/20 13:30 04/05/20 13:30 04/05/20 13:30 Intake & Output 04/04/20 04/05/20 04/06/20 06:59 06:59 06:59 Intake Total 1000 Output Total 500 Balance 1000 -500 Weight 72.9 kg General appearance: PRESENT: no acute distress, cooperative, disheveled, well- developed, well-nourished Head exam: PRESENT: atraumatic, normocephalic Eye exam: PRESENT: conjunctiva pink, EOMI, PERRLA. ABSENT: scleral icterus Mouth exam: PRESENT: moist, tongue midline Respiratory exam: PRESENT: clear to auscultation deisy, symmetrical, unlabored. ABSENT: rales, rhonchi, wheezes Cardiovascular exam: PRESENT: RRR, +S1, +S2. ABSENT: diastolic murmur, rubs, systolic murmur Pulses: PRESENT: normal dorsalis pedis pul Vascular exam: PRESENT: normal capillary refill GI/Abdominal exam: PRESENT: normal bowel sounds, soft. ABSENT: distended, guarding, mass, organolmegaly, rebound, tenderness Rectal exam: PRESENT: deferred Extremities exam: PRESENT: full ROM. ABSENT: calf tenderness, clubbing, pedal edema Neurological exam: PRESENT: alert, awake, oriented to person, oriented to place, oriented to time, oriented to situation, CN II-XII grossly intact, other - Tremulous. ABSENT: motor sensory deficit Psychiatric exam: PRESENT: appropriate affect, normal mood. ABSENT: homicidal ideation, suicidal ideation Skin exam: PRESENT: dry, intact, warm. ABSENT: cyanosis, rash Results Laboratory Results: 04/04/20 18:00 04/04/20 18:00 04/04/20 04/04/20 04/04/20 18:00 18:00 18:00 WBC 5.9 RBC 3.58 L Hgb 12.4 L Hct 35.6 L MCV 100 H MCH 34.6 H MCHC 34.7 RDW 14.6 H Plt Count 229 Seg Neutrophils % 62.2 Sodium 136.2 L Potassium 4.4 Chloride 104 Carbon Dioxide 25 Anion Gap 7 BUN 14 Creatinine 0.57 Est GFR ( Amer) > 60 Glucose 110 Calcium 8.8 Total Bilirubin 0.5 AST 49 Alkaline Phosphatase 111 Ammonia 16.3 Total Protein 6.5 Albumin 3.7 Lipase 315.4 H Urine Color Urine Appearance Urine pH Ur Specific Bon[place]arte Urine Protein Urine Glucose (UA) Urine Ketones Urine Blood Urine Nitrite Ur Leukocyte Esterase Urine WBC (Auto) Urine RBC (Auto) 04/04/20 18:00 WBC RBC Hgb Hct MCV MCH MCHC RDW Plt Count Seg Neutrophils % Sodium Potassium Chloride Carbon Dioxide Anion Gap BUN Creatinine Est GFR ( Amer) Glucose Calcium Total Bilirubin AST Alkaline Phosphatase Ammonia Total Protein Albumin Lipase Urine Color YELLOW Urine Appearance CLEAR Urine pH 6.0 Ur Specific [place] 1.020 Urine Protein NEGATIVE Urine Glucose (UA) NEGATIVE Urine Ketones NEGATIVE Urine Blood NEGATIVE Urine Nitrite NEGATIVE Ur Leukocyte Esterase NEGATIVE Urine WBC (Auto) 1 Urine RBC (Auto) 1 Impressions: Head CT 04/04/20 17:37 IMPRESSION: 1. No acute intracranial abnormality identified. This exam was performed according to our departmental dose-optimization program, which includes automated exposure control, adjustment of the mA and/or kV according to patient size and/or use of iterative reconstruction technique. Assessment and Plan - Diagnosis (1) Alcohol withdrawal delirium, acute, hyperactive Is this a current diagnosis for this admission?: Yes Plan: Patient is admitted to [facility] on continuous cardiac telemetry. To receive banana bag daily. Continue scheduled Valium 10 mg IV every 4 hours. Mental health consultation obtained; have reviewed and initiated their medication recommendations. Start Cogentin 1 mg daily. Start Thorazine 50 mg every 8 hours. Start Haldol every 6 as needed. We will continue CIWA monitoring every 2 hours; will ask nursing to report scores greater than 10. Judicious use of prn benzos: It is of importance to note that during prior admission, the patient had researched CIWA scores written down the responses required to qualify for as needed Ativan. He did admit to me personally, that he did this intentionally because he was, "scared to withdraw and still craving alcohol." (2) Alcoholism with alcohol dependence Qualifiers: Substance use status: in withdrawal Complication of substance-induced condition: with delirium Qualified Code(s): F10.231 - Alcohol dependence with withdrawal delirium Is this a current diagnosis for this admission?: Yes Plan: Cessation to be encouraged. Mental health consultation obtained. Banana bag nightly. (3) Pancreatic pseudocyst Is this a current diagnosis for this admission?: Yes Plan: Lipase mildly elevated to 315.4. Monitor for worsening abd symptoms to indicate acute pancreatitis flare. (4) Portal vein thrombosis Is this a current diagnosis for this admission?: Yes Plan: Diagnosed w/ portal vein thrombosis and splenic thrombus mid-February. Was discharged on Eliquis. Will resume Eliquis. - Time Time Spent with patient: 35 or more minutes Medications reviewed and adjusted accordingly: Yes Anticipated Discharge Disposition: ALL Anticipated Discharge Timeframe: within 72 hours
[2020-04-05] MEDS ORDERED: CLONIDINE HCL 0.1 MG TABLET PO PRN (16:41)
[2020-04-05] MEDS: APIXABAN 5 MG TABLET PO SCH (17:18)
[2020-04-05] MEDS: DIAZEPAM INJ 10 MG/2 ML DISP.SYRIN IV SCH ×2 (17:19→21:07)
[2020-04-05] MEDS ORDERED: NORMAL SALINE 1000 ML 1,000 ML with POTASSIUM CHLORIDE 20 MEQ, MAGNESIUM SULFATE 8 MEQ,... IV SCH ×5 (18:00)
[2020-04-05] MEDS: LISINOPRIL 10 MG TABLET PO SCH (18:24)
[2020-04-05] MEDS: BENZTROPINE MESYLATE 1 MG TABLET PO SCH (21:07)
[2020-04-05] MEDS ORDERED: CHLORPROMAZINE HCL 25 MG TABLET ONE (21:35)
[2020-04-06] MEDS: DIAZEPAM INJ 10 MG/2 ML DISP.SYRIN IV SCH ×3 (01:18→09:24)
[2020-04-06] MEDS: HALOPERIDOL 5 MG TABLET PO PRN ×3 (02:41→21:55)
[2020-04-06] MEDS: CHLORPROMAZINE HCL 50 MG TABLET PO SCH ×3 (05:18→21:57)
[2020-04-06 07:28] LABS: HEMATOCRIT 36.4 % (37.9-51.0); HEMOGLOBIN 12.6 g/dL (13.5-17.0); MEAN CORPUSCULAR HEMOGLOBIN 34.2 pg (27.0-33.4); MEAN CORPUSCULAR HGB CONC 34.5 g/dL (32.0-36.0); MEAN CORPUSCULAR VOLUME 99 fl (80-97); PLATELET COUNT 240 10^3/uL (150-450); RED BLOOD COUNT 3.68 10^6/uL (4.35-5.55); RED CELL DISTRIBUTION WIDTH 14.1 % (11.5-14.0); WHITE BLOOD COUNT 5.8 10^3/uL (4.0-10.5)
[2020-04-06 07:50] LABS: ANION GAP 6 (5-19); BLOOD UREA NITROGEN 9 mg/dL (7-20); CALCIUM 8.8 mg/dL (8.4-10.2); CARBON DIOXIDE 25 mmol/L (22-30); CHLORIDE 106 mmol/L (98-107); GLUCOSE 93 mg/dL (75-110); POTASSIUM 4.5 mmol/L (3.6-5.0)
[2020-04-06] MEDS: LISINOPRIL 10 MG TABLET PO SCH (09:24)
[2020-04-06] MEDS: HYDROCHLOROTHIAZIDE 12.5 MG TABLET PO SCH (09:24)
[2020-04-06] MEDS: APIXABAN 5 MG TABLET PO SCH ×2 (09:24→17:47)
[2020-04-06] MEDS ORDERED: DIAZEPAM 5 MG TABLET PO SCH (11:15)
--- NOTE | 2020-04-06 11:31 | PDOC PROGRESS REPORT ---
Subjective Date:: 04/06/20 Subjective:: The patient is a 45-year-old male with hypertension, bipolar, depression, alcohol dependence with continuous use, and recurrent admissions for alcohol related disorders (pancreatitis, withdrawal, acute intoxication) who was admitted 04/04/2020 with acute alcohol withdrawal with delirium treatments. Patient was seen on morning rounds. He was found sitting up in bed, comfortably , on room air. He is A&Ox4; remains tremulous at rest but is noted not to have hand tremor when reaching for his drink and blankets. He reports slight headache but denies all other symptoms. Patient is asked about his plans to return to rehab following discharge. He states that he would "prefer to stay here, it is better than [place]. When redirected that [place] does not provide rehabilitation services, patient states that he is interested in a facility in [place] but did not know the name. He spedcifically denies fever, chills, chest pain, palpitation, dyspnea, abdominal pain, nausea vomiting and diarrhea. He has no other questions or concerns at this time. Nursing reports similar observation regarding tremors. CIWA scores consistently less than 6. Only concern is uncontrolled hypertension at this time. Reason For Visit: ETOH WITHDRAWL Physical Exam Vital Signs: Temp Pulse Resp BP Pulse Ox 98.0 F 85 18 164/114 H 100 04/06/20 08:15 04/06/20 08:08 04/06/20 08:08 04/06/20 08:08 04/06/20 08:08 Intake & Output 04/05/20 04/06/20 04/07/20 06:59 06:59 06:59 Intake Total 1000 1683 Output Total 975 Balance 1000 708 Weight 72.9 kg 75.4 kg General appearance: PRESENT: no acute distress, cooperative, disheveled, well-d eveloped, well-nourished Head exam: PRESENT: atraumatic, normocephalic Eye exam: PRESENT: conjunctiva pink, EOMI, PERRLA. ABSENT: scleral icterus Mouth exam: PRESENT: moist, tongue midline Neck exam: ABSENT: carotid bruit, JVD, lymphadenopathy, thyromegaly Respiratory exam: PRESENT: clear to auscultation deisy, symmetrical, unlabored. ABSENT: rales, rhonchi, wheezes Cardiovascular exam: PRESENT: RRR, +S1, +S2. ABSENT: diastolic murmur, rubs, systolic murmur, tachycardia Pulses: PRESENT: normal dorsalis pedis pul Vascular exam: PRESENT: normal capillary refill GI/Abdominal exam: PRESENT: normal bowel sounds, soft. ABSENT: distended, guarding, mass, organolmegaly, rebound, tenderness Rectal exam: PRESENT: deferred Extremities exam: PRESENT: full ROM. ABSENT: calf tenderness, clubbing, pedal edema Musculoskeletal exam: PRESENT: ambulatory Neurological exam: PRESENT: alert, awake, oriented to person, oriented to place, oriented to time, oriented to situation, CN II-XII grossly intact, other - Slight tremor; intermittent and inconsistent.. ABSENT: motor sensory deficit Psychiatric exam: PRESENT: appropriate affect, normal mood. ABSENT: homicidal ideation, suicidal ideation Skin exam: PRESENT: dry, intact, warm. ABSENT: cyanosis, rash Results Laboratory Results: 04/06/20 07:13 04/06/20 07:13 04/06/20 04/06/20 07:13 07:13 WBC 5.8 RBC 3.68 L Hgb 12.6 L Hct 36.4 L MCV 99 H MCH 34.2 H MCHC 34.5 RDW 14.1 H Plt Count 240 Sodium 137.1 Potassium 4.5 Chloride 106 Carbon Dioxide 25 Anion Gap 6 BUN 9 Creatinine 0.63 Est GFR ( Amer) > 60 Glucose 93 Calcium 8.8 Impressions: Head CT 04/04/20 17:37 IMPRESSION: 1. No acute intracranial abnormality identified. This exam was performed according to our departmental dose-optimization program, which includes automated exposure control, adjustment of the mA and/or kV according to patient size and/or use of iterative reconstruction technique. Assessment and Plan - Diagnosis (1) Alcohol withdrawal delirium, acute, hyperactive Is this a current diagnosis for this admission?: Yes Plan: Patient is admitted to [facility] on continuous cardiac telemetry. Mental health consultation obtained; have reviewed and initiated their medication recommendations. Continue Cogentin 1 mg daily. Continue Thorazine 50 mg every 8 hours. Continue Haldol every 6 as needed. Transition to oral Valium; decrease dose to 10 mg every 6 hours. Start gabapentin 300 mg every 8 hours. We will continue CIWA monitoring every 2 hours; will ask nursing to report scores greater than 10. Judicious use of prn benzos: It is of importance to note that during prior admission, the patient had researc hed CIWA scores written down the responses required to qualify for as needed Ativan. He did admit to me personally, that he did this intentionally because he was, "scared to withdraw and still craving alcohol." Discussed with [facility]; patient no longer has a bed on hold. They advised that they do not provide scheduled benzodiazepines for patients with a history of abuse; therefore, patient will need to be weaned from benzodiazepines prior to reevaluation at their facility. (2) Alcoholism with alcohol dependence Qualifiers: Substance use status: in withdrawal Complication of substance-induced condition: with delirium Qualified Code(s): F10.231 - Alcohol dependence with withdrawal delirium Is this a current diagnosis for this admission?: Yes Plan: Cessation to be encouraged. Mental health consultation obtained. Daily multivitamin, thiamine, and folic acid supplementation. Discharge planning consulted. (3) Pancreatic pseudocyst Is this a current diagnosis for this admission?: Yes Plan: Lipase mildly elevated to 315.4. Monitor for worsening abd symptoms to indicate acute pancreatitis flare. (4) Portal vein thrombosis Is this a current diagnosis for this admission?: Yes Plan: Diagnosed w/ portal vein thrombosis and splenic thrombus mid-February. Was discharged on Eliquis. Will resume Eliquis. (5) Hypertension Qualifiers: Hypertension type: essential hypertension Qualified Code(s): I10 - Essential (primary) hypertension Is this a current diagnosis for this admission?: Yes Plan: Lisinopril 40 mg daily. Hydrochlorothiazide 12.5 mg every morning. P.o. clonidine as needed for blood pressure control. - Time Time Spent with patient: 35 or more minutes Medications reviewed and adjusted accordingly: Yes Anticipated Discharge Disposition: Home, Self Care Anticipated Discharge Timeframe: within 48 hours
[2020-04-06] MEDS: MULTIVITAMIN TABLET PO SCH (11:49)
[2020-04-06] MEDS: THIAMINE HCL 100 MG TABLET PO SCH (11:50)
[2020-04-06] MEDS: DIAZEPAM 5 MG TABLET PO SCH ×3 (11:50→23:00)
[2020-04-06] MEDS: FOLIC ACID 1 MG TABLET PO SCH (11:50)
[2020-04-06] MEDS: CLONIDINE HCL 0.1 MG TABLET PO PRN (11:50)
[2020-04-06] MEDS: GABAPENTIN 300 MG CAPSULE PO SCH ×2 (14:32→21:55)
[2020-04-06] MEDS: BENZTROPINE MESYLATE 1 MG TABLET PO SCH (21:55)
[2020-04-07] MEDS: GABAPENTIN 300 MG CAPSULE PO SCH ×3 (05:58→21:11)
[2020-04-07] MEDS: DIAZEPAM 5 MG TABLET PO SCH ×3 (05:58→17:29)
[2020-04-07] MEDS: HALOPERIDOL 5 MG TABLET PO PRN ×2 (05:58→19:58)
[2020-04-07] MEDS: CHLORPROMAZINE HCL 50 MG TABLET PO SCH ×3 (05:59→21:11)
[2020-04-07 06:36] LABS: HEMATOCRIT 39.5 % (37.9-51.0); HEMOGLOBIN 13.7 g/dL (13.5-17.0); MEAN CORPUSCULAR HEMOGLOBIN 34.6 pg (27.0-33.4); MEAN CORPUSCULAR HGB CONC 34.7 g/dL (32.0-36.0); MEAN CORPUSCULAR VOLUME 100 fl (80-97); PLATELET COUNT 247 10^3/uL (150-450); RED BLOOD COUNT 3.96 10^6/uL (4.35-5.55); RED CELL DISTRIBUTION WIDTH 14.6 % (11.5-14.0); WHITE BLOOD COUNT 6.2 10^3/uL (4.0-10.5)
[2020-04-07 06:55] LABS: ANION GAP 7 (5-19); BLOOD UREA NITROGEN 14 mg/dL (7-20); CALCIUM 9.4 mg/dL (8.4-10.2); CARBON DIOXIDE 28 mmol/L (22-30); CHLORIDE 102 mmol/L (98-107); GLUCOSE 113 mg/dL (75-110); POTASSIUM 4.3 mmol/L (3.6-5.0)
[2020-04-07] MEDS: FOLIC ACID 1 MG TABLET PO SCH (09:38)
[2020-04-07] MEDS: LISINOPRIL 10 MG TABLET PO SCH (09:38)
[2020-04-07] MEDS: APIXABAN 5 MG TABLET PO SCH ×2 (09:38→17:29)
[2020-04-07] MEDS: THIAMINE HCL 100 MG TABLET PO SCH (09:38)
[2020-04-07] MEDS: MULTIVITAMIN TABLET PO SCH (09:38)
[2020-04-07] MEDS: HYDROCHLOROTHIAZIDE 12.5 MG TABLET PO SCH (09:38)
[2020-04-07] MEDS ORDERED: DIAZEPAM 5 MG TABLET PO SCH (12:00)
[2020-04-07] MEDS: CLONIDINE HCL 0.1 MG TABLET PO PRN (12:33)
--- NOTE | 2020-04-07 17:15 | PDOC PROGRESS REPORT ---
Subjective Date:: 04/07/20 Subjective:: The patient is a 45-year-old male with hypertension, bipolar, depression, alcohol dependence with continuous use, and recurrent admissions for alcohol related disorders (pancreatitis, withdrawal, acute intoxication) who was admitted 04/04/2020 with acute alcohol withdrawal with delirium treatments. Patient was seen on afternoon rounds. He was found sitting up in bed, comfortab ly, on room air. He is A&Ox4. No visualized tremor today. He does report some generalized anxiety/restlessness, but otherwise denies complaints. We discussed his likely discharge tomorrow; patient states he feels ready and plans to return to [place]. He denies fever, chills, chest pain, palpitation, dyspnea, abdominal pain, nausea vomiting and diarrhea. He has no other questions or concerns at this time. Nursing reports elevated blood pressures, no other vital sign changes. CIWA consistently <10. No other concerns. Reason For Visit: ETOH WITHDRAWL Physical Exam Vital Signs: Temp Pulse Resp BP Pulse Ox 97.2 F 88 16 155/111 H 98 04/07/20 12:17 04/07/20 14:00 04/07/20 12:17 04/07/20 12:17 04/07/20 12:17 Intake & Output 04/06/20 04/07/20 04/08/20 06:59 06:59 06:59 Intake Total 1683 1950 Output Total 975 Balance 708 1950 Weight 75.4 kg 73.9 kg General appearance: PRESENT: no acute distress, disheveled, well-developed, wel l-nourished Head exam: PRESENT: atraumatic, normocephalic Eye exam: PRESENT: conjunctiva pink, EOMI, PERRLA. ABSENT: scleral icterus Mouth exam: PRESENT: moist, tongue midline Teeth exam: PRESENT: poor dentation Respiratory exam: PRESENT: clear to auscultation deisy, symmetrical, unlabored, other - room air. ABSENT: rales, rhonchi, wheezes Cardiovascular exam: PRESENT: RRR, +S1, +S2. ABSENT: diastolic murmur, rubs, systolic murmur Vascular exam: PRESENT: normal capillary refill GI/Abdominal exam: PRESENT: normal bowel sounds, soft. ABSENT: distended, guarding, mass, organolmegaly, rebound, tenderness Rectal exam: PRESENT: deferred Extremities exam: PRESENT: full ROM. ABSENT: calf tenderness, clubbing, pedal edema Musculoskeletal exam: PRESENT: ambulatory Neurological exam: PRESENT: alert, awake, oriented to person, oriented to place, oriented to time, oriented to situation, CN II-XII grossly intact. ABSENT: motor sensory deficit Psychiatric exam: PRESENT: appropriate affect, normal mood. ABSENT: homicidal ideation, suicidal ideation Skin exam: PRESENT: dry, intact, warm. ABSENT: cyanosis, rash Results Laboratory Results: 04/07/20 06:21 04/07/20 06:21 04/07/20 04/07/20 06:21 06:21 WBC 6.2 RBC 3.96 L Hgb 13.7 Hct 39.5 MCV 100 H MCH 34.6 H MCHC 34.7 RDW 14.6 H Plt Count 247 Sodium 137.0 Potassium 4.3 Chloride 102 Carbon Dioxide 28 Anion Gap 7 BUN 14 Creatinine 0.71 Est GFR ( Amer) > 60 Glucose 113 H Calcium 9.4 Impressions: Head CT 04/04/20 17:37 IMPRESSION: 1. No acute intracranial abnormality identified. This exam was performed according to our departmental dose-optimization program, which includes automated exposure control, adjustment of the mA and/or kV according to patient size and/or use of iterative reconstruction technique. Assessment and Plan - Diagnosis (1) Alcohol withdrawal delirium, acute, hyperactive Is this a current diagnosis for this admission?: Yes Plan: Patient is admitted to [facility] on continuous cardiac telemetry. Mental health consultation obtained; have reviewed and initiated their medicat ion recommendations. Continue Cogentin 1 mg daily. Continue Thorazine 50 mg every 8 hours. Continue Haldol every 6 as needed. Continue weaning oral valium. Continue gabapentin 300 mg every 8 hours. We will continue CIWA monitoring every 4 hours; will ask nursing to report scores greater than 10. Judicious use of prn benzos: It is of importance to note that during prior admission, the patient had researched CIWA scores written down the responses required to qualify for as needed Ativan. He did admit to me personally, that he did this intentionally because he was, "scared to withdraw and still craving alcohol." Discussed with [facility]; patient no longer has a bed on hold. They advised that they do not provide scheduled benzodiazepines for patients with a history of abuse; therefore, patient will need to be weaned from benzodiazepines prior to reevaluation at their facility. (2) Alcoholism with alcohol dependence Qualifiers: Substance use status: in withdrawal Complication of substance-induced condition: with delirium Qualified Code(s): F10.231 - Alcohol dependence with withdrawal delirium Is this a current diagnosis for this admission?: Yes Plan: Cessation to be encouraged. Mental health consultation obtained. Daily multivitamin, thiamine, and folic acid supplementation. Discharge planning consulted. (3) Pancreatic pseudocyst Is this a current diagnosis for this admission?: Yes Plan: Lipase mildly elevated to 315.4. Monitor for worsening abd symptoms to indicate acute pancreatitis flare. (4) Portal vein thrombosis Is this a current diagnosis for this admission?: Yes Plan: Diagnosed w/ portal vein thrombosis and splenic thrombus mid-February. Was discharged on Eliquis. Will resume Eliquis. (5) Hypertension Qualifiers: Hypertension type: essential hypertension Qualified Code(s): I10 - Essent ial (primary) hypertension Is this a current diagnosis for this admission?: Yes Plan: Lisinopril 40 mg daily. Hydrochlorothiazide 25 mg every morning. Amlodipine 10 mg qHS P.o. clonidine as needed for blood pressure control. - Time Time Spent with patient: 25-34 minutes Medications reviewed and adjusted accordingly: Yes Anticipated Discharge Disposition: Home, Self Care Anticipated Discharge Timeframe: within 24 hours
[2020-04-07] MEDS: BENZTROPINE MESYLATE 1 MG TABLET PO SCH (21:11)
[2020-04-07] MEDS ORDERED: AMLODIPINE BESYLATE 10 MG TABLET PO SCH (22:00)
[2020-04-08] MEDS: DIAZEPAM 5 MG TABLET PO SCH ×2 (00:22→05:25)
[2020-04-08] MEDS: CHLORPROMAZINE HCL 50 MG TABLET PO SCH (05:24)
[2020-04-08] MEDS: GABAPENTIN 300 MG CAPSULE PO SCH (05:24)
[2020-04-08 07:02] LABS: HEMATOCRIT 39.6 % (37.9-51.0); HEMOGLOBIN 13.7 g/dL (13.5-17.0); MEAN CORPUSCULAR HEMOGLOBIN 34.6 pg (27.0-33.4); MEAN CORPUSCULAR HGB CONC 34.5 g/dL (32.0-36.0); MEAN CORPUSCULAR VOLUME 100 fl (80-97); PLATELET COUNT 222 10^3/uL (150-450); RED BLOOD COUNT 3.95 10^6/uL (4.35-5.55); RED CELL DISTRIBUTION WIDTH 14.6 % (11.5-14.0); WHITE BLOOD COUNT 7.3 10^3/uL (4.0-10.5)
[2020-04-08 07:31] LABS: ANION GAP 6 (5-19); BLOOD UREA NITROGEN 15 mg/dL (7-20); CALCIUM 9.6 mg/dL (8.4-10.2); CARBON DIOXIDE 28 mmol/L (22-30); CHLORIDE 102 mmol/L (98-107); GLUCOSE 82 mg/dL (75-110); POTASSIUM 4.7 mmol/L (3.6-5.0)
[2020-04-08] MEDS ORDERED: HYDROCHLOROTHIAZIDE 25 MG TABLET PO SCH (08:00)
[2020-04-08] MEDS ORDERED: HYDROCHLOROTHIAZIDE 12.5 MG TABLET PO SCH (08:00)
[2020-04-08 09:25] VITALS: BP 112/72
[2020-04-08] MEDS: FOLIC ACID 1 MG TABLET PO SCH (10:30)
[2020-04-08] MEDS: APIXABAN 5 MG TABLET PO SCH (10:30)
[2020-04-08] MEDS: THIAMINE HCL 100 MG TABLET PO SCH (10:30)
[2020-04-08] MEDS: LISINOPRIL 10 MG TABLET PO SCH (10:30)
[2020-04-08] MEDS: MULTIVITAMIN TABLET PO SCH (10:30)
[2020-04-08] MEDS: HALOPERIDOL 5 MG TABLET PO PRN (10:31)
[2020-04-08] MEDS ORDERED: DIAZEPAM 2 MG TABLET PO SCH (12:00)
--- NOTE | 2020-04-08 18:57 | PDOC DISCHARGE SUMMARY ---
Impression - Admit/DC Date/PCP Admission Date/Primary Care Provider: 04/05/20 00:25 Discharge Date: 04/08/20 - Discharge Diagnosis (1) Alcohol withdrawal delirium, acute, hyperactive Is this a current diagnosis for this admission?: Yes (2) Alcoholism with alcohol dependence Is this a current diagnosis for this admission?: Yes (3) Pancreatic pseudocyst Is this a current diagnosis for this admission?: Yes (4) Portal vein thrombosis Is this a current diagnosis for this admission?: Yes (5) Hypertension Is this a current diagnosis for this admission?: Yes - Additional Information Discharge Diet: Cardiac Discharge Activity: Activity As Tolerated, Balance Activity w/Rest Referrals: [facility] [Outside] (Report to the [facility] treatment [facility] immediately following discharge.) Prescriptions: Benztropine Mesylate [Cogentin 1 mg Tablet] 1 mg PO QHS #30 tablet Apixaban [Eliquis 5 mg Tablet] 5 mg PO BID #60 tablet Folic Acid [Folvite 1 mg Tablet] 1 mg PO DAILY #90 tablet Hydrochlorothiazide [Hydrodiuril 25 mg Tablet] 25 mg PO QAM #30 tablet Gabapentin [Neurontin 300 mg Capsule] 300 mg PO Q8 #90 capsule Amlodipine Besylate [Norvasc 10 mg Tablet] 10 mg PO QHS #30 tablet Multivitamin [Tab-A-Ozzy (Multiple Vitamin) Tablet] 1 tab PO DAILY #90 tablet Thiamine HCl [Thiamine 100 mg Tablet] 100 mg PO DAILY #90 tablet Chlorpromazine HCl [Thorazine 50 mg Tablet] 50 mg PO Q8 #90 tablet Diazepam [Valium 2 mg Tablet] 2 mg PO Q6HP PRN #8 tablet PRN Reason: Lisinopril [Zestril] 40 mg PO DAILY #30 tablet Home Medications: Amlodipine Besylate [Norvasc 10 mg Tablet] 10 mg PO QHS #30 tablet 04/08/20 Apixaban [Eliquis 5 mg Tablet] 5 mg PO BID #60 tablet 04/08/20 Benztropine Mesylate [Cogentin 1 mg Tablet] 1 mg PO QHS #30 tablet 04/08/20 Chlorpromazine HCl [Thorazine 50 mg Tablet] 50 mg PO Q8 #90 tablet 04/08/20 Diazepam [Valium 2 mg Tablet] 2 mg PO Q6HP PRN #8 tablet 04/08/20 Folic Acid [Folvite 1 mg Tablet] 1 mg PO DAILY #90 tablet 04/08/20 Gabapentin [Neurontin 300 mg Capsule] 300 mg PO Q8 #90 capsule 04/08/20 Hydrochlorothiazide [Hydrodiuril 25 mg Tablet] 25 mg PO QAM #30 tablet 04/08/20 Lisinopril [Zestril] 40 mg PO DAILY #30 tablet 04/08/20 Multivitamin [Tab-A-Ozzy (Multiple Vitamin) Tablet] 1 tab PO DAILY #90 tablet 04/08/20 Thiamine HCl [Thiamine 100 mg Tablet] 100 mg PO DAILY #90 tablet 04/08/20 History of Present Illiness History of Present Illness: Per H&P by Dr. Sutton: JACQUES BRITTON JR is a 45 year old male with numerous hospital visitations over the years often related to substance abuse or psychiatric issues. He was recently discharged from this hospital 1 week ago, and has been in the hospital for 5 times in the past couple of months due to either alcohol withdrawal, alcoholic pancreatitis, or both. This evening he had been at [facility] for alcohol detox. He apparently had a couple of witnessed seizures on 04/03/2020, but they seem to be relatively uncomplicated and it was not felt that further treatment or evaluation for them were necessary at that time. He began to have worsening delirium today and was sent to our ER. He is required numerous doses of medication for withdrawal symptoms and agitation, and was seen by psychiatry, who recommended treatment for his withdrawal delirium before he could return to [facility]. All of this information is obtained from the record as the patient is in no condition whatsoever to provide any sort of history at all at this time. Hospital Course Hospital Course: (1) Alcohol withdrawal delirium, acute, hyperactive Resolved. Patient was admitted to [facility] on continuous cardiac telemetry. Mental health consultation obtained; have reviewed and initiated their medication recommendations. Placed on Cogentin 1 mg daily, Thorazine 50 mg every 8 hours, and gabapentin 300 mg every 8 hours. He was placed on scheduled valium which was gradually weaned; tolerated well. Patient is discharged in stable condition. He has advised that he plans to report directly to the [facility] for continue alcohol rehabilitation. (2) Alcoholism with alcohol dependence Cessation to be encouraged. Mental health consultation obtained. Daily multivitamin, thiamine, and folic acid supplementation. Discharge planning consulted. Plan is to return to the [facility] upon discharge. (3) Pancreatic pseudocyst Lipase mildly elevated to 315.4. No evidence for acute pancreatitis this admission. (4) Portal vein thrombosis Diagnosed w/ portal vein thrombosis and splenic thrombus mid-February. Was discharged on Eliquis. Continue Eliquis. (5) Hypertension Well controlled at present. Lisinopril 40 mg daily. Hydrochlorothiazide 25 mg every morning. Amlodipine 10 mg qHS Physical Exam Vital Signs: Temp Pulse Resp BP Pulse Ox 97.6 F 100 17 112/72 98 04/08/20 12:32 04/08/20 12:32 04/08/20 12:32 04/08/20 07:26 04/08/20 12:32 Intake & Output 04/07/20 04/08/20 04/09/20 06:59 06:59 06:59 Intake Total 1950 2198 240 Balance 1950 2198 240 Weight 73.9 kg 72.8 kg General appearance: PRESENT: no acute distress, disheveled, well-developed, well-nourished - overweight Head exam: PRESENT: atraumatic, normocephalic Eye exam: PRESENT: conjunctiva pink, EOMI, PERRLA. ABSENT: scleral icterus Mouth exam: PRESENT: moist, tongue midline Teeth exam: PRESENT: poor dentation Neck exam: ABSENT: carotid bruit, JVD, lymphadenopathy, thyromegaly Respiratory exam: PRESENT: clear to auscultation deisy, symmetrical, unlabored. ABSENT: rales, rhonchi, wheezes Cardiovascular exam: PRESENT: RRR. ABSENT: diastolic murmur, rubs, systolic murmur Pulses: PRESENT: normal dorsalis pedis pul Vascular exam: PRESENT: normal capillary refill GI/Abdominal exam: PRESENT: normal bowel sounds, soft. ABSENT: distended, guarding, mass, organolmegaly, rebound, tenderness Rectal exam: PRESENT: deferred Extremities exam: PRESENT: full ROM. ABSENT: calf tenderness, clubbing, pedal edema Musculoskeletal exam: PRESENT: ambulatory Neurological exam: PRESENT: alert, awake, oriented to person, oriented to place, oriented to time, oriented to situation, CN II-XII grossly intact. ABSENT: motor sensory deficit Psychiatric exam: PRESENT: appropriate affect, normal mood. ABSENT: homicidal ideation, suicidal ideation Skin exam: PRESENT: dry, intact, warm. ABSENT: cyanosis, rash Results Laboratory Results: WBC 7.3 10^3/uL (4.0-10.5) 04/08/20 06:35 RBC 3.95 10^6/uL (4.35-5.55) L 04/08/20 06:35 Hgb 13.7 g/dL (13.5-17.0) 04/08/20 06:35 Hct 39.6 % (37.9-51.0) 04/08/20 06:35 MCV 100 fl (80-97) H 04/08/20 06:35 MCH 34.6 pg (27.0-33.4) H 04/08/20 06:35 MCHC 34.5 g/dL (32.0-36.0) 04/08/20 06:35 RDW 14.6 % (11.5-14.0) H 04/08/20 06:35 Plt Count 222 10^3/uL (150-450) 04/08/20 06:35 Lymph % (Auto) 23.0 % (13-45) 04/04/20 18:00 [place] % (Auto) 11.4 % (3-13) 04/04/20 18:00 Eos % (Auto) 2.5 % (0-6) 04/04/20 18:00 Baso % (Auto) 0.9 % (0-2) 04/04/20 18:00 Absolute Neuts (auto) 3.7 10^3/uL (1.7-8.2) 04/04/20 18:00 Absolute Lymphs (auto) 1.3 10^3/uL (0.5-4.7) 04/04/20 18:00 Absolute Monos (auto) 0.7 10^3/uL (0.1-1.4) 04/04/20 18:00 Absolute Eos (auto) 0.1 10^3/uL (0.0-0.6) 04/04/20 18:00 Absolute Basos (auto) 0.1 10^3/uL (0.0-0.2) 04/04/20 18:00 Seg Neutrophils % 62.2 % (42-78) 04/04/20 18:00 Sodium 135.8 mmol/L (137-145) L 04/08/20 06:35 Potassium 4.7 mmol/L (3.6-5.0) 04/08/20 06:35 Chloride 102 mmol/L (98-107) 04/08/20 06:35 Carbon Dioxide 28 mmol/L (22-30) 04/08/20 06:35 Anion Gap 6 (5-19) 04/08/20 06:35 BUN 15 mg/dL (7-20) 04/08/20 06:35 Creatinine 0.71 mg/dL (0.52-1.25) 04/08/20 06:35 Est GFR ( Amer) > 60 (>60) 04/08/20 06:35 Est GFR (MDRD) Non-Af > 60 (>60) 04/08/20 06:35 Glucose 82 mg/dL (75-110) 04/08/20 06:35 Calcium 9.6 mg/dL (8.4-10.2) 04/08/20 06:35 Total Bilirubin 0.5 mg/dL (0.2-1.3) 04/04/20 18:00 Direct Bilirubin 0.2 mg/dL (0.0-0.4) 04/04/20 18:00 Neonat Total Bilirubin Not Reportable 04/04/20 18:00 Neonat Direct Bilirubin Not Reportable 04/04/20 18:00 Neonat Indirect Bili Not Reportable 04/04/20 18:00 AST 49 U/L (17-59) 04/04/20 18:00 ALT 42 U/L (<50) 04/04/20 18:00 Alkaline Phosphatase 111 U/L (38-126) 04/04/20 18:00 Ammonia 16.3 umol/L (9-33) 04/04/20 18:00 Total Protein 6.5 g/dL (6.3-8.2) 04/04/20 18:00 Albumin 3.7 g/dL (3.5-5.0) 04/04/20 18:00 Lipase 315.4 U/L (23-300) H 04/04/20 18:00 Urine Color YELLOW 04/04/20 18:00 Urine Appearance CLEAR 04/04/20 18:00 Urine pH 6.0 (5.0-9.0) 04/04/20 18:00 Ur Specific [place] 1.020 04/04/20 18:00 Urine Protein NEGATIVE mg/dL (NEGATIVE) 04/04/20 18:00 Urine Glucose (UA) NEGATIVE mg/dL (NEGATIVE) 04/04/20 18:00 Urine Ketones NEGATIVE mg/dL (NEGATIVE) 04/04/20 18:00 Urine Blood NEGATIVE (NEGATIVE) 04/04/20 18:00 Urine Nitrite NEGATIVE (NEGATIVE) 04/04/20 18:00 Urine Bilirubin NEGATIVE (NEGATIVE) 04/04/20 18:00 Urine Urobilinogen NEGATIVE mg/dL (<2.0) 04/04/20 18:00 Ur Leukocyte Esterase NEGATIVE (NEGATIVE) 04/04/20 18:00 Urine WBC (Auto) 1 /HPF 04/04/20 18:00 Urine RBC (Auto) 1 /HPF 04/04/20 18:00 Calcium Oxalate Cr Auto FEW /HPF 04/04/20 18:00 Urine Mucus (Auto) RARE /LPF 04/04/20 18:00 Urine Ascorbic Acid NEGATIVE (NEGATIVE) 04/04/20 18:00 Salicylates < 1.0 mg/dL (2.0-20.0) L 04/04/20 18:00 Urine Opiates Screen NEGATIVE 04/04/20 18:00 Urine Methadone Screen NEGATIVE 04/04/20 18:00 Acetaminophen < 10 ug/mL (10-30) L 04/04/20 18:00 Ur Barbiturates Screen NEGATIVE 04/04/20 18:00 Ur Phencyclidine Scrn NEGATIVE 04/04/20 18:00 Ur Amphetamines Screen NEGATIVE 04/04/20 18:00 U Benzodiazepines Scrn NEGATIVE 04/04/20 18:00 Urine Cocaine Screen NEGATIVE 04/04/20 18:00 U Marijuana (THC) Screen NEGATIVE 04/04/20 18:00 Serum Alcohol < 10 mg/dL (NONE DETECTED) 04/04/20 18:00 Impressions: Head CT 04/04/20 17:37 IMPRESSION: 1. No acute intracranial abnormality identified. This exam was performed according to our departmental dose-optimization program, which includes automated exposure control, adjustment of the mA and/or kV according to patient size and/or use of iterative reconstruction technique. Plan Plan of Treatment: Patient is discharged home in stable condition. He is advised to follow-up with his primary care provider within 1 week. He is instructed to proceed directly to the [facility] center following discharge. He strongly encouraged to discontinue alcohol he needs. Take medications only as prescribed. Return to the emergency department, as needed, for concerning symptoms. Time Spent: Greater than 30 Minutes Stroke Is this a Stroke Patient?: No Acute Heart Failure Is this a Heart Failure Patient?: No
== END 2020-04-08 13:16 | disposition home or self-care (01) | DRG 897 ==
LOC: ER 16:35 → EH 04-05 00:25 → 3S 04-05 14:17 → 4S 04-07 22:10
PROVIDERS: ADMIT Family Medicine; ATTEND Registered Nurse
DX: F10.231 Alcohol dependence with withdrawal delirium (principal); K86.3 Pseudocyst of pancreas; F41.9 Anxiety disorder, unspecified; F31.9 Bipolar disorder, unspecified; I10 Essential (primary) hypertension; Z86.718 Personal history of other venous thrombosis and embolism; Z79.899 Other long term (current) drug therapy; Z78.1 Physical restraint status; Z79.02 Long term (current) use of antithrombotics/antiplatelets; Z87.19 Personal history of other diseases of the digestive system; Z86.69 Personal history of other diseases of the nervous system and sense organs
CPT/HCPCS: 36415; 70450; 80048; 80053; 80307; 81001; 82140; 83690; 85025; 85027; 93005; 93010; 96361; 96372; 96374; 96375; 96376; 99285; J1200; J1630; J2060; J3360; J3411; J3475; J3480; J3490; J7030

== ENCOUNTER 2020-04-14 22:46 | Emergency (ER) | payer SELFPAY ==
--- NOTE | 2020-04-14 23:45 | ER Document Report ---
ED Medical Screen (RME) - General Chief Complaint: Abdominal Pain Stated Complaint: ETOH/ABDOMINAL PAIN Time Seen by Provider: 04/14/20 23:43 Notes: HPI: History is obtained from the patient and the records as patient is a very poor historian. He appears intoxicated. A 45-year-old male with a history of alcoholism presenting for alcoholism and delirium. Patient is not able to give a cognizant history of why he is here tonight stating he has aches and pains but cannot delineate where. Patient does admit to drinking today but does not know how much. PHYSICAL EXAMINATION: I had to wake the patient from sleep to examine him. His speech is slurred. Patient does acknowledge drinking today. Lung sounds are clear to auscultation regular rate and rhythm. No abdominal pain on palpation I have greeted and performed a rapid initial assessment of this patient. A comprehensive ED assessment and evaluation of the patient, analysis of test results and completion of medical decision making process will be conducted by an additional ED providers. TRAVEL OUTSIDE OF THE [place] IN LAST 30 DAYS: No - Related Data Allergies/Adverse Reactions: No Known Allergies Allergy (Verified 04/14/20 23:32) Home Medications: LISINOPRIL ( NON-COMPLIANT) Past Medical History - Social History Frequency of alcohol use: Heavy Drug Abuse: None - Past Medical History Cardiac Medical History: Reports: Hx Hypertension Denies: Hx Coronary Artery Disease, Hx Hypercholesterolemia Pulmonary Medical History: Denies: Hx Asthma, Hx COPD, Hx Tuberculosis Neurological Medical History: Reports: Hx Seizures Endocrine Medical History: Denies: Hx Diabetes Mellitus Type 1, Hx Diabetes Mellitus Type 2, Hx Hyperthyroidism, Hx Hypothyroidism Renal/ Medical History: Denies: Hx Peritoneal Dialysis GI Medical History: Reports: Hx Pancreatitis. Denies: Hx Cirrhosis, Hx Gastroesophageal Reflux Disease, Hx Hepatitis Musculoskeltal Medical History: Denies Hx Arthritis, Denies Hx Gout Skin Medical History: Denies Hx Eczema, Denies Hx Psoriasis Psychiatric Medical History: Reports: Hx Anxiety, Hx Bipolar Disorder, Hx Depression Infectious Medical History: Denies: Hx Hepatitis Past Surgical History: Reports: Hx Oral Surgery - Describes what sounds like a dental surgery, Other - Describes what sounds like a dental surgery - Immunizations Hx Diphtheria, Pertussis, Tetanus Vaccination: Yes - given in er today Physical Exam - Vital signs Vitals: Temp Pulse Resp BP Pulse Ox 97.5 F 99 18 111/81 96 04/14/20 23:25 04/14/20 23:25 04/14/20 23:25 04/14/20 23:25 04/14/20 23:25 Course - Vital Signs Vital signs: Temp Pulse Resp BP Pulse Ox 97.5 F 99 18 111/81 96 04/14/20 23:25 04/14/20 23:25 04/14/20 23:25 04/14/20 23:25 04/14/20 23:25
[2020-04-15 00:56] LABS: ABSOLUTE EOSINOPHILS # (AUTO) 0.1 10^3/uL (0.0-0.6); ABSOLUTE LYMPHOCYTES (AUTO) 3.3 10^3/uL (0.5-4.7); ABSOLUTE NEUT (AUTO) 3.4 10^3/uL (1.7-8.2); SEGMENTED NEUTROPHILS % (AUTO) 44.2 % (42-78); TOTAL CELLS COUNTED % (AUTO) 100 %
[2020-04-15 01:00] LABS: ABSOLUTE MONOCYTES (AUTO) 0.8 10^3/uL (0.1-1.4); ALCOHOL 269 mg/dL (NONE DETECTED); ALKALINE PHOSPHATASE 82 U/L (38-126); ANION GAP 10 (5-19); ASPARTATE AMINO TRANSFERASE 42 U/L (17-59); BASOPHILS % (AUTO) 0.6 % (0-2); BILIRUBIN,DIRECT 0.1 mg/dL (0.0-0.4); BILIRUBIN,TOTAL 0.3 mg/dL (0.2-1.3); BLOOD UREA NITROGEN 11 mg/dL (7-20); CALCIUM 8.6 mg/dL (8.4-10.2); CARBON DIOXIDE 24 mmol/L (22-30); CHLORIDE 109 mmol/L (98-107); EOSINOPHILS % (AUTO) 1.8 % (0-6); GLUCOSE 103 mg/dL (75-110); HEMATOCRIT 41.3 % (37.9-51.0); HEMOGLOBIN 13.8 g/dL (13.5-17.0); LYMPHOCYTES % (AUTO) 43.1 % (13-45); MEAN CORPUSCULAR HEMOGLOBIN 33.6 pg (27.0-33.4); MEAN CORPUSCULAR HGB CONC 33.4 g/dL (32.0-36.0); MEAN CORPUSCULAR VOLUME 101 fl (80-97); MONOCYTES % (AUTO) 10.3 % (3-13); PLATELET COUNT 289 10^3/uL (150-450); POTASSIUM 4.4 mmol/L (3.6-5.0); TOTAL PROTEIN 7.1 g/dL (6.3-8.2); WHITE BLOOD COUNT 7.7 10^3/uL (4.0-10.5)
[2020-04-15] MEDS ORDERED: DIAZEPAM 5 MG TABLET PO ONE (06:07)
[2020-04-15] MEDS ORDERED: FAMOTIDINE 20 MG TABLET PO ONE (06:07)
--- NOTE | 2020-04-15 06:11 | ER Document Report ---
ED General - General Chief Complaint: Abdominal Pain Stated Complaint: ETOH/ABDOMINAL PAIN Time Seen by Provider: 04/14/20 23:43 Notes: 45-year-old male chronic alcohol user living in a homeless snf with a history of noncompliance with anticoagulation for DVT alcohol related ulcers and a host of other chronic medical problems. He is here for abdominal pain which started last night and is now resolved. He had drinks yesterday but has not had a drink while in the waiting room for a few hours. His labs were drawn and are negative. He also complains of not being able to afford his Eliquis and has been off it for 2 or 3 weeks but denies worsening leg swelling shortness of breath cough or hemoptysis. No melena hematochezia or vomiting blood. TRAVEL OUTSIDE OF THE [place] IN LAST 30 DAYS: No - Related Data Allergies/Adverse Reactions: No Known Allergies Allergy (Verified 04/14/20 23:32) Home Medications: LISINOPRIL ( NON-COMPLIANT) Past Medical History - General Information source: Patient - Social History Smoking Status: Current Every Day Smoker Smoking Education Provided: Yes - The patient ED visit today was directly related to their abuse of tobacco. Frequency of alcohol use: Heavy Drug Abuse: None Family History: Reviewed & Not Pertinent, Hypertension Patient has homicidal ideation: No - Past Medical History Cardiac Medical History: Reports: Hx Hypertension Denies: Hx Coronary Artery Disease, Hx Hypercholesterolemia Pulmonary Medical History: Denies: Hx Asthma, Hx COPD, Hx Tuberculosis Neurological Medical History: Reports: Hx Seizures Endocrine Medical History: Denies: Hx Diabetes Mellitus Type 1, Hx Diabetes Mellitus Type 2, Hx Hyperthyroidism, Hx Hypothyroidism Renal/ Medical History: Denies: Hx Peritoneal Dialysis GI Medical History: Reports: Hx Pancreatitis. Denies: Hx Cirrhosis, Hx Gastroesophageal Reflux Disease, Hx Hepatitis Musculoskeletal Medical History: Denies Hx Arthritis, Denies Hx Gout Skin Medical History: Denies Hx Eczema, Denies Hx Psoriasis Psychiatric Medical History: Reports: Hx Anxiety, Hx Bipolar Disorder, Hx Depression Infectious Medical History: Denies: Hx Hepatitis Past Surgical History: Reports: Hx Oral Surgery - Describes what sounds like a dental surgery, Other - Describes what sounds like a dental surgery - Immunizations Hx Diphtheria, Pertussis, Tetanus Vaccination: Yes - given in er today Review of Systems - Review of Systems Notes: REVIEW OF SYSTEMS GEN: Denies fever, chills, weight loss ENT: Denies sore throat, nasal discharge, ear pain EYES: Denies blurry vision, eye pain, discharge CV: Denies chest pain, palpitations, edema RESP: Denies cough, shortness of breath, wheezing GI: D abdominal pain resolving MSK: Denies joint pain/swelling, edema, SKIN: Denies rash, skin lesions LYMPH: Denies swollen glands/lymph nodes NEURO: Denies headache, focal weakness or numbness, dizziness PSYCH: Denies depression, suicidal or homicidal ideation PHYSICAL EXAMINATION General: No acute distress, well-nourished Head: Atraumatic, normocephalic ENT: Mouth normal, oropharynx moist, no exudates or tonsillar enlargement Eyes: Conjunctiva normal, pupils equal, lids normal Neck: No JVD, supple, no guarding CVS: Normal rate, regular rhythm, no murmurs Resp: No resp distress, equal and normal breath sounds bilaterally GI: Nondistended, soft, no tenderness to palpation, no rebound or guarding Ext: No deformities, no edema, normal range of motion in upper and lower ext Back: No CVA or midline TTP Skin: No rash, warm Lymphatic: No lymphadeopathy noted Neuro: Mild tremor Physical Exam - Vital signs Vitals: Temp Pulse Resp BP Pulse Ox 97.5 F 99 18 111/81 96 04/14/20 23:25 04/14/20 23:25 04/14/20 23:25 04/14/20 23:25 04/14/20 23:25 Course - Re-evaluation Re-evalutation: 04/15/20 07:15 Resolved abdominal pain with normal labs likely ulcer versus gastritis, no clinical evidence of perforation and lipase is not high enough to call pancreatitis in addition the pain is resolved Noncompliant with anticoagulationwe will represcribed. Offered social work but he wants to get out of here to get back to a snf. I tried to call the snf twice but could not find the proper phone number. I represcribed his Eliquis start him on a twice daily PPI and counseled him on alcohol and smoking I have discussed with the patient there likely diagnosis, aftercare plan, follow-up plans and my usual and customary return precautions. They verbalized understanding of this. Please note that clinical decision making for this patient was made during the 2019 pandemic of novel coronavirus which caused a significant strain on the healthcare system including at this particular facility. Criteria for admission, discharge and level of care decisions as well as treatment decisions have necessarily changed. - Vital Signs Vital signs: Temp Pulse Resp BP Pulse Ox 97.5 F 99 18 111/81 96 04/14/20 23:25 04/14/20 23:25 04/14/20 23:25 04/14/20 23:25 04/14/20 23:25 - Laboratory Results Result Diagrams: 04/15/20 00:25 04/15/20 00:25 Laboratory Results Interpreted: 04/15/20 04/15/20 00:25 00:25 RBC 4.10 L MCV 101 H MCH 33.6 H RDW 15.0 H Chloride 109 H Critical Laboratory Results Reviewed: No Critical Results - Radiology Results Critical Radiology Results Reviewed: No Critical Results Discharge - Discharge Clinical Impression: Gastritis Qualifiers: Gastritis type: unspecified gastritis Chronicity: acute Gastritis bleeding: without bleeding Qualified Code(s): K29.00 - Acute gastritis without bleeding Condition: Good Disposition: HOME, SELF-CARE Instructions: Chronic Alcoholism ([facility]), Ulcer ([facility]) Additional Instructions: You have been on your blood thinner and I am re prescribing it because I do not see any contraindications Alcoholism and drinking is eroding your stomach lining I am placing you on an medicine for that as well. [facility] is [facility] for all of your chronic medical issues and is possible Prescriptions: Apixaban [Eliquis] 5 mg PO BID #60 tab.ds.pk Pantoprazole Sodium [Protonix] 40 mg PO BID #30 granpkt.
[2020-04-15 07:29] VITALS: BP 103/67
--- NOTE | 2020-04-15 18:43 | EKG REPORT ---
SEVERITY:- NORMAL ECG - SINUS RHYTHM : Confirmed by: Ajit Barragan 15-Apr-2020 18:43:26
== END 2020-04-15 07:10 | disposition home or self-care (01) ==
LOC: ER 22:46
DX: K29.00 Acute gastritis without bleeding (principal); F10.239 Alcohol dependence with withdrawal, unspecified; R10.9 Unspecified abdominal pain; F17.210 Nicotine dependence, cigarettes, uncomplicated; I10 Essential (primary) hypertension; Z59.0 Homelessness; Z91.14 Patient's other noncompliance with medication regimen
CPT/HCPCS: 36415; 80053; 80307; 83690; 85025; 93005; 93010; 99284

== ENCOUNTER 2020-04-18 13:59 | Emergency (ER) | payer SELFPAY ==
[2020-04-18 15:20] VITALS: BP 124/85
== END 2020-04-18 15:35 | disposition left against medical advice (07) ==
LOC: ER 13:59
DX: Z53.21 Procedure and treatment not carried out due to patient leaving prior to being seen by health care provider (principal)

== ENCOUNTER 2020-04-23 14:53 | Emergency (ER) | payer SELFPAY ==
[2020-04-23 14:58] VITALS: BP 126/86
--- NOTE | 2020-04-23 15:46 | ER Document Report ---
ED Medical Screen (RME) - General Chief Complaint: Medication Refill Stated Complaint: NEEDS MED FILLED Time Seen by Provider: 04/23/20 15:33 TRAVEL OUTSIDE OF THE [place] IN LAST 30 DAYS: No - HPI Notes: 04/23/20 15:44 45-year-old male presents to ED for evaluation of patient refills. Patient reports he supposed be on Eliquis for management of blood clots into the bilateral lower extremities as well as into the hepatic region. Notes that he has not been taking them since . Patient reports that he was unable to pay for them as he received 1 month free.'s that he has increased pain to the lower extremities with more ambulation. Patient reports he has been drinking more alcohol to try to "thin his blood. "Denies any chest pain or shortness of breath at this time. Denies headaches or falls. - Related Data Allergies/Adverse Reactions: No Known Allergies Allergy (Verified 04/14/20 23:32) Past Medical History - Social History Chew tobacco use (# tins/day): No Frequency of alcohol use: Heavy - Past Medical History Cardiac Medical History: Reports: Hx Hypertension Denies: Hx Coronary Artery Disease, Hx Hypercholesterolemia Pulmonary Medical History: Denies: Hx Asthma, Hx COPD, Hx Tuberculosis Neurological Medical History: Reports: Hx Seizures Endocrine Medical History: Denies: Hx Diabetes Mellitus Type 1, Hx Diabetes Melinda itus Type 2, Hx Hyperthyroidism, Hx Hypothyroidism Renal/ Medical History: Denies: Hx Peritoneal Dialysis GI Medical History: Reports: Hx Pancreatitis. Denies: Hx Cirrhosis, Hx Gastroesophageal Reflux Disease, Hx Hepatitis Musculoskeltal Medical History: Denies Hx Arthritis, Denies Hx Gout Skin Medical History: Denies Hx Eczema, Denies Hx Psoriasis Psychiatric Medical History: Reports: Hx Anxiety, Hx Bipolar Disorder, Hx Depression Infectious Medical History: Denies: Hx Hepatitis Past Surgical History: Reports: Hx Oral Surgery, Other - Describes what sounds like a dental surgery - Immunizations Hx Diphtheria, Pertussis, Tetanus Vaccination: Yes - given in er today Physical Exam - Vital signs Vitals: Temp Pulse Resp BP Pulse Ox 97.4 F 118 H 20 126/86 H 97 04/23/20 14:58 04/23/20 14:58 04/23/20 14:58 04/23/20 14:58 04/23/20 14:58 General: No acute distress. Alert and oriented x3. Sitting comfortably in a stretcher. Mild jaundice. No icterus. Heart: Regular rate and rhythm. S1,S2. No murmurs, rubs, or gallops. Lungs: Clear to ausculation bilaterally. No wheezes, rhonchi, rales. Equal chest expansion. No retractions. Abdomen: Soft, nontender to palpation, nondistended. Positive bowel sounds in all 4 quadrants. No hepatosplenomegaly. No masses. No CVA tenderness bilaterally. Neuro: GCS 15. Moving all extremities without discomfort. Extremities: No calf tenderness or edema. No cyanosis or clubbing. Radial and pedal pulses 2+ bilaterally. Brisk capillary refill. Psych: Mood and affect appropriate. Course - Vital Signs Vital signs: Temp Pulse Resp BP Pulse Ox 97.4 F 118 H 20 126/86 H 97 04/23/20 14:58 04/23/20 14:58 04/23/20 14:58 04/23/20 14:58 04/23/20 14:58
[2020-04-23 16:31] LABS: ABSOLUTE EOSINOPHILS # (AUTO) 0.1 10^3/uL (0.0-0.6); ABSOLUTE LYMPHOCYTES (AUTO) 2.3 10^3/uL (0.5-4.7); ABSOLUTE MONOCYTES (AUTO) 0.4 10^3/uL (0.1-1.4); ABSOLUTE NEUT (AUTO) 2.1 10^3/uL (1.7-8.2); BASOPHILS % (AUTO) 0.9 % (0-2); HEMATOCRIT 39.9 % (37.9-51.0); HEMOGLOBIN 13.8 g/dL (13.5-17.0); INTERNATIONAL RATION (INR) 0.88; LYMPHOCYTES % (AUTO) 46.5 % (13-45); MEAN CORPUSCULAR HEMOGLOBIN 34.3 pg (27.0-33.4); MEAN CORPUSCULAR HGB CONC 34.7 g/dL (32.0-36.0); MEAN CORPUSCULAR VOLUME 99 fl (80-97); MONOCYTES % (AUTO) 8.3 % (3-13); PLATELET COUNT 340 10^3/uL (150-450); PROTHROMBIN TIME 12.1 SEC (11.4-15.4); RED BLOOD COUNT 4.03 10^6/uL (4.35-5.55); SEGMENTED NEUTROPHILS % (AUTO) 42.3 % (42-78); TOTAL CELLS COUNTED % (AUTO) 100 %
[2020-04-23 16:44] LABS: ALBUMIN 3.7 g/dL (3.5-5.0); ALKALINE PHOSPHATASE 133 U/L (38-126); ANION GAP 7 (5-19); ASPARTATE AMINO TRANSFERASE 59 U/L (17-59); BILIRUBIN,DIRECT 0.2 mg/dL (0.0-0.4); BILIRUBIN,TOTAL 0.4 mg/dL (0.2-1.3); BLOOD UREA NITROGEN 12 mg/dL (7-20); CALCIUM 8.7 mg/dL (8.4-10.2); CARBON DIOXIDE 26 mmol/L (22-30); CHLORIDE 105 mmol/L (98-107); GLUCOSE 106 mg/dL (75-110); POTASSIUM 4.4 mmol/L (3.6-5.0); TOTAL PROTEIN 6.9 g/dL (6.3-8.2)
== END 2020-04-23 18:00 | disposition left against medical advice (07) ==
LOC: ER 14:53
DX: Z76.0 Encounter for issue of repeat prescription (principal); I82.403 Acute embolism and thrombosis of unspecified deep veins of lower extremity, bilateral; I82.0 Budd-Chiari syndrome; T45.516A Underdosing of anticoagulants, initial encounter; Z91.120 Patient's intentional underdosing of medication regimen due to financial hardship; Z91.14 Patient's other noncompliance with medication regimen; I10 Essential (primary) hypertension; R17 Unspecified jaundice; Z53.20 Procedure and treatment not carried out because of patient's decision for unspecified reasons
CPT/HCPCS: 36415; 80053; 83690; 85025; 85610; 85730; 99281

== ENCOUNTER 2020-04-24 09:05 | Emergency (ER) | payer SELFPAY ==
[2020-04-24 09:14] VITALS: BP 152/112
--- NOTE | 2020-04-24 09:36 | ER Document Report ---
ED General - General Chief Complaint: Medication Refill Stated Complaint: MEDICATION REFILL Time Seen by Provider: 04/24/20 09:27 Primary Care Provider: [facility] [Provider Group] - Follow up in [address] [facility] [Provider Group] - Follow up in 1 week TRAVEL OUTSIDE OF THE [place] IN LAST 30 DAYS: No - HPI Notes: 45-year-old male with past medical history for portal vein thrombosis, pancreatitis, alcohol abuse to the emergency department for med refill for his Eliquis. He states that he cannot afford to pay for the Eliquis. He was placed on Eliquis at the end of February after he was found to have portal vein thrombosis. He states he has not been on it for a month. However, he was admitted the beginning of April and was taking pain at that point. It sounds like patient had a 1 month free coupon card for Eliquis but then has not been able to take it since. He denies any abdominal pain. He states he has been drinking alcohol to try to "thin his blood". Patient denies any abdominal pain, nausea, vomiting. He states he had 2 mikes hard lemonade's today. Patient was here yesterday for the same complaint but left before his work-up was completed. - Related Data Allergies/Adverse Reactions: No Known Allergies Allergy (Verified 04/24/20 09:14) Home Medications: pt is supposed to be taking eliquis Past Medical History - General Information source: Patient - Social History Smoking Status: Current Every Day Smoker Chew tobacco use (# tins/day): No Frequency of alcohol use: Heavy Drug Abuse: None Family History: Reviewed & Not Pertinent, Hypertension Patient has homicidal ideation: No - Past Medical History Cardiac Medical History: Reports: Hx Hypertension Denies: Hx Coronary Artery Disease, Hx Hypercholesterolemia Pulmonary Medical History: Denies: Hx Asthma, Hx COPD, Hx Tuberculosis Neurological Medical History: Reports: Hx Seizures Endocrine Medical History: Denies: Hx Diabetes Mellitus Type 1, Hx Diabetes Mellitus Type 2, Hx Hyperthyroidism, Hx Hypothyroidism Renal/ Medical History: Denies: Hx Peritoneal Dialysis GI Medical History: Reports: Hx Pancreatitis. Denies: Hx Cirrhosis, Hx Gastroesophageal Reflux Disease, Hx Hepatitis Musculoskeletal Medical History: Denies Hx Arthritis, Denies Hx Gout Skin Medical History: Denies Hx Eczema, Denies Hx Psoriasis Psychiatric Medical History: Reports: Hx Anxiety, Hx Bipolar Disorder, Hx Depression Infectious Medical History: Denies: Hx Hepatitis Past Surgical History: Reports: Hx Oral Surgery, Other - Describes what sounds like a dental surgery - Immunizations Hx Diphtheria, Pertussis, Tetanus Vaccination: Yes - given in er today Review of Systems - Review of Systems Constitutional: denies: Chills, Fever EENT: No symptoms reported Cardiovascular: denies: Chest pain, Palpitations, Dizziness, Lightheaded Respiratory: denies: Cough, Short of breath Gastrointestinal: denies: Abdominal pain, Diarrhea, Nausea, Vomiting Genitourinary: No symptoms reported Male Genitourinary: No symptoms reported Musculoskeletal: No symptoms reported Skin: No symptoms reported Hematologic/Lymphatic: No symptoms reported Neurological/Psychological: No symptoms reported -: Yes All other systems reviewed and negative Physical Exam - Vital signs Vitals: Temp Pulse BP Pulse Ox 97.9 F 102 H 152/112 H 98 04/24/20 09:13 04/24/20 09:13 04/24/20 09:13 04/24/20 09:13 Interpretation: Normal - Notes Notes: PHYSICAL EXAMINATION: GENERAL: Well-appearing, well-nourished and in no acute distress. HEAD: Atraumatic, normocephalic. EYES: Pupils equal round and reactive to light, extraocular movements intact, sclera anicteric, conjunctiva are normal. ENT: nares patent, oropharynx clear without exudates. Moist mucous membranes. NECK: Normal range of motion, supple without lymphadenopathy LUNGS: Breath sounds clear to auscultation bilaterally and equal. No wheezes rales or rhonchi. HEART: Regular rate and rhythm without murmurs ABDOMEN: Soft, nontender, normoactive bowel sounds. No guarding, no rebound. No masses appreciated. EXTREMITIES: Normal range of motion, no pitting or edema. No cyanosis. NEUROLOGICAL: No focal neurological deficits. Moves all extremities spontaneously and on command. PSYCH: Normal mood, normal affect. SKIN: Warm, Dry, normal turgor, no rashes or lesions noted. Course - Re-evaluation Re-evalutation: 04/24/20 Called our shoe parts caser about the patient for better follow up for Eliquis prescription. Discussed patient with Dr. Apple and reviewed labs from yesterday which are stable. Dr. Apple agrees with plan for shoe parts caser to see the pt and agrees labs do not need to be repeated. 12/18/20 Aleksander went and saw the patient. We did give him $10 co-pay card but were not sure that it will actually benefit him. Aleksander did try to attempt to get the patient to go ahead and fill paperwork for [facility]. Patient would not state if paperwork. Will discharge home. He was given his dose of Eliquis here. Did not repeat labs because his labs last night were reassuring. Encouraged to follow-up with [facility]. Patient agrees - Vital Signs Vital signs: Temp Pulse Resp BP Pulse Ox 97.9 F 102 H 152/112 H 98 04/24/20 09:13 04/24/20 09:13 04/24/20 09:13 04/24/20 09:13 - Laboratory Results Critical Laboratory Results Reviewed: No Critical Results - Radiology Results Critical Radiology Results Reviewed: No Critical Results Discharge - Discharge Clinical Impression: Medication refill Condition: Stable Disposition: HOME, SELF-CARE Additional Instructions: Take Eliquis as prescribed. Use the coupon. You may contact our shoe parts caser, Aleksander Velazquez should you run into any further difficulties paying for your prescription. Her number is [phone]. Please follow-up with primary care. Return if you have worsening symptoms. You are aware that drinking alcohol and taking Eliquis will increase the risk for bleeding. Prescriptions: Apixaban [Eliquis 5 mg Tablet] 5 mg PO BID #60 tablet Referrals: [facility] [Provider Group] - Follow up in 1 week [facility] [Provider Group] - Follow up in 1 week
[2020-04-24] MEDS ORDERED: APIXABAN 5 MG TABLET PO ONE (11:41)
[2020-04-24] MEDS ORDERED: HYDROXYZINE PAMOATE 25 MG CAPSULE PO ONE (11:41)
== END 2020-04-24 12:32 | disposition home or self-care (01) ==
LOC: ER 09:05
DX: Z76.0 Encounter for issue of repeat prescription (principal); F17.200 Nicotine dependence, unspecified, uncomplicated; I10 Essential (primary) hypertension; Z79.01 Long term (current) use of anticoagulants; Z86.718 Personal history of other venous thrombosis and embolism
CPT/HCPCS: 99283

== ENCOUNTER 2020-04-28 20:35 | Emergency (ER) | payer SELFPAY ==
[2020-04-28 20:46] VITALS: BP 121/85
--- NOTE | 2020-04-28 21:05 | ER Document Report ---
ED Medical Screen (RME) - General Chief Complaint: Foot Injury Stated Complaint: FOOT PAIN Time Seen by Provider: 04/28/20 20:49 TRAVEL OUTSIDE OF THE [place] IN LAST 30 DAYS: No - HPI Notes: 04/28/20 21:02 45-year-old male with a history of pancreatitis presents to the emergency room via EMS who admitted to having several drinks is under the influence and has several complaints keep changing. Patient has been drinking alcoholic beverages today EMS said originally that he was having bilateral foot pain, EMS saw him ambulate with a steady gait without any assistance. he is now complaining of abdominal pain that is severe and states that he cannot afford his Eliquis. In reviewing his chart, patient has a portal vein thrombosis that was diagnosed in March 2020. Patient does not endorse taking any anticoagulant therapy. patient is slightly slurring words and teary. Patient endorses chest pain shortness of breath, nausea, vomiting. Patient is talking about going into some form of rehab for his substance abuse. I have greeted and performed a rapid initial assessment of this patient. A comprehensive ED assessment and evaluation of the patient, analysis of test results and completion of the medical decision making process will be conducted by additional ED providers. PHYSICAL EXAMINATION: GENERAL: Well-appearing, well-nourished and in no acute distress. HEAD: Atraumatic, normocephalic. EYES: Pupils equal round extraocular movements intact, conjunctiva are normal. NECK: Normal range of motion CV: s1, s2 regular abd: RUQ/LUQ tenderness on palpation LUNGS: No respiratory distress Musculoskeletal: Normal range of motion NEUROLOGICAL: Orientated to person place and time. SKIN: Warm, Dry, normal turgor, no rashes or lesions noted. Consulted with Dr. Loomis, ER supervising physician as to what diagnostic imaging to order due to history of blood clots, potentially patient not taking Eliquis with sudden onset abdominal pain. He did advise CTA chest/abdomen/pel vis The patient was evaluated during a global COVID-19 pandemic and that diagnosis was suspected/considered upon their initial presentation. Their evaluation, treatment and testing was consistent with current guidelines for patients who present with complaints or symptoms and may be related to COVID-19. 04/28/20 21:13 - Related Data Allergies/Adverse Reactions: No Known Allergies Allergy (Verified 04/24/20 09:14) Past Medical History - Past Medical History Cardiac Medical History: Reports: Hx Hypertension Denies: Hx Coronary Artery Disease, Hx Hypercholesterolemia Pulmonary Medical History: Denies: Hx Asthma, Hx COPD, Hx Tuberculosis Neurological Medical History: Reports: Hx Seizures Endocrine Medical History: Denies: Hx Diabetes Mellitus Type 1, Hx Diabetes Mellitus Type 2, Hx Hyperthyroidism, Hx Hypothyroidism Renal/ Medical History: Denies: Hx Peritoneal Dialysis GI Medical History: Reports: Hx Pancreatitis. Denies: Hx Cirrhosis, Hx Gastroesophageal Reflux Disease, Hx Hepatitis Musculoskeltal Medical History: Denies Hx Arthritis, Denies Hx Gout Skin Medical History: Denies Hx Eczema, Denies Hx Psoriasis Psychiatric Medical History: Reports: Hx Anxiety, Hx Bipolar Disorder, Hx Depression Infectious Medical History: Denies: Hx Hepatitis Past Surgical History: Reports: Hx Oral Surgery, Other - Describes what sounds like a dental surgery - Immunizations Hx Diphtheria, Pertussis, Tetanus Vaccination: Yes - given in er today Physical Exam - Vital signs Vitals: Temp Pulse Resp BP Pulse Ox 97.9 F 109 H 20 121/85 97 04/28/20 20:41 04/28/20 20:41 04/28/20 20:41 04/28/20 20:41 04/28/20 20:41 Course - Vital Signs Vital signs: Temp Pulse Resp BP Pulse Ox 97.9 F 109 H 20 121/85 97 04/28/20 20:41 04/28/20 20:41 04/28/20 20:41 04/28/20 20:41 04/28/20 20:41
== END 2020-04-28 21:35 | disposition left against medical advice (07) ==
LOC: ER 20:35
DX: R10.9 Unspecified abdominal pain (principal); I81 Portal vein thrombosis; T45.516A Underdosing of anticoagulants, initial encounter; Z91.120 Patient's intentional underdosing of medication regimen due to financial hardship; Z91.14 Patient's other noncompliance with medication regimen; I10 Essential (primary) hypertension; Z87.19 Personal history of other diseases of the digestive system; Z53.29 Procedure and treatment not carried out because of patient's decision for other reasons
CPT/HCPCS: 99281

== ENCOUNTER 2020-04-28 21:46 | Emergency (ER) | payer SELFPAY ==
--- NOTE | 2020-04-28 23:15 | ER Document Report ---
ED Medical Screen (RME) - General Chief Complaint: Medical Complaint Stated Complaint: NUMBNESS IN FEET Time Seen by Provider: 04/28/20 23:13 Mode of Arrival: Ambulatory Information source: Patient Notes: 45-year-old male presents to ED for complaint of numbness to the bottom of both feet. He states that started about 3 weeks ago. He states the numbness is now coming up his ankles and just below his calf. He stated they did start him on gabapentin a couple weeks ago and that not doing any good is not helping at all. He states he does smoke a pack a day drinks couple beers a day but does not normally use any drugs. He does have a history of high blood pressure pancreatitis that is very bad. He states his girlfriend told him that she thought he looked very upset today so she gave him 3 Xanax but he is only took 1 and his girlfriend has the other 2. He states he did drink some beer earlier this morning but none recently. Patient is alert and oriented answering questions. I have greeted and performed a rapid initial assessment of this patient. A comprehensive ED assessment and evaluation of the patient, analysis of test results and completion of medical decision making process will be conducted by an additional ED providers. TRAVEL OUTSIDE OF THE [place] IN LAST 30 DAYS: No - Related Data Allergies/Adverse Reactions: No Known Allergies Allergy (Verified 04/24/20 09:14) Past Medical History - Past Medical History Cardiac Medical History: Reports: Hx Hypertension Denies: Hx Coronary Artery Disease, Hx Hypercholesterolemia Pulmonary Medical History: Denies: Hx Asthma, Hx COPD, Hx Tuberculosis Neurological Medical History: Reports: Hx Seizures Endocrine Medical History: Denies: Hx Diabetes Mellitus Type 1, Hx Diabetes Mellitus Type 2, Hx Hyperthyroidism, Hx Hypothyroidism Renal/ Medical History: Denies: Hx Peritoneal Dialysis GI Medical History: Reports: Hx Pancreatitis. Denies: Hx Cirrhosis, Hx Gastroesophageal Reflux Disease, Hx Hepatitis Musculoskeltal Medical History: Denies Hx Arthritis, Denies Hx Gout Skin Medical History: Denies Hx Eczema, Denies Hx Psoriasis Psychiatric Medical History: Reports: Hx Anxiety, Hx Bipolar Disorder, Hx Depression Infectious Medical History: Denies: Hx Hepatitis Past Surgical History: Reports: Hx Oral Surgery, Other - Describes what sounds like a dental surgery - Immunizations Hx Diphtheria, Pertussis, Tetanus Vaccination: Yes - given in er today Physical Exam - Vital signs Vitals: Temp Pulse Resp BP Pulse Ox 97.9 F 109 H 20 121/85 97 04/28/20 22:19 04/28/20 22:19 04/28/20 22:19 04/28/20 22:19 04/28/20 22:19 Course - Vital Signs Vital signs: Temp Pulse Resp BP Pulse Ox 97.9 F 109 H 20 121/85 97 04/28/20 22:19 04/28/20 22:19 04/28/20 22:19 04/28/20 22:19 04/28/20 22:19
[2020-04-29 00:54] LABS: APPEARANCE,URINE CLEAR; BILIRUBIN,URINE NEGATIVE (NEGATIVE); COLOR,URINE YELLOW; GLUCOSE, URINE NEGATIVE (NEGATIVE); KETONES,URINE NEGATIVE (NEGATIVE); LEUKOCYTE ESTERASE,URINE NEGATIVE (NEGATIVE); NITRITE,URINE NEGATIVE (NEGATIVE); PROTEIN,URINE NEGATIVE (NEGATIVE); URINE SPECIFIC GRAVITY 1.021; UROBILINOGEN,URINE NEGATIVE mg/dL (<2.0)
[2020-04-29 01:17] LABS: URINE AMPHETAMINES SCREEN NEGATIVE; URINE BARBITURATES SCREEN NEGATIVE; URINE COCAINE SCREEN NEGATIVE; URINE MARIJUANA (THC) SCREEN NEGATIVE; URINE METHADONE SCREEN NEGATIVE; URINE PHENCYCLIDINE SCREEN NEGATIVE
[2020-04-29 01:19] LABS: URINE BENZODIAZEPINES SCREEN UNCONFIRMED POSITIVE
[2020-04-29 01:32] LABS: ABSOLUTE BASOPHILS # (AUTO) 0.1 10^3/uL (0.0-0.2); ABSOLUTE EOSINOPHILS # (AUTO) 0.1 10^3/uL (0.0-0.6); ABSOLUTE LYMPHOCYTES (AUTO) 1.8 10^3/uL (0.5-4.7); ABSOLUTE MONOCYTES (AUTO) 0.6 10^3/uL (0.1-1.4); ABSOLUTE NEUT (AUTO) 2.1 10^3/uL (1.7-8.2); BASOPHILS % (AUTO) 1.7 % (0-2); EOSINOPHILS % (AUTO) 1.3 % (0-6); HEMATOCRIT 42.4 % (37.9-51.0); HEMOGLOBIN 14.7 g/dL (13.5-17.0); LYMPHOCYTES % (AUTO) 39.5 % (13-45); MEAN CORPUSCULAR HEMOGLOBIN 34.5 pg (27.0-33.4); MEAN CORPUSCULAR HGB CONC 34.6 g/dL (32.0-36.0); MEAN CORPUSCULAR VOLUME 100 fl (80-97); MONOCYTES % (AUTO) 12.6 % (3-13); PLATELET COUNT 251 10^3/uL (150-450); RED BLOOD COUNT 4.25 10^6/uL (4.35-5.55); RED CELL DISTRIBUTION WIDTH 15.3 % (11.5-14.0); SEGMENTED NEUTROPHILS % (AUTO) 44.9 % (42-78); TOTAL CELLS COUNTED % (AUTO) 100 %; WHITE BLOOD COUNT 4.6 10^3/uL (4.0-10.5)
[2020-04-29] MEDS ORDERED: MORPHINE SULFATE 10 MG/ML INJ IV ONE ×3 (01:48→04:05)
[2020-04-29] MEDS ORDERED: ONDANSETRON HCL INJ/PF 4 MG/2 ML SDV IV ONE (01:48)
[2020-04-29] MEDS ORDERED: NORMAL SALINE 1000 ML 1,000 ML IV ONE ×2 (01:48→06:20)
[2020-04-29] MEDS ORDERED: THIAMINE HCL 100 MG, FOLIC ACID 1 MG in NORMAL SALINE 250 ML IV ONE (01:49)
[2020-04-29] MEDS ORDERED: THIAMINE HCL INJ 200 MG/2 ML VIAL ONE (02:15)
[2020-04-29] MEDS ORDERED: FOLIC ACID INJ 5 MG/1 ML 10 ML VIAL ONE (02:15)
[2020-04-29 02:27] LABS: ALBUMIN 3.2 g/dL (3.5-5.0); ALCOHOL 285 mg/dL (NONE DETECTED); ALKALINE PHOSPHATASE 168 U/L (38-126); ANION GAP 6 (5-19); ASPARTATE AMINO TRANSFERASE 588 U/L (17-59); BILIRUBIN,DIRECT 0.4 mg/dL (0.0-0.4); BILIRUBIN,TOTAL 0.6 mg/dL (0.2-1.3); BLOOD UREA NITROGEN 13 mg/dL (7-20); CALCIUM 7.6 mg/dL (8.4-10.2); CARBON DIOXIDE 25 mmol/L (22-30); CHLORIDE 109 mmol/L (98-107); GLUCOSE 100 mg/dL (75-110); POTASSIUM 4.1 mmol/L (3.6-5.0); TOTAL PROTEIN 6.2 g/dL (6.3-8.2)
--- NOTE | 2020-04-29 05:01 | RADIOLOGY REPORT (SQ) ---
EXAM DESCRIPTION: US ABDOMEN LIMITED COMPLETED DATE/TME: 04/29/2020 03:59 CLINICAL HISTORY: 45 years, Male, RUQ pain panc likely etoh r/o biliary COMPARISON: CT 03/24/2020 TECHNIQUE: Limited right upper quadrant ultrasound LIMITATIONS: None FINDINGS: The liver is diffusely heterogeneous in echotexture without focal lesion. No gallstones or gallbladder wall thickening. CBD measures 4.4 mm. Visualized pancreas, abdominal aorta, inferior vena cava, right kidney are unremarkable. There is no ascites IMPRESSION: Heterogeneous echotexture to the liver consistent with fatty infiltrative change. Remainder is unremarkable copyright 2011 [employer]- All Rights Reserved
--- NOTE | 2020-04-29 06:19 | ER Document Report ---
ED General - General Chief Complaint: Medical Complaint Stated Complaint: NUMBNESS IN FEET Time Seen by Provider: 04/28/20 23:13 Mode of Arrival: Ambulatory Notes: 45-year-old male history of alcohol dependence and alcoholic pancreatitis chronically presents with numbness in his bilateral feet over the past several weeks and pain in his mid upper abdomen for the past day. Pain is similar to the pain he has had numerous times in the past from his chronic pancreatitis. Patient's foot numbness has been present for many months but was better when he was taking gabapentin which he can no longer afford so has not been taking it for the past few weeks. Patient denies any change in his gait, falls, weakness, rashes, edema, chest pain, shortness of breath, dizziness, syncope, fever, vomiting, diarrhea/constipation/melena/hematochezia, withdrawal symptoms TRAVEL OUTSIDE OF THE [place] IN LAST 30 DAYS: No - Related Data Allergies/Adverse Reactions: No Known Allergies Allergy (Verified 04/24/20 09:14) Home Medications: gabapentin, lisinopril, valium, Past Medical History - General Information source: Patient - Social History Smoking Status: Current Every Day Smoker Frequency of alcohol use: daily Family History: Reviewed & Not Pertinent, Hypertension - Past Medical History Cardiac Medical History: Reports: Hx Hypertension Denies: Hx Coronary Artery Disease, Hx Hypercholesterolemia Pulmonary Medical History: Denies: Hx Asthma, Hx COPD, Hx Tuberculosis Neurological Medical History: Reports: Hx Seizures Endocrine Medical History: Denies: Hx Diabetes Mellitus Type 1, Hx Diabetes Mellitus Type 2, Hx Hyperthyroidism, Hx Hypothyroidism Renal/ Medical History: Denies: Hx Peritoneal Dialysis GI Medical History: Reports: Hx Pancreatitis. Denies: Hx Cirrhosis, Hx Gastroesophageal Reflux Disease, Hx Hepatitis Musculoskeletal Medical History: Denies Hx Arthritis, Denies Hx Gout Skin Medical History: Denies Hx Eczema, Denies Hx Psoriasis Psychiatric Medical History: Reports: Hx Anxiety, Hx Bipolar Disorder, Hx De pression Infectious Medical History: Denies: Hx Hepatitis Past Surgical History: Reports: Hx Oral Surgery, Other - Describes what sounds like a dental surgery - Immunizations Hx Diphtheria, Pertussis, Tetanus Vaccination: Yes - given in er today Review of Systems - Review of Systems Notes: REVIEW OF SYSTEMS: CONSTITUTIONAL : Denies fever, chills, or sweats. EENT: Denies recent cold/sinus symptoms, denies throat pain CARDIOVASCULAR: Denies chest pain, ZHANNA RESPIRATORY: Denies cough, denies shortness of breath. GASTROINTESTINAL: + abdominal pain, -nausea/vomiting. GENITOURINARY: Denies difficulty urinating, painful urination. MUSCULOSKELETAL: Denies neck pain, back pain. SKIN: Denies rash or skin lesions. HEMATOLOGIC : Denies easy bruising or bleeding. LYMPHATIC: Denies swollen, enlarged glands. NEUROLOGICAL: Denies headache, denies change in gait. PSYCHIATRIC: Denies anxiety or stress or depression. Physical Exam - Vital signs Vitals: Temp Pulse Resp BP Pulse Ox 97.9 F 109 H 20 121/85 97 04/28/20 22:19 04/28/20 22:19 04/28/20 22:19 04/28/20 22:19 04/28/20 22:19 - Notes Notes: PHYSICAL EXAMINATION: GENERAL: Mildly uncomfortable but nontoxic-appearing middle-aged man in no acute distress HEAD: Atraumatic, normocephalic. EYES: Pupils equal round and appropriate constriction, sclera anicteric, conjunctiva are normal. ENT: nares patent, moist mucous membranes. NECK: Normal range of motion, supple without lymphadenopathy LUNGS: Breath sounds clear to auscultation bilaterally and equal. No wheezes rales or rhonchi. HEART: Regular rate and rhythm without murmurs ABDOMEN: Soft, mild right upper quadrant and epigastric tenderness without rebound or guarding, no masses, no CVA tenderness EXTREMITIES: Normal range of motion, no pitting or edema. No cyanosis. Bilateral DP pulses 2+, normal feet inspection, no calf tenderness or edema, 5 out of 5 strength in all distributions, normal sensation NEUROLOGICAL: Awake, alert, conversing appropriately, moves all extremities spontaneously, no psychomotor agitation, no tremor, oriented, clear speech PSYCH: Normal mood, normal affect. SKIN: Warm, Dry, normal turgor, no rashes or lesions noted. Course - Re-evaluation Re-evalutation: 04/29/20 06:17 Chronic bilateral foot pain since sleeping in cold damp conditions several months ago likely represents trench foot versus alcoholic polyneuropathy, but no signs of infection, no skin breakdown. Last drink shortly prior to arrival also took Xanax, no signs of alcohol withdrawal at this time, but patient does appear to be dehydrated likely from chronic ADH suppression of alcoholism. Pain consistent with chronic pancreatitis however since patient had right upper quadrant tenderness as well I ordered a right upper quadrant ultrasound to rule out a concomitant biliary etiology of his pancreatitis which was normal. Patient tolerating p.o., no vomiting, pain significantly improved after analgesia, no indications to obtain CT abdomen pelvis at this time as patient is had symptoms for only 1 day and has had numerous prior CT scans showing findings that would explain his current symptoms and no change in his symptoms currently. Patient tachycardia improved with fluids and is very borderline tachycardic now and is starting to show signs of withdrawal. Ordered dose of Klonopin so that patient will not go into florid withdrawal before he can obtain alcohol as patient plans to continue to drink. I encouraged increasing his p.o. hydration and will discharge with pain control, Zofran, and PCP and rehab follow-up. Gave patient extensive return to ED precautions which he demonstrate understanding of. Gave 1.5 mg dose of Lovenox for his chronic DVTs and placed social work co nsult to help patient a access urine to get assistance with meds as he cannot afford them. - Vital Signs Vital signs: Temp Pulse Resp BP Pulse Ox 97.9 F 110 H 18 125/88 H 97 04/28/20 22:19 04/29/20 03:00 04/29/20 03:00 04/29/20 05:01 04/29/20 05:01 - Laboratory Results Result Diagrams: 04/29/20 01:10 04/29/20 01:10 Laboratory Results Interpreted: 04/29/20 04/29/20 01:10 01:10 RBC 4.25 L MCV 100 H MCH 34.5 H RDW 15.3 H Chloride 109 H Calcium 7.6 L AST 588 H ALT 210 H Alkaline Phosphatase 168 H Total Protein 6.2 L Albumin 3.2 L Critical Laboratory Results Reviewed: No Critical Results - Radiology Results Critical Radiology Results Reviewed: No Critical Results - EKG Interpretation by Me Additional EKG results interpreted by me: 04/29/20 06:52 Sinus rhythm, no significant ST elevations or depressions, no significant T wave abnormalities Discharge - Discharge Clinical Impression: Elevated liver function tests Alcoholic pancreatitis Qualifiers: Chronicity: chronic Qualified Code(s): K86.0 - Alcohol-induced chronic pancreatitis Alcohol withdrawal Qualifiers: Complication of substance-induced condition: uncomplicated Qualified Code(s): F10.230 - Alcohol dependence with withdrawal, uncomplicated Disposition: HOME, SELF-CARE Additional Instructions: Do not stop drinking without medical assistance. Go to [place] [facility] or come to the ED if you decide to stop drinking. If you have any confusion, seizure, tremor, uncontrolled vomiting, worsening pain, black or bloody stool, fever of 100.4 or higher, fainting, chest pain, shortness of breath, leg swelling, or any other worsening or alarming symptoms return to the emergency department immediately. Follow-up with your primary doctor within 1 week. Alcohol Withdrawal Your symptoms are likely caused by alcohol withdrawal. After a period of frequent drinking, the brain and body are changed by the alcohol. When you quit or reduce your drinking, the nervous system becomes unstable. Withdrawal symptoms can start a few hours after your last drink, but sometimes don't begin until a couple of days later. Symptoms can include shakiness, sweating, insomnia, nausea, vomiting, fearfulness, hallucinations, and seizures. In addition to the acute effects of alcohol withdrawal, we often have to deal with the medical effects of alcoholism. These problems often include dehydration, stomach irritation, intestinal bleeding, low blood sugar, liver disease, and pancreas inflammation. Treatment for alcohol withdrawal includes mild sedatives, vitamins, and fluids. You need to be with someone who can help if symptoms become severe. Many patients can withdraw at home. Call [facility] at [phone] in the morning for inpatient rehab admission. If before that time you have any of the above alcohol withdrawal symptoms return immediately to the emergency department. Follow-up with a primary doctor within 1 week. Prescriptions: Enoxaparin Sodium [Lovenox Inj 120 mg/0.8 ml Disp.syrin] 115 mg SUBCUT QA #30 disp.syrin
[2020-04-29] MEDS ORDERED: ONDANSETRON ODT 4 MG TAB (6 TAB/ER DISP) PO PRN (06:40)
[2020-04-29] MEDS ORDERED: CLONAZEPAM 1 MG TABLET PO ONE (06:40)
[2020-04-29] MEDS ORDERED: HYDROCODONE/ACETAMINOPHEN 5-325 MG (6 TAB/ER DISP) PO PRN (06:40)
[2020-04-29] MEDS ORDERED: ENOXAPARIN SODIUM INJ 120 MG/0.8 ML DISP.SYRIN SUBCUT ONE (06:43)
[2020-04-29 07:02] VITALS: BP 147/104
--- NOTE | 2020-04-29 07:17 | EKG REPORT ---
SEVERITY:- NORMAL ECG - SINUS RHYTHM : Confirmed by: Darren Mena MD 29-Apr-2020 07:16:28
== END 2020-04-29 07:00 | disposition home or self-care (01) ==
LOC: ER 21:46
DX: K86.0 Alcohol-induced chronic pancreatitis (principal); F10.230 Alcohol dependence with withdrawal, uncomplicated; R20.0 Anesthesia of skin; M79.671 Pain in right foot; M79.672 Pain in left foot; T42.6X6A Underdosing of other antiepileptic and sedative-hypnotic drugs, initial encounter; Z91.120 Patient's intentional underdosing of medication regimen due to financial hardship; Z91.14 Patient's other noncompliance with medication regimen; I82.509 Chronic embolism and thrombosis of unspecified deep veins of unspecified lower extremity; R79.89 Other specified abnormal findings of blood chemistry; R10.811 Right upper quadrant abdominal tenderness; F17.200 Nicotine dependence, unspecified, uncomplicated; I10 Essential (primary) hypertension; F41.9 Anxiety disorder, unspecified; Z79.899 Other long term (current) drug therapy
CPT/HCPCS: 93005; 96376; 99285; 96372; 96361; 96375; 96365; 36415; 80307 ×2; 83690; 87070; 81001; 76705; 93010; J3490; J1650; J2270; J3411; J2405; J7030; J7050

== ENCOUNTER 2020-04-29 11:48 | Emergency (ER) | payer SELFPAY ==
[2020-04-29] MEDS ORDERED: NORMAL SALINE 1000 ML 1,000 ML IV PRN (13:04)
--- NOTE | 2020-04-29 13:04 | ER Document Report ---
ED GI/ - General Chief Complaint: Abdominal Pain Stated Complaint: ABDOMINAL PAIN Mode of Arrival: Medic Information source: Patient Notes: 04/29/20 12:02 - ED Nursing Note by DON KIMBROUGHOPHE [facility] Num: [id number] : 1975 Patient Age: 45 Pt presented via ems on a gurney with c/o abdominal pain. Pt was discharged earlier this am with dx pancreatic issues. Pt has all of his belongings with him. VSS. Harsha Kimbrough RN MY NOTES 45-year-old male arrives by EMS because of shakes and abdominal pain pancreatitis. He has multiple visits for the same. Prior medical history inclu [place] homelessness amphetamine use multiple drug use alcohol abuse alcohol intoxication and pancreatitis. Patient last drank some mikes hard lemonade this morning. He was at homeless senior care and was kicked out of homeless senior care because he was having some alcohol. He now is attempting to stay in the hospital for what ever reason and means he can. He was caught trying to go outside to smoke after having an IV placed by Galileo VENEGAS. He was informed by [employer] VENEGAS that this is not allowed. Patient wants morphine and anything else that will help his abdominal pain. I suspect he is using secondary gain because now he has no place to stay. Patient is very manipulative and has agitated multiple staff members already. TRAVEL OUTSIDE OF THE [place] IN LAST 30 DAYS: No - HPI Patient complains to provider of: Abdominal pain Onset: This morning Timing/Duration: Sudden, Persistent Severity at maximum: Moderate Pain Level: 3 Context: denies: Bad food, Lifting, Out of the country travel, , Recent trauma Location: Epigastric. No: LUQ, LLQ, Left flank, Low back, Suprapubic, Pelvis, Right testicle - Related Data Allergies/Adverse Reactions: No Known Allergies Allergy (Verified 04/24/20 09:14) Past Medical History - Social History Smoking Status: Unknown if Ever Smoked Chew tobacco use (# tins/day): No Drug Abuse: None Family History: Reviewed & Not Pertinent, Hypertension Patient has homicidal ideation: No - Past Medical History Cardiac Medical History: Reports: Hx Hypertension Denies: Hx Coronary Artery Disease, Hx Hypercholesterolemia Pulmonary Medical History: Denies: Hx Asthma, Hx COPD, Hx Tuberculosis Neurological Medical History: Reports: Hx Seizures Endocrine Medical History: Denies: Hx Diabetes Mellitus Type 1, Hx Diabetes Mellitus Type 2, Hx Hyperthyroidism, Hx Hypothyroidism Renal/ Medical History: Denies: Hx Peritoneal Dialysis GI Medical History: Reports: Hx Pancreatitis. Denies: Hx Cirrhosis, Hx Gastroesophageal Reflux Disease, Hx Hepatitis Musculoskeletal Medical History: Denies Hx Arthritis, Denies Hx Gout Skin Medical History: Denies Hx Eczema, Denies Hx Psoriasis Psychiatric Medical History: Reports: Hx Anxiety, Hx Bipolar Disorder, Hx Depression Infectious Medical History: Denies: Hx Hepatitis Past Surgical History: Reports: Hx Oral Surgery, Other - Describes what sounds like a dental surgery - Immunizations Hx Diphtheria, Pertussis, Tetanus Vaccination: Yes - given in er today Review of Systems - Review of Systems Constitutional: See HPI, Malaise, Weakness EENT: No symptoms reported Cardiovascular: No symptoms reported Respiratory: No symptoms reported Gastrointestinal: See HPI, Abdominal pain, Nausea Genitourinary: No symptoms reported Male Genitourinary: No symptoms reported Musculoskeletal: No symptoms reported Skin: No symptoms reported Hematologic/Lymphatic: No symptoms reported Neurological/Psychological: No symptoms reported -: Yes All other systems reviewed and negative Physical Exam - Vital signs Vitals: Temp 98.3 F 04/29/20 11:49 Interpretation: Hypertensive, Tachycardic - General General appearance: Alert, Anxious - HEENT Head: Normocephalic, Atraumatic Eyes: Normal Pupils: PERRL Mucous membranes: Dry Pharynx: Normal Neck: Normal - Respiratory Respiratory status: No respiratory distress Chest status: Nontender Breath sounds: Normal Chest palpation: Normal - Cardiovascular Rhythm: Regular Heart sounds: Normal auscultation Murmur: No - Abdominal Inspection: Normal Distension: No distension Bowel sounds: Normal Tenderness: Tender Organomegaly: No organomegaly - Rectal Prostate: Other - deferred - Genitourinary Scrotum: Other - deferred - Back Back: Normal, Nontender - Extremities General upper extremity: Normal inspection, Nontender, Normal color, Normal ROM, Normal temperature General lower extremity: Normal inspection, Nontender, Normal color, Normal ROM, Normal temperature, Normal weight bearing. No: Nataliia's sign - Neurological Neuro grossly intact: Yes Cognition: Normal Orientation: AAOx4 Leonard Coma Scale Eye Opening: Spontaneous [place] Coma Scale Verbal: Oriented Leonard Coma Scale Motor: Obeys Commands [place] Coma Scale Total: 15 Speech: Normal Motor strength normal: LUE, RUE, LLE, RLE Sensory: Normal - Psychological Associated symptoms: Anxious - Skin Skin Temperature: Warm Skin Moisture: Dry Skin Color: Normal Course - Vital Signs Vital signs: Temp Pulse Resp BP Pulse Ox 98.2 F 144/103 H 96 04/29/20 14:00 04/29/20 16:01 04/29/20 16:01 - Laboratory Results Result Diagrams: 04/29/20 15:00 04/29/20 15:00 Laboratory Results Interpreted: 04/29/20 04/29/20 04/29/20 15:00 15:00 15:55 RBC 4.27 L MCV 101 H MCH 34.3 H RDW 15.1 H Lymph % (Auto) 10.8 L Seg Neutrophils % 83.5 H Sodium 133.4 L Carbon Dioxide 18 L Calcium 6.9 L* Direct Bilirubin 0.5 H AST 685 H ALT 250 H Alkaline Phosphatase 153 H Total Protein 6.2 L Albumin 3.2 L Urine Protein 30 H Urine Ketones TRACE H Critical Laboratory Results Reviewed: No Critical Results Attending or Supervising Physician who Reviewed Labs: ARSLAN LAST JR - Radiology Results Critical Radiology Results Reviewed: No Critical Results Attending or Supervising Physician who Reviewed Radiology: ARSLAN LAST JR Critical Care Note - Critical Care Note Comments: I spoke to Aleksander VENEGAS about this patient and she advises that he is a chronic drinker and manipulator of resources. Discharge - Discharge Clinical Impression: Homelessness Condition: Stable Disposition: HOME, SELF-CARE Additional Instructions: Follow-up with personal doctor ; return to the homeless senior care or to a senior care of your choice take medicines as directed and avoid alcohol
[2020-04-29] MEDS ORDERED: THIAMINE HCL 100 MG, FOLIC ACID 1 MG in NORMAL SALINE 250 ML IV ONE (13:05)
[2020-04-29] MEDS ORDERED: NORMAL SALINE 1000 ML 1,000 ML with POTASSIUM CHLORIDE 20 MEQ, MAGNESIUM SULFATE 8 MEQ,... IV ONE ×5 (13:07)
[2020-04-29] MEDS ORDERED: LORAZEPAM INJ 2 MG/1 ML VIAL IV ONE (13:10)
[2020-04-29] MEDS ORDERED: FENTANYL CITRATE INJ/PF 100 MCG/2 ML AMPUL IM ONE (13:12)
[2020-04-29] MEDS ORDERED: PROMETHAZINE HCL INJ 25 MG/1 ML VIAL IM ONE (13:13)
[2020-04-29 15:34] LABS: ABSOLUTE LYMPHOCYTES (AUTO) 0.8 10^3/uL (0.5-4.7); ABSOLUTE MONOCYTES (AUTO) 0.4 10^3/uL (0.1-1.4); ABSOLUTE NEUT (AUTO) 6.1 10^3/uL (1.7-8.2); BASOPHILS % (AUTO) 0.6 % (0-2); EOSINOPHILS % (AUTO) 0.1 % (0-6); HEMATOCRIT 43.2 % (37.9-51.0); HEMOGLOBIN 14.7 g/dL (13.5-17.0); LYMPHOCYTES % (AUTO) 10.8 % (13-45); MEAN CORPUSCULAR HEMOGLOBIN 34.3 pg (27.0-33.4); MEAN CORPUSCULAR HGB CONC 33.9 g/dL (32.0-36.0); MEAN CORPUSCULAR VOLUME 101 fl (80-97); PLATELET COUNT 239 10^3/uL (150-450); RED BLOOD COUNT 4.27 10^6/uL (4.35-5.55); RED CELL DISTRIBUTION WIDTH 15.1 % (11.5-14.0); SEGMENTED NEUTROPHILS % (AUTO) 83.5 % (42-78); TOTAL CELLS COUNTED % (AUTO) 100 %; WHITE BLOOD COUNT 7.3 10^3/uL (4.0-10.5)
[2020-04-29 15:54] LABS: ALBUMIN 3.2 g/dL (3.5-5.0); ALCOHOL 141 mg/dL (NONE DETECTED); ALKALINE PHOSPHATASE 153 U/L (38-126); ANION GAP 11 (5-19); ASPARTATE AMINO TRANSFERASE 685 U/L (17-59); BILIRUBIN,DIRECT 0.5 mg/dL (0.0-0.4); BILIRUBIN,TOTAL 0.9 mg/dL (0.2-1.3); BLOOD UREA NITROGEN 13 mg/dL (7-20); CARBON DIOXIDE 18 mmol/L (22-30); CHLORIDE 104 mmol/L (98-107); GLUCOSE 91 mg/dL (75-110); POTASSIUM 4.4 mmol/L (3.6-5.0); TOTAL PROTEIN 6.2 g/dL (6.3-8.2)
[2020-04-29 16:04] LABS: CALCIUM 6.9 mg/dL (8.4-10.2)
[2020-04-29 16:33] LABS: APPEARANCE,URINE SLIGHTLY-CLOUDY; BILIRUBIN,URINE NEGATIVE (NEGATIVE); COLOR,URINE YELLOW; GLUCOSE, URINE NEGATIVE (NEGATIVE); KETONES,URINE TRACE mg/dL (NEGATIVE); LEUKOCYTE ESTERASE,URINE NEGATIVE (NEGATIVE); NITRITE,URINE NEGATIVE (NEGATIVE); PROTEIN,URINE 30 mg/dL (NEGATIVE); URINE SPECIFIC GRAVITY 1.024; UROBILINOGEN,URINE NEGATIVE mg/dL (<2.0)
[2020-04-29 16:47] LABS: URINE AMPHETAMINES SCREEN NEGATIVE; URINE BARBITURATES SCREEN NEGATIVE; URINE COCAINE SCREEN NEGATIVE; URINE MARIJUANA (THC) SCREEN NEGATIVE; URINE METHADONE SCREEN NEGATIVE; URINE PHENCYCLIDINE SCREEN NEGATIVE
[2020-04-29 16:48] LABS: URINE BENZODIAZEPINES SCREEN UNCONFIRMED POSITIVE
[2020-04-29] MEDS ORDERED: PROCHLORPERAZINE EDISYLATE INJ 10 MG/2 ML VIAL IV ONE (17:31)
[2020-04-29 18:57] VITALS: BP 150/114
[2020-04-29] MEDS ORDERED: IBUPROFEN 800 MG TABLET PO ONE (20:35)
== END 2020-04-29 22:50 | disposition home or self-care (01) ==
LOC: ER 11:48
DX: Z59.0 Homelessness (principal); R10.9 Unspecified abdominal pain; K85.90 Acute pancreatitis without necrosis or infection, unspecified; R45.1 Restlessness and agitation
CPT/HCPCS: 99284; 96372; 96361; 96374; 96375; 36415; 80307 ×2; 83690; 87070; 81001; J3010; J3475; J2060; J3480; J0780; J2550; J3411; J7030; J3490